=== PATIENT | male | born 1940 | race Caucasian/White ===

== ENCOUNTER 2019-04-01 15:00 | Outpatient (RCR) | payer MEDICARE, SELFPAY ==
--- NOTE | 2019-02-17 14:09 | PCCPR ---
Absent Barak called states he had a nuclear ST yesterday awaiting his results. He was told not to exercise until he hears from his MD. He is still awaiting a call. Hopes to return tomorrow. He knows to keep us informed.
--- NOTE | 2019-02-18 10:41 | PCCPR ---
Deja sahu states he is seeing the Chairman President And Chief Executive Officer today at 1145 today to learn the results of his stress echo. He is not to exercise until after he see's the MD today. Hopes to return on Friday if not will let us know.
--- NOTE | 2019-04-06 10:52 | PCCPR ---
Barak reregistered under new account number, see V# [id number] for documentation related to this visit.
== END 2019-04-01 23:59 | disposition home or self-care (01) ==
LOC: ANHCPREHAB 15:00
DX: Z95.5 Presence of coronary angioplasty implant and graft (principal)
CPT/HCPCS: 93798

== ENCOUNTER 2019-04-14 15:00 | Outpatient (RCR) | payer MEDICARE, SELFPAY | END 2019-04-14 18:23 | disposition home or self-care (01) | LOC: ANHCPREHAB 15:00 | DX: Z95.5 Presence of coronary angioplasty implant and graft (principal) | CPT/HCPCS: 93798 ==

== ENCOUNTER → 2019-09-09 09:46 | Outpatient (CLI) | payer MEDICARE, SELFPAY ==
--- NOTE | ~2019-09-09 | MR_ITS ---
EXAMINATION: MR lumbar spine wo/w con DATE: 09/09/2019 10:37 INDICATION: Lumbar radiculopathy. TECHNIQUE: Magnetic resonance imaging (MRI) of the lumbar spine was performed without and with 15 mL MultiHance intravenous contrast. Sequences included sagittal T2-weighted FSE, sagittal T2-weighted FS FSE, and sagittal and axial T1-weighted FSE. Postcontrast sequences included axial T2-weighted FSE a nd axial and sagittal T1-weighted FS FSE. COMPARISON: Lumbar spine MRI 03/22/2017 FINDINGS: There is 10 degrees levoscoliosis of lumbar spine. There is 3 mm anterolisthesis of L4 on L 5. There is mild chronic anterior wedging of T11 and T12. There is moderately decreased disc height a t L2-L3, mildly decreased disc height at L4-L5, and moderately decreased disc height at L5-S1. There are likely disc calcifications at L5-S1. The distal spinal cord signal intensity is normal. The conus medullaris is at T12. The following disc levels are specifically discussed: L1-L2: The disc is bulging and has an annular fissure. There is moderate right and mild left facet chinedu int osteoarthritis. There is moderate bilateral neural foraminal stenosis. There is mild central luis fernando l stenosis. L2-L3: The disc is bulging and has an annular fissure. There is severe bilateral facet joint osteoart hritis. There is moderate bilateral neural foraminal stenosis. There is mild central canal stenosis. L3-L4: The disc is bulging and has an annular fissure. There is severe bilateral facet joint osteoart hritis. There is moderate right and severe left neural foraminal stenosis. There is mild central luis fernando l stenosis. L4-L5: The disc is bulging and has an annular fissure. There is severe bilateral facet joint osteoart hritis. There is moderate bilateral neural foraminal stenosis. There is mild central canal stenosis. L5-S1: The disc is bulging and has an annular fissure. There is moderate right and severe left facet joint osteoarthritis. There is mild bilateral neural foraminal stenosis. There is no central canal st enosis. IMPRESSION: 1. Moderate lumbar spondylosis with improvement in central canal stenosis from 03/22/2017. 2. Lumbar levoscoliosis. Reviewed, dictated and finalized at location A.
[2019-09-09 10:13] LABS: Estimated Glomerular Filt Rate 58
== END ==
PROVIDERS: Visit Provider Neurological Surgery
DX: M47.26 Other spondylosis with radiculopathy, lumbar region (principal); Z01.818 Encounter for other preprocedural examination
CPT/HCPCS: 36415; 72158; A9577

== ENCOUNTER 2019-09-11 13:51 | Emergency (ER) | payer MEDICARE, SELFPAY ==
--- NOTE | ~2019-09-11 | CT_ITS ---
EXAMINATION: CT brain wo con DATE: 09/11/2019 14:53 INDICATION: Status post fall. Head injury. TECHNIQUE: Computed tomography (CT) of the head was performed without intravenous contrast. The dose- length product was 681.00 mGy-cm. The mA was adjusted according to patient size. Iterative reconstruc tion technique was employed. COMPARISON: None FINDINGS: Mild generalized atrophy. There are scattered mild periventricular and subcortical white ma tter changes, most likely related to small vessel ischemic disease (microangiopathy). There is subara chnoid hemorrhage in the right sylvian fissure. No acute infarction, mass or mass effect. There is in tracranial atherosclerosis. 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 IMPRESSION: 1. Small acute subarachnoid hemorrhage right sylvian fissure. 2: Chronic left occipital lobe infarction. 3: Chronic age-related findings. Dr. Kline discussed with Dr. Arlette Martinez MD at 09/11/2019 15:00 CDT. Reviewed, dictated and finalized at location A.
--- NOTE | ~2019-09-11 | XR_ITS ---
XR elbow RT min 3V, XR forearm RT 2V 09/11/2019 15:12 Indication: Right arm pain post fall from 10 feet Procedure: 4 views right elbow and 2 views right forearm Comparison: No prior studies for comparison. 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 No acute fracture or traumatic malalignment. There is osteoarthritis of the right wrist and radiocarpal joint. No acute fracture or traumatic malalignment . No focal soft tissue abnormality. Lateral view of the elbow is limited for evaluation of joint effu carina due to positioning. Impression: 1: No acute fracture. Reviewed, dictated and finalized at location A. Impression: 1: No acute fracture. Impression: 1: No acute fracture.
--- NOTE | ~2019-09-11 | XR_ITS ---
XR pelvis 1-2V 09/11/2019 15:12 Indication: Pelvic pain Procedure: AP pelvis Comparison: No prior studies for comparison. Findings: Pelvic rings are intact. Sacral foramen are symmetric. No fracture or traumatic malalignmen t. There is lower lumbar spondylosis. There is mild osteoarthritis of the hips. Impression: 1: No acute fracture. Reviewed, dictated and finalized at location A. Impression: 1: No acute fracture.
--- NOTE | ~2019-09-11 | CT_ITS ---
EXAMINATION: CT cervical spine wo con DATE: 09/11/2019 14:53 INDICATION: Status post fall from 10 foot. Loss of consciousness. TECHNIQUE: Computed tomography (CT) of the cervical spine was performed without intravenous contrast. The dose-length product was 400 mGy-cm. Automated exposure control and iterative reconstruction tech nique were employed. COMPARISON: None FINDINGS: Normal cervical lordosis. There is fusion at C6-7. There is disc narrowing at all cervical spine levels. Prominent ventral osteophytes of the mid and lower cervical spine. There is mild multil evel uncinate hypertrophy. There is moderate multilevel facet hypertrophy, left greater than right. S ubcutaneous gas present in the right neck and supraclavicular region, incompletely visualized. There is carotid atherosclerosis. 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 There is a questionable tiny right apical pneumothorax. No acute fracture or traumatic malalignment is identified. IMPRESSION: 1. No acute fracture of the cervical spine. 2: Possible tiny right apical pneumothorax. There is paraseptal emphysema with subcutaneous gas in th e right neck and supraclavicular region, incompletely visualized. 3: Moderate-severe cervical spondylosis.. Reviewed, dictated and finalized at location A. IMPRESSION: 1. No acute fracture of the cervical spine. 2: Possible tiny right apical pneumothorax. There is paraseptal emphysema with subcutaneous gas in the right neck and supraclavicular region, incompletely vis ualized. 3: Moderate-severe cervical spondylosis..
--- NOTE | ~2019-09-11 | XR_ITS ---
[[id number] ] INDICATION: Status post fall from 10 feet. Right rib pain. TECHNIQUE: Frontal projection of the upper right ribs, frontal projection of the lower right ribs, ob lique projection of all the right ribs, frontal inspiratory chest x-ray for interpretation. FINDINGS: There are acute rib fractures of the right third, fourth, fifth, sixth, seventh and eighth right breast. There are no soft tissue abnormality seen. There is a small right apical pneumothorax. Small amount of subcutaneous gas right supraclavicular region. IMPRESSION: 1: Small right apical pneumothorax. 2: Acute right third-eighth rib fractures. Dr. Kline discussed with Dr. Arlette Martinez MD at 09/11/2019 15:11 CDT. Reviewed, dictated and finalized at location A.
[2019-09-11 13:52] VITALS: BP 108/72; PULSE 78; RESP 20; TEMP 36.8; O2SAT 100
--- NOTE | 2019-09-11 14:26 | ED.FALL ---
HPI - Fall General Chief Complaint: Fall Stated Complaint: Fall - 10 ft - +LOC Time Seen by Provider: 09/11/19 13:55 Source: patient Mode of arrival: EMS Limitations: no limitations History of Present Illness HPI Narrative: This patient is a 79 year old male who presents for evaluation of head injury and right rib pain s/p fall. Patient fell through his deck that was 10 ft high prior to arrival. Patient is unsure if he landed on concrete. His son reported to EMS 1 minute Loss of consciousness. He has remained oriented x 3. He complains of right side pain. He denies sob, nausea, vomiting or headache. His last tetanus has been in the past year. complaint: fall Onset (ago): hour(s) Fall from: from height (distance) (5-10) Related Data Home Medications Medication Instructions Recorded Confirmed PreserVision AREDS-2 1 tablet PO DAILY 01/01/19 01/11/19 aspirin [Adult Low Dose Aspirin] 81 mg PO DAILY 01/01/19 01/01/19 atorvastatin 40 mg PO DAILY 01/01/19 01/01/19 cetirizine [Zyrtec] 10 mg PO DAILY 01/01/19 01/11/19 clopidogrel 75 mg PO DAILY 01/01/19 01/11/19 ferrous sulfate 325 mg PO 2XW 01/01/19 01/11/19 hydrochlorothiazide 25 mg PO DAILY 01/01/19 01/01/19 lisinopril 20 mg PO DAILY 01/01/19 01/01/19 omeprazole 20 mg PO DAILY 01/01/19 01/01/19 isosorbide dinitrate 30 mg PO HS 01/11/19 01/11/19 Allergies Allergy/AdvReac Type Severity Reaction Status Date / Time No Known Allergies Allergy Unknown Verified 12/16/17 13:34 NKDA Allergy Mild Uncoded 09/06/08 18:25 Review of Systems Review of Systems: All systems reviewed & are unremarkable except as noted in HPI and below Respiratory: Respiratory: Denies cough and Denies dyspnea Musculoskeletal: Musculoskeletal: Reports myalgias Neurologic: Denies dizziness and Denies headache(s) [facility] Past Medical History Medical History (Updated 09/11/19 @ 15:32 by Arlette Martinez MD) Coronary artery disease Hyperlipidemia Hypertension Surgical History Surgical History (Updated 09/11/19 @ 14:27 by Arlette Martinez MD) History of heart artery stent Exam Const: General: No diaphoretic Orientation/consciousness: patient oriented x3 HENMT: Head: other (right parietal hematoma) Face and sinus: face symmetric Throat: tonsils normal and uvula midline Eyes: Pupils: Equal, round and reactive pupils present EOM: EOMs intact bilaterally Neck: Neck: normal visual inspection Chest: Chest palpation & inspection: tenderness (right lateral chest tendereness) Resp: Effort & Inspection: normal respiratory effort and no retractions Auscultation: clear to auscultation bilaterally Cardio: Rate: regular rate Rhythm: regular rhythm Heart sounds: no murmurs GI: GI Palp: Yes Soft to palpation, No Tenderness to palpation present (GI), No Guarding due to palpation present (GI) and No Rigid due to palpation Neuro: General: patient oriented x3, moves all extremities and CN's II-XI intact bilaterally Extrem: Other: FROM all extremities, skin tear to right forearma and right elbow Course Reevaluation(s) Reevaluation #1: I have discussed with patient and his that he will need to be referred to [facility] due to traumatic injuries found Date: 09/11/19 Time: 15:26 Consultations Consultation #1: I spoke with Dr. Melo in ER who accepts patient in ER. Date: 09/11/19 Time: 15:26 Vital Signs Vital signs: Vital Signs Temperature 98.2 F 09/11/19 13:52 Pulse Rate 78 09/11/19 13:52 Respiratory Rate 20 09/11/19 13:52 Blood Pressure 108/72 09/11/19 13:52 Pulse Oximetry 100 09/11/19 13:52 Temperature 98.2 F 09/11/19 16:06 Pulse Rate 69 09/11/19 15:18 Respiratory Rate 20 09/11/19 15:18 Blood Pressure 141/76 H 09/11/19 15:18 Pulse Oximetry 96 09/11/19 15:18 MDM - Fall Lab Data Result diagrams: 09/11/19 14:46 09/11/19 14:46 Labs: Lab Results 09/11/19 09/11/19 09/11/19 Range/Units 14:45 14:46
[2019-09-11 14:56] LABS: Basophils Percent Auto 0.4 % (0.2-1.2); Eosinophils Percent Auto 0.3 % (0-4.4); Hematocrit 37.3 % (42.0-52.0); Hemoglobin 12.6 g/dL (14.0-18.0); Immature Granulocyte Absolute 0.11 K/mm3 (0.00-0.031); Immature Granulocyte Percent A 1.6 % (0-0.5); Lymphocytes Absolute Auto 0.62 K/mm3 (0.9-3.2); Lymphocytes Percent Auto 9.1 % (18.3-44.2); Mean Corpuscular HGB Conc 33.8 g/dl (32-36); Mean Corpuscular Volume 91.9 fl (80-100); Mean Platelet Volume 9.8 fl (7.4-10.4); Monocytes Absolute Auto 0.6 K/mm3 (0.1-0.6); Monocytes Percent Auto 9.1 % (2.6-8.5); Neutrophils Absolute Auto 5.4 K/mm3 (1.3-6.7); Neutrophils Percent Auto 79.5 % (45.5-73.1); Platelet Count Result 192 k/mm3 (150-375); Red Blood Count 4.06 M/mm3 (4.6-6.20); Red Cell Distribution Width 13.1 % (11.5-14.5); White Blood Count 6.8 K/mm3 (4.5-10.0)
[2019-09-11 15:03] LABS: Alanine Aminotransferase 92 U/L (4-50); Albumin Level 4.2 g/dL (3.5-5.1); Alkaline Phosphatase 114 U/L (38-126); Aspartate Amino Transferase 147 U/L (17-59); Bilirubin,Total 1.2 mg/dL (0.2-1.3); Blood Urea Nitrogen 30 mg/dL (9-20); Calcium 9.1 mg/dL (8.4-10.2); Carbon Dioxide 25 mmol/L (22-30); Chloride 101 mmol/L (98-107); Estimated CRCL calculation 42 ml/min; Estimated Glomerular Filt Rate 53; Glucose 164 mg/dL (75-110); Potassium 4.1 mmol/L (3.4-5.0); Sodium 137 mmol/L (137-145)
[2019-09-11 15:12] LABS: INR 1.1; Prothrombin Time 13.5 Seconds (11.1-14.7)
[2019-09-11] MEDS: MORPHINE SULFATE 2 MG/ML INJ IV PUSH (15:15)
[2019-09-11] MEDS: SODIUM CHLORIDE 0.9% IV 1,000 ML 1000 ML (15:16)
[2019-09-11] MEDS: ONDANSETRON INJ 4 MG/2 ML VIAL IV PUSH (15:16)
[2019-09-11 15:18] VITALS: BP 141/76; PULSE 69; RESP 20; O2SAT 96
[2019-09-11 16:06] VITALS: TEMP 36.8
== END 2019-09-11 16:21 | disposition short-term general hospital (02) ==
PROVIDERS: Emergency Provider General Practice
DX: S06.6X1A Traumatic subarachnoid hemorrhage with loss of consciousness of 30 minutes or less, initial encounter (principal); S22.41XA Multiple fractures of ribs, right side, initial encounter for closed fracture; S27.0XXA Traumatic pneumothorax, initial encounter; I25.10 Atherosclerotic heart disease of native coronary artery without angina pectoris; E78.5 Hyperlipidemia, unspecified; I10 Essential (primary) hypertension; Z95.5 Presence of coronary angioplasty implant and graft; M47.812 Spondylosis without myelopathy or radiculopathy, cervical region; W13.3XXA Fall through floor, initial encounter
CPT/HCPCS: 36415; 70450; 71101; 72125; 72170; 73080; 73090; 80053; 85025; 85610; 85730; 86850; 86900; 86901; 96365; 96375; 99291; J0131; J2270; J2405; J7030

== ENCOUNTER → 2020-03-23 14:44 | Outpatient (CLI) | payer MEDICARE, SELFPAY ==
--- NOTE | ~2020-03-23 | CT_ITS ---
EXAMINATION: CT lumbar spine wo con DATE: 03/23/2020 15:10 INDICATION: Lumbar radiculopathy. TECHNIQUE: Computed tomography (CT) of the lumbar spine was performed without intravenous contrast. A utomated exposure control and iterative reconstruction technique were employed. The dose-length produ ct was 916.41 mGy-cm. COMPARISON: Lumbar spine MRI 09/09/2019 FINDINGS: There is 10 degrees levoscoliosis of lumbar spine. There is 3 mm retrolisthesis of L1 on L2 and 3 mm anterolisthesis of L4 on L5. There are Schmorl's nodes of the inferior endplates of L2 and L3. There is mildly decreased disc height at L1-L2, severely decreased disc height at L2-L3, mildly d ecreased disc height at L3-L4 and L4-L5, and moderately decreased disc height at L5-S1. There are dis c calcifications at L5-S1. There are bridging endplate osteophytes at T11-T12, T12-L1, and L5-S1. The following disc levels are specifically discussed: L1-L2: The disc is bulging. There is severe right and mild left facet joint osteoarthritis. There is moderate bilateral neural foraminal stenosis. There is mild central canal stenosis. L2-L3: The disc is bulging. There is severe bilateral facet joint osteoarthritis. There is moderate r ight and mild left neural foraminal stenosis. There is mild central canal stenosis. L3-L4: The disc is bulging. There is severe bilateral facet joint osteoarthritis. There is moderate b ilateral neural foraminal stenosis. There is mild central canal stenosis. L4-L5: The disc is bulging. There is severe bilateral facet joint osteoarthritis. There is moderate b ilateral neural foraminal stenosis. There is mild central canal stenosis. L5-S1: The disc is bulging. There is severe bilateral facet joint osteoarthritis. There is mild bilat eral neural foraminal stenosis. There is no central canal stenosis. IMPRESSION: 1. Moderate lumbar spondylosis, stable from 09/19/2019. 2. Lumbar levoscoliosis. Reviewed, dictated and finalized at location B. [employer]
== END ==
PROVIDERS: Visit Provider Neurological Surgery
DX: M47.26 Other spondylosis with radiculopathy, lumbar region (principal)
CPT/HCPCS: 72131

== ENCOUNTER 2020-11-17 16:06 | Emergency (ER) | payer MEDICARE, SELFPAY ==
--- NOTE | 2020-11-17 16:26 | ED.EYEPROB ---
HPI - Eye Problem General Chief complaint: Eye Problems Stated complaint: Eye Pain History of Present Illness HPI Narrative: This is a 80 year old male that comes in because he pulled the wrong solution and put in his eye he placed the cleaning solution and then he flushed his eye but it continue to hurt all day. Then he realized he never took his contact out after wearing all day and that is why his eye is blood shot burning and still hurts. now he has it out but he is burning so bad. Related Data Home Medications Medication Instructions Recorded Confirmed PreserVision AREDS-2 1 tablet PO DAILY 01/01/19 11/17/20 aspirin [Adult Low Dose Aspirin] 81 mg PO DAILY 01/01/19 11/17/20 atorvastatin 40 mg PO DAILY 01/01/19 11/17/20 cetirizine [Zyrtec] 10 mg PO DAILY 01/01/19 11/17/20 clopidogrel 75 mg PO DAILY 01/01/19 11/17/20 ferrous sulfate 325 mg PO 2XW 01/01/19 11/17/20 hydrochlorothiazide 25 mg PO DAILY 01/01/19 11/17/20 lisinopril 20 mg PO DAILY 01/01/19 11/17/20 omeprazole 20 mg PO DAILY 01/01/19 11/17/20 isosorbide dinitrate 30 mg PO HS 01/11/19 11/17/20 Allergies Allergy/AdvReac Type Severity Reaction Status Date / Time No Known Allergies Allergy Unknown Verified 11/17/20 16:26 NKDA Allergy Mild Other Uncoded 11/17/20 16:26 Review of Systems Review of Systems: eye left eye pain All systems reviewed & are unremarkable except as noted in HPI and below PMFSH Past Medical History Medical History (Updated 11/17/20 @ 17:29 by Masoud Wooten NP) Coronary artery disease Hyperlipidemia Hypertension Surgical History Surgical History (Updated 09/11/19 @ 14:27 by Arlette Martinez MD) History of heart artery stent Comments At time as signature, I have reviewed and agree with nursing past medical, social, surgical and family history. Please see nursing chart for further information. There is no relevant family history pertinent to the presenting complaint. Exam Narrative: GENERAL:Well-appearing, well-nourished, and in no acute distress. HEAD:Normocephalic, atraumatic. EYES: Left eye with erythema swollen subconjunctival edema corneal abrasion blurry vision ENT: Nares clear, no rhinorrhea or epistaxis. Mucous membranes moist. CHEST: Clear to auscultation. No respiratory distress. HEART: Regular rate and rhythm. EXTREMITIES: Normal range of motion. No edema. SKIN: Warm, dry, no rash. NEURO: No focal deficits. Alert and oriented x3. Course Course Emergency Course: Call placed to conveyor line bakery worker spoke with Dr.Julie Ortiz who I informed of what I was seeing and to ensure that I was put the patient on the appropriate medication and follow up time she wanted him to do the drop q2 hours for the first two days and informed me patient did not need to get up in the middle of the night if he was sleeping and he needed to see a eye doctor in the morning Vital Signs Vital signs: Vital Signs Temperature 98.7 F 11/17/20 16:29 Pulse Rate 78 11/17/20 16:29 Respiratory Rate 18 11/17/20 16:29 Blood Pressure 118/80 11/17/20 16:29 Pulse Oximetry 99 11/17/20 16:29 Temperature 98.7 F 11/17/20 16:40 Pulse Rate 78 11/17/20 16:40 Respiratory Rate 18 11/17/20 16:40 Blood Pressure 118/80 11/17/20 16:40 Pulse Oximetry 99 11/17/20 16:40 Procedures FB Removal Eye Foreign Body #1: Foreign Body Removal Date: 11/17/20 Foreign Body Removal Time: 16:33 Time Out performed: Yes Technique: irrigation (4 oz ) Post-procedure medication: topical anesthetic Foreign Body Removal Narrative: pt mixed eye cleanser for contacts in his eye and then contact was stuck in his eye. MDM - Eye Problem Differential Diagnosis Differential diagnosis: Likely corneal abrasion, conjunctivitis and subconjunctival hemorrhage Discharge Plan Discharge Clinical Impression: Burn of eye Qualifiers: Encounter type: initial encounter Laterality: left Qualified Code(s): T26.42XA - Burn of
[2020-11-17 16:29] VITALS: BP 118/80; PULSE 78; RESP 18; TEMP 37.1; O2SAT 99
[2020-11-17 16:40] VITALS: BP 118/80; PULSE 78; RESP 18; TEMP 37.1; O2SAT 99
== END 2020-11-17 17:30 | disposition home or self-care (01) ==
PROVIDERS: Emergency Provider Nurse Practitioner Family
DX: T26.42XA Burn of left eye and adnexa, part unspecified, initial encounter (principal); S05.02XA Injury of conjunctiva and corneal abrasion without foreign body, left eye, initial encounter; I25.10 Atherosclerotic heart disease of native coronary artery without angina pectoris; E78.5 Hyperlipidemia, unspecified; I10 Essential (primary) hypertension; Z79.82 Long term (current) use of aspirin; X58.XXXA Exposure to other specified factors, initial encounter
CPT/HCPCS: 99213; A9270; G0463

== ENCOUNTER 2021-10-30 11:13 | Emergency (ER) | payer MEDICARE, SELFPAY ==
--- NOTE | 2021-10-30 11:19 | ED.UPPEXIN ---
HPI - Extremity Injury (Upper) General Chief Complaint: Extremity Injury, Upper Stated Complaint: left shoulder pain Time Seen by Provider: 10/30/21 11:19 Source: patient Mode of arrival: ambulatory Limitations: no limitations History of Present Illness HPI narrative: Mr. Caraballo is an 81-year-old male patient presenting to the clinic today with complaints of left-sided shoulder pain x1 day. He reports he has some chronic shoulder pain however symptoms worsened yesterday after playing golf. He reports that he reached down in his car to grab his wallet and keys from the center console and felt a pop in his left shoulder. He reports pain to the top of the left shoulder with movement. He has taken 600 mg of ibuprofen and this is helped the pain this morning. He also iced his shoulder last night. Related Data Home Medications Medication Instructions Recorded Confirmed PreserVision AREDS-2 1 tablet PO DAILY 01/01/19 11/17/20 aspirin 81 mg tablet,delayed 81 mg PO DAILY 01/01/19 11/17/20 release (Adult Low Dose Aspirin) atorvastatin 40 mg tablet 40 mg PO DAILY 01/01/19 11/17/20 cetirizine 10 mg capsule (Zyrtec) 10 mg PO DAILY 01/01/19 11/17/20 clopidogrel 75 mg tablet 75 mg PO DAILY 01/01/19 11/17/20 ferrous sulfate 325 mg (65 mg 325 mg PO 2XW 01/01/19 11/17/20 iron) tablet hydrochlorothiazide 25 mg tablet 25 mg PO DAILY 01/01/19 11/17/20 lisinopril 20 mg tablet 20 mg PO DAILY 01/01/19 11/17/20 omeprazole 20 mg capsule,delayed 20 mg PO DAILY 01/01/19 11/17/20 release isosorbide dinitrate 30 mg tablet 30 mg PO HS 01/11/19 11/17/20 tamsulosin 0.4 mg capsule mg PO 10/30/21 Allergies Allergy/AdvReac Type Severity Reaction Status Date / Time No Known Allergies Allergy Unknown Verified 11/17/20 16:26 NKDA Allergy Mild Other Uncoded 11/17/20 16:26 Review of Systems Review of Systems: Pertinent positives per HPI. Patient denies any fever, chills, rash, headache, visual changes, dizziness, cough, runny nose, sore throat, shortness of breath, chest pain, palpitations, nausea, vomiting, diarrhea, constipation, abdominal pain, or any urinary issues. [facility] Past Medical History Medical History Coronary artery disease Hyperlipidemia Hypertension Surgical History Surgical History History of heart artery stent Comments At the time of my signature, I reviewed and agree with the nursing past medical, surgical, social, and family history. There is no relevant family history pertinent to the patient complaint. Exam Narrative: General: Well-developed, well nourished, in no apparent distress Head: Normocephalic, atraumatic. Cardio: Regular rate and rhythm, s1 and s2 normal, no murmur appreciated. Resp: Clear to auscultation bilaterally, no rhonchi, rales, wheezing or rubs. Musculoskeletal: No deformity, tender to palpation over the supraspinatus tendon, pain over the supraspinatus tendon with full can and empty can testing, pain over the supraspinatus tendon with Hawking's test, grossly normal range of motion but has pain with raising arm above head, muscle strength strong and equal, bilateral hand claim taker strong and equal, peripheral pulse strong, no edema, no cyanosis, normal gait and station Course Course Emergency Course: Portions of this record may have been created with voice recognition software. Level of Care: Express Care Visit Vital Signs Vital signs: Vital signs reviewed MDM - Extremity Injury (Upper) MDM Narrative Medical decision making narrative: At the time of visit patient was resting comfortably on the exam table. Patient has no sign of rotator cuff tear. I suspect the patient has supraspinatus tendinitis to the left shoulder. Supportive measures were discussed with the patient he voiced understanding of discharge instructions and agrees to the treatment plan. Differential Diagno
[2021-10-30 11:22] VITALS: BP 90/59; PULSE 96; RESP 16; TEMP 37.1; O2SAT 98
== END 2021-10-30 11:48 | disposition home or self-care (01) ==
PROVIDERS: Emergency Provider Nurse Practitioner Family
DX: M77.8 Other enthesopathies, not elsewhere classified (principal); I25.10 Atherosclerotic heart disease of native coronary artery without angina pectoris; E78.5 Hyperlipidemia, unspecified; I10 Essential (primary) hypertension; Z95.5 Presence of coronary angioplasty implant and graft; Z79.82 Long term (current) use of aspirin
CPT/HCPCS: 99212; G0463

== ENCOUNTER → 2022-01-16 13:13 | Outpatient (CLI) | payer MEDICARE, SELFPAY ==
--- NOTE | ~2022-01-16 | XR_ITS ---
EXAMINATION: XR lumbar spine min 4V DATE: 01/16/2022 13:37 INDICATION: Low back pain TECHNIQUE: Anteroposterior and lateral in neutral, flexion and extension views of the lumbar spine, a nd cone-down lateral view of the lumbosacral junction were obtained. COMPARISON: CT, 03/23/2020 FINDINGS: There are 4 mm of stable anterolisthesis of L4 on L5. No laxity is present with flexion or extension. The vertebral body heights are normal. There is severe loss of intervertebral disc space h eight at L2-3, moderate loss of disc space height at L5-S1 and mild loss of disc space height through out the remainder of the lumbar spine. There is no fracture. There is severe facet joint osteoarthrit is in the lower lumbar spine. There are 18 degrees of lumbar levoscoliosis. IMPRESSION: 1. Moderate lumbar spondylosis without acute findings or significant interval change. Reviewed, dictated and finalized at location F. MECHANIC IMPRESSION: 1. Moderate lumbar spondylosis without acute findings or significant interval c andrew.
--- NOTE | ~2022-01-16 | XR_ITS ---
XR hip LT 2V w AP pelvis DATE: 01/16/2022 13:37 INDICATION: Left hip pain for 2 years. No injury. TECHNIQUE: AP pelvis. AP and lateral views of left hip COMPARISON: None FINDINGS: Degenerative disc disease at L4-5 and L5-S1. Normal alignment at the pubic symphysis and sacroiliac joints. There is mild left hip osteoarthritis. No fracture or dislocation, avascular necrosis or bone destruc tion of the left hip. IMPRESSION: Mild left hip osteophytes Degenerative disc disease at L4-5 and L5-S1 Reviewed, dictated and finalized at location A. E HEATER
== END ==
DX: M46.1 Sacroiliitis, not elsewhere classified (principal); M47.817 Spondylosis without myelopathy or radiculopathy, lumbosacral region; M51.36 Other intervertebral disc degeneration, lumbar region; M51.37 Other intervertebral disc degeneration, lumbosacral region
CPT/HCPCS: 72110; 73502

== ENCOUNTER → 2022-10-14 09:41 | Outpatient (CLI) | payer OTHER, SELFPAY ==
--- NOTE | ~2022-10-14 | MR_ITS ---
EXAMINATION: MR lumbar spine wo con DATE: 10/14/2022 11:08 INDICATION: Low back pain. Left leg pain. TECHNIQUE: Magnetic resonance imaging (MRI) of the lumbar spine was performed without intravenous con trast. Sequences included sagittal T2-weighted FSE, sagittal T2-weighted FS FSE, sagittal T1-weighted FSE, and axial T2-weighted FSE. COMPARISON: Lumbar spine MRI 09/09/2019 FINDINGS: There is 16 degrees levoscoliosis of lumbar spine. There is 3 mm anterolisthesis of L4 on L 5. Vertebral body heights are normal. There is severely decreased disc height at L2-L3, moderately de creased disc height at L3-L4, and mildly decreased disc height at L4-L5. There is moderately decrease d disc height at L5-S1 with interbody fusion. The distal spinal cord signal intensity is normal. The conus medullaris is at T12. The following disc levels are specifically discussed: L1-L2: The disc is bulging. There is severe right and moderate left facet joint osteoarthritis. There is moderate bilateral neural foraminal stenosis. There is mild central canal stenosis. L2-L3: The disc is bulging and has an annular fissure. There is severe bilateral facet joint osteoart hritis. There is moderate right and mild left neural foraminal stenosis. There is mild central canal stenosis. L3-L4: The disc is bulging with superimposed right central extrusion. There is severe bilateral facet joint osteoarthritis. There is moderate bilateral neural foraminal stenosis. There is mild central c anal stenosis. There is severe stenosis of the lateral recess. L4-L5: The disc is bulging and has an annular fissure. There is severe bilateral facet joint osteoart hritis. There is moderate bilateral neural foraminal stenosis. There is mild central canal stenosis. There is moderate stenosis of left lateral recess. L5-S1: The disc is bulging. There is moderate right and severe left facet joint osteoarthritis. There is mild bilateral neural foraminal stenosis. There is no central canal stenosis. IMPRESSION: 1. Severe lumbar spondylosis, worsened from 09/09/2019. 2. Lumbar levoscoliosis. Reviewed, dictated and finalized at location A.
== END ==
PROVIDERS: Visit Provider Anesthesiology Pain Medicine
DX: M47.817 Spondylosis without myelopathy or radiculopathy, lumbosacral region (principal); M48.062 Spinal stenosis, lumbar region with neurogenic claudication
CPT/HCPCS: 72148

== ENCOUNTER 2023-03-07 11:30 | Outpatient (CLI) | payer OTHER, SELFPAY ==
--- NOTE | ~2023-03-07 | US_ITS ---
EXAMINATION: US venous doppler LE RT DATE: 03/07/2023 11:54 INDICATION: Right lower limb swelling TECHNIQUE: Grayscale ultrasound images without and with compression and Doppler ultrasound images of the right lower extremity veins were obtained. COMPARISON: None. FINDINGS: The visualized portions of right common femoral vein, profunda (deep) femoral vein, femoral vein, pop liteal vein, peroneal trunk, posterior tibial veins, peroneal veins, gastrocnemius vein and greater s aphenous vein outflow are patent. 4.8 x 1.7 x 0.8 cm anechoic Sanz's cyst at the right popliteal fos sa. IMPRESSION: 1. No deep venous thrombosis in the right lower limb. 2. Moderate-sized Sanz's cyst at the right popliteal fossa. Reviewed, dictated and finalized at location A. [employer]
== END 2023-03-07 11:31 | disposition home or self-care (01) ==
PROVIDERS: Visit Provider Internal Medicine Nephrology
DX: M79.89 Other specified soft tissue disorders (principal); M71.21 Synovial cyst of popliteal space [Baker], right knee
CPT/HCPCS: 93971

== ENCOUNTER 2023-06-11 13:55 | Outpatient (CLI) | payer OTHER, SELFPAY ==
[2023-06-11 19:00] LABS: Alanine Aminotransferase 21 U/L (6-50); Albumin Level 3.8 g/dL (3.5-5.1); Alkaline Phosphatase 79 U/L (38-126); Anion Gap 5 mmol/L (4-12); Aspartate Amino Transferase 36 U/L (17-59); Bilirubin,Total 1.2 mg/dL (0.2-1.3); Blood Urea Nitrogen 26 mg/dL (9-20); Calcium 8.7 mg/dL (8.4-10.2); Carbon Dioxide 29 mmol/L (22-30); Chloride 104 mmol/L (98-107); Estimated Glomerular Filt Rate 58; Glucose 79 mg/dL (65-110); Potassium 4.2 mmol/L (3.4-5.0); Sodium 138 mmol/L (137-145)
== END 2023-06-11 13:56 | disposition home or self-care (01) ==
PROVIDERS: PCP Internal Medicine; Visit Provider Clinical Nurse Specialist
DX: N18.31 Chronic kidney disease, stage 3a (principal)
CPT/HCPCS: 36415; 80053

== ENCOUNTER 2023-06-17 11:41 | Day surgery (SDC) | payer OTHER, SELFPAY ==
[2023-06-16 09:44] VITALS: BMI 27.3
--- NOTE | ~2023-06-17 | XR_ITS ---
EXAMINATION: XR fluoroscopy no charge DATE: 06/17/2023 14:09 INDICATION: Sacroiliitis elsewhere classified. TECHNIQUE: 21 intraoperative fluoroscopic views of the sacrum were obtained. I was not present. Fluor oscopy exposure time was 23 seconds. COMPARISON: None. FINDINGS: Images demonstrate injection of the bilateral sacroiliac joints. IMPRESSION: 1. Bilateral sacroiliac joint injections. Reviewed, dictated and finalized at location E.
--- NOTE | 2023-06-17 13:08 | WPDHPUPDATE1 ---
History and Physical Update Update Date/Time: 06/17/23 13:08 History and Physical has been reviewed, including an updated exam of the patient. There are NO changes in the patient's condition. Risks, benefits, and alternatives have been discussed and questions answered. Patient agrees to proceed with procedure.
[2023-06-17 13:17] VITALS: BP 133/91; PULSE 80; RESP 20; TEMP 37.2; O2SAT 97
--- NOTE | 2023-06-17 13:43 | W.PM.PROC2 ---
Procedure Note - Detailed Date of Procedure 06/17/23 Pre-op Diagnosis Sacroiliitis not elsewhere classified, dorsalgia Post-op Diagnosis Same Procedure Performed Bilateral Sacroiliac Joint Steroid Injection under Fluoroscopic Guidance and with Contrast Control Surgeon Robin Sam MD Anesthesia Local Description of Procedure INFORMED CONSENT: Risks, benefits and alternatives to the procedure were discussed in detail with the patient who expressed explicit understanding and consent to proceed. Patient was informed verbally and in written form regarding the risks associated with the procedure including the low risk of serious infection, bleeding/bruising, allergic reaction, nerve or organ injury, paralysis, procedural site pain or discomfort, worsening pain and/or mobility, failure to treat and/or disfigurement. The patient expressed explicit understanding and consent to proceed. All materials required for the procedure were available prior to procedure start. Site and side were marked prior to procedure and confirmed in the presence of the patient. PROCEDURE IN DETAIL: The patient was brought to the procedural suite and placed in the prone position. Patient was made comfortable with use of pillows under the head/chest, hips and ankles. Skin overlying the injection site on the affected side(s) was prepared broadly with ChloraPrep applicator and draped in a sterile manner. Aseptic technique was used throughout. The SI joint was identified in the AP view and contralateral oblique angulation with caudal tilt was utilized to optimize visualization of the inferior and medial joint line representing the posterior portion of the joint. Local anesthesia was established by infiltration with approximately 5 mL of 2% lidocaine via a 1-1/2 inch 27-gauge needle. A 22-gauge 3.5 inch Quincke spinal needle was advanced until the needle entered the inferior third of the joint space approximately 1cm cephalad from its most inferior point. In the AP view, 0.5 mL of Omnipaque 300 contrast medium was injected after negative aspiration for CSF, blood or other bodily fluid, showing appropriate intra-articular spread of contrast without evidence of intravascular, perineural or intrathecal placement. A 1.5 mL solution containing 3 mg of betamethasone in 0.5% PF bupivacaine was injected after repeat negative aspiration. Appropriate spread of the injectate was confirmed with washout of previous injected contrast. No parasthesias were elicited. Needle was removed completely intact without difficulty. The same exact procedure was repeated for all remaining levels on the contralateral side, left SI joint, modified as necessary to accommodate for the new target location with identical findings/results and no evidence of complication. Images were saved and documented in the patient chart. Patient's skin was cleansed and sterile bandage applied. The patient tolerated the procedure well. The patient was transported to the recovery area in stable condition where they were observed for an appropriate amount of time prior to discharge, without evidence of complication. The patient was instructed to avoid excessive activity for the next 48 hours, including climbing and frequent use of stairs. Showers only for 48 hours. They were instructed not to drive or operate heavy machinery for 24 hours. They are to monitor for severe headaches, fevers, chills, night sweats, erythema/swelling at the site or any other signs of infection, bleeding/bruising, bowel or bladder changes as well as new pain, weakness or numbness in the upper or lower extremity. Should they notice these changes, they are instructed to call our office immediately or report directly to the nearest Emergency Department if no answer or if after posted office hours. COMPLICATIONS: None COMMENTS: None CONTRAST WASTED: 29mL Omnipaque 300. Complications No immediate complications Condition Stable Disposition Same day [facility]
[2023-06-17 13:57] VITALS: BP 161/94; PULSE 79; RESP 20; O2SAT 97
[2023-06-17 14:05] VITALS: BP 143/88; PULSE 73; RESP 20; O2SAT 95
[2023-06-17] MEDS: LIDOCAINE HCL 1% PF INJ 5 ML VIAL 3 ML INFILTRATE (14:06)
[2023-06-17] MEDS: BUPivacaine HCL 0.5% 10 ML AMP 2 ML INFILTRATE (14:07)
[2023-06-17] MEDS: BETAMETHASONE SODIUM PHOSPHATE PF INJ 6 MG/ML VIAL INFILTRATE (14:07)
[2023-06-17 14:13] VITALS: BP 122/87; PULSE 72; RESP 18; O2SAT 99
== END 2023-06-17 14:29 | disposition home or self-care (01) ==
PROVIDERS: PCP Internal Medicine; Visit Provider Anesthesiology Pain Medicine
PROC: (CPT 27096; principal; 2023-06-17 14:00)
DX: M46.1 Sacroiliitis, not elsewhere classified (principal); M54.9 Dorsalgia, unspecified
CPT/HCPCS: 27096; 99199; G0260

== ENCOUNTER 2023-07-14 10:21 | Outpatient (CLI) | payer OTHER, SELFPAY | END 2023-07-14 10:22 | disposition home or self-care (01) | PROVIDERS: PCP Internal Medicine; Visit Provider Internal Medicine | DX: R53.83 Other fatigue (principal); I10 Essential (primary) hypertension; R06.00 Dyspnea, unspecified | CPT/HCPCS: 36415; 84443 ==

== ENCOUNTER 2023-07-14 10:30 | Outpatient (CLI) | payer OTHER, SELFPAY ==
--- NOTE | ~2023-07-14 | XR_ITS ---
Clinical Indication: Dyspnea PA and lateral views of the chest: Comparison: None Findings: The lungs are clear, without evidence of focal consolidation or pleural effusion. Cardiome diastinal silhouette is within normal limits. Multiple old right-sided rib fracture deformities are n oted. Impression: Clear lungs. Reviewed, dictated and finalized at location . Impression: Clear lungs.
== END 2023-07-14 10:31 ==
LOC: GOSHIMG 10:32
PROVIDERS: PCP Internal Medicine; Visit Provider Internal Medicine
DX: R06.00 Dyspnea, unspecified (principal)
CPT/HCPCS: 71046

== ENCOUNTER 2023-07-18 14:43 | Outpatient (CLI) | payer OTHER, SELFPAY ==
--- NOTE | 2023-07-18 17:04 | P.PCNPFT_ITS ---
PFT Procedure Performed PFT Procedure Performed Plethysmography (Lung Vol) Diffusing Cap (DLCO) Flow Vol Loop Spirometry w/o Bronchodil PFT Interpretation This is a pulmonary function test with spirometry, plethysmography and diffusing capacity. The test was performed and results interpreted in accordance with the 2019 and 2005 ATS/ERS Task Force guidelines respectively using the Global Lung Function Initiative-2012 reference equations. Patient demonstrated good effort and cooperation. Reproducibility criteria were met. The quality of the spirometry maneuver was Grade A. Of note, the patient had difficulty holding exhalation with spirometry. Findings: Spirometry: The contour the inspiratory and expiratory flow tracing are normal. The FVC is 4.47 L, 119% predicted. The FEV1 is 3.55 L, 128% predicted. The FEV1: FVC ratio 79%. Plethysmography: The total lung capacity is 7.35 L, 104% predicted. The functional residual capacity is 3.53 L, 91% predicted. The residual volume is 2.88 L, 105% predicted. Diffusing capacity: The diffusing capacity unadjusted for hemoglobin and carbox yhemoglobin is 20.6, 90% predicted. The diffusing capacity adjusted for alveolar volume is 3.02, 86% predicted. In comparison to previous pulmonary function testing on 04/09/2016 the post bronchodilator FVC is unchanged from 4.81 L to 4.47 L. The post bronchodilator FEV1 is unchanged from 3.87 L to 3.55 L. The total lung capacity is unchanged from 8.04 L to 7.35 L. The functional residual capacity has decreased from 4.49 L to 3.53 L. The residual volume is unchanged from 3.13 L to 2.88 L. The diffusing capacity unadjusted for hemoglobin and carboxyhemoglobin is decreased from 26.0 to 20.6. The diffusing capacity adjusted for alveolar volume has decreased from 3.76 to 3.02. Impression: The spirometry is normal without evidence of an obstructive abnormality. The lung volumes are normal. The diffusing capacity is normal. In comparison to previous pulmonary function testing on 04/09/2016 there has been a greater than anticipated time dependent decrease in the functional residual capacity and diffusing capacity with no significant change in the FVC, FEV1, total lung capacity, and residual volume. Clinical correlation is recommended.
== END 2023-07-18 14:44 | disposition home or self-care (01) ==
LOC: ANHPFT 14:44
PROVIDERS: PCP Internal Medicine; Visit Provider Internal Medicine
DX: R06.00 Dyspnea, unspecified (principal); R53.83 Other fatigue
CPT/HCPCS: 94375; 94726; 94729

== ENCOUNTER 2023-08-01 11:09 | Outpatient (CLI) | payer OTHER, SELFPAY ==
[2023-08-06 11:14] LABS: Testosterone Free 51.3 pg/mL (30.0-135.0); Testosterone Total 532 ng/dL (250-1100)
== END 2023-08-01 11:10 | disposition home or self-care (01) ==
PROVIDERS: PCP Internal Medicine; Visit Provider Internal Medicine
DX: R53.83 Other fatigue (principal)
CPT/HCPCS: 36415; 84402; 84403

== ENCOUNTER 2023-08-14 10:57 | Outpatient (CLI) | payer OTHER, SELFPAY ==
--- NOTE | ~2023-08-14 | US_ITS ---
EXAMINATION: US renal BI DATE: 08/14/2023 11:14 INDICATION: Stage IIIa chronic kidney disease TECHNIQUE: Multiple ultrasound grayscale images of the kidneys were obtained. COMPARISON: None. FINDINGS: The right kidney measures 9.7 x 4.6 x 4.7 cm. The left kidney measures 9.6 x 5.4 x 5.0 cm. The kidney s demonstrate normal echogenicity. There is no hydronephrosis in either kidney. No stones identified . The bladder is normal accounting for partially decompressed state. IMPRESSION: 1. Normal kidneys without hydronephrosis. Reviewed, dictated and finalized at location A.
== END 2023-08-14 10:58 ==
LOC: GOSHIMG 10:58
PROVIDERS: PCP Internal Medicine; Visit Provider Internal Medicine Nephrology
DX: N18.31 Chronic kidney disease, stage 3a (principal)
CPT/HCPCS: 76775

== ENCOUNTER 2023-08-19 05:47 | Day surgery (SDC) | payer OTHER, SELFPAY ==
[2023-08-11 12:08] VITALS: BMI 26.9
--- NOTE | ~2023-08-19 | XR_ITS ---
EXAMINATION: XR fluoroscopy no charge DATE: 08/19/2023 08:18 INDICATION: Thermal radioablation bilateral L5, S1, S2, S3 and S4 nerve roots. TECHNIQUE: 4 fluoroscopic images of the pelvis centered at the left and right sacral ala were obtaine d during procedure performed by Dr. Sam. Radiologist was not present for the imaging or procedure. T he amount of fluoroscopy time used during this procedure was 0.5 minutes. COMPARISON: None. FINDINGS/IMPRESSION: Images demonstrate 5 needles likely from posterior approach with distal tips evenly distributed in a cranial to caudal linear pattern along the left sacral ala and subsequently along the right sacral al a. See procedure note for further detail. Reviewed, dictated and finalized at location A.
--- NOTE | 2023-08-19 06:14 | WPDHPUPDATE1 ---
History and Physical Update Update Date/Time: 08/19/23 06:14 History and Physical has been reviewed, including an updated exam of the patient. There are NO changes in the patient's condition. Risks, benefits, and alternatives have been discussed and questions answered. Patient agrees to proceed with procedure.
--- NOTE | 2023-08-19 06:15 | W.PM.PROC2 ---
Procedure Note - Detailed Date of Procedure 08/19/23 Pre-op Diagnosis Sacroiliitis, chronic low back pain Post-op Diagnosis Same Procedure Performed Radiofrequency Ablation of the Bilateral L5 Dorsal Ramus, Sacral Accessory Branch, and Lateral Sacral Branches at S1, S2, S3 and S4 Innervating the bilateral SI joints under Fluoroscopic Guidance ([5] levels treated). Surgeon Robin Sam MD Anesthesia MAC and Local Description of Procedure INFORMED CONSENT: Risks, benefits and alternatives to the procedure were discussed in detail with the patient who expressed explicit understanding and consent to proceed. Patient was informed verbally and in written form regarding the risks associated with the procedure including the low risk of serious infection, bleeding/bruising, allergic reaction, nerve or organ injury, paralysis, procedural site pain or discomfort, worsening pain and/or mobility, failure to treat and/or disfigurement. The patient expressed explicit understanding and consent to proceed. All materials required for the procedure were available prior to procedure start. Site and side were marked prior to procedure and confirmed in the presence of the patient. PROCEDURE IN DETAIL: The patient was brought to the procedural suite and placed in the prone position. Patient was made comfortable with use of pillows under the head/chest, hips and ankles. Skin overlying the injection site on the affected side(s) was prepared broadly with ChloraPrep applicator and draped in a sterile manner. Aseptic technique was used throughout. The endplates of the vertebral bodies at the L5 and S1 levels were aligned in the AP view. Ipsilateral oblique angulation was utilized to optimize visualization of the intersection between the superior articulating process and transverse process at the sacral ala target site and oblique to the contralateral side to optimized view of the lateral borders of the sacral posterior neuroforamina for the remaining levels. Local anesthesia was established along a line bisecting the distance between the lateral borders of the posterior sacral neuroforamina and the medial border of the sacroiliac joint by infiltration with approximately 20 mL of 0.5% lidocaine via a 1-1/2 inch 27-gauge needle. Two 16-gauge 100mm RF needles with curved 10mm active tips were advanced in the AP view until the needle tip contacted the periosteum at the sacral ala (to ablate the L5 dorsal ramus and Sacral Accessory Branch supplying the right L5-S1 facet joint) with needle tips placed 1.2-1.5 cm apart. Lateral view was utilized to adjust and confirm the appropriate placement of the needle tip just dorsal to the posterior border of the sacrum. The appropriately-sized RF cannula was inserted into the RF needle and motor stimulation performed with no subjective or objective evidence of recruited muscle activity with stimulation up to 3.0 volts at a frequency of 2Hz. 1.0 mL of 2.0% PF lidocaine was injected after negative aspiration (5 ml of 2% PF lidocaine used for entire procedure). After a 90s pause, lesioning was performed in a bipolar and linear fashion to 90 degrees centigrade for 90s ensuring lack of symptoms in the extremity throughout. [place] were withdrawn to skin and replaced inferiorly in a leap-frog fashion. Appropriate final needle positions were verified in the AP and Lateral views in all cases. The same procedure was repeated for all intended levels/ structures on the ipsilateral side with identical methodology, right S1, S2, S3, S4 lateral branches, modified to compensate for new location, with similar results and no evidence of complication until all six branches were effectively ablated. No parasthesias were elicited. Needle was removed completely intact without difficulty. the same exact procedure was repeated in a similar manner on the contralateral side to ablate the left L5 dorsal ramus, S1 accessory branch, S1 through S4 lateral branches to ablate the left SI chinedu
[2023-08-19 06:32] VITALS: BP 123/78; PULSE 67; RESP 16; TEMP 36.7; O2SAT 95
--- NOTE | 2023-08-19 06:36 | WPDANESEPPF ---
Anes - Initial Pre Proc Eval Procedure: Operation Date: 08/19/23 07:30 Proposed Procedures p Thermal Radiofrequency Ablation Bilateral L5 Dorsal Rami, S1, S2, S3, S4 Sacral Branches to Denervate Bilateral Sacroiliac Joints under Fluoroscopic Guidance - Robin Sam MD Date/Time: 08/19/23 06:36 Surgeon: Robin Sam MD Pre Op Diagnosis: Sacroiliitis Patient Data Age: 83 Gender: M Height: 1.78 m Weight: 85 kg Last Vital Signs Temp 36.7 C 08/19/23 06:32 Pulse 67 08/19/23 06:32 Resp 16 08/19/23 06:32 BP 123/78 08/19/23 06:32 Pulse Ox 95 08/19/23 06:32 O2 Del Method Room Air 08/19/23 06:32 Allergies Allergy/AdvReac Type Severity Reaction Status Date / Time No Known Allergies Allergy Unknown Verified 08/19/23 06:25 Home Medications Medication Instructions Recorded Confirmed Type PreserVision AREDS-2 1 tablet PO DAILY 01/01/19 08/11/23 History aspirin 81 mg tablet,delayed 81 mg PO DAILY 01/01/19 08/19/23 History release (Adult Low Dose Aspirin) atorvastatin 40 mg tablet 40 mg PO DAILY 01/01/19 08/19/23 History ferrous sulfate 325 mg (65 mg 325 mg PO 2XW 01/01/19 08/19/23 History iron) tablet lisinopril 20 mg tablet 20 mg PO DAILY 01/01/19 08/19/23 History magnesium 200 mg tablet 400 mg PO DAILY 03/27/23 08/19/23 History diphenhydramine HCl 25 mg capsule 25 mg PO TID PRN Allergy Symptoms 06/17/23 08/19/23 History isosorbide mononitrate 60 mg 60 mg PO DAILY 07/07/23 08/19/23 History tablet,extended release 24 hr acetaminophen 325 mg capsule 325 mg PO Q6H PRN Pain 07/14/23 07/14/23 History turmeric root extract 500 mg 500 mg PO DAILY 07/14/23 08/11/23 History capsule omeprazole 20 mg capsule,delayed 20 mg PO DAILY #90 caps 08/06/23 08/11/23 Rx release Patient hx anesthesia problems: none Family hx anesthesia problems: none Results Review: All pre-operative results and documents have been reviewed as part of the pre-operative evaluation. [facility] Past Medical History Medical History Brain bleed (~09/11/19) Coronary artery disease Hyperlipidemia Hypertension Multiple fractures of ribs of right side Surgical History Surgical History History of heart artery stent 3 placed in 08/14/18 1 placed 10/07/18 History of nasal surgery (~05/28/18) Hx of cholecystectomy (~03/23/19) S/P correction of deviated nasal septum (~02/12/18) S/P TURP (~02/18/22) Family History Family History Father Heart disease Mother Heart disease Hypertension Sibling Hypertension Heart disease Social History Social History Social History: Caffeine- coffee Smoking status: Never smoker Second hand tobacco smoke exposure: No Alcohol intake: current Drinks per week: 5 Alcohol use details: Beer Substance use: never Substance use type: does not use Do You Feel Safe in your Home?: Yes Lack of Transportation: No Lack of Food: Never True Current Housing: I Have Housing Concerned About Future Housing: No Difficulty Paying Gas/Electric Bills: No Difficulty Paying for Meds: No Currently Unemployed: No Education: Associate Degree Difficulty w/ Childcare or Family Care: No Living arrangements: with family Occupation/Education: retired Gender identity (if verbalized by the patient): Male Spiritual care concerns: No Agree to blood products: Yes Anes - Eval Final PreProcedure Day of Procedure 08/19/23 06:36 Patient weight: overweight Heart: regular rate and rhythm Lungs: clear to auscultation Airway: Mallampati scale class II Neurological: alert and oriented Last oral intake: >/= 8 hours ASA classification: III Emergent: no Anesthetic plan: proceed Anesthesia type and monitoring: general GIVS and standa
[2023-08-19 06:56] VITALS: BMI 27.4
[2023-08-19] MEDS: LACTATED RINGERS 1,000 ML 30 ML IV CONT ×2 (06:59→08:50)
[2023-08-19] MEDS: BUPivacaine HCL 0.5% 10 ML AMP INFILTRATE (07:45)
[2023-08-19] MEDS: LIDOCAINE HCL 2% PF INJ 5 ML VIAL 10 ML INFILTRATE (07:45)
[2023-08-19] MEDS: LIDOCAINE HCL 1% PF INJ 5 ML VIAL 9 ML XX (08:17)
[2023-08-19 08:22] VITALS: BP 98/73; PULSE 59; RESP 12; O2SAT 96
[2023-08-19 08:37] VITALS: BP 101/67; PULSE 64; RESP 14; O2SAT 95
[2023-08-19 08:46] VITALS: BP 119/85; PULSE 63; RESP 16; O2SAT 98
--- NOTE | 2023-08-19 11:56 | WPDANESPN ---
Anes - Prog Note Post-Op Date/Time: 08/19/23 11:56 Cardiovascular status: normal Respiratory status: normal Airway patency: baseline Mental status: baseline Post-Op hydration status: normal Vital Signs: Last Vital Signs Temp 36.7 C 08/19/23 06:32 Pulse 63 08/19/23 08:46 Resp 16 08/19/23 08:46 BP 119/85 08/19/23 08:46 Pulse Ox 98 08/19/23 08:46 O2 Del Method Room Air 08/19/23 08:46 Pain Score (VAS): 0 Post-procedural complaints: none Patient Feedback: Patient satisfied with anesthetic care. Other Findings: Patient vital signs back to baseline. Patient denies nausea and vomiting. Patient's pain under control. Patient OK for discharge.
== END 2023-08-19 09:00 | disposition home or self-care (01) ==
PROVIDERS: PCP Internal Medicine; Visit Provider Anesthesiology Pain Medicine
PROC: (CPT 64625; principal; 2023-08-19 07:30)
DX: M46.1 Sacroiliitis, not elsewhere classified (principal); M54.59 Other low back pain
CPT/HCPCS: 64625 ×2; 99199

== ENCOUNTER 2023-09-02 14:30 | Outpatient (CLI) | payer OTHER, SELFPAY ==
[2023-09-02 15:21] LABS: Hematocrit 42.8 % (42.0-52.0); Hemoglobin 14.4 g/dL (14.0-18.0); Mean Corpuscular HGB Conc 33.6 g/dl (32-36); Mean Corpuscular Hemoglobin 32.8 pg (26-34); Mean Corpuscular Volume 97.5 fl (80-100); Mean Platelet Volume 9.7 fl (7.4-10.4); Platelet Count Result 178 k/mm3 (150-375); Red Blood Count 4.39 M/mm3 (4.6-6.20); Red Cell Distribution Width 13.1 % (11.5-14.5); White Blood Count 4.7 K/mm3 (4.5-10.0)
--- NOTE | 2023-09-02 15:28 | ECG_ITS ---
Test Date: 2023-09-02 15:38:46 Measurements Intervals [place] Rate: 64 P: 52 MS: 185 QRS: 31 QRSD: 110 T: 26 QT: 385 QTc: 397 Interpretive Statements SINUS RHYTHM WITH MARKED SINUS ARRHYTHMIA BASELINE ARTIFACT- I, III, AVR, AVL, AVF NORMAL ECG No previous ECG available for comparison Electronically Signed On 09-02-2023 16:47:21 CDT by Jude Villalobos D.O.
[2023-09-02 15:31] LABS: Alanine Aminotransferase 19 U/L (6-50); Albumin Level 4.6 g/dL (3.5-5.1); Alkaline Phosphatase 93 U/L (38-126); Anion Gap 8 mmol/L (4-12); Aspartate Amino Transferase 27 U/L (17-59); Bilirubin,Total 1.3 mg/dL (0.2-1.3); Blood Urea Nitrogen 18 mg/dL (9-20); Carbon Dioxide 29 mmol/L (22-30); Chloride 103 mmol/L (98-107); Estimated Glomerular Filt Rate > 60; Glucose 108 mg/dL (65-110); Potassium 4.4 mmol/L (3.4-5.0); Sodium 140 mmol/L (137-145)
== END 2023-09-02 14:31 | disposition home or self-care (01) ==
PROVIDERS: PCP Internal Medicine; Visit Provider Anesthesiology Pain Medicine
DX: Z01.818 Encounter for other preprocedural examination (principal); R94.31 Abnormal electrocardiogram [ECG] [EKG]
CPT/HCPCS: 36415; 80053; 85027; 93005

== ENCOUNTER 2023-09-03 13:51 | Outpatient (CLI) | payer OTHER, SELFPAY ==
[2023-09-03 14:39] LABS: Prothrombin Time 14.1 Seconds (11.1-14.7)
[2023-09-03 14:40] LABS: Partial Thromboplastin Time 27.6 Seconds (22.3-36.8)
== END 2023-09-03 13:52 | disposition home or self-care (01) ==
PROVIDERS: PCP Internal Medicine; Visit Provider Anesthesiology Pain Medicine
DX: D68.9 Coagulation defect, unspecified (principal)
CPT/HCPCS: 36415; 85610; 85730

== ENCOUNTER 2023-09-09 05:48 | Day surgery (SDC) | payer OTHER, SELFPAY ==
[2023-08-25 14:04] VITALS: BMI 26.5
--- NOTE | 2023-08-25 14:38 | PC.NURSE ---
Spoke with Malina at Dr. Sam's office regarding pre procedure orders for procedure scheduled 09/09/23. Questioned if Dr. Sam wanted pt to have CXR as one was recently completed 07/14/23 and was normal. Malina stated to omit the order for the [employer] at this time and she would send a message to Dr. Sam regarding the above. Malina will notify [facility] if Dr. Sam does want pt to have another CXR prior to procedure so order can be entered.
[2023-09-09] VITALS (8 sets, daily range): BP systolic 95–160; BP diastolic 59–95; PULSE 63–92; RESP 12–18; TEMP 36.1–36.9; O2SAT 94–100
--- NOTE | ~2023-09-09 | XR_ITS ---
EXAMINATION: XR fluoroscopy no charge DATE: 09/09/2023 08:53 INDICATION: Percutaneous transpedicular intraosseous basivertebral nerve ablation at and. TECHNIQUE: 44 fluoroscopic images of the lumbar spine were obtained during procedure performed by Dr. Sam. Radiologist was not present for the imaging or procedure. The amount of fluoroscopy time used during this procedure was 4.4 minutes. COMPARISON: Lumbar spine radiographs dated 01/16/2022 FINDINGS: End seen is severe right-sided disc height loss with prominent degenerative endplate osteophytes and Modic type III sclerotic endplate changes at L2-L3. Images demonstrate advancement of large bore need les accessing first the L3 vertebral body via a left transpedicular approach and subsequently the L2 vertebral body via right transpedicular approach. Likely thermal ablation leads are seen extending th rough each large-bore needle and advanced to the region of the midline of the vertebral body at appro ximately the junction of the mid to posterior thirds of the vertebral body and near the midpoint cran iocaudally. IMPRESSION: 1. Fluoroscopy utilized during pain management procedure in the mid lumbar spine. See procedure note for further detail. Reviewed, dictated and finalized at location A. IMPRESSION: 1. Fluoroscopy utilized during pain management procedure in the mid lumbar spin e. See procedure note for further detail.
--- NOTE | 2023-09-09 06:04 | PM.HPGS ---
History of Present Illness History of Present Illness Consent: Risks, benefits, and alternatives have been discussed and questions answered. Patient agrees to proceed with procedure. 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 Review of Systems Review of Systems: Patient denies any new infectious, allergic, cardiopulmonary, neurologic or constitutional symptoms or changes in activity tolerance or exercise capacity including new or progressive SOB/DRIVER, peripheral edema, productive cough, dysuria, nausea/vomiting, diarrhea, weight change, fevers/chills/night sweats, new or progressive neurologic deficit, cognitive or mood changes since last seen, except as documented in the HPI. All systems reviewed & are unremarkable except as noted in HPI and below PMFSH Past Medical History Medical History Brain bleed (~09/11/19) Coronary artery disease Hyperlipidemia Hypertension Multiple fractures of ribs of right side Surgical History Surgical History History of heart artery stent 3 placed in 08/14/18 1 placed 10/07/18 History of nasal surgery (~05/28/18) Hx of cholecystectomy (~03/23/19) S/P correction of deviated nasal septum (~02/12/18) S/P TURP (~02/18/22) Family History Family History Father Heart disease Mother Heart disease Hypertension Sibling Hypertension Heart disease Social History Social History Social History: Caffeine- coffee Smoking status: Former smoker Tobacco type: cigarettes Second hand tobacco smoke exposure: Yes Alcohol intake: current Drinks per week: 5 Alcohol use details: beer Substance use: never Substance use type: does not use Do You Feel Safe in your Home?: Yes Lack of Transportation: No Lack of Food: Never True Current Housing: I Have Housing Concerned About Future Housing: No Difficulty Paying Gas/Electric Bills: No Difficulty Paying for Meds: No Currently Unemployed: No Education: Associate Degree Difficulty w/ Childcare or Family Care: No Living arrangements: alone Occupation/Education: retired Gender identity (if verbalized by the patient): Male Spiritual care concerns: No Agree to blood products: Yes Meds Home Medications and Allergies Home Medications Medication Instructions Recorded Confirmed Type PreserVision AREDS-2 1 tablet PO DAILY 01/01/19 08/25/23 History aspirin 81 mg tablet,delayed 81 mg PO DAILY 01/01/19 08/25/23 History release (Adult Low Dose Aspirin) atorvastatin 40 mg tablet 40 mg PO DAILY 01/01/19 08/25/23 History ferrous sulfate 325 mg (65 mg 325 mg PO 2XW 01/01/19 08/25/23 History iron) tablet lisinopril 20 mg tablet 20 mg PO DAILY 01/01/19 08/25/23 History magnesium 200 mg tablet 400 mg PO DAILY 03/27/23 08/25/23 History diphenhydramine HCl 25 mg capsule 25 mg PO TID PRN Allergy Symptoms 06/17/23 08/25/23 History isosorbide mononitrate 60 mg 60 mg PO DAILY 07/07/23 08/25/23 History tablet,extended release 24 hr acetaminophen 325 mg capsule 325 mg PO Q6H PRN Pain 07/14/23 08/25/23 History turmeric root extract 500 mg 500 mg PO DAILY 07/14/23 08/25/23 History capsule omeprazole 20 mg capsule,delayed 20 mg PO DAILY #90 caps 08/06/23 08/25/23 Rx rel
--- NOTE | 2023-09-09 06:14 | W.PM.PROC2 ---
Procedure Note - Detailed Date of Procedure 09/09/23 Pre-op Diagnosis Vertebrogenic Low Back Pain, chronic dorsalgia Post-op Diagnosis Same Procedure Performed Percutaneous transpedicular intraosseous basivertebral nerve thermal radiofrequency ablation (Intracept procedure) at L2, L3 under fluoroscopic guidance. Surgeon Robin Sam MD Anesthesia General (GETA] in the [prone] position with infiltration of local anesthetic. 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 They are significantly limited in their daily and/or work-related activities as a result, including sitting, standing, lifting/carrying and sleeping, with failure to respond to and/or tolerate extensive efforts at more conservative management (i.e. oral and topical analgesics including NSAIDs, acetaminophen and opioids, Physical Therapy and modalities, time/rest, interventional procedures/corticosteroid injections) for greater than 6 months prior to today's procedure establishing medical necessity for this well-studied and FDA-approved pain-relieving procedure. INFORMED CONSENT: Procedure was discussed in detail with the patient at a previous visit and at the time of surgery. During this discussion, the risks, benefits, and alternatives to the procedure, including doing nothing, were thoroughly described to the patient, who expressed explicit understanding and consent to proceed. Specific risks discussed with the patient included, but were not limited to the risk of serious local or systemic infection, skin burn/scarring, major or minor bleeding/bruising, allergic reaction to medications or materials, inadvertent lung or other organ injury, new or worsening spinal fracture, inadvertent thermal or mechanical nerve or spinal cord injury resulting in increased pain, weakness, numbness or loss of bowel or bladder control, the need for repeat or additional surgery, inadvertent dural puncture resulting in acute or chronic CSF leak and post-dural puncture headache, failure to treat pain, and risks associated with general anesthesia in the prone position including eye, dental, joint, nerve, spine or soft tissue injury/pain related to positioning, heart attack, respiratory failure, aspiration, pneumonia, DVT/PE or thrombosis, hemorrhagic or ischemic stroke, hypoxia, hypo- or hypertension, seizure, coma and . Patient understands these risks and agrees that the opportunity for benefit outweighs the potential risk of harm. Procedure specific informed consent form was read, reviewed, signed by the patient and surgeon and witnessed in the pre-operative area. All pertinent questions were asked and answered to the patient's satisfaction. Surgical site was pre-treated with chlorhexidine wipes. All materials required for the procedure were available and site and side of procedure was marked prior to procedure start. Appropriate timeout was conducted by all participants in the OR (patient's ID, procedure to be performed, procedure site and side, allergies and appropriate medications including pre-operative antibiotics were verified) prior to incision. PROCEDURE IN DETAIL: After full informed consent and adequate IV access was obtained without difficulty; the patient was escorted to the procedural suite. ASA standard monitors were applied and utilized throughout the case. Prophylactic antibiotics were administered prior to procedure start. GETA was initiated without difficulty or event. Eyes were protected. Patient was converted to the prone position in optimal flexion using pillows under the abdomen, hips and ankles. Pressure points were padded, cervical spine and joints were placed in neutral position. Eyes, breasts and genitals were eval
[2023-09-09] MEDS: LACTATED RINGERS 1,000 ML 30 ML IV CONT ×2 (06:22→08:54)
--- NOTE | 2023-09-09 06:23 | WPDHPUPDATE1 ---
History and Physical Update Update Date/Time: 09/09/23 06:23 History and Physical has been reviewed, including an updated exam of the patient. There are NO changes in the patient's condition. Risks, benefits, and alternatives have been discussed and questions answered. Patient agrees to proceed with procedure.
--- NOTE | 2023-09-09 07:04 | WPDANESEPPF ---
Anes - Initial Pre Proc Eval Procedure: Operation Date: 09/09/23 07:30 Proposed Procedures p Percutaneous Transpedicular Intraosseous Basivertebral Nerve Ablation at L3, Possible L2 under Fluoroscopic Guidance - Robin Sam MD Date/Time: 09/09/23 07:04 Surgeon: Robin Sam MD Pre Op Diagnosis: Vertebrogenic Low Back Pain Patient Data Age: 83 Gender: M Height: 1.78 m Weight: 87 kg Last Vital Signs Temp 36.9 C 09/09/23 06:20 Pulse 67 09/09/23 06:20 Resp 16 09/09/23 06:20 BP 135/87 09/09/23 06:20 Pulse Ox 96 09/09/23 06:20 O2 Del Method Room Air 09/09/23 06:20 Allergies Allergy/AdvReac Type Severity Reaction Status Date / Time No Known Allergies Allergy Unknown Verified 09/09/23 06:17 Home Medications Medication Instructions Recorded Confirmed Type PreserVision AREDS-2 1 tablet PO DAILY 01/01/19 09/09/23 History aspirin 81 mg tablet,delayed 81 mg PO DAILY 01/01/19 09/09/23 History release (Adult Low Dose Aspirin) atorvastatin 40 mg tablet 40 mg PO DAILY 01/01/19 09/09/23 History ferrous sulfate 325 mg (65 mg 325 mg PO 2XW 01/01/19 09/09/23 History iron) tablet lisinopril 20 mg tablet 20 mg PO DAILY 01/01/19 09/09/23 History magnesium 200 mg tablet 400 mg PO DAILY 03/27/23 09/09/23 History diphenhydramine HCl 25 mg capsule 25 mg PO TID PRN Allergy Symptoms 06/17/23 09/09/23 History isosorbide mononitrate 60 mg 60 mg PO DAILY 07/07/23 09/09/23 History tablet,extended release 24 hr acetaminophen 325 mg capsule 650 mg PO Q6H PRN Pain 07/14/23 09/09/23 History turmeric root extract 500 mg 500 mg PO DAILY 07/14/23 09/09/23 History capsule omeprazole 20 mg capsule,delayed 20 mg PO DAILY #90 caps 08/06/23 09/09/23 Rx release Patient hx anesthesia problems: none Family hx anesthesia problems: none Results Review: All pre-operative results and documents have been reviewed as part of the pre-operative evaluation. PMFSH Past Medical History Medical History Brain bleed (~09/11/19) Coronary artery disease Hyperlipidemia Hypertension Multiple fractures of ribs of right side Surgical History Surgical History History of heart artery stent 3 placed in 08/14/18 1 placed 10/07/18 History of nasal surgery (~05/28/18) Hx of cholecystectomy (~03/23/19) S/P correction of deviated nasal septum (~02/12/18) S/P TURP (~02/18/22) Family History Family History Father Heart disease Mother Heart disease Hypertension Sibling Hypertension Heart disease Social History Social History Social History: Caffeine- coffee Smoking status: Former smoker Tobacco type: cigarettes Second hand tobacco smoke exposure: Yes Alcohol intake: current Drinks per week: 5 Alcohol use details: beer Substance use: never Substance use type: does not use Do You Feel Safe in your Home?: Yes Lack of Transportation: No Lack of Food: Never True Current Housing: I Have Housing Concerned About Future Housing: No Difficulty Paying Gas/Electric Bills: No Difficulty Paying for Meds: No Currently Unemployed: No Education: Associate Degree Difficulty w/ Childcare or Family Care: No Living arrangements: alone Occupation/Education: retired Gender identity (if verbalized by the patient): Male Spiritual care concerns: No Agree to blood products: Yes Anes - Eval Final PreProcedure Day of Procedure 09/09/23 07:04 Patient weight: overweight Heart: regular rate and rhythm Lungs: clear to auscultation Airway: Mallampati scale class II Neurological: alert and oriented Last oral intake: >/= 8 hours ASA classification: III Emergent: no Anesthetic plan: proceed Anesthesia type and monitoring: general GIVS and standard monitoring Res
[2023-09-09] MEDS: ceFAZolin SODIUM 2 GM/20 ML SW SYRINGE IV PUSH (07:36)
[2023-09-09] MEDS: LIDOCAINE HCL 2% PF INJ 5 ML VIAL INFILTRATE (08:31)
[2023-09-09] MEDS: BUPIVACAINE/EPINEPHRINE 0.5% 10 ML VIAL 5 ML INFILTRATE (08:31)
--- NOTE | 2023-09-09 09:57 | WPDANESPN ---
Anes - Prog Note Post-Op Date/Time: 09/09/23 09:57 Cardiovascular status: normal Respiratory status: normal Airway patency: baseline Mental status: baseline Post-Op hydration status: normal Vital Signs: Last Vital Signs Temp 36.1 C L 09/09/23 08:46 Pulse 63 09/09/23 09:52 Resp 18 09/09/23 09:52 BP 133/88 09/09/23 09:52 Pulse Ox 99 09/09/23 09:52 O2 Del Method Room Air 09/09/23 09:52 O2 Flow Rate 6 09/09/23 09:01 Pain Score (VAS): 0/10 I/O: Intake & Output 09/08/23 09/09/23 09/09/23 23:59 07:59 15:59 Intake Total 1150 Balance 1150 Patient Feedback: Patient satisfied with anesthetic care.
== END 2023-09-09 10:23 | disposition home or self-care (01) ==
PROVIDERS: PCP Internal Medicine; Visit Provider Anesthesiology Pain Medicine
PROC: (CPT 64628; principal; 2023-09-09 07:30)
DX: M54.51 Vertebrogenic low back pain (principal); M54.89 Other dorsalgia
CPT/HCPCS: 64628; 64629; 99199

== ENCOUNTER 2023-09-22 15:26 | Emergency (ER) | payer OTHER, SELFPAY ==
--- NOTE | ~2023-09-22 | XR_ITS ---
EXAM: XR shoulder LT min 2V DATE: 09/22/2023 19:25 HISTORY: shoulder pain, limited abduction . COMPARISON: None available. FINDINGS: Decreased mineralization. No fracture or dislocation. No lytic or blastic lesion. Moderate AC joint and glenohumeral joint osteoarthritis. Superior migration of the humeral head with subacrom ial narrowing as can be seen with rotator cuff pathology. Likely loose body in an inferior joint rece ss. No erosion or periosteal change. Soft tissues within normal limits. IMPRESSION: No acute osseous finding in the left shoulder. Reviewed, dictated and finalized at location K.
[2023-09-22 15:45] VITALS: BP 162/87; PULSE 90; RESP 20; TEMP 36.3; O2SAT 98
--- NOTE | 2023-09-22 19:03 | ED.EXTPRO ---
HPI - Extremity Problem General Chief complaint: Extremity Problem,Nontraumatic Stated complaint: L shoulder pain x 1 week Time Seen by Provider: 09/22/23 17:35 History of Present Illness HPI Narrative: 83-year-old male presenting with left shoulder pain. Patient states that it started about a week ago after he changed a tire. States that he has noticed that he is unable to completely lift his left arm to the front or to the side. States that moving it does not make the pain worse. The pain is constant. States he has been taking Tylenol around the clock and has had to supplement with some oxycodone with minimal relief. States that he does see a pain doctor. No numbness. No recent injuries. No new neck or back pain. No further complaints. Related Data Home Medications Medication Instructions Recorded Confirmed PreserVision AREDS-2 1 tablet PO DAILY 01/01/19 09/09/23 aspirin 81 mg tablet,delayed 81 mg PO DAILY 01/01/19 09/09/23 release (Adult Low Dose Aspirin) atorvastatin 40 mg tablet 40 mg PO DAILY 01/01/19 09/09/23 ferrous sulfate 325 mg (65 mg 325 mg PO 2XW 01/01/19 09/09/23 iron) tablet lisinopril 20 mg tablet 20 mg PO DAILY 01/01/19 09/09/23 magnesium 200 mg tablet 400 mg PO DAILY 03/27/23 09/09/23 diphenhydramine HCl 25 mg capsule 25 mg PO TID PRN Allergy Symptoms 06/17/23 09/09/23 isosorbide mononitrate 60 mg 60 mg PO DAILY 07/07/23 09/09/23 tablet,extended release 24 hr acetaminophen 325 mg capsule 650 mg PO Q6H PRN Pain 07/14/23 09/09/23 turmeric root extract 500 mg 500 mg PO DAILY 07/14/23 09/09/23 capsule Allergies Allergy/AdvReac Type Severity Reaction Status Date / Time No Known Allergies Allergy Unknown Verified 09/22/23 17:28 Review of Systems Review of Systems: All systems reviewed & are unremarkable except as noted in HPI and below PMFSH Past Medical History Medical History Brain bleed (~09/11/19) Coronary artery disease Hyperlipidemia Hypertension Multiple fractures of ribs of right side Surgical History Surgical History History of heart artery stent 3 placed in 08/14/18 1 placed 10/07/18 History of nasal surgery (~05/28/18) Hx of cholecystectomy (~03/23/19) S/P correction of deviated nasal septum (~02/12/18) S/P TURP (~02/18/22) Family History Family History Father Heart disease Mother Heart disease Hypertension Sibling Hypertension Heart disease Social History Social History Social History: Caffeine- coffee Smoking status: Former smoker Tobacco type: cigarettes Second hand tobacco smoke exposure: Yes Alcohol intake: current Drinks per week: 5 Alcohol use details: beer Substance use: never Substance use type: does not use Do You Feel Safe in your Home?: Yes Lack of Transportation: No Lack of Food: Never True Current Housing: I Have Housing Concerned About Future Housing: No Difficulty Paying Gas/Electric Bills: No Difficulty Paying for Meds: No Currently Unemployed: No Education: Associate Degree Difficulty w/ Childcare or Family Care: No Living arrangements: alone Occupation/Education: retired Gender identity (if verbalized by the patient): Male Spiritual care concerns: No Agree to blood products: Yes Exam Narrative: GENERAL: Nontoxic, in no acute distress, pleasant cooperative HEAD: Normocephalic, atraumatic. EYES: PERRLA and EOMI. ENT: Grossly unremarkable NECK: Supple. No midline tenderness CHEST: . No respiratory distress. HEART: Regular rate and rhythm EXTREMITIES: +limited abduction/flexion/extension of L shoulder with mild tenderness anteriorly; distal ROM intact SKIN: Warm, dry, no rash. NEURO: No focal deficits. Alert and oriented x3. PSYCH: Normal mood an
[2023-09-22] MEDS: oxyCODONE HCL (*CRX) 5 MG TAB IR PO (19:23)
== END 2023-09-22 21:05 | disposition home or self-care (01) ==
PROVIDERS: Emergency Provider Emergency Medicine; PCP Internal Medicine
DX: M25.512 Pain in left shoulder (principal); I25.10 Atherosclerotic heart disease of native coronary artery without angina pectoris; I10 Essential (primary) hypertension; E78.5 Hyperlipidemia, unspecified; Z95.5 Presence of coronary angioplasty implant and graft; Z87.891 Personal history of nicotine dependence; Z90.49 Acquired absence of other specified parts of digestive tract; Z79.82 Long term (current) use of aspirin
CPT/HCPCS: 73030; 99283; A9270

== ENCOUNTER 2024-05-27 12:28 | Outpatient (CLI) | payer OTHER, SELFPAY ==
[2024-05-27 12:50] LABS: Hematocrit 41.2 % (42.0-52.0); Hemoglobin 13.6 g/dL (14.0-18.0)
[2024-05-27 13:02] LABS: Partial Thromboplastin Time 27.1 Seconds (22.3-36.8); Prothrombin Time 13.7 Seconds (11.1-14.7)
[2024-05-27 13:13] LABS: Anion Gap 10 mmol/L (4-12); Blood Urea Nitrogen 18 mg/dL (9-20); Calcium 8.9 mg/dL (8.4-10.2); Carbon Dioxide 27 mmol/L (22-30); Chloride 102 mmol/L (98-107); Estimated Glomerular Filt Rate > 60; Glucose 162 mg/dL (65-110); Potassium 4.3 mmol/L (3.4-5.0); Sodium 139 mmol/L (137-145)
--- OUTSIDE RECORDS SUMMARY | 2024-05-27 13:18 | XMS_ITS | Clinical Summary ---
Author Organization [facility] Address [address] [place] [id number] Care Team Providers Care Labor Economics Professor Name Role Phone Mark Barrios MD Unavailable [phone] Robin South MD Primary Care Provider [phone] Allergies No known active allergies Medications isosorbide mononitrate ER (IMDUR) 30 MG 24 hr tablet Take 30 mg by mouth nightly. Active atorvastatin (LIPITOR) 40 MG tablet Take 40 mg by mouth nightly at bedtime. Active aspirin EC (ECOTRIN) 81 MG tablet Take 81 mg by mouth nightly. Active Multiple Vitamins-Minera ls (PRESERVISION AREDS 2) Cap Take 1 tablet by mouth 2 (two) times a day. Active lisinopril (PRINIVIL) 20 MG tablet Take 20 mg by mouth daily. Active hydroCHLOROthia zide (HYDRODIURIL) 25 MG tablet Take 25 mg by mouth every morning. Active Misc Natural Products (GLUCOSAMINE CHOND CMP ADVANCED OR) Take 3 tablets by mouth daily. Active omeprazole (PRILOSEC) 20 MG capsule Take 20 mg by mouth daily. Active ferrous sulfate, 65 mg elemental, 325 (65 FE) MG tablet Take 325 mg by mouth see administration instructions. 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 Immunizations Name Administration Dates Next Due MODERNA COVID-19 BIVALENT (12+), MRNA, LNP-S, PF 11/13/2021 PFIZER COVID-19 (FELIX CAP), MRNA, LNP-S, PF, 30 MCG/0.3 ML SANTINO-SUCROSE, IM 07/14/2021 PFIZER COVID-19 (ORIGINAL FO RMULATION, PURPLE CAP) mRNA, LNP-S, PF, 30 MCG/0.3 ML DOSE 12/01/2020 Family History Medical History Relation Comments COPD Brother 1 Cancer Brother 1 bladder with met s Heart Attack Brother 2 Heart Disease Brother 2 OR Brother 2 Cancer Brother 3 leukemia Cancer Brother 4 bladder Heart Disease Brother 6 Hyperlipidemia Brother 6 Heart Disease Father Hypertension Mother Diabetes Son Relation Status Comments Brother 1 Brother 2 Brother 3 Luekemia that we nt into pneumonia Brother 4 Alive Brother 5 Alive Brother 6 Alive Daughter 1 Alive Daughter 2 Alive Daughter 3 Alive Father (Age 55) 2 weeks p ost-op open heart valve surgery with bleeding stress ulcer. Mother (Age 96) Sister Alive Son Alive Social History Tobacco Use Types Packs/Day Years Used Date Smoking Tobacco: Former Cigarettes 1966 Smokeless Tobacco: Never Tobacco Cessation:Counseling Given: Not Answered Alcohol Use Standard Drinks/Week Comments Not Currently 11.7 (1 standard drink = 0.6 oz pure alcohol) Humiliation, Afraid, Rape, and Kick questionnair e Answer Date Recorded Within the last year, have y ou been afraid of your partner or ex-partner? No 02/28/2022 Within the last year, have y ou been humiliated or emotionally abused in other ways by your partner or ex-partner? No Within the last year, have y ou been kicked, hit, slapped, or otherwise physically hurt by your partner or ex-partner? No 02/28/2022 Within the last year, have y ou been raped or forced to have any kind of sexual activity by your partner or ex-partner? No 02/28/2022 Overall Financial Resource Strain (CARDIA) Answe r Date Recorded How hard is it for you to pa y for the very basics like food, housing, medical care, and heating? Not hard at all 02/28/2022 Hunger Vital Sign Answer Date Recorded Within the past 12 months, y ou worried that your food would run out before you got the money to buy more. Never true 02/29/20 22 Within the past 12 months, t he food you bought just didn't last and you didn't have money to get more. Never true 02/28/2022 PRAPARE - Transportation Answer Date Re corded In the past 12 months, has l ack of transportation kept you from medical appointments or from getting medications? No 02/28/2022 Lack of Transportation (Non-Medical) Not on file 02/28/2022 Housing Stability Vital Sign Answer Lucio e Recorded In the last 12 months, was t here a time when you were not able to pay the mortgage or rent on time? No 02/28/2022 Number of Places Lived in the Last Year Not on f ile 02/28/2022 Unstable Housing in the Last Year Not on file 02/28/2022 Sex and Gender Information Value Date Recorded Sex Assigned at Not on file Legal Sex Male 11:57 AM CDT Gender Identity Not on file Sexual Orientation Not on file Last Filed Vital Signs Vital Sign Reading Time Taken Comments Blood Pressure 109/70 03/01/2022 12:21 PM DATABASE MARKETING MANAGER Pulse 71 03/01/2022 12:21 PM DATABASE MARKETING MANAGER Temperature 36.4 C (97.5 F) 03/01/2022 5:17 AM DATABASE MARKETING MANAGER Respiratory Rate 18 03/01/2022 12:2 1 PM DATABASE MARKETING MANAGER Oxygen Saturation 99% 03/01/2022 12: 21 PM DATABASE MARKETING MANAGER Inhaled Oxygen Concentration - - Weight 83.9 kg (184 lb 15.5 oz) 022 12:05 PM DATABASE MARKETING MANAGER Height 179.1 cm (5' 10.5 ) 02/28/2022 1 2:05 PM DATABASE MARKETING MANAGER Body Mass Index 26.16 02/28/2022 12:05 PM DATABASE MARKETING MANAGER Plan of Treatment Health Maintenance Due Date Last Done Comments DTaP, Tdap and Td Vaccines (1 - Tdap) 1958 Zoster Vaccines (1 of 2) 1989 Annual Medicare Wellness Visit 2004 Pneumococcal Vaccine: 65+ Years (1 of 1 - PCV) 2004 RSV Immunization or 60+ Years (1 - 1-dose 75+ series) 2014 COVID-19 Vaccine (4 - season) 2023 11/13/2021, 07/14/2021, 12/01/2020 Influenza Adult (#1) 2023 11/30/2018, 11/13/2017, 11/14/2016, Additional history exists Meningococcal B Vaccine Aged Out No l onger eligible based on patient's age to complete this topic Meningococcal Vaccine Aged Out No david ashtyn eligible based on patient's age to complete this topic RSV Immunizations Under 20 Months Aged Out No longer eligible based on patient's age to complete this topic Insurance MEDICARE [facility] Advance Directives * Full Code (Latest Code Status on File) Date Activated Date Inactivated Comments 02/28/2022 3:52 PM 03/01/2022 2:42 PM Care Teams Labor Economics Professor Relationship Specialty Start Date End Date Robin South MD [address] [place] [address] PCP - General CARDIOVASCULAR DISEASE 12/26/21 Mark Barrios MD [facility] [address] [place] [address] CARDIOLOGY 12/26/21
--- OUTSIDE RECORDS SUMMARY | 2024-05-27 13:18 | XMS_ITS | Clinical Summary ---
Author Organization [facility] Address [address] [place] [address] Care Team Providers Care Learning Coordinator Name Role Phone Unavailable Primary Care Provider Unavailabl e Source Comments [facility],non-owned Affiliates and Associated Physician Practices is amultiple site organization consisting of ambulatory clinics and hospital sitesin [place] and [place]. This disclosure is being madepursuant to the Care Everywhere program and may not contain all information available regarding this patient. Last updated 17.[facility] [employer] Allergies No known active allergies Medications * Be aware that medications may not be up to date on this document. Alwaysverify current medications with the patient. Medication Sig Dispensed Refills Start Date End Date Status aspirin (Aspirin) 81 MG chew tablet Take 1 (one) tablet by mouth once daily 05/10/2023 Active atorvastatin (Lipitor) 40 MG tablet Take 1 (one) tablet by mouth at bedtime Active Multiple Vitamins-Minerals (PreserVision AREDS 2) capsule Take 2 (two) capsules by mouth 2 times daily Active lisinopril (Prinivil; Zestril) 20 MG tablet Take 1 (one) tablet by mouth once daily Active Misc Natural Products (COSAMIN ASU ADVANCED FORMULA PO) Take 2 tablets by mouth once daily Active omeprazole (PriLOSEC) 20 MG capsule Take 1 (one) capsule by mouth daily before breakfast Active magnesium oxide (Mag-Ox) 400 MG tablet Take 1 (one) tablet by mouth once daily Active ferrous sulfate 325 (65 FE) MG tablet Take 1 (one) tablet by mouth once daily Active cycloSPORINE (Restasis) 0.05 % ophthalmic suspension Instill 1 (one) drop into both eyes 2 times daily Active Active Problems Problem Noted Date Diagnosed Date Transient alteration of awareness 05/09/2023 Hypertension 05/08/2023 Alcohol abuse 05/08/2023 Confusion 05/08/2023 Speech disturbance, unspecified type 05/08/2023 Resolved Problems Problem Noted Date Diagnosed Date Resolved Date Transient alteration of awareness 05/09/2023 05/09/2023 Transient ischemic attack (TIA) 05/08/2023 05/09/2023 Social History Tobacco Use Types Packs/Day Years Used Date Smoking Tobacco: Former Cigarettes Q uit: 1967 Smokeless Tobacco: Never PHQ-2 Answer Date Recorded Patient Health Questionnaire-2 Score 1 05/08/2023 Sex and Gender Information Value Date Recorded Sex Assigned at Male 05/14/2023 3:13 PM CDT Gender Identity Male 05/14/2023 3:13 PM CDT Sexual Orientation Straight 05/14/2023 3: 13 PM CDT Last Filed Vital Signs Vital Sign Reading Time Taken Comments Blood Pressure 115/68 06/18/2023 10:05 AM CDT Pulse 101 06/18/2023 10:05 AM CDT Temperature 36.7 C (98 F) 05/09/2023 8:16 AM ARCGIS DEVELOPER Respiratory Rate 12 06/18/2023 10:05 AM CDT Oxygen Saturation 98% 05/09/2023 8:16 AM ARCGIS DEVELOPER Inhaled Oxygen Concentration - - Weight 88.5 kg (195 lb) 06/18/2023 10:05 AM CDT Height 180.3 cm (5' 11 ) 06/18/2023 10:05 AM CDT Body Mass Index 27.2 06/18/2023 10:05 AM CDT Plan of Treatment Health Maintenance Due Date Last Done Comments MEDICARE AWV 12 MONTHS 1940 DTAP/TDAP/TD VACCINES (1 - Tdap) 1958 PNEUMOCOCCAL VACCINE 50+ (1 of 1 - PCV) 1989 ZOSTER VACCINE (1 of 2) 1989 Respiratory Syncytial Virus (RSV) Vaccine Pt: or over 60 yrs (1 - 1-dose 75+ series) 2014 COVID-19 VACCINE ( - season) 2023 12/14/2022, 11/13/2021, 07/14/2021, Additional history exists INFLUENZA VACCINE (#1) 2023 , 11/13/2021, 11/17/2020, Additional history exists DEPRESSION SCREENING 2024 05/08/2023 HEPATITIS B VACCINE Aged Out No longe r eligible based on patient's age to complete this topic HIB VACCINE Aged Out No longer eligi ble based on patient's age to complete this topic HPV VACCINE Aged Out No longer eligi ble based on patient's age to complete this topic MENINGOCOCCAL (Group B) VACCINE SHARED DECISION-MAKING Aged Out No longer eligible based on patient's age to complete this topic MENINGOCOCCAL GROUPS A/C/Y/W VACCINE Aged Out No longer eligible based on patient's age to complete this topic Medical Devices Implanted Type Area Parts Counter Salesperson Device Identifier Shelf Expiration Date Model / Serial / Lot Stent - Vascular Stent - Vascular Advance Directives * Full Code (Latest Code Status on File) Date Activated Date Inactivated Comments 05/08/2023 4:35 PM 05/09/2023 6:31 PM
--- OUTSIDE RECORDS SUMMARY | 2024-05-27 13:18 | XMS_ITS ---
Author Organization [facility] [place] Address [address] [facility] [place] [address] Care Team Providers Care Program Development Manager Name Role Phone Devon Blanchard Unavailable [phone] ALLERGIES No Known Allergies REASON FOR VISIT Re-referral Visit (2021)--SELF PAY MEDICATIONS Medication SIG (Take, Route, Frequency, Duration) Notes Start Date End Date Status hydroCHLOROthiazide 25 MG Oral for 90 Not-Taking Aspirin 81 MG 1 tablet Orally Once a day Active Isosorbide Dinitrate 30 MG Oral for 30 Not-Taking Clopidogrel Bisulfate 75 MG Oral for 90 Not-Taking traMADol HCl 50 MG 1 tablet Orally q 6-8 hours PRN pain for 7 days 01/08/2022 Not-Taking Lisinopril 20 MG Oral for 90 A ctive Atorvastatin Calcium 40 MG Oral for 90 Active Isosorbide Mononitrate ER 30 MG Oral for 90 Active Omeprazole 20 MG Oral for 90 A ctive Ibuprofen Not-Taking Cosamin ASU for Joint Health - as directed Orally Active Multivitamin Not-Cooper ing Ferrous Sulfate 325 (65 Fe) MG 1 tablet Orally Once a day Active Isosorbide Mononitrate ER 30 MG 1 tablet in the morning Orally Once a day Not-Taking VITAL SIGNS Temperature 97.8 degrees Fahrenheit 03/12/19 24 Blood pressure systolic 156 mm Hg 03/12/19 24 Blood pressure diastolic 85 mm Hg 024 Heart Rate 67 /min 03/12/2023 Respiratory Rate 18 /min 03/12/2023 Height 71 in 03/12/2023 Weight 195 lbs 03/12/2023 BMI 27.19 kg/m2 03/12/2023 Encounters Encounter Location Date Provider Diagnosis [facility] [address] [place] [address] 03/12/2023 Devon Blanchard Spondylosis without myelopathy or radiculopathy, lumbosacral region M47.817 ; Spondylolisthesis at L4-L5 level M43.16 and 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 Chronic, nonradicular, low back pain attributed to bilateral lower lumbar facet arthropathy, L4/5 and L5/S1 (lumbar spondylosis).2. Grade 1 (4 mm) anterior spondylolisthesis L4/5. Flexion and extension radiographs of 01/16/2022 did not reveal translation.3. Chronic left greater than right iliac area pain associated with sacroiliitis.4. Patient previously achieved 50% or greater relief for approximately 1 year duration following left sacroiliac joint RFA provided 02/19/2022.Plan1. I strongly recommended that the patient try to find a pain physician in network with his insurance so that he will not have significant [id number] cost. He will research this on his own.2. From my standpoint, I would recommend bilateral L4/5 and L5/S1 facet joint/medial branch injections. If the patient gains 80% or greater relief on 2 occasions, consider future lumbar facet RFA. If again no relief with facet joint injections, consider repeating sacroiliac joint RFA, previously left side, 02/19/2022. Patient understands that under any insurance plan or Medicare, sacroiliac joint radiofrequency ablation is not covered.3. Patient was encouraged to maintain some form of daily home exercise program with maintenance of core strength and trunk flexibility.5. Fee structures for [id number], cost for facet injections as well as facet RFA and sacroiliac RFA were discussed. Hopefully, he can find an in network physician so that most of the charges will be covered. 03/12/2023 Spondylolisthesis at L4-L5 level (ICD-10 - M43.16) 03/12/2023 Degenerative joint disease of sacroiliac joint (ICD-10 - M46.1) PLAN OF TREATMENT Treatment Notes Assessment Notes Spondylosis without myelopat hy or radiculopathy, lumbosacral region Impression1. Chronic, nonradicular, low back pain attributed to bilateral lower lumbar facet arthropathy, L4/5 and L5/S1 (lumbar spondylosis).2. Grade 1 (4 mm) anterior spondylolisthesis L4/5. Flexion and extension radiographs of 01/16/2022 did not reveal translation.3. Chronic left greater than right iliac area pain associated with sacroiliitis.4. Patient previously achieved 50% or greater relief for approximately 1 year duration following left sacroiliac joint RFA provided 02/19/2022.Plan1. I strongly recommended that the patient try to find a pain physician in network with his insurance so that he will not have significant ibz-[id number] cost. He will research this on his own.2. From my standpoint, I would recommend bilateral L4/5 and L5/S1 facet joint/medial branch injections. If the patient gains 80% or greater relief on 2 occasions, consider future lumbar facet RFA. If again no relief with facet joint injections, consider repeating sacroiliac joint RFA, previously left side, 02/19/2022. Patient understands that under any insurance plan or Medicare, sacroiliac joint radiofrequency ablation is not covered.3. Patient was encouraged to maintain some form of daily home exercise program with maintenance of core strength and trunk flexibility.5. Fee structures for [id number], cost for facet injections as well as facet RFA and sacroiliac RFA were discussed. Hopefully, he can find an in network physician so that most of the charges will be covered. Progress Notes * Barak CARABALLO V.: 0 (83 yo M)Acc No.[id number]:03/12/2023 Patient: Barak CARABALLO V. Provider: Devon Blanchard DO :1940 Age:83 Y Sex:Male Date:03/12/2023 Address:[address] [place] [address]; [facility] Subjective: * Chief Complaints: * Re-referral Visit (2021)--SELF PAY * HPI: Follow-up Questionnaire: Pain [place] [facility] [place] completed a questionnaire on the progress that has been made since the last office visit. This form was reviewed and the responses are included in this progress note.. Location of pain: low back. Onset of pain: years ago. Average Pain Since Last Visit on Scale of 0 to 10: 7. Number describing interference w/enjoyment of life: 6. Relief from Injections/Medications: c - I am better, but not great yet.. Improvement in functional ability: c- I can do more stuff, but the pain still stops me from doing some things.. Level of Pain on 1-10 Scale w/ 10 being most severe- TODAY 7. Level of Pain on 1-10 Scale w/ 10 being most severe- LEAST 5. Level of Pain on 1-10 Scale w/ 10 being most severe- WORST 7. Pain Level on 1-10 Scale w/ 10 being most severe- OVERALL 6. Words that best describe the pain: dull, aching, sharp. Duration of pain: constant. Aggravating/Associated factors of pain: walking, exercise, standing. Relieving factors of pain: sitting, lying down, medications. This 83-year-old white male presents to the pain clinic today for referral visit. We are out of network for his insurance and he is paying rojas for office visit today. I strongly recommended the patient try to locate a pain physician that is in network with his insurance so that he will not have to pay [id number]. I last saw Barak 01/15/2022 at which time I provided left sacroiliac joint injection with excellent results. He subsequently saw my partner, Dr. Jason Gagnon, and underwent prognostic LEFT sacroiliac lateral branch injections on 02/07/2022 followed by left sacroiliac joint RFA on 02/19/2022. Patient was reminded that as of 2022, Medicare and all insurance companies denied further coverage for SI joint RFA, citing it as experimental . Patient achieves substantially greater than 50% relief of symptoms for approximately 1 year. In the interval since I last saw him, he describes treatment with Dr. José Luis Renee, and underwent unspecified injections but again no substantial improvement and states that he was told he had nothing else to offer. Those treatment records are not available to me at the time of today's visit. At today's visit, he seems to describe more centralized low back pain, sometimes extending into the bilateral lumbar paravertebral areas, higher than his iliac area. He does not describe ongoing lumbar radiculopathy symptoms. He does not describe areas of persistent sensory loss or foot drop in the lower extremities. Past medical history includes coronary artery disease with previous coronary stents, hypertension, hyperlipidemia, chronic iron deficiency anemia and GERD. He does have history of unspecified lumbar decompressive laminotomies, multiple levels, [address] Ortiz Mcbride. He is a non-smoker. He denies known drug allergies. Medications were reviewed. I maging studies: X -ray lumbar spine 01/16/2022 [facility] in [place], [place] revealed 4 mm anterior listhesis L4/5. Severe loss of disc space height L2/3 and moderate decreased disc space height L5/S1. Severe hypertrophic facets noted in the lower lumbar spine. 18 degrees of lumbar levoscoliosis noted. There was no instability with bending maneuvers. X -ray AP pelvis 01/16/2022 reveals mild left hip arthropathy. Degenerative disc changes observed L4/5 and L5/S1. No acute findings noted. Pubic symphysis and sacroiliac joints appear fairly unremarkable. * ROS: Pain Management ROS: Patient Denies: GENERAL: weight or appetite changes, fever, chills, disturbed sleeping habits. Patient Reports: EYE: blurred vision. Patient Denies: EYE: eye infections, d ouble vision, blindness. Patient Reports: ENT: hearing loss. Patient Denies: ENT: inflamed nose, hoarseness, sore throat, bloody nose, sinusitis, dizziness. Patient Denies: CARDIAC: chest pains, heart murmur, skipped beats. Patient Denies: GENITOURINARY bladder incontinence, difficulty urinating. Patient Reports: RESPIRATORY shortness of breath. Patient Denies: RESPIRATORY cough, coughing up blood, wheezing, difficulty breathing on exertion. Patient Denies: GI constipation, diarrhea, blood in stools, nausea/vomiting. Patient Denies: NEUROLOGIC headaches, dizziness, falling, seizures, numbness, tremor. Patient Denies: ENDOCRINE hot and cold flashes. Patient Reports: HEMATOLOGICAL easy bruisability. Patient Denies: HEMATOLOGICAL difficulty in clotting the blood. Patient Denies: JOINTS joint or muscle limitation and pain other than the present illness. Patient Denies: PSYCHIATRIC: depression, mood swings, anxiety. Patient Denies: SKIN lacerations, abrasions, postules, nodules, tumors, breast changes. * Medical History: * Surgical History: cholecystectomy Stents nose surgery hearing aids gallbladder removed TURP surgery * Hospitalization/Major Diagno stic Procedure: No Hospitalization History. * Family History: Siblings: alive, back pain. Father: . Mother: . * Social History: Education: How far did you get in your education?: college. * Medications: TakingCosamin ASU for Joint Health - Capsule as directed Orally Ferrous Sulfate 325 (65 Fe) MG Tablet 1 tablet Orally Once a day Atorvastatin Calcium 40 MG Tablet Oral Lisinopril 20 MG Tablet Oral Omeprazole 20 MG Capsule Delayed Release Oral Isosorbide Mononitrate ER 30 MG Tablet Extended Release 24 Hour Oral Aspirin 81 MG Tablet Chewable 1 tablet Orally Once a day Taking Cosamin ASU for Joint Health - Capsule as directed Orally Taking Ferrous Sulfate 325 (65 Fe) MG Tablet 1 tablet Orally Once a day Taking Atorvastatin Calcium 40 MG Tablet Oral Taking Lisinopril 20 MG Tablet Oral Taking Omeprazole 20 MG Capsule Delayed Release Oral Taking Isosorbide Mononitrate ER 30 MG Tablet Extended Release 24 Hour Oral Taking Aspirin 81 MG Tablet Chewable 1 tablet Orally Once a day Not-TakingMultivitamin Isosorbide Mononitrate ER 30 MG Tablet Extended Release 24 Hour 1 tablet in the morning Orally Once a day Ibuprofen hydroCHLOROthiazide 25 MG Tablet Oral Isosorbide Dinitrate 30 MG Tablet Oral traMADol HCl 50 MG Tablet 1 tablet Orally q 6-8 hours PRN pain Clopidogrel Bisulfate 75 MG Tablet Oral Medication List reviewed and reconciled with the patientNot-Taking Multivitamin Not-Taking Isosorbide Mononitrate ER 30 MG Tablet Extended Release 24 Hour 1 tablet in the morning Orally Once a day Not-Taking Ibuprofen Not-Taking hydroCHLOROthiazide 25 MG Tablet Oral Not-Taking Isosorbide Dinitrate 30 MG Tablet Oral Not-Taking traMADol HCl 50 MG Tablet 1 tablet Orally q 6-8 hours PRN pain Not-Taking Clopidogrel Bisulfate 75 MG Tablet Oral Medication List reviewed and reconciled with the patient * Allergies: N.K.D.A.no[Allergies Verified] Objective: * Vitals: Temp: 97.8 F, HR: 67 /min, BP: 156/85 mm Hg, Wt: 195 lbs, BMI: 27.19 Index, Ht: 71 in, RR: 18 /min, Ht-cm: 180.34 cm, Wt-k.45 kg. * Examination: DGS: Follow-up exam elements: General The patient appeared in no distress. The patient is alert and oriented to time, place, and person. Musculoskeletal Mildly antalgic but overall well compensated gait observed. Patient reports low back tightness with greater than 30 degrees trunk flexion but somewhat greater degree of low back pain provocation with extension approaching 10 degrees, especially with rotation and sidebending to either side. Patient was mildly tender over the left PSIS and with compression of the underlying SI joint. Bala's was fairly unremarkable bilaterally although Hailey was at least equivocally positive on the left side. Findings were less impressive on the right side. No definite step-offs were noted with palpation over lumbar and lumbosacral spinous processes. Mild tenderness lower lumbar paravertebral areas.. Neurologic Patient denies areas of persistent sensory loss in the lower extremities.? DTRs +1 bilateral patella and trace to 1 bilateral Achilles. Although tight hamstrings are noted bilaterally, he does not demonstrate sciatic stretch sign. Bilateral ankle dorsiflexion and plantarflexion against resistance appear normal. Specific bilateral EHL function against resistance is normal. He does not describe neurogenic bowel/bladder symptoms.. Assessment: * Assessment: 1. Spondylosis without myelopathy or radiculopathy, lumbosacral region - M47.817 2. Spondylolisthesis at L4-L5 level - M43.16 3. Degenerative joint disease of sacroiliac joint - M46.1 Plan: * Treatment: * Procedure Codes: * Preventive Medicine: PQRS: PQRS G8417: BMI above normal (overweight) and f/u plan documented., G8428: Current medication with name, dosage, frequency, or route NOT documented, not given - performance NOT met., 1036F: Patient screened for tobacco use and identified as a non-user of tobacco.. Oswestry Score: Oswestry Score 13. * Images: * Sign off status: Completed true * Provider: Devon Blanchard DO Date: 03/12/2023 History and Physical Notes * HPI (History of Present Illness) Category Sub-Category Detail Notes Category Not es Follow-up Questionnaire Average Pain Since Last Visit on Scale of 0 to 10: 7 This 83-year-old white male presents to the pain clinic today for referral visit. We are out of network for his insurance and he is paying rojas for office visit today. I strongly recommended the patient try to locate a pain physician that is in network with his insurance so that he will not have to pay [id number]. I last saw Barak 01/15/2022 at which time I provided left sacroiliac joint injection with excellent results. He subsequently saw my partner, Dr. Jason Gagnon, and underwent prognostic LEFT sacroiliac lateral branch injections on 02/07/2022 followed by left sacroiliac joint RFA on 02/19/2022. Patient was reminded that as of 2022, Medicare and all insurance companies denied further coverage for SI joint RFA, citing it as experimental . Patient achieves substantially greater than 50% relief of symptoms for approximately 1 year. In the interval since I last saw him, he describes treatment with Dr. José Luis Renee, and underwent unspecified injections but again no substantial improvement and states that he was told he had nothing else to offer. Those treatment records are not available to me at the time of today's visit. At today's visit, he seems to describe more centralized low back pain, sometimes extending into the bilateral lumbar paravertebral areas, higher than his iliac area. He does not describe ongoing lumbar radiculopathy symptoms. He does not describe areas of persistent sensory loss or foot drop in the lower extremities. Past medical history includes coronary artery disease with previous coronary stents, hypertension, hyperlipidemia, chronic iron deficiency anemia and GERD. He does have history of unspecified lumbar decompressive laminotomies, multiple levels, [address] Ortiz Mcbride. He is a non-smoker. He denies known drug allergies. Medications were reviewed. Imaging studies: X-ray lumbar spine 01/16/2022 [facility] in [place], [place] revealed 4 mm anterior listhesis L4/5. Severe loss of disc space height L2/3 and moderate decreased disc space height L5/S1. Severe hypertrophic facets noted in the lower lumbar spine. 18 degrees of lumbar levoscoliosis noted. There was no instability with bending maneuvers. X-ray AP pelvis 01/16/2022 reveals mild left hip arthropathy. Degenerative disc changes observed L4/5 and L5/S1. No acute findings noted. Pubic symphysis and sacroiliac joints appear fairly unremarkable. Number describing interferen ce w/enjoyment of life: 6 Relief from Injections/Medications: c - I am better, but not great yet. Improvement in functional ability: c- I can do more stuff, but the pain still stops me from doing some things. Pain [place] [facility] [place] patient completed a questionnaire on the progress that has been made since the last office visit. This form was reviewed and the responses are included in this progress note. Onset of pain: years ago Location of pain: low back Duration of pain: constant Words that best describe the pain: dull, aching, sharp Aggravating/Associated factors of pain: walking, exercise, standing Relieving factors of pain: sitting, lyin g down, medications Level of Pain on 1-10 Scale w/ 10 being most severe- TODAY 7 Level of Pain on 1-10 Scale w/ 10 being most severe- LEAST 5 Level of Pain on 1-10 Scale w/ 10 being most severe- WORST 7 Pain Level on 1-10 Scale w/ 10 being most severe- OVERALL 6 Examination Category Sub-Category Detail Notes Category Not es DGS: Follow-up exam elements General The patient appeared in no distress. The patient is alert and oriented to time, place, and person Musculoskeletal Mildly antalgic but overall well compensated gait observed. Patient reports low back tightness with greater than 30 degrees trunk flexion but somewhat greater degree of low back pain provocation with extension approaching 10 degrees, especially with rotation and sidebending to either side. Patient was mildly tender over the left PSIS and with compression of the underlying SI joint. Bala's was fairly unremarkable bilaterally although Haliey was at least equivocally positive on the left side. Findings were less impressive on the right side. No definite step-offs were noted with palpation over lumbar and lumbosacral spinous processes. Mild tenderness lower lumbar paravertebral areas. Neurologic Patient denies areas of persistent sensory loss in the lower extremities. DTRs +1 bilateral patella and trace to 1 bilateral Achilles. Although tight hamstrings are noted bilaterally, he does not demonstrate sciatic stretch sign. Bilateral ankle dorsiflexion and plantarflexion against resistance appear normal. Specific bilateral EHL function against resistance is normal. He does not describe neurogenic bowel/bladder symptoms.
--- OUTSIDE RECORDS SUMMARY | 2024-05-27 13:18 | XMS_ITS | Patient Health Record ---
Author Organization [facility] [place] Address [address] [facility] [place] [address] Care Team Providers Care Sample Sawyer Name Role Phone Devon Blanchard Unavailable [phone] ALLERGIES No Known Allergies REASON FOR REFERRAL No Information MEDICATIONS Medication SIG (Take, Route, Frequency, Duration) Notes Start Date End Date Status Lisinopril 20 MG Oral for 90 A ctive Atorvastatin Calcium 40 MG Oral for 90 Active Isosorbide Mononitrate ER 30 MG Oral for 90 Active Omeprazole 20 MG Oral for 90 A ctive Multivitamin Not-Cooper ing Clopidogrel Bisulfate 75 MG Oral for 90 Not-Taking Ferrous Sulfate 325 (65 Fe) MG 1 tablet Orally Once a day Active traMADol HCl 50 MG 1 tablet Orally q 6-8 hours PRN pain for 7 days 01/08/2022 Not-Taking Ibuprofen Not-Taking Isosorbide Mononitrate ER 30 MG 1 tablet in the morning Orally Once a day Not-Taking hydroCHLOROthiazide 25 MG Oral for 90 Not-Taking Cosamin ASU for Joint Health - as directed Orally Active Aspirin 81 MG 1 tablet Orally Once a day Active Isosorbide Dinitrate 30 MG Oral for 30 Not-Taking SOCIAL HISTORY Tobacco Use: Social History Observation Description Date Details (start date - stop date) Never Smoker NA - NA Sex Assigned At : Social History Observation Description Sex Assigned At Unknown Tobacco Use/Smoking Question Answer Notes Are you a nonsmoker PROBLEMS Problem Type ICD Code Onset Dates Problem Status W/U Status Risk SNOMED Code Notes Problem Spondylosis without myelopathy or radiculopathy, lumbosacral region (M47.817) Active confirmed 65026518 Problem Radiculopathy, lumbar region (M54.16) Active confirmed 709088343 Problem 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) Active confirmed 392791370 Problem Spondylolisthesis at L4-L5 level (M43.16) Active confirmed 095094232 Problem History of lumbar laminectomy (Z98.890) Active confirmed 50162181702555570 Problem Degenerative joint disease of sacroiliac joint (M46.1) Active confirmed 545169553 Problem 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) Active confirmed Arthritis of sacroiliac joint (6628942774) PLAN OF TREATMENT No Information MEDICATIONS ADMINISTERED Medication Instructions Date of Administration Dosage Notes Bilateral L4/5 and L5/S1 Fac et Joint Injections with Fluoroscopy 08/21/2020 Bilateral Sacroiliac Joint Injection 09/11/2020 Bilateral Sacroiliac Joint Injection 06/27/2021 Left Sacroiliac Joint Injection 05/24/2021 Left Sacroiliac Joint Injection 01/15/2022 RIGHT L4/5 SESI 03/29/2020 RIGHT L4/5 SESI 04/19/2020 MEDICAL (GENERAL) HISTORY Medical History History ICD Code Hypertension 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
--- OUTSIDE RECORDS SUMMARY | 2024-05-27 13:18 | XMS_ITS | Encounter Summary ---
Author Organization [facility] Address [address] [place] [address] Care Team Providers Care Order Processing Manager Name Role Phone Mark Barrios MD Unavailable [phone] Robin South MD Primary Care Provider [phone] Encounter Details Date Type Department Care Team (Late st Contact Info) Description 12/26/2021 Prep for Procedure [facility] Pre-Admission Testing [address] [place], [place] [id number] Grant Sánchez MD 3 [facility] [address] [place], [place] [id number] Social History Tobacco Use Types Packs/Day Years Used Date Smoking Tobacco: Former Cigarettes 1966 Smokeless Tobacco: Never Alcohol Use Standard Drinks/Week Comments Not Currently 11.7 (1 standard drink = 0.6 oz pure alcohol) Sex and Gender Information Value Date Recorded Sex Assigned at Not on file Legal Sex Male 11:57 AM CDT Gender Identity Not on file Sexual Orientation Not on file COVID-19 Exposure Response Date Recorded In the last 10 days, have yo u been in contact with someone who was confirmed or suspected to have Coronavirus/COVID-19? No / Unsure 12/28/2021 11:24 AM CDT documented as of this encounter Plan of Treatment Not on file documented as of this encounter Results * PTT, PARTIAL THROMBOPLASTIN TIME (12/28/2021 11:43 AM CDT) PTT 28.9 25.1 - 36.5 SEC 12/28/2021 12:[address] [facility] 12/28/2021 11:4 3 AM CDT Grant Sánchez MD LABORATORY Lou l Result Performing Organization Address [facility] Co de Phone Number [facility] [address] [place] [address], * PROTIME/INR, VENOUS (12/28/2021 11:43 AM CDT) PROTIME 12.2 10.2 - 12.9 SEC 12/28/2021 12:[address] [facility] INR 1.0 12/28/2021 12:[address] [facility] Comment: Recommended INR Therapeutic Goals: 2.0-3.0 Routine Therapy 2.5-3.5 Mechanical Prosthetic Valves (High Risk) 12/28/2021 11:4 3 AM CDT Grant Sánchez MD LABORATORY Luo l Result Performing Organization Address [facility] Co de Phone Number [facility] [address] [place] [address], * TYPE & SCREEN (12/28/2021 11:43 AM CDT) ABO/RH AB POSITIVE 12/28/2021 2:[address] [facility] ANTIBODY SCREEN NEGATIVE 12/28/2021 2:[address] [facility] SAMPLE EXPIRATION 12/31/2021,2 359 12/28/2021 2:[address] [facility] 12/28/2021 11:4 3 AM CDT Grant Sánchez MD BLOOD BANK TEST ALESSIA KRISTINANGELLA Final Result [facility] [address] [place] [address], [place] [phone] * (ABNORMAL) BASIC METABOLIC PANEL (12/28/2021 11:43 AM CDT) [facility] GLUCOSE 166(H) 70 - 99 MG/DL 12/28/2021 12:[address] [facility] BUN 21(H) 7 - 18 MG/DL 12/28/2021 12:[address] [facility] CREATININE S/P/B 1.29 0.7 - 1.3 MG/DL 12/28/2021 12:[address] [facility] SODIUM S/P/B 136 136 - 145 MMOL/L 12/28/2021 12:[address] [facility] POTASSIUM S/P/B 3.8 3.5 - 5.1 MMOL/L 12/28/2021 12:[address] [facility] CHLORIDE S/P/B 103 100 - 108 MMOL/L 12/28/2021 12:[address] [facility] CO2 28.8 21 - 32 MMOL/L 12/28/2021 12:[address] [facility] CALCIUM S/P/B 9.2 8.5 - 10.1 MG/DL 12/28/2021 12:[address] [facility] ANION GAP 4.2(L) 5 - 15 MMOL/L 12/28/2021 12:[address] [facility] BUN CREATININE RATIO 16.3 6 - 26 12/28/2021 12:[address] [facility] GFR ESTIMATE 55(L) >90 ML/MIN/1.7 3 M2 12/28/2021 12:[address] [facility] Comment: NOTE: eGFR is not calculated for patients <18 years of age. This is an estimated GFR calculation using the new CKD EPI creatinine equation without race and so does not require a correction factor for race. This estimated GFR should not be used for calculating drug doses. 12/28/2021 11:4 3 AM CDT Grant Sánchez MD LABORATORY Lou l Result [facility] [address] [place] [address], * (ABNORMAL) CBC W/DIFF AUTOMATED (12/28/2021 11:43 AM CDT) WBC 4.8 4.5 - 11.0 x10'3/uL 12/28/2021 12:[address] [facility] RBC 4.44(L) 4.70 - 6.10 x10'6/uL 12/28/2021 12:[address] [facility] HGB 14.4 14.0 - 18.0 G/DL 12/28/2021 12:[address] [facility] HCT 42.4(L) 43.0 - 54.0 % 12/28/2021 12:[address] [facility] MCV 95.5(H) 80.0 - 94.0 FL 12/28/2021 12:[address] [facility] MCH 32.4(H) 27.0 - 31.0 PG 12/28/2021 12:[address] [facility] MCHC 34.0 32.0 - 36.0 G/DL 12/28/2021 12:[address] [facility] RDW 12.5 11.5 - 14.5 % 12/28/2021 12:[address] [facility] PLT 212 130 - 400 x10'3/uL 12/28/2021 12:[address] [facility] MPV 10.1 9.3 - 12.2 FL 12/28/2021 12:[address] [facility] DIFFERENTIAL TYPE AUTOMATED DIFFERENTIAL 12/28/2021 12:[address] [facility] NEUTROPHILS % 70.6 % 12/28/2021 12:[address] [facility] LYMPHOCYTES % 19.1 % 12/28/2021 12:[address] [facility] MONOCYTES % 9.1 % 12/28/2021 12:[address] [facility] EOSINOPHILS 0.4 % 12/28/2021 12:[address] [facility] BASOPHILS 0.6 % 12/28/2021 12:[address] [facility] IMMATURE GRANS % 0.2 % 12/29/19 12:[address] [facility] ABS. NEUTROPHILS TOTAL 3.39 1.80 - 7.70 x10'3/uL 12/28/2021 12:[address] [facility] ABS. LYMPHOCYTES 0.92(L) 1.00 - 4.80 x10'3/uL 12/28/2021 12:[address] [facility] ABS. MONOCYTES 0.44 0.30 - 0.82 x10'3/uL 12/28/2021 12:[address] [facility] ABS. EOSINOPHILS 0.02(L) 0.04 - 0.54 x10'3/uL 12/28/2021 12:[address] [facility] ABS. BASOPHILS 0.03 0.01 - 0.08 x10'3/uL 12/28/2021 12:[address] [facility] ABS. IMMATURE GRANULOCYTES 0.01 0.00 - 0.49 x10'3/uL 12/28/2021 12:[address] [facility] 12/28/2021 11:4 3 AM CDT Grant Sánchez MD LABORATORY Lou l Result Performing Organization Address City/[facility]/ZIP Co de Phone Number [facility] [address] [place] [address], [place] [phone] * CULTURE URINE (12/28/2021 11:33 AM CDT) SPEC DESCRIPTION URINE CLEAN CATCH 12/28/2021 11:[address] [facility] SPECIAL REQUESTS NO SPECIAL REQUEST 12/28/2021 11:[address] [facility] CULTURE RESULT NO GROWTH 2 DAYS 12/30/2021 8:[address] [facility] URINE SPECIMEN OBTAINED BY CLEAN CATCH PROCEDURE / Unknown 12/28/2021 11:33 AM CDT 12/28/2021 11:58 AM CDT Grant Sánchez MD MICROBIOLOGY - GENER AL ORDERABLES Final Result Performing Organization Address City/[facility]/ZIP Co de Phone Number [facility] [address] [place] [address], [place] [phone] documented in this encounter Visit Diagnoses Diagnosis BPH (benign prostatic hyperplasia)- Primary Unspecified hyperplasia of prostate without urinary obstruction and other lower urinary tract symptoms (LUTS) documented in this encounter Care Teams Order Processing Manager Relationship Specialty Start Date End Date Robin South MD [address] [place] [address] PCP - General CARDIOVASCULAR DISEASE 12/26/21 Mark Barrios MD [facility] [address] [place] [address] CARDIOLOGY 12/26/21 documented as of this encounter
--- OUTSIDE RECORDS SUMMARY | 2024-05-27 13:19 | XMS_ITS | Referral Summary ---
Author Organization [facility] Address [address] [place] [address] Care Team Providers Care Catalyst Operator Gasoline Name Role Phone Shahzad Hilton DO Primary Care Provider [phone] Encounters Date Type Department Care Team Description 04/27/2024 11:15 AM WORKSITE WELLNESS PRACTITIONER Office Visit [facility] Dermatology [facility] Floor [address] [place] [address] Virginie Brown MD History of nonmelanoma skin cancer (Primary Dx); Actinic keratosis; Seborrheic keratoses; Onychomycosis from Last 3 Months Allergies No known active allergies Medications multivitamin no.44-vit D3-K 1,000-800 unit-mcg capsule Active omeprazole (PriLOSEC) 20 mg capsule TAKE 1 CAPSULE BY MOUTH DAILY 4 Active atorvastatin (LIPITOR) 40 mg tablet Take 1 tablet (40 mg total) by mouth daily Active lisinopriL (PRINIVIL,ZESTR IL) 20 mg tablet Take 1 tablet (20 mg total) by mouth daily Active ferrous sulfate 325 mg (65 mg of elemental iron) tabletIndicatio ns:Iron Deficiency Anemia Take 1 tablet (325 mg total) by mouth 2 (two) times a week Active hydroCHLOROthia zide (HYDRODIURIL) 25 mg tablet Take 1 tablet (25 mg total) by mouth daily Active isosorbide dinitrate (ISORDIL) 30 mg tablet Take 1 tablet (30 mg total) by mouth nightly Active vit C,Z-If-kxzog-herman tein-zeaxan [id number] ie-fchb-mf-mg capsule Take 1 capsule by mouth daily Active aspirin 81 mg enteric coated tablet Take 1 tablet (81 mg total) by mouth daily Active glucosamine-cho ndroitin 500-400 mg capsule 1 capsule Active cycloSPORINE (RESTASIS) 0.05 % ophthalmic emulsion Administer 1 drop into both eyes 2 (two) times a day Active magnesium oxide (MAG-OX) 400 mg (241.3 mg elemental magnesium) tablet Take 1 tablet (400 mg total) by mouth daily Active terbinafine (LamiSIL) 250 mg tabletIndicatio ns:Onychomycosi s Take 1 tablet (250 mg total) by mouth daily 30 tablet 2 5 07/27/19 Active Active Problems Problem Noted Date Diagnosed Date Lumbosacral spondylosis without myelopathy 04/29 Spinal stenosis of lumbar re gion with neurogenic claudication 04/29/2022 Sacroiliitis 04/29/2022 SAH (subarachnoid hemorrhage) 09/15/2019 Painful respiration 09/14/2019 Multiple closed fractures of ribs of right side 09/14/2019 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 Basal cell carcinoma (BCC) of upper extremity History of basal cell carcinoma (BCC) 02/15/2014 Skin neoplasm 08/17/2013 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 Actinic keratosis 11/28/2010 Social History Tobacco Use Types Packs/Day Years Used Date Smoking Tobacco: Former Smokeless Tobacco: Never Tobacco Cessation:Counseling Given: Not Answered Alcohol Use Standard Drinks/Week Comments Yes 0 (1 standard drink = 0.6 oz pur e alcohol) occasional Sex and Gender Information Value Date Recorded Sex Assigned at Not on file Legal Sex Male 3:47 AM WORKSITE WELLNESS PRACTITIONER Gender Identity Male 08/11/2023 12:49 PM CDT Sexual Orientation Straight 08/11/2023 12 :49 PM CDT Last Filed Vital Signs Vital Sign Reading Time Taken Comments Blood Pressure 122/62 11/19/2022 10:04 AM CDT Pulse 80 11/19/2022 10:04 AM CDT Temperature 36.5 C (97.7 F) 08/21/2022 10:09 AM CDT Respiratory Rate 18 08/21/2022 11:0 6 AM CDT Oxygen Saturation 94% 11/19/2022 10: 04 AM CDT Inhaled Oxygen Concentration - - Weight 89.3 kg (196 lb 14.4 oz) 023 10:04 AM CDT Height 179.1 cm (5' 10.51 ) 11/19/2022 10:04 AM CDT Body Mass Index 27.84 11/19/2022 10:04 AM CDT Plan of Treatment [place] [address] [employer] [place] [address] MEDICARE [employer] PPO [employer] Advance Directives For more information, please contact: [phone] * Full Code (Latest Code Status on File) Date Activated Date Inactivated Comments 09/12/2019 1:00 AM 09/16/2019 4:23 PM Care Teams Catalyst Operator Gasoline Relationship Specialty Start Date End Date Shahzad Hilton DO PCP - General Internal Medicine 06/25/23
--- OUTSIDE RECORDS SUMMARY | 2024-05-27 13:19 | XMS_ITS | Encounter Summary ---
Author Organization [facility] Address [address] [place] [address] Care Team Providers Care Curing Press Operator Name Role Phone Mark Barrios MD Unavailable [phone] Robin South MD Primary Care Provider [phone]- [phone] Encounter Details Date Type Department Care Team (Late st Contact Info) Description 02/20/[address] [facility] Pre-Admission Testing [address] [place], [place] [id number] Grant Sánchez MD [address] [facility] [address] [place], [place] [id number] Social History Tobacco Use Types Packs/Day Years [...] suspected to have Coronavirus/COVID-19? No / Unsure 02/20/2022 3:28 PM SIGN INSTALLER documented as of this encounter Plan of Treatment Not on file documented as of this encounter Results * PTT, PARTIAL THROMBOPLASTIN TIME (02/20/2022 3:58 PM SIGN INSTALLER) PTT 26.7 25.1 - 36.5 SEC 02/20/2022 4:36 PM SIGN INSTALLER [facility] 02/20/2022 3:58 PM SIGN INSTALLER Grant Sánchez MD LABORATORY Lou l Result Performing Organization Address [facility] Co de Phone Number [facility] [address] [place] [address], [place] [phone] * PROTIME/INR, VENOUS (02/20/2022 3:58 PM SIGN INSTALLER) PROTIME 11.8 10.2 - 12.9 SEC 02/20/2022 4:36 PM SIGN INSTALLER [facility] INR 1.0 02/20/2022 4:36 PM SIGN INSTALLER [facility] Comment: Recommended INR Therapeutic Goals: 2.0-3.0 Routine Therapy 2.5-3.5 Mechanical Prosthetic Valves (High Risk) 02/20/2022 3:58 PM SIGN INSTALLER Grant Sánchez MD LABORATORY Lou l Result Performing Organization Address [facility] Co de Phone Number [facility] [address] [place] [address], [place] [phone] * TYPE & SCREEN (02/20/2022 3:58 PM SIGN INSTALLER) ABO/RH AB POSITIVE 02/20/2022 5:05 PM SIGN INSTALLER [facility] ANTIBODY SCREEN NEGATIVE 02/20/2022 5:05 PM SIGN INSTALLER [facility] SAMPLE EXPIRATION 2022,2 359 02/28/2022 12:42 PM SIGN INSTALLER [facility] COMMENT NO HISTORY OF TRANSFUSIONS , OR ANTIBODIES, NEW SPECIMEN NOT NEEDED 02/28/2022 12:42 PM SIGN INSTALLER [facility] 02/20/2022 3:58 PM SIGN INSTALLER Grant Sánchez MD BLOOD BANK TEST ALESSIA ROOT Final Result [facility] [address] [place] [address], * (ABNORMAL) BASIC METABOLIC PANEL (02/20/2022 3:58 PM SIGN INSTALLER) Pathologist [facility] GLUCOSE 114(H) 70 - 99 MG/DL 02/20/2022 4:38 PM SIGN INSTALLER [facility] BUN 21(H) 7 - 18 MG/DL 02/20/2022 4:38 PM SIGN INSTALLER [facility] CREATININE S/P/B 1.22 0.7 - 1.3 MG/DL 02/20/2022 4:38 PM SIGN INSTALLER [facility] SODIUM S/P/B 128(L) 136 - 145 MMOL/L 02/20/2022 4:38 PM SIGN INSTALLER [facility] POTASSIUM S/P/B 3.8 3.5 - 5.1 MMOL/L 02/20/2022 4:38 PM SIGN INSTALLER [facility] CHLORIDE S/P/B 97(L) 100 - 108 MMOL/L 02/20/2022 4:38 PM SIGN INSTALLER [facility] CO2 29.5 21 - 32 MMOL/L 02/20/2022 4:38 PM SIGN INSTALLER [facility] CALCIUM S/P/B 9.3 8.5 - 10.1 MG/DL 02/20/2022 4:38 PM SIGN INSTALLER [facility] ANION GAP 1.5(L) 5 - 15 MMOL/L 02/20/2022 4:38 PM SIGN INSTALLER [facility] BUN CREATININE RATIO 17.2 6 - 26 02/20/2022 4:38 PM SIGN INSTALLER [facility] GFR ESTIMATE 59(L) >90 ML/MIN/1.7 3 M2 02/20/2022 4:38 PM SIGN INSTALLER [facility] Comment: NOTE: eGFR is not calculated for patients <18 years of age. This is an estimated GFR calculation using the new CKD EPI creatinine equation without race and so does not require a correction factor for race. This estimated GFR should not be used for calculating drug doses. 02/20/2022 3:58 PM SIGN INSTALLER Grant Sánchez MD LABORATORY Lou hinds Result [facility] [address] [place] [address], [place] [phone] * (ABNORMAL) CBC W/DIFF AUTOMATED (02/20/2022 3:58 PM SIGN INSTALLER) WBC 8.9 4.5 - 11.0 x10'3/uL 02/20/2022 4:19 PM SIGN INSTALLER [facility] RBC 4.27(L) 4.70 - 6.10 x10'6/uL 02/20/2022 4:19 PM [facility] HGB 13.9(L) 14.0 - 18.0 G/DL 02/20/2022 4:19 PM SIGN INSTALLER [facility] HCT 40.1(L) 43.0 - 54.0 % 02/20/2022 4:19 PM [facility] MCV 93.9 80.0 - 94.0 FL 02/20/2022 4:19 PM [facility] MCH 32.6(H) 27.0 - 31.0 PG 02/20/2022 4:19 PM [facility] MCHC 34.7 32.0 - 36.0 G/DL 02/20/2022 4:19 PM [facility] RDW 12.9 11.5 - 14.5 % 02/20/2022 4:19 PM [facility] PLT 220 130 - 400 x10'3/uL 02/20/2022 4:19 PM [facility] MPV 9.7 9.3 - 12.2 FL 02/20/2022 4:19 PM [facility] DIFFERENTIAL TYPE AUTOMATED DIFFERENTIAL 02/20/2022 4:19 PM [facility] NEUTROPHILS % 83.2 % 02/20/2022 4:19 PM [facility] LYMPHOCYTES % 8.1 % 02/20/2022 4:19 PM [facility] MONOCYTES % 7.8 % 02/20/2022 4:19 PM [facility] EOSINOPHILS 0.0 % 02/20/2022 4:19 PM [facility] BASOPHILS 0.2 % 02/20/2022 4:19 PM [facility] IMMATURE GRANS % 0.7 % 02/21/20 4:19 PM [facility] ABS. NEUTROPHILS TOTAL 7.42 1.80 - 7.70 x10'3/uL 02/20/2022 4:19 PM [facility] ABS. LYMPHOCYTES 0.72(L) 1.00 - 4.80 x10'3/uL 02/20/2022 4:19 PM [facility] ABS. MONOCYTES 0.70 0.30 - 0.82 x10'3/uL 02/20/2022 4:19 PM [facility] ABS. EOSINOPHILS 0.00(L) 0.04 - 0.54 x10'3/uL 02/20/2022 4:19 PM [facility] ABS. BASOPHILS 0.02 0.01 - 0.08 x10'3/uL 02/20/2022 4:19 PM SIGN INSTALLER [facility] ABS. IMMATURE GRANULOCYTES 0.06 0.00 - 0.49 x10'3/uL 02/20/2022 4:19 PM SIGN INSTALLER [facility] 02/20/2022 3:58 PM SIGN INSTALLER Grant Sánchez MD LABORATORY Lou l Result Performing Organization Address [facility] Co de Phone Number [facility] [address] [place] [address], [place] [phone] * CULTURE URINE (02/20/2022 3:53 PM SIGN INSTALLER) SPEC DESCRIPTION URINE CLEAN CATCH 02/20/2022 3:53 PM SIGN INSTALLER [facility] SPECIAL REQUESTS NO SPECIAL REQUEST 02/20/2022 3:53 PM SIGN INSTALLER [facility] CULTURE RESULT NO GROWTH 2 DAYS 02/22/2022 8:47 AM SIGN INSTALLER [facility] URINE SPECIMEN OBTAINED BY CLEAN CATCH PROCEDURE / Unknown 02/20/2022 3:53 PM SIGN INSTALLER 02/20/2022 4:02 PM SIGN INSTALLER Grant Sánchez MD MICROBIOLOGY - GENER AL ORDERABLES Final Result Performing Organization Address [facility] Co de Phone Number [facility] [address] [place] [address], [place] [phone] documented in this encounter Visit Diagnoses Diagnosis Preop examination- Primary Preoperative examination, unspecified Nocturia CAD (coronary artery disease) Coronary atherosclerosis of unspecified type of vessel, [place] or graft documented in this encounter Care Teams Curing Press Operator Relationship Specialty Start Date End Date Robin South MD [address] [place] [address] [address], [place] [address] PCP - General CARDIOVASCULAR DISEASE 12/26/21 Mark Barrios MD [facility] [address] [place] [address] Rd [address] [place] [address] CARDIOLOGY 12/26/21 documented as of this encounter
--- OUTSIDE RECORDS SUMMARY | 2024-05-27 13:19 | XMS_ITS | Patient Health Record ---
Author Organization [facility] Address [address] [facility] [address] [place] [address] Care Team Providers Care Cook Helper Dessert Name Role Phone Robin South MD Primary Care Provider Unava Prem Berman Unavailable [phone] Reason For Referral No Information Medications Medication SIG (Take, Route, Frequency, Duration) Notes Start Date End Date Status Omeprazole 20 MG Orally Act kerri Lisinopril Active Clopidogrel Bisulfate Active Ferrous Sulfate Acti ve Cetirizine HCl Activ e OTC/Vitamins Aspirin, Plus 50 vit, Cosamin, Areds Active Ranolazine Active Isosorbide Dinitrate Active hydroCHLOROthiazide Active Atorvastatin Calcium Active Social History Tobacco Use: Social History Observation Description Date Details (start date - stop date) Never Smoker NA - NA Tobacco Use/Smoking Question Answer Notes Are you a nonsmoker Section Notes: Alcohol and tobacco use unkn own Problems Problem Type SNOMED Code ICD Code Onset Dates Problem Status W/U Status Risk Notes Problem [id number] Chest pain (R07.9) Active confirmed Plan Of Treatment No Information Insurance Providers Payer Name Payer Address Payer Phone Subscriber Number Group Number Insured Name Patient Relationship to Insured Coverage Start Date Coverage End Date Medicare E2 [address] [address] [place] [address] [id number] Barak Caraballo Self - patient is the insured 4 [employer] PPO E2 [address] [place] [address] [id number] Barak Caraballo Self - patient is the insured Medical (General) History Medical History History ICD Code Hiatal hernia GERD Colon polyps Anemia Hypertension Heart stents Sleep apnea Hearing loss Surgical History Surgery Date(Month/Year) EGD 12/2017 Spinal stenosis Deviated septum
--- OUTSIDE RECORDS SUMMARY | 2024-05-27 13:19 | XMS_ITS ---
Author Organization 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 Past Treatment and Therapy Plans No past plan information found. Lifetime Dose Tracking * Chemical Lifetime Dose Automatic Entry Manual Entr y Fluoro Time 0.467 minutes 0.467 minutes 0 minutes Air kerma at the reference point (Ka,r) 12.125 mGy 1 2.125 mGy 0 mGy DLP 4,167 mGycm 4,167 mGycm 0 mGycm
--- OUTSIDE RECORDS SUMMARY | 2024-05-27 13:19 | XMS_ITS | Clinical Summary ---
Author Organization [facility] field Address [address] [place] [phone] Phone Care Team Providers Care Manager Internship Name Role Phone Robin South MD Primary Care Provider +1- [phone] Allergies No known active allergies Medications OMEPRAZOLE ORAL Take 20 mg by mouth daily. Active aspirin (TIFFANI CHEWABLE) 81 mg Tablet, Chewable Take 81 mg by mouth daily. Active multivitamin (DAILY-JAKY) tablet Take 1 Tab by mouth daily. Active Active Problems Problem Noted Date Diagnosed Date Iron deficiency anemia 06/02/2013 Overview (06/25/2013): Video capsule endoscopy negative 06/2013. Family History Medical History Relation Name Comments Colon Cancer Neg Hx Social History Tobacco Use Types Packs/Day Years Used Date Smoking Tobacco: Former Alcohol Use Standard Drinks/Week Comments Yes 6.7 (1 standard drink = 0.6 oz p ure alcohol) occasional Sex and Gender Information Value Date Recorded Sex Assigned at Not on file Legal Sex Male 10:47 AM CDT Gender Identity Not on file Sexual Orientation Not on file Occupation Industry Job Start Date Job End Date Not on file Not on file Not on file Not on file Last Filed Vital Signs Vital Sign Reading Time Taken Comments Blood Pressure 127/86 06/01/2013 11:15 AM CDT Pulse 63 06/01/2013 11:15 AM CDT Temperature 36.5 C (97.7 F) 06/01/2013 11:02 AM CDT Respiratory Rate 14 06/01/2013 11:15 AM CDT Oxygen Saturation 95% 06/01/2013 11:15 AM CDT Inhaled Oxygen Concentration - - Weight 88.5 kg (195 lb) 06/01/2013 9:32 AM CDT Height 177.8 cm (5' 10 ) 06/01/2013 9:32 AM CDT Body Mass Index 27.98 06/01/2013 9:32 AM CDT Plan of Treatment Health Maintenance Due Date Last Done Comments DTAP/TDAP/TD VACCINES (1 - Tdap) 1959 PNEUMOCOCCAL VACCINE 50+ YEA RS (1 of 1 - PCV) 1989 ZOSTER VACCINE (1 of 2) 1989 RSV VACCINE (60+ or ) (1 - 1-dose 75+ series) 2014 COLORECTAL SCREENING 06/03/2016 06/03/2013, 06/02/19 14 INFLUENZA VACCINE (#1) 2023 [place] [address] MEDICARE PART A AND B [employer] PPO Advance Directives For more information, please contact: [phone] * Full Code (Latest Code Status on File) Date Activated Date Inactivated Comments 06/01/2013 9:32 AM 06/01/2013 1:48 PM Care Teams Manager Internship Relationship Specialty Start Date End Date Robin South MD [facility] [facility] [address] [place] [phone] PCP - General Interventional Cardiology 05/20/13
--- OUTSIDE RECORDS SUMMARY | 2024-05-27 13:19 | XMS_ITS | Clinical Summary ---
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 Actinic keratosis 11/28/2010 Encounters Date Type Department Care Team Description 04/27/2024 11:15 AM MANAGER ZONE Office Visit [facility] Dermatology [facility] Floor [address] [place] [address] Virginie Brown MD History of nonmelanoma skin cancer (Primary Dx); Actinic keratosis; Seborrheic keratoses; Onychomycosis from Last 3 Months Surgical History Surgery Date Site/Laterality Comments TRANSURETHRAL RESECTION OF PROSTATE 02/28/2022 Medical History Medical History Date Comments Encounter for removal of sutures Encounter for removal of sutures - Removal Of Sutures (Added by TW Conv) 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 - (Added by TW Conv) Malignant neoplasm of skin Skin cancer - (Added by TW Conv) Other benign neoplasm of skin of trunk Benign neoplasm of skin of trunk - (Added by TW Conv) Personal history of other ma lignant neoplasm of skin Personal history of skin can cer - (Added by TW Conv) Personal history of other ma lignant neoplasm of skin History of basal cell carcin lavelle of skin - (Added by TW Conv) Melanoma (HCC) Spinal stenosis Coronary artery disease Family History Medical History Relation Name Comments Valvular heart disease Father Famil y history of valvular heart disease - (Added by TW Conv) Hypertension Mother Family history of hypertension - (Added by TW Conv) Rectal cancer Other 1 Rectal Cancer - (Added by TW Conv) Diabetes Other 2 Diabetes Mellit us - (Added by TW Conv) Heart disease Other 3 Heart Disease - (Added by TW Conv) Relation Name Status Comments Father Mother Other 1 Other 2 Other 3 Social History Tobacco Use Types Packs/Day Years Used Date Smoking Tobacco: Former Smokeless Tobacco: Never Tobacco Cessation:Counseling Given: Not Answered Alcohol Use Standard Drinks/Week Comments Yes 0 (1 standard drink = 0.6 oz pur e alcohol) occasional Sex and Gender Information Value Date Recorded Sex Assigned at Not on file Legal Sex Male 3:47 AM MANAGER ZONE Gender Identity Male 08/11/2023 12:49 PM CDT Sexual Orientation Straight 08/11/2023 12 :49 PM CDT Obstetrics History Last Filed Vital Signs Vital Sign Reading [...] 11/19/2022 10:04 AM CDT Plan of Treatment Health Maintenance Due Date Last Done Comments Depression Screening 1939 DTaP/Tdap/Td Vaccine (1 - Tdap) 1950 Hepatitis B Screening 1957 Zoster Vaccine (1 of 2) 1989 Well Visit 65+ 2004 Pneumococcal vaccine 65+ (2 of 2 - PCV) 12/20/2016 12/21/2015 Fall Risk Assessment 05/28/2023 05/27/2022 Covid-19 Vaccine (4 - 2023-2 5 season) 2023 12/01/2020, 04/07/2020, 03/17/2020 Influenza Vaccine (#1) 2023 3, 11/17/2020, 11/16/2019, Additional history exists Insurance [facility] [place] [address] MEDICARE [employer] [place] [address] [employer] ADVANTAGE CHOICE PPO Advance Directives For more information, please contact: [phone] * Full Code (Latest Code Status on File) Date Activated Date Inactivated Comments 09/12/2019 1:00 AM 09/16/2019 4:23 PM Care Teams Hot Dog Vendor Relationship Specialty Start Date End Date Shahzad Hilton DO PCP - General Internal Medicine 06/25/23
== END 2024-05-27 12:29 | disposition home or self-care (01) ==
LOC: ANHSURGERY 12:35
PROVIDERS: Anesthesiology; PCP Internal Medicine; Visit Provider Anesthesiology Pain Medicine
DX: Z01.818 Encounter for other preprocedural examination (principal); D64.9 Anemia, unspecified; N18.31 Chronic kidney disease, stage 3a
CPT/HCPCS: 36415; 80048; 85014; 85018; 85610; 85730

== ENCOUNTER 2024-06-08 00:33 | Day surgery (SDC) | payer OTHER, SELFPAY ==
[2024-05-25 13:16] VITALS: BMI 26.9
--- NOTE | 2024-05-25 13:35 | PC.NURSE ---
Addendum entered by Alise Rodriguez RN 05/25/24 13:45: Pt aware no Food or drink after midnight except for just sip of water with any pills that am- delete the prior instructions below. [facility] Original Note: Report to the Outpatient Waiting Room, entrance under the green pavilion located off [facility], at time __0930am on date____ 06/08/24 . Planned Procedure Time: __11:30am .? Time changes happen often and if your time is changed the preop area will call you the afternoon before. - You and your visitor will be asked to self-screen and do not enter if you have any COVID symptoms. Please call surgeon if you need to reschedule. - A mask is optional within the hospital at this time. - No food from midnight until time of surgery Patients may have clear liquids (water, carbonated beverages, clear teas, apple juice) until 2 hours prior to surgery with a maximum of 20 ounces. and no smoking, or chewing tobacco (or any form of nicotine). No chewing gum, candy or mints. Take only the following medications with a SIP of water on the morning of surgery: Tylenol DO NOT STOP ANY OF YOUR OTHER PRESCRIPTION MEDICATIONS PRIOR TO SURGERY EXCEPT THE FOLLOWING Hold all vitamins and supplements for 3 days per anesthesiologist.Date to take last dose__06/04/24 Medications to discontinue per physician Aspirin to hold for 7 days prior Date to take last dose___05/30/24 Please no make-up, nail arabic, hairspray, perfume, deodorant, or body powder the day of surgery.? No jewelry (including any body piercings) or valuables the day of surgery, leave them at home.? Please take a shower or bath the night before, or the morning of, surgery with an antibacterial soap.? Wear comfortable, loose fitting clothing.? - Jewelry must be removed prior to entering the operating room.? Rings and piercings that are not removed may be cut off. - The hospital will not accept responsibility for valuables.? - Please leave all valuables, including medications, at home the day of surgery. If you are going home after surgery, a licensed team driver must drive you home.? - NO public transportation without another adult if you receive anesthesia. - We recommend that an adult stay with you for 24 hours following discharge. - We also recommend that you do not drive, make important decision, drink alcoholic beverages, or take any drugs that were not prescribed by your health care provider for at least 24 hours after your discharge time. Follow any additional instructions given to you from your surgeon. Patient cannot drive for 24 hours. Telephone instructions given to __Patient and asked if any additional questions and then verbalized understanding. Patient advised to call surgeon office or pre surgery nurse liaison [phone] if any additional questions.
--- NOTE | ~2024-06-08 | XR_ITS ---
EXAMINATION: XR fluoroscopy no charge DATE: 06/08/2024 10:24 INDICATION: Lumbar ablation TECHNIQUE: 3 fluoroscopic images of the sacrum were obtained during procedure performed by Dr. Sam. Radiologist was not present for the imaging or procedure. The amount of fluoroscopy time used during this procedure was 1.5 minutes. Total DAP was 5.74 Gycm^2. COMPARISON: None. FINDINGS/IMPRESSION: Fluoroscopy utilized for pain management procedure the tips of multiple needles projecting over the left and right sacral ala. See procedure note for further detail. Reviewed, dictated and finalized at location A.
--- OUTSIDE RECORDS SUMMARY | 2024-06-08 00:38 | XMS_ITS | Patient Health Record ---
Author Organization [facility] Address [address] [facility] [address] [place] [address] Care Team Providers Care Paper Roller Name Role Phone Robin South MD Primary Care Provider Unava Prem Berman Unavailable [phone] Reason For Referral No Information Medications Medication [...] Problem Status W/U Status Risk Notes Problem [id number] Chest pain (R07.9) Active confirmed Plan Of Treatment No Information Insurance Providers Payer Name Payer Address Payer Phone Subscriber Number Group Number Insured Name Patient Relationship to Insured Coverage Start Date Coverage End Date Medicare E2 [address] [address] [place] [address] [id number] Barak Caraballo Self - patient is the insured 4 Blue Access Choice PPO E2 [address] [phone] [id number] Barak Caraballo Self - patient is the insured Medical (General) History Medical History History ICD Code Hiatal hernia GERD Colon polyps Anemia Hypertension Heart stents Sleep apnea Hearing loss Surgical History Surgery Date(Month/Year) EGD 12/2017 Spinal stenosis Deviated septum
--- OUTSIDE RECORDS SUMMARY | 2024-06-08 00:38 | XMS_ITS | Clinical Summary ---
Author Organization [facility] al Address [address] [place] [address] Care Team Providers Care Creative Services Specialist Name Role Phone Shahzad Hilton DO Primary Care Provider +1- [phone] Allergies No known active allergies Medications multivitamin [...] mg total) by mouth nightly Active vit C,W-Lm-ijydt-herman tein-zeaxan [id number] ss-wtka-vd-mg capsule Take 1 capsule by mouth daily [...] Department Care Team Description 04/27/2024 11:15 AM PREVENTION COORDINATOR Office Visit [facility] Dermatology [facility] Floor 6 [place] [address] Virginie Brown MD History of [...] on file Legal Sex Male 3:47 AM PREVENTION COORDINATOR Gender Identity Male 08/11/2023 12:49 PM CDT [...] 3, 11/17/2020, 11/16/2019, Additional history exists Insurance [facility] ADVANT[place] [address] MEDICARE [employer] ADV[place] [address] [employer] ADVANTAGE CHOICE PPO Advance Directives For more information, please contact: [phone] * Full Code (Latest Code Status on File) Date Activated Date Inactivated Comments 09/12/2019 1:00 AM 09/16/2019 4:23 PM Care Teams Creative Services Specialist Relationship Specialty Start Date End Date Shahzad Hilton DO PCP - General Internal Medicine 06/25/23
--- OUTSIDE RECORDS SUMMARY | 2024-06-08 00:38 | XMS_ITS | Clinical Summary ---
Author Organization [facility] field Address [address] [place] [address] Phone Care Team Providers Care Curb Hop Name Role Phone Robin South MD Primary Care Provider +1- [phone] Allergies No known active allergies Medications OMEPRAZOLE [...] 06/02/19 14 INFLUENZA VACCINE (#1) 20[address] [place] [address] MEDICARE PART A AND B [employer] PPO Advance Directives For more information, please contact: [phone] * Full Code (Latest Code Status on File) Date Activated Date Inactivated Comments 06/01/2013 9:32 AM 06/01/2013 1:48 PM Care Teams Curb Hop Relationship Specialty Start Date End Date Robin South MD [facility] [facility] [address] [place] [phone] PCP - General Interventional Cardiology 05/20/13
--- OUTSIDE RECORDS SUMMARY | 2024-06-08 00:38 | XMS_ITS ---
Author Organization [facility] Address [address] [facility] [place] [address] Care Team Providers Care Supervisor Cell Operation Name Role Phone Devon Blanchard Unavailable [phone] ALLERGIES No Known Allergies REASON FOR VISIT [...] 03/12/2023 Encounters Encounter Location Date Provider Diagnosis [place] [facility] [address] [place] [address] 03/12/2023 Devon Blanchard Spondylosis without myelopathy or [...] so that he will not have significant ejw-pf-jtkgga cost. He will research this on his [...] strength and trunk flexibility.5. Fee structures for ayo-gw-sigdpw, cost for facet injections as well as [...] so that he will not have significant eot-km-kksqpe cost. He will research this on his [...] strength and trunk flexibility.5. Fee structures for dto-he-lxxfyq, cost for facet injections as well as facet RFA and sacroiliac RFA were discussed. Hopefully, he can find an in network physician so that most of the charges will be covered. Progress Notes * Barak CARABALLO V.: 0 (83 yo M)Acc No.[id number]:03/12/2023 Patient: Barak CARABALLO V. Provider: Devon Blanchard DO :1940 Age:83 Y Sex:Male Date:03/12/2023 Address:[address] [place] [address]; [facility] Subjective: * Chief Complaints: * Re-referral Visit (2021)--SELF PAY * HPI: Follow-up Questionnaire: Pain Evaluation This patient encounter was conducted at the [facility]. The patient completed a questionnaire on the [...] that he will not have to pay mvp-op-vdcuav. I last saw Barak 01/15/2022 at which [...] maging studies: X -ray lumbar spine 01/16/2022 [facility] in [place], [place] revealed 4 mm anterior listhesis L4/5. [...] that he will not have to pay ooh-ti-gipswd. I last saw Barak 01/15/2022 at which [...] reviewed. Imaging studies: X-ray lumbar spine 01/16/2022 [facility] in [place], [place] revealed 4 mm anterior listhesis L4/5. [...] patient encount er was conducted at the [facility]. The patient completed a questionnaire on the [...]
--- OUTSIDE RECORDS SUMMARY | 2024-06-08 00:38 | XMS_ITS ---
Author Organization [facility] al Address [address] [place] [address] Care Team Providers Care Emerging Technologies Director Name Role Phone Shahzad Hilton DO Primary Care Provider +1- [phone] Active Problems Problem Noted Date Diagnosed Date [...]
--- OUTSIDE RECORDS SUMMARY | 2024-06-08 00:38 | XMS_ITS | Clinical Summary ---
Author Organization [facility] Address [address] [facility] [place] [place] [address] Care Team Providers Care Heel Seat Fitter Machine Name Role Phone Unavailable Primary Care Provider Unavailabl e Source Comments [facility],non-owned Affiliates and Associated Physician Practices is amultiple site organization consisting of ambulatory clinics and hospital sitesin [place], [place], [place]. This disclosure is being madepursuant to the Care Everywhere program and may not contain all information available regarding this patient. Last updated 17.[facility] [place] Allergies No known active allergies Medications * [...] 36.7 C (98 F) 05/09/2023 8:16 AM CARPENTRY SUPERVISOR Respiratory Rate 12 06/18/2023 10:05 AM CDT Oxygen Saturation 98% 05/09/2023 8:16 AM CARPENTRY SUPERVISOR Inhaled Oxygen Concentration - - Weight 88.5 [...] this topic Medical Devices Implanted Type Area Fish Hatchery Specialist Device Identifier Shelf Expiration Date Model / Serial / Lot Stent - Vascular Stent - Vascular Advance Directives * Full Code (Latest Code Status on File) Date Activated Date Inactivated Comments 05/08/2023 4:35 PM 05/09/2023 6:31 PM
--- OUTSIDE RECORDS SUMMARY | 2024-06-08 00:38 | XMS_ITS | Referral Summary ---
Author Organization [facility] al Address [address] [place] [address] Care Team Providers Care Cigar Bander Name Role Phone Shahzad Hilton DO Primary Care Provider +1- [phone] Encounters Date Type Department Care Team Description 04/27/2024 11:15 AM DUPLICATE MAKER Office Visit [facility] Dermatology [facility] Floor 6 [place] [address] Virginie Brown MD History of [...] mg total) by mouth nightly Active vit C,N-Kt-uvqvf-herman tein-zeaxan [id number] ic-appn-cg-mg capsule Take 1 capsule by mouth daily [...] on file Legal Sex Male 3:47 AM DUPLICATE MAKER Gender Identity Male 08/11/2023 12:49 PM CDT [...] Plan of Treatment [place] [address] [employer] AD[place] [address] MEDICARE [employer] ADVANTAGE CHOICE PPO [employer] ADVANTAGE CHOICE PPO Advance Directives For more information, please contact: [phone] * Full Code (Latest Code Status on File) Date Activated Date Inactivated Comments 09/12/2019 1:00 AM 09/16/2019 4:23 PM Care Teams Cigar Bander Relationship Specialty Start Date End Date Shahzad Hilton DO PCP - General Internal Medicine 06/25/23
--- OUTSIDE RECORDS SUMMARY | 2024-06-08 00:38 | XMS_ITS | Clinical Summary ---
Author Organization [facility] Address [address] [place] [address] Care Team Providers Care Chemist Food Name Role Phone Mark Barrios MD Unavailable [phone] Robin South MD Primary Care Provider +1- [phone] Allergies No known active allergies Medications isosorbide [...] Attack Brother 2 Heart Disease Brother 2 VT Brother 2 Cancer Brother 3 leukemia Cancer [...] Comments Blood Pressure 109/70 03/01/2022 12:21 PM HOUSE FURNISHINGS SUPERVISOR Pulse 71 03/01/2022 12:21 PM HOUSE FURNISHINGS SUPERVISOR Temperature 36.4 C (97.5 F) 03/01/2022 5:17 AM HOUSE FURNISHINGS SUPERVISOR Respiratory Rate 18 03/01/2022 12:2 1 PM HOUSE FURNISHINGS SUPERVISOR Oxygen Saturation 99% 03/01/2022 12: 21 PM HOUSE FURNISHINGS SUPERVISOR Inhaled Oxygen Concentration - - Weight 83.9 kg (184 lb 15.5 oz) 022 12:05 PM HOUSE FURNISHINGS SUPERVISOR Height 179.1 cm (5' 10.5 ) 02/28/2022 1 2:05 PM HOUSE FURNISHINGS SUPERVISOR Body Mass Index 26.16 02/28/2022 12:05 PM HOUSE FURNISHINGS SUPERVISOR Plan of Treatment Health Maintenance Due Date Last Done Comments DTaP, Tdap and Td Vaccines ( 1 - Tdap) 1958 Zoster Vaccines (1 of 2) 1989 Annual Medicare Wellness Visit 2004 Pneumococcal Vaccine: 65+ Years (1 of 1 - PCV) 2004 RSV Immunization or 60+ Years (1 - 1-dose 75+ series) 2014 COVID-19 Vaccine (4 - 2023-2 5 season) 2023 11/13/2021, 07/14/2021, 12/01/2020 Meningococcal B Vaccine Aged Out No l onger eligible based on patient's age to complete this topic Meningococcal Vaccine Aged Out No david ashtyn eligible based on patient's age to complete this topic RSV Immunizations Under 20 Months Aged Out No longer eligible b ased on patient's age to complete this topic Insurance MEDICARE [facility] Advance Directives * Full Code (Latest Code Status on File) Date Activated Date Inactivated Comments 02/28/2022 3:52 PM 03/01/2022 2:42 PM Care Teams Chemist Food Relationship Specialty Start Date End Date Robin South MD [address] [facility] [address] [place] [address] PCP - General CARDIOVASCULAR DISEASE 12/26/21 Mark Barrios MD [facility] [address] [place] [address] CARDIOLOGY 12/26/21
--- OUTSIDE RECORDS SUMMARY | 2024-06-08 00:38 | XMS_ITS | Encounter Summary ---
Author Organization [facility] Address [address] [place] [address] Care Team Providers Care Cable Television Installer Name Role Phone Mark Barrios MD Unavailable [phone] Robin South MD Primary Care Provider +1- [phone] Encounter Details Date Type Department Care Team (Late st Contact Info) Description 12/26/2021 Prep for Procedure [facility] Pre-Admission Testing [address] [facility] [address] [address] [place], [place] [id number] Grant Sánchez MD [address] [facility] [address] [place], [place] [id number] Social History Tobacco Use Types Packs/Day Years [...] - 36.5 SEC 12/28/2021 12:46 PM CDT [facility] 12/28/2021 11:4 3 AM CDT Grant Sánchez MD LABORATORY Lou l Result Performing Organization Address [facility] Co de Phone Number [facility] [address] [place] [address], * PROTIME/INR, VENOUS (12/28/2021 11:43 AM CDT) PROTIME 12.2 10.2 - 12.9 SEC 12/28/2021 12:46 PM CDT [facility] INR 1.0 12/28/2021 12:46 PM CDT [facility] Comment: Recommended INR Therapeutic Goals: 2.0-3.0 Routine Therapy 2.5-3.5 Mechanical Prosthetic Valves (High Risk) 12/28/2021 11:4 3 AM CDT Grant Sánchez MD LABORATORY Lou l Result Performing Organization Address [facility] Co de Phone Number [facility] [address] [place] [address], * TYPE & SCREEN (12/28/2021 11:43 AM CDT) ABO/RH AB POSITIVE 12/28/2021 2:45 PM CDT [facility] ANTIBODY SCREEN NEGATIVE 12/28/2021 2:45 PM CDT [facility] SAMPLE EXPIRATION 12/31/2021,2 359 12/28/2021 2:45 PM CDT [facility] 12/28/2021 11:4 3 AM CDT Grant Sánchez MD BLOOD BANK TEST ALESSIA KRISTINANGELLA Final Result [facility] [address] [place] [address], [place] [phone] * (ABNORMAL) BASIC METABOLIC PANEL (12/28/2021 11:43 AM CDT) [facility] GLUCOSE 166(H) 70 - 99 MG/DL 12/28/2021 12:43 PM CDT [facility] BUN 21(H) 7 - 18 MG/DL 12/28/2021 12:43 PM CDT [facility] CREATININE S/P/B 1.29 0.7 - 1.3 MG/DL 12/28/2021 12:43 PM CDT [facility] SODIUM S/P/B 136 136 - 145 MMOL/L 12/28/2021 12:43 PM CDT [facility] POTASSIUM S/P/B 3.8 3.5 - 5.1 MMOL/L 12/28/2021 12:43 PM CDT [facility] CHLORIDE S/P/B 103 100 - 108 MMOL/L 12/28/2021 12:43 PM CDT [facility] CO2 28.8 21 - 32 MMOL/L 12/28/2021 12:43 PM CDT [facility] CALCIUM S/P/B 9.2 8.5 - 10.1 MG/DL 12/28/2021 12:43 PM CDT [facility] ANION GAP 4.2(L) 5 - 15 MMOL/L 12/28/2021 12:43 PM CDT [facility] BUN CREATININE RATIO 16.3 6 - 26 12/28/2021 12:43 PM CDT [facility] GFR ESTIMATE 55(L) >90 ML/MIN/1.7 3 M2 12/28/2021 12:43 PM CDT [facility] Comment: NOTE: eGFR is not calculated for patients <18 years of age. This is an estimated GFR calculation using the new CKD EPI creatinine equation without race and so does not require a correction factor for race. This estimated GFR should not be used for calculating drug doses. 12/28/2021 11:4 3 AM CDT Grant Sánchez MD LABORATORY Lou l Result [facility] [address] [place] [address], * (ABNORMAL) CBC W/DIFF AUTOMATED (12/28/2021 11:43 AM CDT) WBC 4.8 4.5 - 11.0 x10'3/uL 12/28/2021 12:24 PM CDT [facility] RBC 4.44(L) 4.70 - 6.10 x10'6/uL 12/28/2021 12:24 PM CDT [facility] HGB 14.4 14.0 - 18.0 G/DL 12/28/2021 12:24 PM CDT [facility] HCT 42.4(L) 43.0 - 54.0 % 12/28/2021 12:24 PM CDT [facility] MCV 95.5(H) 80.0 - 94.0 FL 12/28/2021 12:24 PM CDT [facility] MCH 32.4(H) 27.0 - 31.0 PG 12/28/2021 12:24 PM CDT [facility] MCHC 34.0 32.0 - 36.0 G/DL 12/28/2021 12:24 PM CDT [facility] RDW 12.5 11.5 - 14.5 % 12/28/2021 12:24 PM CDT [facility] PLT 212 130 - 400 x10'3/uL 12/28/2021 12:24 PM CDT [facility] MPV 10.1 9.3 - 12.2 FL 12/28/2021 12:24 PM CDT [facility] DIFFERENTIAL TYPE AUTOMATED DIFFERENTIAL 12/28/2021 12:24 PM CDT [facility] NEUTROPHILS % 70.6 % 12/28/2021 12:24 PM CDT [facility] LYMPHOCYTES % 19.1 % 12/28/2021 12:24 PM CDT [facility] MONOCYTES % 9.1 % 12/28/2021 12:24 PM CDT [facility] EOSINOPHILS 0.4 % 12/28/2021 12:24 PM CDT [facility] BASOPHILS 0.6 % 12/28/2021 12:24 PM CDT [facility] IMMATURE GRANS % 0.2 % 12/29/19 12:24 PM CDT [facility] ABS. NEUTROPHILS TOTAL 3.39 1.80 - 7.70 x10'3/uL 12/28/2021 12:24 PM CDT [facility] ABS. LYMPHOCYTES 0.92(L) 1.00 - 4.80 x10'3/uL 12/28/2021 12:24 PM CDT [facility] ABS. MONOCYTES 0.44 0.30 - 0.82 x10'3/uL 12/28/2021 12:24 PM CDT [facility] ABS. EOSINOPHILS 0.02(L) 0.04 - 0.54 x10'3/uL 12/28/2021 12:24 PM CDT [facility] ABS. BASOPHILS 0.03 0.01 - 0.08 x10'3/uL 12/28/2021 12:24 PM CDT [facility] ABS. IMMATURE GRANULOCYTES 0.01 0.00 - 0.49 x10'3/uL 12/28/2021 12:24 PM CDT [facility] 12/28/2021 11:4 3 AM CDT Grant Sánchez MD LABORATORY Lou l Result Performing Organization Address City/[facility]/ZIP Co de Phone Number [facility] [address] [place] [address], [place] [phone] * CULTURE URINE (12/28/2021 11:33 AM CDT) SPEC DESCRIPTION URINE CLEAN CATCH 12/28/2021 11:34 AM CDT [facility] SPECIAL REQUESTS NO SPECIAL REQUEST 12/28/2021 11:34 AM CDT [facility] CULTURE RESULT NO GROWTH 2 DAYS 12/30/2021 8:01 AM CDT [facility] URINE SPECIMEN OBTAINED BY CLEAN CATCH PROCEDURE / Unknown 12/28/2021 11:33 AM CDT 12/28/2021 11:58 AM CDT Grant Sánchez MD MICROBIOLOGY - GENER AL ORDERABLES Final Result Performing Organization Address City/[facility]/ZIP Co de Phone Number [facility] [address] [place] [address], [place] [phone] documented in this encounter Visit Diagnoses Diagnosis BPH (benign prostatic hyperplasia)- Primary Unspecified hyperplasia of prostate without urinary obstruction and other lower urinary tract symptoms (LUTS) documented in this encounter Care Teams Cable Television Installer Relationship Specialty Start Date End Date Robin South MD [address] [place] [address] PCP - General CARDIOVASCULAR DISEASE 12/26/21 Mark Barrios MD [facility] [address] [place] [address] CARDIOLOGY 12/26/21 documented as of this encounter
--- OUTSIDE RECORDS SUMMARY | 2024-06-08 00:38 | XMS_ITS | Encounter Summary ---
Author Organization [facility] Address [address] [place] [id number] Care Team Providers Care Professor Of Surgery Name Role Phone Mark Barrios MD Unavailable [phone] Robin South MD Primary Care Provider [phone] Encounter Details Date Type Department Care Team (Late st Contact Info) Description 02/20/2022 Prep for Procedure [facility] Pre-Admission Testing [address] [place], [place] [id number] Grant Sánchez MD 3 [facility] [place], [place] [id number] Social History Tobacco Use Types Packs/Day Years [...] Coronavirus/COVID-19? No / Unsure 02/20/2022 3:28 PM COMMUTER TRAIN OPERATOR documented as of this encounter Plan of Treatment Not on file documented as of this encounter Results * PTT, PARTIAL THROMBOPLASTIN TIME (02/20/2022 3:58 PM COMMUTER TRAIN OPERATOR) PTT 26.7 25.1 - 36.5 SEC 02/20/2022 4:36 PM COMMUTER TRAIN OPERATOR [facility] 02/20/2022 3:58 PM COMMUTER TRAIN OPERATOR Grant Sánchez MD LABORATORY Lou l Result Performing Organization Address [facility] Co de Phone Number [facility] [address] [place] [address], [place] [phone] * PROTIME/INR, VENOUS (02/20/2022 3:58 PM COMMUTER TRAIN OPERATOR) PROTIME 11.8 10.2 - 12.9 SEC 02/20/2022 4:36 PM COMMUTER TRAIN OPERATOR [facility] INR 1.0 02/20/2022 4:36 PM COMMUTER TRAIN OPERATOR [facility] Comment: Recommended INR Therapeutic Goals: 2.0-3.0 Routine Therapy 2.5-3.5 Mechanical Prosthetic Valves (High Risk) 02/20/2022 3:58 PM COMMUTER TRAIN OPERATOR Grant Sánchez MD LABORATORY Lou l Result Performing Organization Address [facility] Co de Phone Number [facility] [address] [place] [address], [place] [phone] * TYPE & SCREEN (02/20/2022 3:58 PM COMMUTER TRAIN OPERATOR) ABO/RH AB POSITIVE 02/20/2022 5:05 PM COMMUTER TRAIN OPERATOR [facility] ANTIBODY SCREEN NEGATIVE 02/20/2022 5:05 PM COMMUTER TRAIN OPERATOR [facility] SAMPLE EXPIRATION 2022,2 359 02/28/2022 12:42 PM COMMUTER TRAIN OPERATOR [facility] COMMENT NO HISTORY OF TRANSFUSIONS , OR ANTIBODIES, NEW SPECIMEN NOT NEEDED 02/28/2022 12:42 PM COMMUTER TRAIN OPERATOR [facility] 02/20/2022 3:58 PM COMMUTER TRAIN OPERATOR Grant Sánchez MD BLOOD BANK TEST ALESSIA ROOT Final Result [facility] [address] [place] [address], * (ABNORMAL) BASIC METABOLIC PANEL (02/20/2022 3:58 PM COMMUTER TRAIN OPERATOR) Pathologist [facility] GLUCOSE 114(H) 70 - 99 MG/DL 02/20/2022 4:38 PM COMMUTER TRAIN OPERATOR [facility] BUN 21(H) 7 - 18 MG/DL 02/20/2022 4:38 PM COMMUTER TRAIN OPERATOR [facility] CREATININE S/P/B 1.22 0.7 - 1.3 MG/DL 02/20/2022 4:38 PM COMMUTER TRAIN OPERATOR [facility] SODIUM S/P/B 128(L) 136 - 145 MMOL/L 02/20/2022 4:38 PM COMMUTER TRAIN OPERATOR [facility] POTASSIUM S/P/B 3.8 3.5 - 5.1 MMOL/L 02/20/2022 4:38 PM COMMUTER TRAIN OPERATOR [facility] CHLORIDE S/P/B 97(L) 100 - 108 MMOL/L 02/20/2022 4:38 PM COMMUTER TRAIN OPERATOR [facility] CO2 29.5 21 - 32 MMOL/L 02/20/2022 4:38 PM COMMUTER TRAIN OPERATOR [facility] CALCIUM S/P/B 9.3 8.5 - 10.1 MG/DL 02/20/2022 4:38 PM COMMUTER TRAIN OPERATOR [facility] ANION GAP 1.5(L) 5 - 15 MMOL/L 02/20/2022 4:38 PM COMMUTER TRAIN OPERATOR [facility] BUN CREATININE RATIO 17.2 6 - 26 02/20/2022 4:38 PM COMMUTER TRAIN OPERATOR [facility] GFR ESTIMATE 59(L) >90 ML/MIN/1.7 3 M2 02/20/2022 4:38 PM COMMUTER TRAIN OPERATOR [facility] Comment: NOTE: eGFR is not calculated for patients <18 years of age. This is an estimated GFR calculation using the new CKD EPI creatinine equation without race and so does not require a correction factor for race. This estimated GFR should not be used for calculating drug doses. 02/20/2022 3:58 PM COMMUTER TRAIN OPERATOR Grant Sánchez MD LABORATORY Lou hinds Result [facility] [address] [place] [address], [place] [phone] * (ABNORMAL) CBC W/DIFF AUTOMATED (02/20/2022 3:58 PM COMMUTER TRAIN OPERATOR) WBC 8.9 4.5 - 11.0 x10'3/uL 02/20/2022 4:19 PM COMMUTER TRAIN OPERATOR [facility] RBC 4.27(L) 4.70 - 6.10 x10'6/uL 02/20/2022 4:19 PM [facility] HGB 13.9(L) 14.0 - 18.0 G/DL 02/20/2022 4:19 PM COMMUTER TRAIN OPERATOR [facility] HCT 40.1(L) 43.0 - 54.0 % 02/20/2022 4:19 PM [facility] MCV 93.9 80.0 - 94.0 FL 02/20/2022 4:19 PM [facility] MCH 32.6(H) 27.0 - 31.0 PG 02/20/2022 4:19 PM [facility] MCHC 34.7 32.0 - 36.0 G/DL 02/20/2022 4:19 PM [facility] RDW 12.9 11.5 - 14.5 % 02/20/2022 4:19 PM [facility] PLT 220 130 - 400 x10'3/uL 02/20/2022 4:19 PM [facility] MPV 9.7 9.3 - 12.2 FL 02/20/2022 4:19 PM [facility] DIFFERENTIAL TYPE AUTOMATED DIFFERENTIAL 02/20/2022 4:19 PM [facility] NEUTROPHILS % 83.2 % 02/20/2022 4:19 PM [facility] LYMPHOCYTES % 8.1 % 02/20/2022 4:19 PM [facility] MONOCYTES % 7.8 % 02/20/2022 4:19 PM [facility] EOSINOPHILS 0.0 % 02/20/2022 4:19 PM [facility] BASOPHILS 0.2 % 02/20/2022 4:19 PM [facility] IMMATURE GRANS % 0.7 % 02/21/20 4:19 PM [facility] ABS. NEUTROPHILS TOTAL 7.42 1.80 - 7.70 x10'3/uL 02/20/2022 4:19 PM [facility] ABS. LYMPHOCYTES 0.72(L) 1.00 - 4.80 x10'3/uL 02/20/2022 4:19 PM [facility] ABS. MONOCYTES 0.70 0.30 - 0.82 x10'3/uL 02/20/2022 4:19 PM [facility] ABS. EOSINOPHILS 0.00(L) 0.04 - 0.54 x10'3/uL 02/20/2022 4:19 PM [facility] ABS. BASOPHILS 0.02 0.01 - 0.08 x10'3/uL 02/20/2022 4:19 PM COMMUTER TRAIN OPERATOR [facility] ABS. IMMATURE GRANULOCYTES 0.06 0.00 - 0.49 x10'3/uL 02/20/2022 4:19 PM COMMUTER TRAIN OPERATOR [facility] 02/20/2022 3:58 PM COMMUTER TRAIN OPERATOR Grant Sánchez MD LABORATORY Lou l Result Performing Organization Address [facility] Co de Phone Number [facility] [address] [place] [address], [place] [phone] * CULTURE URINE (02/20/2022 3:53 PM COMMUTER TRAIN OPERATOR) SPEC DESCRIPTION URINE CLEAN CATCH 02/20/2022 3:53 PM COMMUTER TRAIN OPERATOR [facility] SPECIAL REQUESTS NO SPECIAL REQUEST 02/20/2022 3:53 PM COMMUTER TRAIN OPERATOR [facility] CULTURE RESULT NO GROWTH 2 DAYS 02/22/2022 8:47 AM COMMUTER TRAIN OPERATOR [facility] URINE SPECIMEN OBTAINED BY CLEAN CATCH PROCEDURE / Unknown 02/20/2022 3:53 PM COMMUTER TRAIN OPERATOR 02/20/2022 4:02 PM COMMUTER TRAIN OPERATOR Grant Sánchez MD MICROBIOLOGY - GENER AL ORDERABLES Final Result Performing Organization Address [facility] Co de Phone Number [facility] [address] [place] [address], [place] [phone] documented in this encounter Visit Diagnoses Diagnosis Preop examination- Primary Preoperative examination, unspecified Nocturia CAD (coronary artery disease) Coronary atherosclerosis of unspecified type of vessel, moapa or graft documented in this encounter Care Teams Professor Of Surgery Relationship Specialty Start Date End Date Robin South MD [address] [place] [address] [address], [place] [address] PCP - General CARDIOVASCULAR DISEASE 12/26/21 Mark Barrios MD [facility] [address] [place] [address] [address] [place] [address] CARDIOLOGY 12/26/21 documented as of this encounter
[2024-06-08 08:44] VITALS: BP 149/93; PULSE 57; TEMP 36.4; O2SAT 98
--- NOTE | 2024-06-08 09:10 | PM.HPGS ---
History of Present Illness History of Present Illness Consent: Risks, benefits, and alternatives have been discussed and questions answered. Patient agrees to proceed with procedure. Chief complaint: Sacroiliitis, SI joint arthropathy, low back pain Narrative: Barak Caraballo is a 84 year old male with chronic, recalcitrant and disabling bilateral lumbosacral back pain secondary to SI joint arthropathy, sacroiliitis with failure to respond to aggressive conservative measures including PT, oral and topical analgesics, opioid and nonopioid analgesics, rest, time and activity/behavioral modification over the past 1-2 years who presents for thermal radiofrequency ablation of the bilateral L5 dorsal ramus, S1 accessory branch, S1 through S4 lateral branches addressing the bilateral sacroiliac joints under fluoroscopic guidance. Review of Systems Review of Systems: Patient denies any new infectious, allergic, cardiopulmonary, neurologic or constitutional symptoms or changes in activity tolerance or exercise capacity including new or progressive SOB/DRIVER, peripheral edema, productive cough, dysuria, nausea/vomiting, diarrhea, weight change, fevers/chills/night sweats, new or progressive neurologic deficit, cognitive or mood changes since last seen, except as documented in the HPI. All systems reviewed & are unremarkable except as noted in HPI and below PMFSH Past Medical History Medical History Arthritis GERD (gastroesophageal reflux disease) Sleep apnea Shortness of breath Hearing loss Changes in vision Rotator cuff arthropathy of left shoulder DJD of left shoulder Rotator cuff syndrome of left shoulder Left shoulder pain Fatigue Spinal stenosis, lumbar region with neurogenic claudication Chronic low back pain Vertebrogenic low back pain Brain bleed (~09/11/19) Left supraspinatus tendinitis Multiple fractures of ribs of right side Coronary artery disease Hyperlipidemia Hypertension Surgical History Surgical History History of lumbosacral spine surgery Dr. Mcbride -05/19/2017 S/P TURP (~02/18/22) 02/28/2022- Dr Sánchez Hx of cholecystectomy (~03/23/19) 03/23/2019-Dr. Johns History of nasal surgery (~05/28/18) 02/12/2018-Dr. Kaye , 05/28/2018-Dr. Kaye S/P correction of deviated nasal septum (~02/12/18) History of heart artery stent 3 placed in 08/14/18 1 placed 10/07/18- Dr. Barrios Family History Family History Father Heart disease Mother Heart disease Hypertension Sibling Hypertension Heart disease Social History Social History Social History: Caffeine- coffee Smoking packs per day: 1 Smoking cigarettes per day: 20.0 Years smoked: 10 Smoking pack-years: 10.00 Smoking status: Former smoker Tobacco type: cigarettes Second hand tobacco smoke exposure: Yes Smoking end date: 03/03/1966 Alcohol intake: current Drinks per week: 5 Alcohol use details: beer Substance use: never Substance use type: does not use Do You Feel Safe in your Home?: Yes Lack of Transportation: No Lack of Food: Never True Current Housing: I Have Housing Concerned About Future Housing: No Difficulty Paying Gas/Electric Bills: No Difficulty Paying for Meds: No Currently Unemployed: No Education: Associate Degree Difficulty w/ Childcare or Family Care: No Living arrangements: with family Additional living arrangements comments: Occupation/Education: retired Gender identity (if verbalized by the patient): Male Spiritual care concerns: No Agree to blood products: Yes Meds Home Medications and Allergies Home Medications ?Medication ?Instructions ?Recorded ?Confirmed ?Type PreserVision AREDS-2 1 tablet PO DAILY 01/01/19 05/25/24 History aspirin 81 mg tablet,delayed 81 mg PO DAILY 01/01/19 05/25/24 History release (Adult Low Dose Aspirin) atorvastatin 40 mg tablet 40 mg PO DAILY 01/01/19 05/25/24 History ferrous sulfate 325 mg (65 mg 325 mg PO 2XW 01/01/19 05/25/24 History iron) tablet lisinopril 20 mg tablet 20 mg PO DAILY 01/01/19 05/25/24 History magnesium 200 mg tablet 400 mg PO DAILY 03/27/23 05/25/24 History isosorbide mononitrate 60 mg 60 mg PO DAILY 07/07/23 05/25/24 History tablet,extended release 24 hr acetaminophen 325 mg capsule 650 mg PO Q6H PRN Pain 07/14/23 05/25/24 History turmeric root extract 500 mg 500 mg PO DAILY 07/14/23 05/25/24 History capsule cyclosporine 0.05 % eye drops in a 1 drp EACH EYE Q12H 10/23/23 05/25/24 History dropperette glucosamine 500 mg-chondroitin 1 cap PO DAILY 10/23/23 05/25/24 History 116.7 mg-herbal no.270 133.3 mg capsule (Cosamin ASU (with AKBA)) omeprazole 20 mg capsule,delayed See Rx Instructions .Route 04/26/24 05/25/24 Rx release .COMPLEX #90 caps terbinafine HCl 250 mg tablet 250 mg PO DAILY 05/25/24 05/25/24 History Allergies Allergy/AdvReac Type Severity Reaction Status Date / Time No Known Allergies Allergy Unknown Verified 06/08/24 08:44 Vital Signs Vital Signs - 24 hr 06/08/24 08:44 Temperature 97.5 F L Pulse Rate 57 L Blood Pressure 149/93 H Pulse Oximetry 98 Oxygen Delivery Room Air Exam Narrative: The patient's physical exam is essentially unchanged from prior examination on 05/03/2024. Specifically, patient demonstrates normal lung capacity, tidal volume and respiratory rate without wheezes, crackles, rales or rubs. Heart rate and rhythm are regular without murmurs, gallops or rubs. No JVD. Pulses 2+ globally without increasing peripheral edema. AAOx3 with no evidence of confusion, intoxication or altered mental state, NC/AT without acute distress or altered consciousness. Speech, cognition, mood, insight and judgment at baseline and within normal limits. Assessment and Plan Assessment and plan (1) Lumbosacral spondylosis: Code(s): M47.817 - Spondylosis without myelopathy or radiculopathy, lumbosacral region Status: Acute (2) Chronic low back pain: Qualifiers: Back pain laterality: unspecified Sciatica presence: without sciatica Qualified Code(s): M54.50 - Low back pain, unspecified; G89.29 - Other chronic pain Code(s): M54.50 - Low back pain, unspecified; G89.29 - Other chronic pain Status: Acute (3) Bilateral sacroiliitis: Code(s): M46.1 - Sacroiliitis, not elsewhere classified Status: Acute Assessment and Plan: Proceed as planned with thermal radiofrequency ablation of the bilateral L5 dorsal ramus, S1 accessory branch, S1 through S4 lateral branches addressing the bilateral sacroiliac joints under fluoroscopic guidance.
--- NOTE | 2024-06-08 09:13 | WPDHPUPDATE1 ---
History and Physical Update Update Date/Time: 06/08/24 09:13 History and Physical has been reviewed, including an updated exam of the patient. There are NO changes in the patient's condition. Risks, benefits, and alternatives have been discussed and questions answered. Patient agrees to proceed with procedure.
--- NOTE | 2024-06-08 09:14 | P.OP_ITS ---
Procedure Note - Detailed Date of Procedure 06/08/24 Pre-op Diagnosis Sacroiliitis, SI joint arthropathy, low back pain Post-op Diagnosis Same Procedure Performed Radiofrequency Ablation of the bilateral L5 Dorsal Ramus, Sacral Accessory Branch, and Lateral Sacral Branches at S1, S2, S3 and S4 Innervating the Ipsilateral SI joint under Fluoroscopic Guidance (12 levels treated). Surgeon Robin Sam MD Anesthesia Local Description of Procedure INFORMED CONSENT: Risks, benefits and alternatives to the procedure were discussed in detail with the patient who expressed explicit understanding and consent to proceed. Patient was informed verbally and in written form regarding the risks associated with the procedure including the low risk of serious infection, bleeding/bruising, allergic reaction, nerve or organ injury, paralysis, procedural site pain or discomfort, worsening pain and/or mobility, failure to treat and/or disfigurement. The patient expressed explicit understanding and consent to proceed. All materials required for the procedure were available prior to procedure start. Site and side were marked prior to procedure and confirmed in the presence of the patient. PROCEDURE IN DETAIL: The patient was brought to the procedural suite and placed in the prone position. Patient was made comfortable with use of pillows under the head/chest, hips and ankles. Skin overlying the injection site on the affected side(s) was prepared broadly with ChloraPrep applicator and draped in a sterile manner. Aseptic technique was used throughout. The endplates of the vertebral bodies at the L5 and S1 levels were aligned in the AP view. Ipsilateral oblique angulation was utilized to optimize visualization of the intersection between the superior articulating process and transverse process at the sacral ala target site and oblique to the contralateral side to optimized view of the lateral borders of the sacral posterior neuroforamina for the remaining levels. Local anesthesia was established along a line bisecting the distance between the lateral borders of the posterior sacral neuroforamina and the medial border of the sacroiliac joint by infiltration with approximately 20 mL of 0.5% lidocaine via a 1-1/2 inch 27-gauge needle. Two 16-gauge 100mm RF needles with curved 10mm active tips were advanced in the AP view until the needle tip contacted the periosteum at the sacral ala (to ablate the L5 dorsal ramus and Sacral Accessory Branch supplying the right L5-S1 facet joint) with needle tips placed 1.2-1.5 cm apart. Lateral view was utilized to adjust and confirm the appropriate placement of the needle tip just dorsal to the posterior border of the sacrum. The appropriately-sized RF cannula was inserted into the RF needle and motor stimulation performed with no subjective or objective evidence of recruited muscle activity with stimulation up to 3.0 volts at a frequency of 2Hz. 1.0 mL of 2.0% PF lidocaine was injected after negative aspiration (5 ml of 2% PF lidocaine used for entire procedure). After a 90s pause, lesioning was performed in a bipolar and linear fashion to 90 degrees centigrade for 90s ensuring lack of symptoms in the extremity throughout. [place] were withdrawn to skin and replaced inferiorly in a leap-frog fashion. Appropriate final needle positions were verified in the AP and Lateral views in all cases. The same procedure was repeated for all intended levels/ structures on the ipsilateral side with identical methodology, right S1, S2, S3, S4 lateral branches, modified to compensate for new location, with similar results and no evidence of complication until all six branches were effectively ablated. No parasthesias were elicited. Needle was removed completely intact without difficulty. Same exact procedure was then repeated on the contralateral side to completely denervate the left sacroiliac joint in the exact same way with similar results and no evidence of complication. Images were saved and documented in the patient chart. Patient's skin was cleansed and sterile bandage applied. The patient tolerated the procedure well. The patient was transported to the recovery area in stable condition where they were observed for an appropriate amount of time prior to discharge, without evidence of complication. The patient was instructed to avoid excessive activity for the next 48 hours, including climbing and frequent use of stairs. Showers only for 48 hours. They were instructed not to drive or operate heavy machinery for 24 hours. They are to monitor for severe headaches, fevers, chills, night sweats, erythema/swelling at the site or any other signs of infection, bleeding/bruising, bowel or bladder changes as well as new pain, weakness or numbness in the upper or lower extremity. Should they notice these changes, they are instructed to call our office immediately or report directly to the nearest Emergency Department if no answer or if after posted office hours. COMPLICATIONS: None. COMMENTS: None. Complications No immediate complications Condition Stable Disposition PACU [facility] Billing Surgery - Charge Forward: Surgery Billing
--- NOTE | 2024-06-08 09:15 | P.PNAN_ITS ---
Anes - Initial Pre Proc Eval Procedure: Operation Date: 06/08/24 10:00 Proposed Procedures p Thermal Radio Frequency Ablation of the Bilateral L5 Dorsal Rami, S1 Accessory Branch and S1-S4 Lateral Branch Innervating the Bilateral S1 Joints Under Fluoroscopic Guidance - Robin Sam MD Date/Time: 06/08/24 09:15 Surgeon: Robin Sam MD Pre Op Diagnosis: Sacroiliitis, SI joint arthropathy, low back pain Patient Data Age: 84 Gender: M Height: 1.78 m Weight: 85 kg Last Vital Signs Temp 36.4 C L 06/08/24 08:44 Pulse 57 L 06/08/24 08:44 BP 149/93 H 06/08/24 08:44 Pulse Ox 98 06/08/24 08:44 O2 Del Method Room Air 06/08/24 08:44 Allergies Allergy/AdvReac Type Severity Reaction Status Date / Time No Known Allergies Allergy Unknown Verified 06/08/24 08:44 Home Medications ?Medication ?Instructions ?Recorded ?Confirmed ?Type PreserVision AREDS-2 1 tablet PO DAILY 01/01/19 05/25/24 History aspirin 81 mg tablet,delayed 81 mg PO DAILY 01/01/19 05/25/24 History release (Adult Low Dose Aspirin) atorvastatin 40 mg tablet 40 mg PO DAILY 01/01/19 05/25/24 History ferrous sulfate 325 mg (65 mg 325 mg PO 2XW 01/01/19 05/25/24 History iron) tablet lisinopril 20 mg tablet 20 mg PO DAILY 01/01/19 05/25/24 History magnesium 200 mg tablet 400 mg PO DAILY 03/27/23 05/25/24 History isosorbide mononitrate 60 mg 60 mg PO DAILY 07/07/23 05/25/24 History tablet,extended release 24 hr acetaminophen 325 mg capsule 650 mg PO Q6H PRN Pain 07/14/23 05/25/24 History turmeric root extract 500 mg 500 mg PO DAILY 07/14/23 05/25/24 History capsule cyclosporine 0.05 % eye drops in a 1 drp EACH EYE Q12H 10/23/23 05/25/24 History dropperette glucosamine 500 mg-chondroitin 1 cap PO DAILY 10/23/23 05/25/24 History 116.7 mg-herbal no.270 133.3 mg capsule (Cosamin ASU (with AKBA)) omeprazole 20 mg capsule,delayed See Rx Instructions .Route 04/26/24 05/25/24 Rx release .COMPLEX #90 caps terbinafine HCl 250 mg tablet 250 mg PO DAILY 05/25/24 05/25/24 History Patient hx anesthesia problems: none Family hx anesthesia problems: none Results Review: All pre-operative results and documents have been reviewed as part of the pre- operative evaluation. [facility] Past Medical History Medical History Arthritis GERD (gastroesophageal reflux disease) Sleep apnea Shortness of breath Hearing loss Changes in vision Rotator cuff arthropathy of left shoulder DJD of left shoulder Rotator cuff syndrome of left shoulder Left shoulder pain Fatigue Spinal stenosis, lumbar region with neurogenic claudication Chronic low back pain Vertebrogenic low back pain Brain bleed (~09/11/19) Left supraspinatus tendinitis Multiple fractures of ribs of right side Coronary artery disease Hyperlipidemia Hypertension Surgical History Surgical History History of lumbosacral spine surgery Dr. Mcbride -05/19/2017 S/P TURP (~02/18/22) 02/28/2022- Dr Sánchez Hx of cholecystectomy (~03/23/19) 03/23/2019-Dr. Johns History of nasal surgery (~05/28/18) 02/12/2018-Dr. Kaye , 05/28/2018-Dr. Kaye S/P correction of deviated nasal septum (~02/12/18) History of heart artery stent 3 placed in 08/14/18 1 placed 10/07/18- Dr. Barrios Family History Family History Father Heart disease Mother Heart disease Hypertension Sibling Hypertension Heart disease Social History Social History Social History: Caffeine- coffee Smoking packs per day: 1 Smoking cigarettes per day: 20.0 Years smoked: 10 Smoking pack-years: 10.00 Smoking status: Former smoker Tobacco type: cigarettes Second hand tobacco smoke exposure: Yes Smoking end date: 03/03/1966 Alcohol intake: current Drinks per week: 5 Alcohol use details: beer Substance use: never Substance use type: does not use Do You Feel Safe in your Home?: Yes Lack of Transportation: No Lack of Food: Never True Current Housing: I Have Housing Concerned About Future Housing: No Difficulty Paying Gas/Electric Bills: No Difficulty Paying for Meds: No Currently Unemployed: No Education: Associate Degree Difficulty w/ Childcare or Family Care: No Living arrangements: with family Additional living arrangements comments: Occupation/Education: retired Gender identity (if verbalized by the patient): Male Spiritual care concerns: No Agree to blood products: Yes Anes - Eval Final PreProcedure Day of Procedure 06/08/24 09:15 Patient weight: overweight Heart: regular rate and rhythm Lungs: decreased breath sounds Airway: Mallampati scale class II Neurological: alert and oriented Last oral intake: >/= 8 hours ASA classification: IV Emergent: no Anesthetic plan: proceed Anesthesia type and monitoring: general GIVS and standard monitoring Results Review: All pre-operative results and documents have been reviewed as part of the pre- operative evaluation. Informed Consent: The patient's anesthetic plan and its attendant risks and benefits were discussed with the patient/family/POA. Questions were solicited and answers provided to the satisfaction of the patient/family/POA.
[2024-06-08] MEDS: LACTATED RINGERS 1,000 ML 30 ML IV CONT (09:31)
[2024-06-08] MEDS: BUPivacaine HCL 0.5% 10 ML AMP INFILTRATE (09:40)
[2024-06-08] MEDS: LIDOCAINE 2% PF LOCAL INJ 5 ML VIAL 10 ML INFILTRATE (09:45)
[2024-06-08] MEDS: LIDOCAINE 1% LOCAL INJ 20 ML VIAL 10 ML INFILTRATE (09:46)
[2024-06-08 10:15] VITALS: BP 148/90; PULSE 59; RESP 12; O2SAT 99
[2024-06-08 10:45] VITALS: BP 152/78; PULSE 51; RESP 12; O2SAT 99
[2024-06-08 11:15] VITALS: BP 160/82; PULSE 53
== END 2024-06-08 11:21 | disposition home or self-care (01) ==
PROVIDERS: PCP Internal Medicine; Visit Provider Anesthesiology Pain Medicine
PROC: (CPT 64635; principal; 2024-06-08 10:00)
DX: M46.1 Sacroiliitis, not elsewhere classified (principal); M47.817 Spondylosis without myelopathy or radiculopathy, lumbosacral region; G89.29 Other chronic pain; M48.062 Spinal stenosis, lumbar region with neurogenic claudication; E78.5 Hyperlipidemia, unspecified; I10 Essential (primary) hypertension; K21.9 Gastro-esophageal reflux disease without esophagitis; I25.10 Atherosclerotic heart disease of native coronary artery without angina pectoris; M19.012 Primary osteoarthritis, left shoulder; G47.30 Sleep apnea, unspecified; Z79.82 Long term (current) use of aspirin; Z98.890 Other specified postprocedural states; Z90.49 Acquired absence of other specified parts of digestive tract; Z98.1 Arthrodesis status; Z95.5 Presence of coronary angioplasty implant and graft; Z87.891 Personal history of nicotine dependence; Z82.49 Family history of ischemic heart disease and other diseases of the circulatory system
CPT/HCPCS: 64635; 64636 ×11; 99199; J0690; J2003; J2250; J2704; J3010; J7120

== ENCOUNTER 2024-07-05 10:54 | Outpatient (CLI) | payer OTHER, SELFPAY ==
--- OUTSIDE RECORDS SUMMARY | 2024-07-05 11:52 | XMS_ITS ---
Author Organization [facility] Address [address] [facility] [place] [address] Care Team Providers Care Assistant Teacher Name Role Phone Devon Blanchard Unavailable [phone] ALLERGIES No Known Allergies REASON FOR VISIT [...] SIGNS Temperature 97.8 degrees Fahrenheit 03/12/19 24 Heart Rate 67 /min 03/12/2023 Blood pressure systolic 156 mm Hg 03/12/19 24 Blood pressure diastolic 85 mm Hg 024 Weight 195 lbs 03/12/2023 BMI 27.19 kg/m2 03/12/2023 Height 71 in 03/12/2023 Respiratory Rate 18 /min 03/12/2023 Encounters Encounter Location Date Provider Diagnosis [facility] [address] [place] [address] 03/12/2023 Devon Blanchard Spondylosis without myelopathy or [...] so that he will not have significant xtt-xm-dekfyu cost. He will research this on his [...] strength and trunk flexibility.5. Fee structures for ivo-mo-ziltii, cost for facet injections as well as [...] so that he will not have significant qfl-pp-foohyy cost. He will research this on his [...] strength and trunk flexibility.5. Fee structures for elo-qm-vjxbrj, cost for facet injections as well as facet RFA and sacroiliac RFA were discussed. Hopefully, he can find an in network physician so that most of the charges will be covered. Progress Notes * Barak CARABALLO V.: 0 (83 yo M)Acc No.[id number]:03/12/2023 Patient: Barak CARABALLO V. Provider: Devon Blanchard DO :1940 Age:83 Y Sex:Male Date:03/12/2023 Address:[address] [place] [address]; [facility] Subjective: * Chief Complaints: * Re-referral Visit (2021)--SELF PAY * HPI: Follow-up Questionnaire: Pain Evaluation This patient encounter was conducted at the [facility]. The patient completed a questionnaire on the [...] that he will not have to pay dpw-ee-rtuyli. I last saw Barak 01/15/2022 at which [...] maging studies: X -ray lumbar spine 01/16/2022 [facility] in [place], [place] revealed 4 mm anterior listhesis L4/5. [...] that he will not have to pay kyl-xl-esmpzd. I last saw Barak 01/15/2022 at which [...] reviewed. Imaging studies: X-ray lumbar spine 01/16/2022 [facility] in [place], [place] revealed 4 mm anterior listhesis L4/5. [...] patient encount er was conducted at the [facility]. The patient completed a questionnaire on the [...]
--- OUTSIDE RECORDS SUMMARY | 2024-07-05 11:53 | XMS_ITS | Referral Summary ---
Author Organization [facility] al Address [address] [place] [address] Care Team Providers Care Project Accountant Name Role Phone Shahzad Hilton DO Primary Care Provider [phone]- [phone] Encounters Date Type Department Care Team Description 04/27/2024 11:15 AM ALARM FIELD TECHNICIAN Office Visit [facility] Dermatology [facility] Floor [address] [place] [address] Virginie Brown MD History of [...] mg total) by mouth nightly Active vit C,S-Ru-iqixo-herman tein-zeaxan [id number] nv-vhkk-ve-mg capsule Take 1 capsule by mouth daily [...] on file Legal Sex Male 3:47 AM ALARM FIELD TECHNICIAN Gender Identity Male 08/11/2023 12:49 PM CDT [...] Plan of Treatment [place] [address] ASSURED INFORMATION SECURITY ADVANTAGE [place] [address] MEDICARE ASSURED INFORMATION SECURITY ADVANTAGE CHOICE PPO [employer] ADV[employer] CHOICE PPO Advance Directives For more information, please contact: [phone] * Full Code (Latest Code Status on File) Date Activated Date Inactivated Comments 09/12/2019 1:00 AM 09/16/2019 4:23 PM Care Teams Project Accountant Relationship Specialty Start Date End Date Shahzad Hilton DO PCP - General Internal Medicine 06/25/23
--- OUTSIDE RECORDS SUMMARY | 2024-07-05 11:53 | XMS_ITS | Clinical Summary ---
Author Organization [facility] Address [address] [place] [address] Care Team Providers Care Workforce Manager Name Role Phone Unavailable Primary Care Provider Unavailabl e Source Comments [facility],non-owned Affiliates and Associated Physician Practices is amultiple site organization consisting of ambulatory clinics and hospital sitesin [place], [place], [place] and [place]. This disclosure is being madepursuant to the Care Everywhere program and may not contain all information available regarding this patient. Last updated 17.[facility] Allergies No known active allergies Medications * Be aware that medications may not be up to date on this document. Alwaysverify current medications with the patient. aspirin (Aspirin) 81 MG chew tablet Take 1 (one) tablet by mouth once daily 4 Active atorvastatin (Lipitor) 40 MG tablet Take 1 (one) tablet by mouth at bedtime Active Multiple Vitamins-Minera ls (PreserVision AREDS 2) capsule Take 2 (two) [...] Assigned at Male 05/14/2023 3:13 PM CDT Legal Sex Male 11:30 AM CDT Gender Identity Male 05/14/2023 3:13 PM CDT Sexual Orientation Straight 05/14/2023 3: 13 PM CDT Last Filed Vital Signs Vital Sign Reading Time Taken Comments Blood Pressure 115/68 06/18/2023 10:05 AM CDT Pulse 101 06/18/2023 10:05 AM CDT Temperature 36.7 C (98 F) 05/09/2023 8:16 AM SENIOR ADMINISTRATIVE ASSISTANT Respiratory Rate 12 06/18/2023 10:05 AM CDT Oxygen Saturation 98% 05/09/2023 8:16 AM SENIOR ADMINISTRATIVE ASSISTANT Inhaled Oxygen Concentration - - Weight 88.5 [...] 1-dose 75+ series) 2014 COVID-19 VACCINE ( season) 2023 12/14/2022, 11/13/2021, 07/14/2021, Additional history exists DEPRESSION SCREENING 2024 05/08/2023 INFLUENZA VACCINE (Season Ended) 2024 12/04/2022, 11/13/2021, 11/17/2020, Additional history exists HEPATITIS B VACCINE Aged Out No longe [...] this topic Medical Devices Implanted Type Area Harness And Bag Inspector Device Identifier Shelf Expiration Date Model / Serial / Lot Stent - Vascular Stent - Vascular Insurance [facility] Address: [facility] [address] [address] Advance Directives * Full Code (Latest Code Status on File) Date Activated Date Inactivated Comments 05/08/2023 4:35 PM 05/09/2023 6:31 PM
--- OUTSIDE RECORDS SUMMARY | 2024-07-05 11:53 | XMS_ITS | Clinical Summary ---
Author Organization [facility] Address [facility] [place] [address] Care Team Providers Care Inspector Dials Name Role Phone Mark Barrios MD Unavailable [phone] Robin South MD Primary Care Provider [phone]- [phone] Allergies No known active allergies Medications isosorbide [...] of prostate with urinary obstruction 02/28/2022 Immunizations Immunization Administration Dates Next Due MODERNA COVID-19 BIVALENT [...] Attack Brother 2 Heart Disease Brother 2 [place] Brother 2 Cancer Brother 3 leukemia Cancer [...] Comments Blood Pressure 109/70 03/01/2022 12:21 PM DIRECTOR OF AVIATION Pulse 71 03/01/2022 12:21 PM DIRECTOR OF AVIATION Temperature 36.4 C (97.5 F) 03/01/2022 5:17 AM DIRECTOR OF AVIATION Respiratory Rate 18 03/01/2022 12:2 1 PM DIRECTOR OF AVIATION Oxygen Saturation 99% 03/01/2022 12: 21 PM DIRECTOR OF AVIATION Inhaled Oxygen Concentration - - Weight 83.9 kg (184 lb 15.5 oz) 022 12:05 PM DIRECTOR OF AVIATION Height 179.1 cm (5' 10.5 ) 02/28/2022 1 2:05 PM DIRECTOR OF AVIATION Body Mass Index 26.16 02/28/2022 12:05 PM DIRECTOR OF AVIATION Plan of Treatment Health Maintenance Due Date Last Done Comments DTaP, Tdap and Td Vaccines ( 1 - Tdap) 1958 Pneumococcal Vaccine: 50+ Years (1 of 1 - PCV) 1989 Zoster Vaccines (1 of 2) 1989 Annual Medicare Wellness Visit 2004 RSV Immunization or 60+ Years (1 [...] age to complete this topic Insurance MEDICARE [facility] Advance Directives * Full Code (Latest Code Status on File) Date Activated Date Inactivated Comments 02/28/2022 3:52 PM 03/01/2022 2:42 PM Care Teams Inspector Dials Relationship Specialty Start Date End Date Robin South MD [address] [place] [address] PCP - General CARDIOVASCULAR DISEASE 12/26/21 Mark Barrios MD [facility] [address] [place] [address] CARDIOLOGY 12/26/21
--- OUTSIDE RECORDS SUMMARY | 2024-07-05 11:53 | XMS_ITS ---
Author Organization [facility] al Address [address] [place] [address] Care Team Providers Care Studio Director Name Role Phone Shahzad Hilton DO Primary Care Provider +1- [phone] Active Problems Problem Noted Date Diagnosed Date [...]
--- OUTSIDE RECORDS SUMMARY | 2024-07-05 11:53 | XMS_ITS | Clinical Summary ---
Author Organization [facility] al Address [address] [place] [address] Care Team Providers Care Career Center Director Name Role Phone Shahzad Hilton DO Primary Care Provider [phone]- [phone] Allergies No known active allergies Medications multivitamin [...] mg total) by mouth nightly Active vit C,M-Ps-bpgjo-herman tein-zeaxan [id number] ge-yvdp-ed-mg capsule Take 1 capsule by mouth daily [...] Department Care Team Description 04/27/2024 11:15 AM AIRBRUSH ARTIST PHOTOGRAPHY Office Visit [facility] Dermatology [facility] Floor [address] [place] [address] Virginie Brown MD History of [...] on file Legal Sex Male 3:47 AM AIRBRUSH ARTIST PHOTOGRAPHY Gender Identity Male 08/11/2023 12:49 PM CDT [...] season) 2023 12/01/2020, 04/07/2020, 03/17/2020 Influenza Vaccine (Season Ended) 2024 12/04/2022, 11/17/2020, 11/16/2019, Additional history exists Insurance [facility] [place]ANT[place] [address] MEDICARE [employer] Program ADVANTAGE CHOICE PPO Member Subscriber Plan / Payer (Ef fective 2022-Present) Name:Barak Caraballo Relation to Subscriber:Self Name:Barak Caraballo Payer ID:[id number] (NAIC) Type:MEDICARE RISK OTHER Address: [address] [place] [id number] [place] [address] [employer] ADVANTAGE CHOICE PPO Advance Directives For more information, please contact: [phone] * Full Code (Latest Code Status on File) Date Activated Date Inactivated Comments 09/12/2019 1:00 AM 09/16/2019 4:23 PM Care Teams Career Center Director Relationship Specialty Start Date End Date Shahzad Hilton DO PCP - General Internal Medicine 06/25/23
--- OUTSIDE RECORDS SUMMARY | 2024-07-05 11:53 | XMS_ITS | Patient Health Record ---
Author Organization [facility] Address [address] [facility] [place] [place] [address] Care Team Providers Care Employment Office Clerk Name Role Phone Robin South MD Primary Care Provider Unava Prem Berman Unavailable [phone] Reason For Referral No Information Medications Medication [...] Problem Status W/U Status Risk Notes Problem [id number] Chest pain (R07.9) Active confirmed Plan Of Treatment No Information Insurance Providers Payer Name Payer Address Payer Phone Subscriber Number Group Number Insured Name Patient Relationship to Insured Coverage Start Date Coverage End Date Medicare E2 [address] [address] [place] [address] [id number] Barak Caraballo Self - patient is the insured 4 Blue Access Choice PPO E2 [address] [place] [address] [id number] Barak Caraballo Self - patient is the insured Medical (General) History Medical History History ICD Code Hiatal hernia GERD Colon polyps Anemia Hypertension Heart stents Sleep apnea Hearing loss Surgical History Surgery Date(Month/Year) EGD 12/2017 Spinal stenosis Deviated septum
--- OUTSIDE RECORDS SUMMARY | 2024-07-05 11:53 | XMS_ITS | Patient Health Record ---
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
--- OUTSIDE RECORDS SUMMARY | 2024-07-05 11:53 | XMS_ITS | Encounter Summary ---
Author Organization [facility] Address [address] [place] [address] Care Team Providers Care Associate Program Manager Name Role Phone Mark Barrios MD Unavailable Robin South MD Primary Care Provider +1- [phone] Encounter Details Date Type Department Care Team (Late st Contact Info) Description 02/20/2022 Prep for Procedure [facility] Pre-Admission Testing [address] [place], [place] [id number] Grant Sánchez MD [address] [facility] [place], [place] [id number] Social History Tobacco Use Types Packs/Day Years [...] Coronavirus/COVID-19? No / Unsure 02/20/2022 3:28 PM LAUNCHMAN documented as of this encounter Plan of Treatment Not on file documented as of this encounter Results * PTT, PARTIAL THROMBOPLASTIN TIME (02/20/2022 3:58 PM LAUNCHMAN) PTT 26.7 25.1 - 36.5 SEC 02/20/2022 4:36 PM LAUNCHMAN [facility] 02/20/2022 3:58 PM LAUNCHMAN Grant Sánchez MD LABORATORY Lou l Result Performing Organization Address [facility] Co de Phone Number [facility] [address] [place] [address], [place] [phone] * PROTIME/INR, VENOUS (02/20/2022 3:58 PM LAUNCHMAN) PROTIME 11.8 10.2 - 12.9 SEC 02/20/2022 4:36 PM LAUNCHMAN [facility] INR 1.0 02/20/2022 4:36 PM LAUNCHMAN [facility] Comment: Recommended INR Therapeutic Goals: 2.0-3.0 Routine Therapy 2.5-3.5 Mechanical Prosthetic Valves (High Risk) 02/20/2022 3:58 PM LAUNCHMAN Grant Sánchez MD LABORATORY Lou l Result Performing Organization Address [facility] Co de Phone Number [facility] [address] [place] [address], [place] [phone] * TYPE & SCREEN (02/20/2022 3:58 PM LAUNCHMAN) ABO/RH AB POSITIVE 02/20/2022 5:05 PM LAUNCHMAN [facility] ANTIBODY SCREEN NEGATIVE 02/20/2022 5:05 PM LAUNCHMAN [facility] SAMPLE EXPIRATION 2022,2 359 02/28/2022 12:42 PM LAUNCHMAN [facility] COMMENT NO HISTORY OF TRANSFUSIONS , OR ANTIBODIES, NEW SPECIMEN NOT NEEDED 02/28/2022 12:42 PM LAUNCHMAN [facility] 02/20/2022 3:58 PM LAUNCHMAN Grant Sánchez MD BLOOD BANK TEST ALESSIA ROOT Final Result [facility] [address] [place] [address], * (ABNORMAL) BASIC METABOLIC PANEL (02/20/2022 3:58 PM LAUNCHMAN) Pathologist [facility] GLUCOSE 114(H) 70 - 99 MG/DL 02/20/2022 4:38 PM LAUNCHMAN [facility] BUN 21(H) 7 - 18 MG/DL 02/20/2022 4:38 PM LAUNCHMAN [facility] CREATININE S/P/B 1.22 0.7 - 1.3 MG/DL 02/20/2022 4:38 PM LAUNCHMAN [facility] SODIUM S/P/B 128(L) 136 - 145 MMOL/L 02/20/2022 4:38 PM LAUNCHMAN [facility] POTASSIUM S/P/B 3.8 3.5 - 5.1 MMOL/L 02/20/2022 4:38 PM LAUNCHMAN [facility] CHLORIDE S/P/B 97(L) 100 - 108 MMOL/L 02/20/2022 4:38 PM LAUNCHMAN [facility] CO2 29.5 21 - 32 MMOL/L 02/20/2022 4:38 PM LAUNCHMAN [facility] CALCIUM S/P/B 9.3 8.5 - 10.1 MG/DL 02/20/2022 4:38 PM LAUNCHMAN [facility] ANION GAP 1.5(L) 5 - 15 MMOL/L 02/20/2022 4:38 PM LAUNCHMAN [facility] BUN CREATININE RATIO 17.2 6 - 26 02/20/2022 4:38 PM LAUNCHMAN [facility] GFR ESTIMATE 59(L) >90 ML/MIN/1.7 3 M2 02/20/2022 4:38 PM LAUNCHMAN [facility] Comment: NOTE: eGFR is not calculated for patients <18 years of age. This is an estimated GFR calculation using the new CKD EPI creatinine equation without race and so does not require a correction factor for race. This estimated GFR should not be used for calculating drug doses. 02/20/2022 3:58 PM LAUNCHMAN Grant Sánchez MD LABORATORY Lou hinds Result [facility] [address] [place] [address], [place] [phone] * (ABNORMAL) CBC W/DIFF AUTOMATED (02/20/2022 3:58 PM LAUNCHMAN) WBC 8.9 4.5 - 11.0 x10'3/uL 02/20/2022 4:19 PM LAUNCHMAN [facility] RBC 4.27(L) 4.70 - 6.10 x10'6/uL 02/20/2022 4:19 PM [facility] HGB 13.9(L) 14.0 - 18.0 G/DL 02/20/2022 4:19 PM LAUNCHMAN [facility] HCT 40.1(L) 43.0 - 54.0 % 02/20/2022 4:19 PM [facility] MCV 93.9 80.0 - 94.0 FL 02/20/2022 4:19 PM [facility] MCH 32.6(H) 27.0 - 31.0 PG 02/20/2022 4:19 PM [facility] MCHC 34.7 32.0 - 36.0 G/DL 02/20/2022 4:19 PM [facility] RDW 12.9 11.5 - 14.5 % 02/20/2022 4:19 PM [facility] PLT 220 130 - 400 x10'3/uL 02/20/2022 4:19 PM [facility] MPV 9.7 9.3 - 12.2 FL 02/20/2022 4:19 PM [facility] DIFFERENTIAL TYPE AUTOMATED DIFFERENTIAL 02/20/2022 4:19 PM [facility] NEUTROPHILS % 83.2 % 02/20/2022 4:19 PM [facility] LYMPHOCYTES % 8.1 % 02/20/2022 4:19 PM [facility] MONOCYTES % 7.8 % 02/20/2022 4:19 PM [facility] EOSINOPHILS 0.0 % 02/20/2022 4:19 PM [facility] BASOPHILS 0.2 % 02/20/2022 4:19 PM [facility] IMMATURE GRANS % 0.7 % 02/21/20 4:19 PM [facility] ABS. NEUTROPHILS TOTAL 7.42 1.80 - 7.70 x10'3/uL 02/20/2022 4:19 PM [facility] ABS. LYMPHOCYTES 0.72(L) 1.00 - 4.80 x10'3/uL 02/20/2022 4:19 PM [facility] ABS. MONOCYTES 0.70 0.30 - 0.82 x10'3/uL 02/20/2022 4:19 PM [facility] ABS. EOSINOPHILS 0.00(L) 0.04 - 0.54 x10'3/uL 02/20/2022 4:19 PM [facility] ABS. BASOPHILS 0.02 0.01 - 0.08 x10'3/uL 02/20/2022 4:19 PM LAUNCHMAN [facility] ABS. IMMATURE GRANULOCYTES 0.06 0.00 - 0.49 x10'3/uL 02/20/2022 4:19 PM LAUNCHMAN [facility] 02/20/2022 3:58 PM LAUNCHMAN Grant Sánchez MD LABORATORY Lou l Result Performing Organization Address [facility] Co de Phone Number [facility] [address] [place] [address], [place] [phone] * CULTURE URINE (02/20/2022 3:53 PM LAUNCHMAN) SPEC DESCRIPTION URINE CLEAN CATCH 02/20/2022 3:53 PM LAUNCHMAN [facility] SPECIAL REQUESTS NO SPECIAL REQUEST 02/20/2022 3:53 PM LAUNCHMAN [facility] CULTURE RESULT NO GROWTH 2 DAYS 02/22/2022 8:47 AM LAUNCHMAN [facility] URINE SPECIMEN OBTAINED BY CLEAN CATCH PROCEDURE / Unknown 02/20/2022 3:53 PM LAUNCHMAN 02/20/2022 4:02 PM LAUNCHMAN Grant Sánchez MD MICROBIOLOGY - GENER AL ORDERABLES Final Result Performing Organization Address [facility] Co de Phone Number [facility] [address] [place] [address], [place] [phone] documented in this encounter Visit Diagnoses Diagnosis Preop examination- Primary Preoperative examination, unspecified Nocturia CAD (coronary artery disease) Coronary atherosclerosis of unspecified type of vessel, point lay ira or graft documented in this encounter Care Teams Associate Program Manager Relationship Specialty Start Date End Date Robin South MD [address] [place] [address] [address] [address] PCP - General CARDIOVASCULAR DISEASE 12/26/21 Mark Barrios MD [facility] [address] [place] [address] [address] [place] [address] CARDIOLOGY 12/26/21 documented as of this encounter
--- OUTSIDE RECORDS SUMMARY | 2024-07-05 11:53 | XMS_ITS | Clinical Summary ---
Author Organization [facility] field Address [address] [place] [phone] Phone Care Team Providers Care Hospital Personnel Director Name Role Phone Robin South MD Primary Care Provider +1- [phone] Allergies No known active allergies Medications OMEPRAZOLE [...] 06/02/19 14 INFLUENZA VACCINE (#1) 2023 [place] [address] MEDICARE PART A AND B [employer] PPO Advance Directives For more information, please contact: [phone] * Full Code (Latest Code Status on File) Date Activated Date Inactivated Comments 06/01/2013 9:32 AM 06/01/2013 1:48 PM Care Teams Hospital Personnel Director Relationship Specialty Start Date End Date Robin South MD [address] [facility] [address] [place] [phone] PCP - General Interventional Cardiology 05/20/13
--- OUTSIDE RECORDS SUMMARY | 2024-07-05 11:53 | XMS_ITS | Encounter Summary ---
Author Organization [facility] Address [address] [place] [address] Care Team Providers Care Continuous Crusher Operator Name Role Phone Mark Barrios MD Unavailable [phone] Robin South MD Primary Care Provider +1- [phone] Encounter Details Date Type Department Care Team (Late st Contact Info) Description 12/26/2021 Prep for Procedure [facility] Pre-Admission Testing [address] [place], [place] [id number] Grant Sánchez MD [address] [facility] [place] [place], [place] [id number] Social History Tobacco Use Types Packs/Day Years [...] - 36.5 SEC 12/28/2021 12:46 PM CDT [facility] 12/28/2021 11:4 3 AM CDT Grant Sánchez MD LABORATORY Lou l Result Performing Organization Address [facility] Co de Phone Number [facility] [address] [place] [address], * PROTIME/INR, VENOUS (12/28/2021 11:43 AM CDT) PROTIME 12.2 10.2 - 12.9 SEC 12/28/2021 12:46 PM CDT [facility] INR 1.0 12/28/2021 12:46 PM CDT [facility] Comment: Recommended INR Therapeutic Goals: 2.0-3.0 Routine Therapy 2.5-3.5 Mechanical Prosthetic Valves (High Risk) 12/28/2021 11:4 3 AM CDT Grant Sánchez MD LABORATORY Lou l Result Performing Organization Address [facility] Co de Phone Number [facility] [address] [place] [address], * TYPE & SCREEN (12/28/2021 11:43 AM CDT) ABO/RH AB POSITIVE 12/28/2021 2:45 PM CDT [facility] ANTIBODY SCREEN NEGATIVE 12/28/2021 2:45 PM CDT [facility] SAMPLE EXPIRATION 12/31/2021,2 359 12/28/2021 2:45 PM CDT [facility] 12/28/2021 11:4 3 AM CDT Grant Sánchez MD BLOOD BANK TEST ALESSIA KRISTINANGELLA Final Result [facility] [address] [place] [address], [place] [phone] * (ABNORMAL) BASIC METABOLIC PANEL (12/28/2021 11:43 AM CDT) [facility] GLUCOSE 166(H) 70 - 99 MG/DL 12/28/2021 12:43 PM CDT [facility] BUN 21(H) 7 - 18 MG/DL 12/28/2021 12:43 PM CDT [facility] CREATININE S/P/B 1.29 0.7 - 1.3 MG/DL 12/28/2021 12:43 PM CDT [facility] SODIUM S/P/B 136 136 - 145 MMOL/L 12/28/2021 12:43 PM CDT [facility] POTASSIUM S/P/B 3.8 3.5 - 5.1 MMOL/L 12/28/2021 12:43 PM CDT [facility] CHLORIDE S/P/B 103 100 - 108 MMOL/L 12/28/2021 12:43 PM CDT [facility] CO2 28.8 21 - 32 MMOL/L 12/28/2021 12:43 PM CDT [facility] CALCIUM S/P/B 9.2 8.5 - 10.1 MG/DL 12/28/2021 12:43 PM CDT [facility] ANION GAP 4.2(L) 5 - 15 MMOL/L 12/28/2021 12:43 PM CDT [facility] BUN CREATININE RATIO 16.3 6 - 26 12/28/2021 12:43 PM CDT [facility] GFR ESTIMATE 55(L) >90 ML/MIN/1.7 3 M2 12/28/2021 12:43 PM CDT [facility] Comment: NOTE: eGFR is not calculated for patients <18 years of age. This is an estimated GFR calculation using the new CKD EPI creatinine equation without race and so does not require a correction factor for race. This estimated GFR should not be used for calculating drug doses. 12/28/2021 11:4 3 AM CDT Grant Sánchez MD LABORATORY Lou l Result [facility] [address] [place] [address], * (ABNORMAL) CBC W/DIFF AUTOMATED (12/28/2021 11:43 AM CDT) WBC 4.8 4.5 - 11.0 x10'3/uL 12/28/2021 12:24 PM CDT [facility] RBC 4.44(L) 4.70 - 6.10 x10'6/uL 12/28/2021 12:24 PM CDT [facility] HGB 14.4 14.0 - 18.0 G/DL 12/28/2021 12:24 PM CDT [facility] HCT 42.4(L) 43.0 - 54.0 % 12/28/2021 12:24 PM CDT [facility] MCV 95.5(H) 80.0 - 94.0 FL 12/28/2021 12:24 PM CDT [facility] MCH 32.4(H) 27.0 - 31.0 PG 12/28/2021 12:24 PM CDT [facility] MCHC 34.0 32.0 - 36.0 G/DL 12/28/2021 12:24 PM CDT [facility] RDW 12.5 11.5 - 14.5 % 12/28/2021 12:24 PM CDT [facility] PLT 212 130 - 400 x10'3/uL 12/28/2021 12:24 PM CDT [facility] MPV 10.1 9.3 - 12.2 FL 12/28/2021 12:24 PM CDT [facility] DIFFERENTIAL TYPE AUTOMATED DIFFERENTIAL 12/28/2021 12:24 PM CDT [facility] NEUTROPHILS % 70.6 % 12/28/2021 12:24 PM CDT [facility] LYMPHOCYTES % 19.1 % 12/28/2021 12:24 PM CDT [facility] MONOCYTES % 9.1 % 12/28/2021 12:24 PM CDT [facility] EOSINOPHILS 0.4 % 12/28/2021 12:24 PM CDT [facility] BASOPHILS 0.6 % 12/28/2021 12:24 PM CDT [facility] IMMATURE GRANS % 0.2 % 12/29/19 12:24 PM CDT [facility] ABS. NEUTROPHILS TOTAL 3.39 1.80 - 7.70 x10'3/uL 12/28/2021 12:24 PM CDT [facility] ABS. LYMPHOCYTES 0.92(L) 1.00 - 4.80 x10'3/uL 12/28/2021 12:24 PM CDT [facility] ABS. MONOCYTES 0.44 0.30 - 0.82 x10'3/uL 12/28/2021 12:24 PM CDT [facility] ABS. EOSINOPHILS 0.02(L) 0.04 - 0.54 x10'3/uL 12/28/2021 12:24 PM CDT [facility] ABS. BASOPHILS 0.03 0.01 - 0.08 x10'3/uL 12/28/2021 12:24 PM CDT [facility] ABS. IMMATURE GRANULOCYTES 0.01 0.00 - 0.49 x10'3/uL 12/28/2021 12:24 PM CDT [facility] 12/28/2021 11:4 3 AM CDT Grant Sánchez MD LABORATORY Lou l Result Performing Organization Address City/[facility]/ZIP Co de Phone Number [facility] [address] [place] [address], [place] [phone] * CULTURE URINE (12/28/2021 11:33 AM CDT) SPEC DESCRIPTION URINE CLEAN CATCH 12/28/2021 11:34 AM CDT [facility] SPECIAL REQUESTS NO SPECIAL REQUEST 12/28/2021 11:34 AM CDT [facility] CULTURE RESULT NO GROWTH 2 DAYS 12/30/2021 8:01 AM CDT [facility] URINE SPECIMEN OBTAINED BY CLEAN CATCH PROCEDURE / Unknown 12/28/2021 11:33 AM CDT 12/28/2021 11:58 AM CDT Grant Sánchez MD MICROBIOLOGY - GENER AL ORDERABLES Final Result Performing Organization Address City/[facility]/ZIP Co de Phone Number [facility] [address] [place] [address], [place] [phone] documented in this encounter Visit Diagnoses Diagnosis BPH (benign prostatic hyperplasia)- Primary Unspecified hyperplasia of prostate without urinary obstruction and other lower urinary tract symptoms (LUTS) documented in this encounter Care Teams Continuous Crusher Operator Relationship Specialty Start Date End Date Robin South MD [address] [place] [address] PCP - General CARDIOVASCULAR DISEASE 12/26/21 Mark Barrios MD [facility] [address] [place] [address] CARDIOLOGY 12/26/21 documented as of this encounter
[2024-07-05 12:33] LABS: Hematocrit 42.4 % (42.0-52.0); Hemoglobin 13.6 g/dL (14.0-18.0); Mean Corpuscular HGB Conc 32.1 g/dl (32-36); Mean Corpuscular Hemoglobin 32.1 pg (26-34); Mean Platelet Volume 10.2 fl (7.4-10.4); Platelet Count Result 174 k/mm3 (150-375); Red Blood Count 4.24 M/mm3 (4.6-6.20); Red Cell Distribution Width 13.1 % (11.5-14.5); White Blood Count 4.4 K/mm3 (4.5-10.0)
[2024-07-05 12:58] LABS: Albumin Level 4.2 g/dL (3.5-5.1); Anion Gap 7 mmol/L (4-12); Blood Urea Nitrogen 20 mg/dL (9-20); Calcium 8.8 mg/dL (8.4-10.2); Carbon Dioxide 29 mmol/L (22-30); Chloride 102 mmol/L (98-107); Estimated Glomerular Filt Rate 59; Glucose 136 mg/dL (65-110); Phosphorus 3.1 mg/dL (2.5-4.5); Potassium 4.4 mmol/L (3.4-5.0); Sodium 138 mmol/L (137-145)
[2024-07-05 13:56] LABS: Creatinine Urine 150.4 mg/dL; Total Protein Urine Random 9 mg/dL; Ur Ttl Prot Creatinine Ratio 0.06 mg/mg (0-0.20)
[2024-07-05 14:21] LABS: Parathyroid Intact 66.8 pg/mL (14.5-75.2)
== END 2024-07-05 10:55 | disposition home or self-care (01) ==
LOC: ANHGOSHLAB 10:55
PROVIDERS: PCP Internal Medicine; Visit Provider Internal Medicine Nephrology
DX: N18.31 Chronic kidney disease, stage 3a (principal)
CPT/HCPCS: 36415; 80069; 82570; 83970; 84156; 85027

== ENCOUNTER 2024-08-02 01:03 | Day surgery (SDC) | payer OTHER, SELFPAY ==
[2024-07-15 14:43] VITALS: BMI 26.5
--- NOTE | 2024-07-15 14:52 | PC.NURSE ---
Report to the Outpatient Waiting Room, entrance under the green pavilion located off [facility], at time __1:00pm on date __08/02/24 . Planned Procedure Time: __2:00pm .? Time changes happen often and if your time is changed the preop area will call you the afternoon before. - You and your visitor will be asked to self-screen and do not enter if you have any COVID symptoms. Please call surgeon if you need to reschedule. - A mask is optional within the hospital at this time. Patients may have breakfast and light lunch before 1200pm then only sip of water if needed for pills until 2 hours prior to surgery. No smoking, or chewing tobacco (or any form of nicotine). No chewing gum, candy or mints after 12:00pm that day. Take only the following medications with a SIP of water on the morning of surgery: Routine Medications OK DO NOT STOP ANY OF YOUR OTHER PRESCRIPTION MEDICATIONS PRIOR TO SURGERY EXCEPT THE FOLLOWING Medications to discontinue per physician Aspirin [address] KAMINSKI Date to take last dose 07/29/24 per pt stated Please no make-up, nail armenian, hairspray, perfume, deodorant, or body powder the day of surgery.? No jewelry (including any body piercings) or valuables the day of surgery, leave them at home.? Please take a shower or bath the night before, or the morning of, surgery with an antibacterial soap.? Wear comfortable, loose fitting clothing.? - Jewelry must be removed prior to entering the operating room.? Rings and piercings that are not removed may be cut off. - The hospital will not accept responsibility for valuables.? - Please leave all valuables, including medications, at home the day of surgery. If you are going home after surgery, a licensed courier delivery driver must drive you home.? - NO public transportation without another adult if you receive anesthesia. - We recommend that an adult stay with you for 24 hours following discharge. - We also recommend that you do not drive, make important decision, drink alcoholic beverages, or take any drugs that were not prescribed by your health care provider for at least 24 hours after your discharge time. Follow any additional instructions given to you from your surgeon. Telephone instructions given to _Patient and asked if any additional questions and then verbalized understanding. Patient advised to call surgeon office or pre surgery nurse liaison [phone] if any additional questions.
--- NOTE | ~2024-08-02 | XR_ITS ---
EXAMINATION: XR fluoroscopy no charge DATE: 08/02/2024 13:55 CDT INDICATION: DIAG/PROG BLKS MARY JANE L3,L4,L5 MEDIAL BRANCHES #1 . TECHNIQUE: 11 fluoroscopic images of the lumbar spine were obtained during diagnostic/prognostic bila teral L3, L4, and L5 medial branch blocks, performed by Robin Sam MD. I was not present during the procedure. Fluoroscopy exposure time was 1 minute 3.3 seconds. Air Kerma 53.992 mGy. DAP 9.5287 mGym2. COMPARISON: None FINDINGS/IMPRESSION: Fluoroscopic documentation of diagnostic/prognostic bilateral L3, L4, and L5 medial branch blocks. Pl ease refer to the operative note for complete procedural details . Reviewed, dictated and finalized at location K.
--- OUTSIDE RECORDS SUMMARY | 2024-08-02 01:06 | XMS_ITS | Clinical Summary ---
Author Organization [facility] Address [address] [place] [address] Care Team Providers Care Joint Maker Machine Name Role Phone Unavailable Primary Care Provider Unavailabl e Source Comments [facility],non-owned Affiliates and Associated Physician Practices is amultiple site organization consisting of ambulatory clinics and hospital sitesin [place], [place], [place] and [place]. This disclosure is being madepursuant to the Care Everywhere program and may not contain all information available regarding this patient. Last updated 17.[facility] Allergies No known active allergies Medications * [...] 36.7 C (98 F) 05/09/2023 8:16 AM OCC THERAPIST Respiratory Rate 12 06/18/2023 10:05 AM CDT Oxygen Saturation 98% 05/09/2023 8:16 AM OCC THERAPIST Inhaled Oxygen Concentration - - Weight 88.5 kg (195 lb) 06/18/2023 10:05 AM CDT Height 180.3 cm (5' 11) 06/18/2023 10:05 AM CDT Body Mass Index [...] this topic Medical Devices Implanted Type Area Montessori Toddler Teacher Device Identifier Shelf Expiration Date Model / Serial / Lot Stent - Vascular Stent - Vascular [place] [address] [address] [employer] MEDICARE [facility] Care Address: [address] [place] [phone] Advance Directives * Full Code (Latest Code Status on File) Date Activated Date Inactivated Comments 05/08/2023 4:35 PM 05/09/2023 6:31 PM
--- OUTSIDE RECORDS SUMMARY | 2024-08-02 01:06 | XMS_ITS | Patient Health Record ---
Author Organization [facility] Address [address] [facility] [address] [place] [phone] Care Team Providers Care Application Specialist Name Role Phone Robin South MD Primary Care Provider Unava Prem Berman Unavailable [phone] Reason For Referral No Information Medications Medication [...] Problem Status W/U Status Risk Notes Problem [id number] Chest pain (R07.9) Active confirmed Plan Of Treatment No Information Insurance Providers Payer Name Payer Address Payer Phone Subscriber Number Group Number Insured Name Patient Relationship to Insured Coverage Start Date Coverage End Date Medicare E2 [address] [address] [place] [address] [id number] Barak Caraballo Self - patient is the insured 4 [employer] Access Choice PPO E2 [address] [place] [address] [id number] Barak Caraballo Self - patient is the insured Medical (General) History Medical History History ICD Code Hiatal hernia GERD Colon polyps Anemia Hypertension Heart stents Sleep apnea Hearing loss Surgical History Surgery Date(Month/Year) EGD 12/2017 Spinal stenosis Deviated septum
--- OUTSIDE RECORDS SUMMARY | 2024-08-02 01:06 | XMS_ITS ---
Author Organization [facility] Address [address] [place] [address] Care Team Providers Care Stove Mechanic Name Role Phone Shahzad Hilton DO Primary Care Provider +1- [phone] Active Problems Problem Noted Date Diagnosed Date [...]
--- OUTSIDE RECORDS SUMMARY | 2024-08-02 01:06 | XMS_ITS | Clinical Summary ---
Author Organization [facility] field Address [address] [place] [phone] Phone Care Team Providers Care Export Packer Name Role Phone Robin South MD Primary Care Provider +1- [phone] Allergies No known active allergies Medications OMEPRAZOLE [...] 9:32 AM CDT Height 177.8 cm (5' 10) 06/01/2013 9:32 AM CDT Body Mass Index [...] 06/02/19 14 INFLUENZA VACCINE (#1) 2023 [place] [address] MEDICARE PART A AND B [employer] PPO Advance Directives For more information, please contact: [phone] * Full Code (Latest Code Status on File) Date Activated Date Inactivated Comments 06/01/2013 9:32 AM 06/01/2013 1:48 PM Care Teams Export Packer Relationship Specialty Start Date End Date Robin South MD [address] [facility] [address] [place] [phone] PCP - General Interventional Cardiology 05/20/13
--- OUTSIDE RECORDS SUMMARY | 2024-08-02 01:06 | XMS_ITS | Referral Summary ---
Author Organization [facility] Address [address] [place] [address] Care Team Providers Care Fishing Vessel Operator Name Role Phone Shahzad Hilton DO Primary Care Provider +1- [phone] Allergies No known active allergies Medications multivitamin [...] mg total) by mouth nightly Active vit C,D-St-tqoza-herman tein-zeaxan [id number] ms-jdfn-xr-mg capsule Take 1 capsule by mouth daily [...] mouth daily 30 tablet 2 5 07/27/19 25 Active Problems Problem Noted Date Diagnosed Date [...] on file Legal Sex Male 3:47 AM DEGREASER Gender Identity Male 08/11/2023 12:49 PM CDT [...] 10:04 AM CDT Height 179.1 cm (5' 10.51) 11/19/2022 10:04 AM CDT Body Mass Index 27.84 11/19/2022 10:04 AM CDT Plan of Treatment [place] [address] [employer] [place] [address] MEDICARE [employer] CHOICE PPO [employer] ADV[employer] CHOICE PPO Advance Directives For more information, please contact: [phone] * Full Code (Latest Code Status on File) Date Activated Date Inactivated Comments 09/12/2019 1:00 AM 09/16/2019 4:23 PM Care Teams Fishing Vessel Operator Relationship Specialty Start Date End Date Shahzad Hilton DO PCP - General Internal Medicine 06/25/23
--- OUTSIDE RECORDS SUMMARY | 2024-08-02 01:06 | XMS_ITS | Patient Health Record ---
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
--- OUTSIDE RECORDS SUMMARY | 2024-08-02 01:06 | XMS_ITS ---
Author Organization [facility] [place] Address [address] [facility] [place] [address] Care Team Providers Care Gravity Prospecting Operator Name Role Phone Devon Blanchard Unavailable [phone] ALLERGIES No Known Allergies REASON FOR VISIT [...] 03/12/2023 Encounters Encounter Location Date Provider Diagnosis [facility] [address] [place] [address] 03/12/2023 Devon Blanchard Spondylosis without myelopathy or [...] so that he will not have significant uvw-uq-oomxqe cost. He will research this on his [...] strength and trunk flexibility.5. Fee structures for vor-qr-xmenil, cost for facet injections as well as [...] so that he will not have significant xrx-go-vwnxhw cost. He will research this on his [...] strength and trunk flexibility.5. Fee structures for prs-bx-owcnjf, cost for facet injections as well as facet RFA and sacroiliac RFA were discussed. Hopefully, he can find an in network physician so that most of the charges will be covered. Progress Notes * Barak CARABALLO V.: 0 (83 yo M)Acc No.[id number]:03/12/2023 Patient: Barak CARABALLO V. Provider: Devon Blanchard DO :1940 Age:83 Y Sex:Male Date:03/12/2023 Address:[address] [place] [address]; [id number] Subjective: * Chief Complaints: * Re-referral Visit (2021)--SELF PAY * HPI: Follow-up Questionnaire: Pain Evaluation This patient encounter was conducted at the [facility]. The patient completed a questionnaire on the [...] that he will not have to pay npc-zi-eckypd. I last saw Barak 01/15/2022 at which [...] for SI joint RFA, citing it as experimental. Patient achieves substantially greater than 50% relief [...] maging studies: X -ray lumbar spine 01/16/2022 [facility] in [place], [place] revealed 4 mm anterior listhesis L4/5. [...] that he will not have to pay coc-tt-cxztjr. I last saw Barak 01/15/2022 at which [...] for SI joint RFA, citing it as experimental. Patient achieves substantially greater than 50% relief [...] reviewed. Imaging studies: X-ray lumbar spine 01/16/2022 [facility] in [place], [place] revealed 4 mm anterior listhesis L4/5. [...] patient encount er was conducted at the [facility]. The patient completed a questionnaire on the [...]
--- OUTSIDE RECORDS SUMMARY | 2024-08-02 01:06 | XMS_ITS | Clinical Summary ---
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 Actinic keratosis 11/28/2010 Surgical History Surgery Date Site/Laterality Comments TRANSURETHRAL [...] on file Legal Sex Male 3:47 AM WHIZZER Gender Identity Male 08/11/2023 12:49 PM CDT [...] 12/04/2022, 11/17/2020, 11/16/2019, Additional history exists Insurance [employer] PPO MEDICARE [employer] PPO [employer] P[employer] Advance Directives For more information, please contact: [phone] * Full Code (Latest Code Status on File) Date Activated Date Inactivated Comments 09/12/2019 1:00 AM 09/16/2019 4:23 PM Care Teams [place] Boatman Relationship Specialty Start Date End Date Shahzad Hilton DO PCP - General Internal Medicine 06/25/23
--- NOTE | 2024-08-02 13:21 | WPDHPUPDATE1 ---
History and Physical Update Update Date/Time: 08/02/24 13:21 History and Physical has been reviewed, including an updated exam of the patient. There are NO changes in the patient's condition. Risks, benefits, and alternatives have been discussed and questions answered. Patient agrees to proceed with procedure.
--- NOTE | 2024-08-02 13:22 | P.OP_ITS ---
Procedure Note - Detailed Date of Procedure 08/02/24 Pre-op Diagnosis lumbosacral spondylosis, chronic low back pain Post-op Diagnosis Same Procedure Performed Diagnostic Bilateral Lumbar Medial Branch/Dorsal Ramus Blocks at L3, L4, L5 T reating the Bilateral L4-5, L5-S1 Facet Joints Under Fluoroscopic Guidance and with Contrast Control. (4 levels blocked). Surgeon Robin Sam MD Addiction Medicine Physician None. Anesthesia Local Description of Procedure INFORMED CONSENT: Risks, benefits and alternatives to the procedure were discussed in detail with the patient who expressed explicit understanding and consent to proceed. Patient was informed verbally and in written form regarding the risks associated with the procedure including the low risk of serious infection, bleeding/bruising, allergic reaction, nerve or organ injury, paralysis, procedural site pain or discomfort, worsening pain and/or mobility, failure to treat and/or disfigurement. The patient expressed explicit understanding and consent to proceed. All materials required for the procedure were available prior to procedure start. Site and side were marked prior to procedure and confirmed in the presence of the patient. PROCEDURE IN DETAIL: The patient was brought to the procedural suite and placed in the prone position. Patient was made comfortable with use of pillows under the head/chest, hips and ankles. Skin overlying the injection site on the affected side(s) was prepared broadly with ChloraPrep applicator and draped in a sterile manner. Aseptic technique was used throughout. The endplates of the vertebral bodies at the site(s) of interest were aligned in the AP view. Ipsil ateral oblique angulation was utilized to optimize visualization of the intersection between the superior articulating process and transverse process at each target site. Local anesthesia was established by infiltration with approximately 5 mL of 1% lidocaine via a 1-1/2 inch 27-gauge needle. A 25-gauge 3.5 inch Quincke spinal needle was advanced until the needle tip contacted periosteum at the target site, right L3. Lateral view was utilized to confirm the appropriate placement of the needle tip just anterior to the facet line and superior to the pedicle. In the Lateral view, 0.25 mL of Omnipaque 300 contrast medium was injected after negative aspiration for CSF, blood or other bodily fluid, showing appropriate extra-articular spread of contrast without evidence of intravascular, foraminal or intrathecal placement. A 0.5 mL solution of 0.5% PF bupivacaine was injected after negative repeat aspiration. Appropriate spread of the injectate was confirmed with washout of previously injected contrast. No parasthesias were elicited. Needle was removed completely intact without difficulty. The same exact procedure was repeated for all remaining levels on the ipsilateral side, right L4, L5 medial branches/dorsal ramus, modified as necessary to accommodate for the new target location with identical findings and results and no evidence of complication. The same exact procedure was repeated for all remaining levels on the contralateral side, left L3, L4, L5 medial branches/dorsal ramus, modified as necessary to accommodate for the new target location with identical findings and results and no evidence of complication. Images were saved and documented in the patient chart. Patient's skin was cleaned and sterile bandage applied. The patient tolerated the procedure well. The patient was transported to the recovery area in stable condition where they were observed for an appropriate amount of time prior to discharge, without evidence of complication. Patient was instructed on the appropriate completion of a pain diary over the next 12-24 hours. The patient was instructed to avoid excessive activity for the next 48 hours, including climbing and frequent use of stairs. Showers only for 48 hours. They were instructed not to drive or operate heavy machinery for 24 hours. They are to monitor for severe headaches, fevers, chills, night sweats, erythema/swelling at the site or any other signs of infection, bleeding/bruising, bowel or bladder changes as well as new pain, weakness or numbness in the upper or lower extremity. Should they notice these changes, they are instructed to call our office immediately or report directly to the nearest Emergency Department if no answer or if after posted office hours. COMPLICATIONS: None COMMENTS: None CONTRAST WASTED: 28.5mL Omnipaque 300. Complications No immediate complications Condition Stable Disposition Same day [facility] Billing Surgery - Charge Forward: Surgery Billing
[2024-08-02 13:37] VITALS: BP 148/85; PULSE 59; TEMP 36.6; O2SAT 98; BMI 26.9
[2024-08-02 14:00] VITALS: BP 161/97; PULSE 58; O2SAT 96
[2024-08-02] MEDS: BUPivacaine HCL 0.5% 10 ML AMP 5 ML INFILTRATE (14:02)
[2024-08-02] MEDS: LIDOCAINE 1% PF INJ 5 ML VIAL INFILTRATE (14:03)
[2024-08-02 14:05] VITALS: BP 155/97; PULSE 55; O2SAT 96
[2024-08-02 14:12] VITALS: BP 157/99; PULSE 58; O2SAT 96
[2024-08-02 14:17] VITALS: BP 156/84; PULSE 57; RESP 18; O2SAT 99
== END 2024-08-02 14:37 | disposition home or self-care (01) ==
PROVIDERS: PCP Internal Medicine; Visit Provider Anesthesiology Pain Medicine
PROC: (CPT 64493; principal; 2024-08-02 14:00)
DX: M47.817 Spondylosis without myelopathy or radiculopathy, lumbosacral region (principal); M46.1 Sacroiliitis, not elsewhere classified; M48.062 Spinal stenosis, lumbar region with neurogenic claudication; E78.5 Hyperlipidemia, unspecified; I10 Essential (primary) hypertension; I25.10 Atherosclerotic heart disease of native coronary artery without angina pectoris; K21.9 Gastro-esophageal reflux disease without esophagitis; M54.50 Low back pain, unspecified; G89.29 Other chronic pain; M19.012 Primary osteoarthritis, left shoulder; G47.30 Sleep apnea, unspecified; Z98.890 Other specified postprocedural states; Z98.1 Arthrodesis status; Z90.49 Acquired absence of other specified parts of digestive tract; Z95.5 Presence of coronary angioplasty implant and graft; Z87.891 Personal history of nicotine dependence; Z82.49 Family history of ischemic heart disease and other diseases of the circulatory system
CPT/HCPCS: 64493; 64494 ×2; 64495 ×2; 99199; J2003; Q9965

== ENCOUNTER 2024-08-10 09:19 | Day surgery (SDC) | payer OTHER, SELFPAY ==
[2024-08-06 11:07] VITALS: BMI 26.8
--- NOTE | ~2024-08-10 | XR_ITS ---
XR fluoroscopy no charge Indication: Bilateral L3, L4 and L5 medial branch/dorsal ramus nerve block TECHNIQUE: Fluoroscopy used during Bilateral L3, L4 and L5 medial branch/dorsal ramus nerve block pe rformed by [Robin Sam MD] on 08/10/2024. 57 seconds of fluoroscopy with 12 fluoroscopic adonis ges captured. FINDINGS: Correlate with procedure note. IMPRESSION: Fluoroscopy used during Bilateral L3, L4 and L5 medial branch/dorsal ramus nerve block. Reviewed, dictated and finalized at location [] IMPRESSION: Fluoroscopy used during Bilateral L3, L4 and L5 medial branch/dorsa l ramus nerve block.
--- NOTE | 2024-08-10 07:01 | WPDHPUPDATE1 ---
History and Physical Update Update Date/Time: 08/10/24 07:01 History and Physical has been reviewed, including an updated exam of the patient. There are NO changes in the patient's condition. Risks, benefits, and alternatives have been discussed and questions answered. Patient agrees to proceed with procedure.
--- NOTE | 2024-08-10 07:02 | P.OP_ITS ---
Procedure Note - Detailed Date of Procedure 08/10/24 Pre-op Diagnosis lumbosacral spondylosis, chronic low back pain Post-op Diagnosis Same Procedure Performed Diagnostic bilateral Lumbar Medial Branch/Dorsal Ramus Blocks at L3, L4, L5 Treating the bilateral L4-5, L5-S1 Facet Joints Under Fluoroscopic Guidance and with Contrast Control. ( 4 levels blocked). Surgeon Robin Sam MD Abrasive Sawyer None. Anesthesia Local Description of Procedure INFORMED CONSENT: Risks, benefits and alternatives to the procedure were discussed in detail with the patient who expressed explicit understanding and consent to proceed. Patient was informed verbally and in written form regarding the risks associated with the procedure including the low risk of serious infection, bleeding/bruising, allergic reaction, nerve or organ injury, paralysis, procedural site pain or discomfort, worsening pain and/or mobility, failure to treat and/or disfigurement. The patient expressed explicit understanding and consent to proceed. All materials required for the procedure were available prior to procedure start. Site and side were marked prior to procedure and confirmed in the presence of the patient. PROCEDURE IN DETAIL: The patient was brought to the procedural suite and placed in the prone position. Patient was made comfortable with use of pillows under the head/chest, hips and ankles. Skin overlying the injection site on the affected side(s) was prepared broadly with ChloraPrep applicator and draped in a sterile manner. Aseptic technique was used throughout. The endplates of the vertebral bodies at the site(s) of interest were aligned in the AP view. I psilateral oblique angulation was utilized to optimize visualization of the intersection between the superior articulating process and transverse process at each target site. Local anesthesia was established by infiltration with approximately 5 mL of 1% lidocaine via a 1-1/2 inch 27-gauge needle. A 25-gauge 5.0 inch Quincke spinal needle was advanced until the needle tip contacted periosteum at the target site, right L3. Lateral view was utilized to confirm the appropriate placement of the needle tip just anterior to the facet line and superior to the pedicle. In the Lateral view, 0.25 mL of Omnipaque 300 contrast medium was injected after negative aspiration for CSF, blood or other bodily fluid, showing appropriate extra-articular spread of contrast without evidence of intravascular, foraminal or intrathecal placement. A 0.5 mL solution of 2.0% PF lidocaine was injected after negative repeat aspiration. Appropriate spread of the injectate was confirmed with washout of previously injected contrast. No parasthesias were elicited. Needle was removed completely intact without difficulty. The same exact procedure was repeated for all remaining levels on the ipsilateral side, right L4, L5 medial branches/dorsal ramus, modified as necessary to accommodate for the new target location with identical findings and results and no evidence of complication. The same exact procedure was repeated for all remaining levels on the contralateral side, left L3, L4, L5 medial branches/dorsal ramus, modified as necessary to accommodate for the new target location with identical findings and results and no evidence of complication. Images were saved and documented in the patient chart. Patient's skin was cleaned and sterile bandage applied. The patient tolerated the procedure well. The patient was transported to the recovery area in stable condition where they were observed for an appropriate amount of time prior to discharge, without evidence of complication. Patient was instructed on the appropriate completion of a pain diary over the next 12-24 hours. The patient was instructed to avoid excessive activity for the next 48 hours, including climbing and frequent use of stairs. Showers only for 48 hours. They were instructed not to drive or operate heavy machinery for 24 hours. They are to monitor for severe headaches, fevers, chills, night sweats, erythema/swelling at the site or any other signs of infection, bleeding/bruising, bowel or bladder changes as well as new pain, weakness or numbness in the upper or lower extremity. Should they notice these changes, they are instructed to call our office immediately or report directly to the nearest Emergency Department if no answer or if after posted office hours. COMPLICATIONS: None COMMENTS: None CONTRAST WASTED: 28.5mL Omnipaque 300. Complications No immediate complications Condition Stable Disposition Same day [facility] Billing Surgery - Charge Forward: Surgery Billing
[2024-08-10 10:09] VITALS: BP 132/83; PULSE 79; RESP 16; TEMP 37.2; O2SAT 96
--- OUTSIDE RECORDS SUMMARY | 2024-08-10 10:40 | XMS_ITS | Referral Summary ---
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 Gender Identity Male 08/11/2023 12:49 PM CDT [...] Plan of Treatment [place] [address] [facility] [place] [address] MEDICARE [facility] Address: [address] [address] [place] [address] [facility] ADVANTAGE CHOICE PPO [employer] PPO Advance Directives For more information, please contact: [phone] * Full Code (Latest Code Status on File) Date Activated Date Inactivated Comments 09/12/2019 1:00 AM 09/16/2019 4:23 PM Care Teams Assignment Officer Relationship Specialty Start Date End Date Shahzad Hilton DO PCP - General Internal Medicine 06/25/23
--- OUTSIDE RECORDS SUMMARY | 2024-08-10 10:40 | XMS_ITS | Patient Health Record ---
Author Organization [facility] [place] Address [address] [facility] [place] [address] Care Team Providers Care Tightener Name Role Phone Devon Blanchard Unavailable [phone] Allergies No Known Allergies Reason For Referral No Information Medications Medication [...] Dinitrate 30 MG Oral for 30 Not-Taking Social History Tobacco Use: Social History Observation Description Date Details (start date - stop date) Never Smoker NA - NA Tobacco Use/Smoking Question Answer Notes Are you a nonsmoker Problems Problem Type SNOMED Code ICD Code Onset Dates Problem Status W/U Status Risk Notes Problem 44370014 Spondylosis with out myelopathy or radiculopathy, lumbosacral region (M47.817) Active confirmed Problem 907331186 Radiculopathy, lumbar region (M54.16) Active confirmed Problem 186575574 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 confirmed Problem 175865376 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 confirmed Problem 08871351604668948 History of lum bar laminectomy (Z98.890) Active confirmed Problem 603562699 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) Active confirmed Problem Arthritis of sacroiliac joint (1247591766) 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) Active confirmed Plan Of Treatment No Information Medications Administered Medication Instructions Date of Administration Dosage Notes Bilateral L4/5 and L5/S1 Fac et Joint Injections with Fluoroscopy 08/21/2020 Bilateral Sacroiliac Joint Injection 09/11/2020 Bilateral Sacroiliac Joint Injection 06/27/2021 Left Sacroiliac Joint Injection 05/24/2021 Left Sacroiliac Joint Injection 01/15/2022 RIGHT L4/5 SESI 03/29/2020 RIGHT L4/5 SESI 04/19/2020 Medical (General) History Medical History History ICD Code Hypertension 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
--- OUTSIDE RECORDS SUMMARY | 2024-08-10 10:40 | XMS_ITS | Clinical Summary ---
Author Organization [facility] field Address [address] [place] [address] Phone Care Team Providers Care Instrument Adjuster Name Role Phone Robin South MD Primary Care Provider +1- [phone] Allergies No known active allergies Medications OMEPRAZOLE [...] 06/02/19 14 INFLUENZA VACCINE (#1) 2023 [place] [address] MEDICARE PART A AND B [employer] PPO Advance Directives For more information, please contact: [phone] * Full Code (Latest Code Status on File) Date Activated Date Inactivated Comments 06/01/2013 9:32 AM 06/01/2013 1:48 PM Care Teams Instrument Adjuster Relationship Specialty Start Date End Date Robin South MD [facility] [address] [place] [id number] PCP - General Interventional Cardiology 05/20/13
--- OUTSIDE RECORDS SUMMARY | 2024-08-10 10:40 | XMS_ITS | Clinical Summary ---
Author Organization [facility] Address [address] [facility] [place] [address] Care Team Providers Care Melting Supervisor Name Role Phone Unavailable Primary Care Provider Unavailabl e Source Comments [facility],non-owned Affiliates and Associated Physician Practices is amultiple site organization consisting of ambulatory clinics and hospital sitesin [place], [place], [place] and [place]. This disclosure is being madepursuant to the Care Everywhere program and may not contain all information available regarding this patient. 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
--- OUTSIDE RECORDS SUMMARY | 2024-08-10 10:40 | XMS_ITS ---
Author Organization [facility] Address [address] [place] [address] Care Team Providers Care Rn Rehabilitation Name Role Phone Shahzad Hilton DO Primary Care Provider +1- [phone] Active Problems Problem Noted Date Diagnosed Date [...]
--- OUTSIDE RECORDS SUMMARY | 2024-08-10 10:40 | XMS_ITS | Patient Health Record ---
Author Organization [facility] Address [address] [facility] [address] [place] [address] Care Team Providers Care Deportation Officer Name Role Phone Robin Swenson MD Primary Care Provider Un available Mitchel Grayd Unavailable [phone] Reason For Referral No Information Medications Medication [...] Problem Status W/U Status Risk Notes Problem 12289723 Chest pain (R07.9) Active confirmed Plan Of Treatment No Information Insurance Providers Payer Name Payer Address Payer Phone Subscriber Number Group Number Insured Name Patient Relationship to Insured Coverage Start Date Coverage End Date Medicare E2 [address] [address] [place] [address] [id number] Barak Caraballo Self - patient is the insured 4 [employer] PPO E2 [address] [place] [address] [id number] Barak Caraballo Self - patient is the insured Medical (General) History Medical History History ICD Code Hiatal hernia GERD Colon polyps Anemia Hypertension Heart stents Sleep apnea Hearing loss Surgical History Surgery Date(Month/Year) EGD 12/2017 Spinal stenosis Deviated septum
--- OUTSIDE RECORDS SUMMARY | 2024-08-10 10:40 | XMS_ITS | Clinical Summary ---
Author Organization 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
[2024-08-10 11:22] VITALS: BP 146/88; PULSE 63; RESP 13; O2SAT 97
[2024-08-10 11:26] VITALS: BP 146/91; PULSE 64; RESP 14; O2SAT 96
[2024-08-10 11:30] VITALS: BP 152/91; PULSE 66; RESP 15; O2SAT 96
[2024-08-10] MEDS: LIDOCAINE 1% PF INJ 5 ML VIAL INFILTRATE (11:30)
[2024-08-10] MEDS: LIDOCAINE 2% PF LOCAL INJ 5 ML VIAL INFILTRATE (11:31)
[2024-08-10 11:35] VITALS: BP 126/77; PULSE 57; RESP 18; O2SAT 98
== END 2024-08-10 11:55 | disposition home or self-care (01) ==
LOC: ASC 09:53
PROVIDERS: PCP Internal Medicine; Visit Provider Anesthesiology Pain Medicine
PROC: (CPT 64493; principal; 2024-08-10 10:50)
DX: M47.817 Spondylosis without myelopathy or radiculopathy, lumbosacral region (principal); G89.29 Other chronic pain
CPT/HCPCS: 64493 ×2; 64494 ×2; 64495 ×2; 99199

== ENCOUNTER 2024-09-23 11:28 | Outpatient (CLI) | payer OTHER, SELFPAY ==
--- OUTSIDE RECORDS SUMMARY | 2024-09-23 11:37 | XMS_ITS | Clinical Summary ---
Author Organization [facility] field Address [address] [place] [address] Phone Care Team Providers Care Silica Spray Mixer Name Role Phone Robin South MD Primary Care Provider +1- [phone] Allergies No known active allergies Medications OMEPRAZOLE [...] 06/03/2016 06/03/2013, 06/02/19 14 INFLUENZA VACCINE (#1) 2024 [place] [address] MEDICARE PART A AND B [employer] PPO Advance Directives For more information, please contact: [phone] * Full Code (Latest Code Status on File) Date Activated Date Inactivated Comments 06/01/2013 9:32 AM 06/01/2013 1:48 PM Care Teams Silica Spray Mixer Relationship Specialty Start Date End Date Robin South MD [facility] [address] [place] [id number] PCP - General Interventional Cardiology 05/20/13
--- OUTSIDE RECORDS SUMMARY | 2024-09-23 11:37 | XMS_ITS | Encounter Summary ---
Author Organization [facility] Address [address] [place] [address] Care Team Providers Care Manager Cardiovascular Name Role Phone Mark Barrios MD Unavailable [phone] Robin South MD Primary Care Provider [phone]- [phone] Encounter Details Date Type Department Care Team (Late st Contact Info) Description 02/20/2022 Prep for Procedure [facility] Pre-Admission Testing [address] [facility] [place], [place] [id number] Grant Sánchez MD [address] [facility] [address] [place], [place] [id number] Social History Tobacco Use Types Packs/Day Years [...] Coronavirus/COVID-19? No / Unsure 02/20/2022 3:28 PM C D REACTOR OPERATOR documented as of this encounter Plan of Treatment Not on file documented as of this encounter Results * PTT, PARTIAL THROMBOPLASTIN TIME (02/20/2022 3:58 PM C D REACTOR OPERATOR) PTT 26.7 25.1 - 36.5 SEC 02/20/2022 4:36 PM C D REACTOR OPERATOR [facility] 02/20/2022 3:58 PM C D REACTOR OPERATOR Grant Sánchez MD LABORATORY Lou l Result Performing Organization Address [facility] Co de Phone Number [facility] [address] [place] [address], [place] [phone] * PROTIME/INR, VENOUS (02/20/2022 3:58 PM C D REACTOR OPERATOR) PROTIME 11.8 10.2 - 12.9 SEC 02/20/2022 4:36 PM C D REACTOR OPERATOR [facility] INR 1.0 02/20/2022 4:36 PM C D REACTOR OPERATOR [facility] Comment: Recommended INR Therapeutic Goals: 2.0-3.0 Routine Therapy 2.5-3.5 Mechanical Prosthetic Valves (High Risk) 02/20/2022 3:58 PM C D REACTOR OPERATOR Grant Sánchez MD LABORATORY Lou l Result Performing Organization Address [facility] Co de Phone Number [facility] [address] [place] [address], [place] [phone] * TYPE & SCREEN (02/20/2022 3:58 PM C D REACTOR OPERATOR) ABO/RH AB POSITIVE 02/20/2022 5:05 PM C D REACTOR OPERATOR [facility] ANTIBODY SCREEN NEGATIVE 02/20/2022 5:05 PM C D REACTOR OPERATOR [facility] SAMPLE EXPIRATION 2022,2 359 02/28/2022 12:42 PM C D REACTOR OPERATOR [facility] COMMENT NO HISTORY OF TRANSFUSIONS , OR ANTIBODIES, NEW SPECIMEN NOT NEEDED 02/28/2022 12:42 PM C D REACTOR OPERATOR [facility] 02/20/2022 3:58 PM C D REACTOR OPERATOR Grant Sánchez MD BLOOD BANK TEST ALESSIA ROOT Final Result [facility] [address] [place] [address], * (ABNORMAL) BASIC METABOLIC PANEL (02/20/2022 3:58 PM C D REACTOR OPERATOR) Pathologist [facility] GLUCOSE 114(H) 70 - 99 MG/DL 02/20/2022 4:38 PM C D REACTOR OPERATOR [facility] BUN 21(H) 7 - 18 MG/DL 02/20/2022 4:38 PM C D REACTOR OPERATOR [facility] CREATININE S/P/B 1.22 0.7 - 1.3 MG/DL 02/20/2022 4:38 PM C D REACTOR OPERATOR [facility] SODIUM S/P/B 128(L) 136 - 145 MMOL/L 02/20/2022 4:38 PM C D REACTOR OPERATOR [facility] POTASSIUM S/P/B 3.8 3.5 - 5.1 MMOL/L 02/20/2022 4:38 PM C D REACTOR OPERATOR [facility] CHLORIDE S/P/B 97(L) 100 - 108 MMOL/L 02/20/2022 4:38 PM C D REACTOR OPERATOR [facility] CO2 29.5 21 - 32 MMOL/L 02/20/2022 4:38 PM C D REACTOR OPERATOR [facility] CALCIUM S/P/B 9.3 8.5 - 10.1 MG/DL 02/20/2022 4:38 PM C D REACTOR OPERATOR [facility] ANION GAP 1.5(L) 5 - 15 MMOL/L 02/20/2022 4:38 PM C D REACTOR OPERATOR [facility] BUN CREATININE RATIO 17.2 6 - 26 02/20/2022 4:38 PM C D REACTOR OPERATOR [facility] GFR ESTIMATE 59(L) >90 ML/MIN/1.7 3 M2 02/20/2022 4:38 PM C D REACTOR OPERATOR [facility] Comment: NOTE: eGFR is not calculated for patients <18 years of age. This is an estimated GFR calculation using the new CKD EPI creatinine equation without race and so does not require a correction factor for race. This estimated GFR should not be used for calculating drug doses. 02/20/2022 3:58 PM C D REACTOR OPERATOR Grant Sánchez MD LABORATORY Lou hinds Result [facility] [address] [place] [address], [place] [phone] * (ABNORMAL) CBC W/DIFF AUTOMATED (02/20/2022 3:58 PM C D REACTOR OPERATOR) WBC 8.9 4.5 - 11.0 x10'3/uL 02/20/2022 4:19 PM C D REACTOR OPERATOR [facility] RBC 4.27(L) 4.70 - 6.10 x10'6/uL 02/20/2022 4:19 PM [facility] HGB 13.9(L) 14.0 - 18.0 G/DL 02/20/2022 4:19 PM C D REACTOR OPERATOR [facility] HCT 40.1(L) 43.0 - 54.0 % 02/20/2022 4:19 PM [facility] MCV 93.9 80.0 - 94.0 FL 02/20/2022 4:19 PM [facility] MCH 32.6(H) 27.0 - 31.0 PG 02/20/2022 4:19 PM [facility] MCHC 34.7 32.0 - 36.0 G/DL 02/20/2022 4:19 PM [facility] RDW 12.9 11.5 - 14.5 % 02/20/2022 4:19 PM [facility] PLT 220 130 - 400 x10'3/uL 02/20/2022 4:19 PM [facility] MPV 9.7 9.3 - 12.2 FL 02/20/2022 4:19 PM [facility] DIFFERENTIAL TYPE AUTOMATED DIFFERENTIAL 02/20/2022 4:19 PM [facility] NEUTROPHILS % 83.2 % 02/20/2022 4:19 PM [facility] LYMPHOCYTES % 8.1 % 02/20/2022 4:19 PM [facility] MONOCYTES % 7.8 % 02/20/2022 4:19 PM [facility] EOSINOPHILS 0.0 % 02/20/2022 4:19 PM [facility] BASOPHILS 0.2 % 02/20/2022 4:19 PM [facility] IMMATURE GRANS % 0.7 % 02/21/20 4:19 PM [facility] ABS. NEUTROPHILS TOTAL 7.42 1.80 - 7.70 x10'3/uL 02/20/2022 4:19 PM [facility] ABS. LYMPHOCYTES 0.72(L) 1.00 - 4.80 x10'3/uL 02/20/2022 4:19 PM [facility] ABS. MONOCYTES 0.70 0.30 - 0.82 x10'3/uL 02/20/2022 4:19 PM [facility] ABS. EOSINOPHILS 0.00(L) 0.04 - 0.54 x10'3/uL 02/20/2022 4:19 PM [facility] ABS. BASOPHILS 0.02 0.01 - 0.08 x10'3/uL 02/20/2022 4:19 PM C D REACTOR OPERATOR [facility] ABS. IMMATURE GRANULOCYTES 0.06 0.00 - 0.49 x10'3/uL 02/20/2022 4:19 PM C D REACTOR OPERATOR [facility] 02/20/2022 3:58 PM C D REACTOR OPERATOR Grant Sánchez MD LABORATORY Lou l Result Performing Organization Address [facility] Co de Phone Number [facility] [address] [place] [address], [place] [phone] * CULTURE URINE (02/20/2022 3:53 PM C D REACTOR OPERATOR) SPEC DESCRIPTION URINE CLEAN CATCH 02/20/2022 3:53 PM C D REACTOR OPERATOR [facility] SPECIAL REQUESTS NO SPECIAL REQUEST 02/20/2022 3:53 PM C D REACTOR OPERATOR [facility] CULTURE RESULT NO GROWTH 2 DAYS 02/22/2022 8:47 AM C D REACTOR OPERATOR [facility] URINE SPECIMEN OBTAINED BY CLEAN CATCH PROCEDURE / Unknown 02/20/2022 3:53 PM C D REACTOR OPERATOR 02/20/2022 4:02 PM C D REACTOR OPERATOR Grant Sánhcez MD MICROBIOLOGY - GENER AL ORDERABLES Final Result Performing Organization Address [facility] Co de Phone Number [facility] [address] [place] [address], [place] [phone] documented in this encounter Visit Diagnoses Diagnosis Preop examination- Primary Preoperative examination, unspecified Nocturia CAD (coronary artery disease) Coronary atherosclerosis of unspecified type of vessel, [place] or graft documented in this encounter Care Teams Manager Cardiovascular Relationship Specialty Start Date End Date Robin South MD [address] [place] [address] [address] [address] PCP - General CARDIOVASCULAR DISEASE 12/26/21 Mark Barrios MD [facility] [address] [place] [address] Rd [address] [place] [address] CARDIOLOGY 12/26/21 documented as of this encounter
--- OUTSIDE RECORDS SUMMARY | 2024-09-23 11:37 | XMS_ITS | Clinical Summary ---
Author Organization [facility] Address [facility] [place] [address] Care Team Providers Care Clerk Travel Reservations Name Role Phone Mark Barrios MD Unavailable [phone] Robin South MD Primary Care Provider [phone]- [phone] Allergies No known active allergies Medications isosorbide [...] Attack Brother 2 Heart Disease Brother 2 [place] Brother 2 Cancer Brother 3 leukemia Cancer [...] Comments Blood Pressure 109/70 03/01/2022 12:21 PM SALES PROCESS MANAGER Pulse 71 03/01/2022 12:21 PM SALES PROCESS MANAGER Temperature 36.4 C (97.5 F) 03/01/2022 5:17 AM SALES PROCESS MANAGER Respiratory Rate 18 03/01/2022 12:2 1 PM SALES PROCESS MANAGER Oxygen Saturation 99% 03/01/2022 12: 21 PM SALES PROCESS MANAGER Inhaled Oxygen Concentration - - Weight 83.9 kg (184 lb 15.5 oz) 022 12:05 PM SALES PROCESS MANAGER Height 179.1 cm (5' 10.5) 02/28/2022 1 2:05 PM SALES PROCESS MANAGER Body Mass Index 26.16 02/28/2022 12:05 PM SALES PROCESS MANAGER Plan of Treatment Health Maintenance Due [...] age to complete this topic Insurance MEDICARE [facility] Advance Directives * Full Code (Latest Code Status on File) Date Activated Date Inactivated Comments 02/28/2022 3:52 PM 03/01/2022 2:42 PM Care Teams Clerk Travel Reservations Relationship Specialty Start Date End Date Robin South MD [address] [place] [address] PCP - General CARDIOVASCULAR DISEASE 12/26/21 Mark Barrios MD [facility] [address] [place] [address] CARDIOLOGY 12/26/21
--- OUTSIDE RECORDS SUMMARY | 2024-09-23 11:37 | XMS_ITS ---
Author Organization [facility] Address [address] [place] [address] Care Team Providers Care Holistic Health Practitioner Name Role Phone Shahzad Hilton DO Primary Care Provider [phone]- [phone] Active Problems Problem Noted Date Diagnosed Date Nasal obstruction 09/06/2024 Lumbosacral spondylosis without myelopathy 04/29 Spinal stenosis [...]
--- OUTSIDE RECORDS SUMMARY | 2024-09-23 11:37 | XMS_ITS | Clinical Summary ---
Author Organization [facility] Address [address] [place] [address] Care Team Providers Care Pyrotechnician Name Role Phone Shahzad Hilton DO Primary Care Provider [phone]- [phone] Allergies No known active allergies Medications multivitamin [...] mg total) by mouth nightly Active vit C,M-Gw-mhenh-herman tein-zeaxan 940-190-09-1 bo-lipd-hk-mg capsule Take 1 capsule by mouth daily [...] (400 mg total) by mouth daily Active azelastine (ASTELIN) 137 mcg (0.1 %) nasal spray Administer 1 spray into each nostril 2 (two) times a day Use in each nostril as directed 30 mL 3 Active Active Problems Problem Noted Date Diagnosed [...] Encounters Date Type Department Care Team Description 09/06/2024 11:20 AM CDT Office Visit [facility] ENT [address] [facility] [address] [place] [phone] Doris Alexander PA Nasal obstruction (Primary Dx); Chronic rhinitis 09/01/2024 Telephone [facility] [place] [address] Rani Lei MS from Last 3 Months Surgical History Surgery Date Site/Laterality Comments TRANSURETHRAL RESECTION OF PROSTATE 02/28/2022 CHOLECYSTECTOMY 2014 PROSTATE SURGERY 2021 CATARACT EXTRACTION 1989 Medical History Medical History Date Comments Encounter [...] Melanoma (HCC) Spinal stenosis Coronary artery disease GERD (gastroesophageal reflux disease) 2014 Sleep apnea 2014 Anemia ? Hypertension 2010 Arthritis 1999 Sleep difficulties ? HL (hearing loss) Family History Medical History Relation Name Comments Valvular heart disease Father Famil y history of valvular heart disease - (Added by TW Conv) Hypertension Mother Sondra Family history of hypertension - (Added by TW Conv) Rectal cancer Other 1 Rectal Cancer - (Added by TW Conv) Diabetes Other 2 Diabetes Mellit us - (Added by TW Conv) Heart disease Other 3 Heart Disease - (Added by TW Conv) Relation Name Status Comments Father Mother Sondra Other 1 Other 2 Other 3 Social History Tobacco Use Types Packs/Day Years Used Date Smoking Tobacco: Former Smokeless Tobacco: Never Tobacco Cessation:Counseling Given: Not Answered Alcohol Use Standard Drinks/Week Comments Yes 0 (1 standard drink = 0.6 oz pur e alcohol) occasional Sex and Gender Information Value Date Recorded Sex Assigned at Not on file Legal Sex Male 3:47 AM 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 Gender Identity Male 08/11/2023 12:49 PM CDT Sexual Orientation Straight 08/11/2023 12 :49 PM CDT Obstetrics History Last Filed Vital Signs Vital Sign Reading Time Taken Comments Blood Pressure 122/62 11/19/2022 10:04 AM CDT Pulse 80 11/19/2022 10:04 AM CDT Temperature 36.5 C (97.7 F) 08/21/2022 10:09 AM CDT Respiratory Rate 18 08/21/2022 11:06 AM CDT Oxygen Saturation 94% 11/19/2022 10:04 AM CDT Inhaled Oxygen Concentration - - Weight 86.2 kg (190 lb) 09/06/2024 11:22 AM CDT Height 177.8 cm (5' 10) 09/06/2024 11:22 AM CDT Body Mass Index 27.26 09/06/2024 11:22 AM CDT Plan of Treatment Health Maintenance [...] 2023 12/01/2020, 04/07/2020, 03/17/2020 Influenza Vaccine (#1) 2024 , 11/17/2020, 11/16/2019, Additional history exists Insurance [employer] PPO MEDICARE [employer] [place] [address] [facility] ADVANTAGE CHOICE PPO Advance Directives For more information, please contact: [phone] * Full Code (Latest Code Status on File) Date Activated Date Inactivated Comments 09/12/2019 1:00 AM 09/16/2019 4:23 PM Care Teams Pyrotechnician Relationship Specialty Start Date End Date Shahzad Hilton DO PCP - General Internal Medicine 06/25/23
--- OUTSIDE RECORDS SUMMARY | 2024-09-23 11:37 | XMS_ITS | Patient Health Record ---
Author Organization [employer] Address [address] [facility] [address] [place] [address] Care Team Providers Care Corporate Communications Specialist Name Role Phone Robin Swenson MD Primary Care Provider Un available Mitchel Grayd Unavailable [phone] Reason For Referral No Information Medications Medication [...] Problem Status W/U Status Risk Notes Problem [id number] Chest pain (R07.9) Active confirmed Plan Of Treatment No Information Insurance Providers Payer Name Payer Address Payer Phone Subscriber Number Group Number Insured Name Patient Relationship to Insured Coverage Start Date Coverage End Date Medicare E2 [address] [address] [place] [address] [id number] Barak Caraballo Self - patient is the insured 4 Blue Access Choice PPO E2 [address] [place] [address] [id number] Barak Caraballo Self - patient is the insured Medical (General) History Medical History History ICD Code Hiatal hernia GERD Colon polyps Anemia Hypertension Heart stents Sleep apnea Hearing loss Surgical History Surgery Date(Month/Year) EGD 12/2017 Spinal stenosis Deviated septum
--- OUTSIDE RECORDS SUMMARY | 2024-09-23 11:37 | XMS_ITS | Clinical Summary ---
Author Organization [facility] Address [address] [place] [address] Care Team Providers Care Copy Worker Name Role Phone Unavailable Primary Care Provider Unavailabl e Source Comments [facility],non-owned Affiliates and Associated Physician Practices is amultiple site organization consisting of ambulatory clinics and hospital sitesin [place], [place], [place] and [place]. This disclosure is being madepursuant to the Care Everywhere program and may not contain all information available regarding this patient. Last updated 17.[facility] Allergies No known active allergies Medications * [...] 36.7 C (98 F) 05/09/2023 8:16 AM UPPER CASER Respiratory Rate 12 06/18/2023 10:05 AM CDT Oxygen Saturation 98% 05/09/2023 8:16 AM UPPER CASER Inhaled Oxygen Concentration - - Weight 88.5 [...] exists DEPRESSION SCREENING 2024 05/08/2023 INFLUENZA VACCINE (#1) 2024 , 11/13/2021, 11/17/2020, Additional history exists HEPATITIS B [...] this topic Medical Devices Implanted Type Area Wheelage Clerk Device Identifier Shelf Expiration Date Model / Serial / Lot Stent - Vascular Stent - Vascular [place] [address] [address] [facility] Address: [address] [place] [address] Advance Directives * Full Code (Latest Code Status on File) Date Activated Date Inactivated Comments 05/08/2023 4:35 PM 05/09/2023 6:31 PM
--- OUTSIDE RECORDS SUMMARY | 2024-09-23 11:37 | XMS_ITS | Patient Health Record ---
Author Organization [facility] Address [address] [facility] [place] [address] Care Team Providers Care College Advisor Name Role Phone Devon Blanchard Unavailable [phone] Allergies No Known Allergies Reason For Referral No Information Medications Medication SIG (Take, Route, Frequency, Duration) Notes Start Date End Date Status Lisinopril 20 MG Oral; Duration: 90 Active Atorvastatin Calcium 40 MG Oral; Duration: 90 Active Isosorbide Mononitrate ER 30 MG Oral; Duration: 90 Active Omeprazole 20 MG Oral; Duration: 90 Active Multivitamin Not-Cooper ing Clopidogrel Bisulfate 75 MG Oral; Duration: 90 Not-Taking Ferrous Sulfate 325 (65 Fe) MG 1 tablet Orally Once a day Active traMADol HCl 50 MG 1 tablet Orally q 6-8 hours PRN pain; Duration: 7 days 01/08/2022 Not-Taking Ibuprofen Not-Taking Isosorbide Mononitrate ER 30 MG 1 tablet in the morning Orally Once a day Not-Taking hydroCHLOROthiazide 25 MG Oral; Duration: 90 Not-Taking Cosamin ASU for Joint Health - as directed Orally Active Aspirin 81 MG 1 tablet Orally Once a day Active Isosorbide Dinitrate 30 MG Oral; Duration: 30 Not-Taking Social History Tobacco Use: Social History Observation Description Date Details (start date - stop date) Never Smoker NA - NA Tobacco Use/Smoking Question Answer Notes Are you a nonsmoker Problems Problem Type SNOMED Code ICD Code Onset Dates Problem Status W/U Status Risk Notes Problem Lumbosacral spondylosis without myelopathy (disorder) (76469620) Spondylosis without myelopathy or radiculopathy, lumbosacral region (M47.817) Active confirmed Problem Lumbar radiculopathy (506122026) Radiculopathy, lumbar region (M54.16) Active confirmed Problem Spinal stenosis of lumbar region (70516583) 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) Active confirmed Problem Acquired spondylolisthesis (248603312) Spondylolisthesis at L4-L5 level (M43.16) Active confirmed Problem History of lumbar laminectomy (90711616588869810) History of lumbar laminectomy (Z98.890) Active confirmed Problem Solitary sacroiliitis (124025005) 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
--- OUTSIDE RECORDS SUMMARY | 2024-09-23 11:37 | XMS_ITS | Encounter Summary ---
Author Organization [facility] Address [address] [place] [address] Care Team Providers Care Stockroom Inventory Clerk Name Role Phone Mark Barrios MD Unavailable [phone] Robin South MD Primary Care Provider [phone]- [phone] Encounter Details Date Type Department Care Team (Late st Contact Info) Description 12/26/[address] [facility] Pre-Admission Testing [address] [place], [place] [id number] Grant Sánchez MD [address] [facility] [place], [place] [id number] Social History Tobacco Use Types Packs/Day Years [...] - 36.5 SEC 12/28/2021 12:46 PM CDT [facility] 12/28/2021 11:4 3 AM CDT Grant Sánchez MD LABORATORY Lou l Result Performing Organization Address [facility] Co de Phone Number [facility] [address] [place] [address], * PROTIME/INR, VENOUS (12/28/2021 11:43 AM CDT) PROTIME 12.2 10.2 - 12.9 SEC 12/28/2021 12:46 PM CDT [facility] INR 1.0 12/28/2021 12:46 PM CDT [facility] Comment: Recommended INR Therapeutic Goals: 2.0-3.0 Routine Therapy 2.5-3.5 Mechanical Prosthetic Valves (High Risk) 12/28/2021 11:4 3 AM CDT Grant Sánchez MD LABORATORY Lou l Result Performing Organization Address [facility] Co de Phone Number [facility] [address] [place] [address], * TYPE & SCREEN (12/28/2021 11:43 AM CDT) ABO/RH AB POSITIVE 12/28/2021 2:45 PM CDT [facility] ANTIBODY SCREEN NEGATIVE 12/28/2021 2:45 PM CDT [facility] SAMPLE EXPIRATION 12/31/2021,2 359 12/28/2021 2:45 PM CDT [facility] 12/28/2021 11:4 3 AM CDT Grant Sánchez MD BLOOD BANK TEST ALESSIA KRISTINANGELLA Final Result [facility] [address] [place] [address], [place] [phone] * (ABNORMAL) BASIC METABOLIC PANEL (12/28/2021 11:43 AM CDT) [facility] GLUCOSE 166(H) 70 - 99 MG/DL 12/28/2021 12:43 PM CDT [facility] BUN 21(H) 7 - 18 MG/DL 12/28/2021 12:43 PM CDT [facility] CREATININE S/P/B 1.29 0.7 - 1.3 MG/DL 12/28/2021 12:43 PM CDT [facility] SODIUM S/P/B 136 136 - 145 MMOL/L 12/28/2021 12:43 PM CDT [facility] POTASSIUM S/P/B 3.8 3.5 - 5.1 MMOL/L 12/28/2021 12:43 PM CDT [facility] CHLORIDE S/P/B 103 100 - 108 MMOL/L 12/28/2021 12:43 PM CDT [facility] CO2 28.8 21 - 32 MMOL/L 12/28/2021 12:43 PM CDT [facility] CALCIUM S/P/B 9.2 8.5 - 10.1 MG/DL 12/28/2021 12:43 PM CDT [facility] ANION GAP 4.2(L) 5 - 15 MMOL/L 12/28/2021 12:43 PM CDT [facility] BUN CREATININE RATIO 16.3 6 - 26 12/28/2021 12:43 PM CDT [facility] GFR ESTIMATE 55(L) >90 ML/MIN/1.7 3 M2 12/28/2021 12:43 PM CDT [facility] Comment: NOTE: eGFR is not calculated for patients <18 years of age. This is an estimated GFR calculation using the new CKD EPI creatinine equation without race and so does not require a correction factor for race. This estimated GFR should not be used for calculating drug doses. 12/28/2021 11:4 3 AM CDT Grant Sánchez MD LABORATORY Lou l Result [facility] [address] [place] [address], * (ABNORMAL) CBC W/DIFF AUTOMATED (12/28/2021 11:43 AM CDT) WBC 4.8 4.5 - 11.0 x10'3/uL 12/28/2021 12:24 PM CDT [facility] RBC 4.44(L) 4.70 - 6.10 x10'6/uL 12/28/2021 12:24 PM CDT [facility] HGB 14.4 14.0 - 18.0 G/DL 12/28/2021 12:24 PM CDT [facility] HCT 42.4(L) 43.0 - 54.0 % 12/28/2021 12:24 PM CDT [facility] MCV 95.5(H) 80.0 - 94.0 FL 12/28/2021 12:24 PM CDT [facility] MCH 32.4(H) 27.0 - 31.0 PG 12/28/2021 12:24 PM CDT [facility] MCHC 34.0 32.0 - 36.0 G/DL 12/28/2021 12:24 PM CDT [facility] RDW 12.5 11.5 - 14.5 % 12/28/2021 12:24 PM CDT [facility] PLT 212 130 - 400 x10'3/uL 12/28/2021 12:24 PM CDT [facility] MPV 10.1 9.3 - 12.2 FL 12/28/2021 12:24 PM CDT [facility] DIFFERENTIAL TYPE AUTOMATED DIFFERENTIAL 12/28/2021 12:24 PM CDT [facility] NEUTROPHILS % 70.6 % 12/28/2021 12:24 PM CDT [facility] LYMPHOCYTES % 19.1 % 12/28/2021 12:24 PM CDT [facility] MONOCYTES % 9.1 % 12/28/2021 12:24 PM CDT [facility] EOSINOPHILS 0.4 % 12/28/2021 12:24 PM CDT [facility] BASOPHILS 0.6 % 12/28/2021 12:24 PM CDT [facility] IMMATURE GRANS % 0.2 % 12/29/19 12:24 PM CDT [facility] ABS. NEUTROPHILS TOTAL 3.39 1.80 - 7.70 x10'3/uL 12/28/2021 12:24 PM CDT [facility] ABS. LYMPHOCYTES 0.92(L) 1.00 - 4.80 x10'3/uL 12/28/2021 12:24 PM CDT [facility] ABS. MONOCYTES 0.44 0.30 - 0.82 x10'3/uL 12/28/2021 12:24 PM CDT [facility] ABS. EOSINOPHILS 0.02(L) 0.04 - 0.54 x10'3/uL 12/28/2021 12:24 PM CDT [facility] ABS. BASOPHILS 0.03 0.01 - 0.08 x10'3/uL 12/28/2021 12:24 PM CDT [facility] ABS. IMMATURE GRANULOCYTES 0.01 0.00 - 0.49 x10'3/uL 12/28/2021 12:24 PM CDT [facility] 12/28/2021 11:4 3 AM CDT Grant Sánchez MD LABORATORY Lou l Result Performing Organization Address City/[facility]/ZIP Co de Phone Number [facility] [address] [place] [address], [place] [phone] * CULTURE URINE (12/28/2021 11:33 AM CDT) SPEC DESCRIPTION URINE CLEAN CATCH 12/28/2021 11:34 AM CDT [facility] SPECIAL REQUESTS NO SPECIAL REQUEST 12/28/2021 11:34 AM CDT [facility] CULTURE RESULT NO GROWTH 2 DAYS 12/30/2021 8:01 AM CDT [facility] URINE SPECIMEN OBTAINED BY CLEAN CATCH PROCEDURE / Unknown 12/28/2021 11:33 AM CDT 12/28/2021 11:58 AM CDT Grant Sánchez MD MICROBIOLOGY - GENER AL ORDERABLES Final Result Performing Organization Address City/[facility]/ZIP Co de Phone Number [facility] [address] [place] [address], [place] [phone] documented in this encounter Visit Diagnoses Diagnosis BPH (benign prostatic hyperplasia)- Primary Unspecified hyperplasia of prostate without urinary obstruction and other lower urinary tract symptoms (LUTS) documented in this encounter Care Teams Stockroom Inventory Clerk Relationship Specialty Start Date End Date Robin South MD [address] [place] [address] PCP - General CARDIOVASCULAR DISEASE 12/26/21 Mark Barrios MD [facility] [address] [place] [address] CARDIOLOGY 12/26/21 documented as of this encounter
--- OUTSIDE RECORDS SUMMARY | 2024-09-23 11:37 | XMS_ITS | Referral Summary ---
Author Organization [facility] Address [address] [place] [address] Care Team Providers Care Podopediatrician Name Role Phone Shahzad Hilton DO Primary Care Provider [phone]- [phone] Encounters Date Type Department Care Team Description 09/06/2024 11:20 AM CDT Office Visit [facility] [address] [place] [address] Doris Alexander PA Nasal obstruction (Primary Dx); Chronic rhinitis 09/01/2024 Telephone [facility] Otolaryngology [address] [place] [address] Rani Lei, from Last 3 Months Allergies No known [...] mg total) by mouth nightly Active vit C,H-Yk-tetjv-herman tein-zeaxan [id number] do-yolg-ds-mg capsule Take 1 capsule by mouth daily [...] on file Legal Sex Male 3:47 AM [employer] Gender Identity Male 08/11/2023 12:49 PM CDT [...] 09/06/2024 11:22 AM CDT Plan of Treatment Not on file Insurance [employer] [address] MEDICARE [employer] CHO[employer] PPO [facility] ADVANTAGE CHOICE PPO Advance Directives For more information, please contact: [phone] * Full Code (Latest Code Status on File) Date Activated Date Inactivated Comments 09/12/2019 1:00 AM 09/16/2019 4:23 PM Care Teams Podopediatrician Relationship Specialty Start Date End Date Shahzad Hilton DO PCP - General Internal Medicine 06/25/23
[2024-09-23 12:13] LABS: Hematocrit 38.7 % (42.0-52.0); Hemoglobin 12.9 g/dL (14.0-18.0)
[2024-09-23 12:27] LABS: INR 1.1; Prothrombin Time 13.8 Seconds (11.1-14.7)
[2024-09-23 12:28] LABS: Partial Thromboplastin Time 27.6 Seconds (22.3-36.8)
[2024-09-23 12:45] LABS: Anion Gap 7 mmol/L (4-12); Blood Urea Nitrogen 13 mg/dL (9-20); Calcium 9.0 mg/dL (8.4-10.2); Carbon Dioxide 27 mmol/L (22-30); Chloride 103 mmol/L (98-107); Estimated Glomerular Filt Rate > 60; Glucose 141 mg/dL (65-110); Potassium 3.9 mmol/L (3.4-5.0); Sodium 137 mmol/L (137-145)
== END 2024-09-23 11:29 | disposition home or self-care (01) ==
PROVIDERS: Anesthesiology; PCP Internal Medicine; Visit Provider Anesthesiology Pain Medicine
DX: Z01.818 Encounter for other preprocedural examination (principal); N18.31 Chronic kidney disease, stage 3a; Z78.9 Other specified health status
CPT/HCPCS: 36415; 80048; 85014; 85018; 85610; 85730

== ENCOUNTER 2024-09-28 03:30 | Day surgery (SDC) | payer OTHER, SELFPAY ==
--- NOTE | 2024-09-20 15:13 | PC.NURSE ---
Report to the Outpatient Waiting Room, entrance under the green pavilion located off [facility], at time _9:30 am on date __09/28/24 . Planned Procedure Time: _11:30 am .? Time changes happen often and if your time is changed the preop area will call you the afternoon before. - You and your visitor will be asked to self-screen and do not enter if you have any COVID symptoms. Please call surgeon if you need to reschedule. - A mask is optional within the hospital at this time. NOTHING TO EAT OR DRINK AFTER MIDNIGHT PER DR KAMINSKI Take only the following medications with a SIP of water on the morning of surgery: ___EYE DROPS DO NOT STOP ANY OF YOUR OTHER PRESCRIPTION MEDICATIONS PRIOR TO SURGERY EXCEPT THE FOLLOWING Hold all vitamins and supplements for 3 days per anesthesiologist.LAST DOSE 09/24/24 Medications to discontinue per physician HOLD ASPIRIN 7 DAYS PRE OP PER DR GRULLON Date to take last dose____09/20/24 Please no make-up, nail brazilian, hairspray, perfume, deodorant, or body powder the day of surgery.? No jewelry (including any body piercings) or valuables the day of surgery, leave them at home.? Please take a shower or bath the night before, AND the morning of, surgery with an antibacterial soap.? Wear comfortable, loose fitting clothing.? Children are encouraged to wear pajamas. - Jewelry must be removed prior to entering the operating room.? Rings and piercings that are not removed may be cut off. - The hospital will not accept responsibility for valuables.? - Please leave all valuables, including medications, at home the day of surgery. If you are going home after surgery, a licensed putaway driver must drive you home.? - NO public transportation without another adult if you receive anesthesia. - We recommend that an adult stay with you for 24 hours following discharge. - We also recommend that you do not drive, make important decision, drink alcoholic beverages, or take any drugs that were not prescribed by your health care provider for at least 24 hours after your discharge time. For Pediatric surgeries, we recommend two adults accompany the child home. Follow any additional instructions given to you from your surgeon. Telephone instructions given to __PATIENT and asked if any additional questions and then verbalized understanding. Patient advised to call surgeon office or pre surgery nurse liaison [phone] if any additional questions.
[2024-09-20 15:38] VITALS: BMI 26.5
--- NOTE | ~2024-09-28 | XR_ITS ---
XR fluoroscopy no charge Indication: Radiofrequency ablation of the lumbar spine TECHNIQUE: Fluoroscopy used during radiofrequency ablation of the lumbar spine performed by [Syd Sam MD] on 09/28/2024. 1 minute 28 seconds of fluoroscopy with 7 fluoroscopic images capture d. FINDINGS: Correlate with procedure note. IMPRESSION: Fluoroscopy used during radiofrequency ablation. Reviewed, dictated and finalized at location B.
--- OUTSIDE RECORDS SUMMARY | 2024-09-28 03:34 | XMS_ITS ---
Author Organization [facility] Address [address] [place] [address] Care Team Providers Care Chief Technical Officer Name Role Phone Shahzad Hilton DO Primary Care Provider [phone]- [phone] Active Problems Problem Noted Date Diagnosed Date [...]
--- OUTSIDE RECORDS SUMMARY | 2024-09-28 03:34 | XMS_ITS | Encounter Summary ---
Author Organization [facility] Address [address] [place] [address] Care Team Providers Care Acting Manager Name Role Phone Mark Barrios MD Unavailable [phone] Robin South MD Primary Care Provider [phone] Encounter Details Date Type Department Care Team (Late st Contact Info) Description 12/26/2021 Prep for Procedure [facility] Pre-Admission Testing [address] [place], [place] [id number] Grant Sánchez MD 3 [facility] [address] [place], [place] [id number] Social History Tobacco Use Types Packs/Day Years [...] - 36.5 SEC 12/28/2021 12:46 PM CDT [facility] 12/28/2021 11:4 3 AM CDT Grant Sánchez MD LABORATORY Lou l Result Performing Organization Address [facility] Co de Phone Number [facility] [address] [place] [address], * PROTIME/INR, VENOUS (12/28/2021 11:43 AM CDT) PROTIME 12.2 10.2 - 12.9 SEC 12/28/2021 12:46 PM CDT [facility] INR 1.0 12/28/2021 12:46 PM CDT [facility] Comment: Recommended INR Therapeutic Goals: 2.0-3.0 Routine Therapy 2.5-3.5 Mechanical Prosthetic Valves (High Risk) 12/28/2021 11:4 3 AM CDT Grant Sánchez MD LABORATORY Lou l Result Performing Organization Address [facility] Co de Phone Number [facility] [address] [place] [address], * TYPE & SCREEN (12/28/2021 11:43 AM CDT) ABO/RH AB POSITIVE 12/28/2021 2:45 PM CDT [facility] ANTIBODY SCREEN NEGATIVE 12/28/2021 2:45 PM CDT [facility] SAMPLE EXPIRATION 12/31/2021,2 359 12/28/2021 2:45 PM CDT [facility] 12/28/2021 11:4 3 AM CDT Grant Sánchez MD BLOOD BANK TEST ALESSIA KRISTINANGELLA Final Result [facility] [address] [place] [address], [place] [phone] * (ABNORMAL) BASIC METABOLIC PANEL (12/28/2021 11:43 AM CDT) [facility] GLUCOSE 166(H) 70 - 99 MG/DL 12/28/2021 12:43 PM CDT [facility] BUN 21(H) 7 - 18 MG/DL 12/28/2021 12:43 PM CDT [facility] CREATININE S/P/B 1.29 0.7 - 1.3 MG/DL 12/28/2021 12:43 PM CDT [facility] SODIUM S/P/B 136 136 - 145 MMOL/L 12/28/2021 12:43 PM CDT [facility] POTASSIUM S/P/B 3.8 3.5 - 5.1 MMOL/L 12/28/2021 12:43 PM CDT [facility] CHLORIDE S/P/B 103 100 - 108 MMOL/L 12/28/2021 12:43 PM CDT [facility] CO2 28.8 21 - 32 MMOL/L 12/28/2021 12:43 PM CDT [facility] CALCIUM S/P/B 9.2 8.5 - 10.1 MG/DL 12/28/2021 12:43 PM CDT [facility] ANION GAP 4.2(L) 5 - 15 MMOL/L 12/28/2021 12:43 PM CDT [facility] BUN CREATININE RATIO 16.3 6 - 26 12/28/2021 12:43 PM CDT [facility] GFR ESTIMATE 55(L) >90 ML/MIN/1.7 3 M2 12/28/2021 12:43 PM CDT [facility] Comment: NOTE: eGFR is not calculated for patients <18 years of age. This is an estimated GFR calculation using the new CKD EPI creatinine equation without race and so does not require a correction factor for race. This estimated GFR should not be used for calculating drug doses. 12/28/2021 11:4 3 AM CDT Grant Sánchez MD LABORATORY Lou l Result [facility] [address] [place] [address], * (ABNORMAL) CBC W/DIFF AUTOMATED (12/28/2021 11:43 AM CDT) WBC 4.8 4.5 - 11.0 x10'3/uL 12/28/2021 12:24 PM CDT [facility] RBC 4.44(L) 4.70 - 6.10 x10'6/uL 12/28/2021 12:24 PM CDT [facility] HGB 14.4 14.0 - 18.0 G/DL 12/28/2021 12:24 PM CDT [facility] HCT 42.4(L) 43.0 - 54.0 % 12/28/2021 12:24 PM CDT [facility] MCV 95.5(H) 80.0 - 94.0 FL 12/28/2021 12:24 PM CDT [facility] MCH 32.4(H) 27.0 - 31.0 PG 12/28/2021 12:24 PM CDT [facility] MCHC 34.0 32.0 - 36.0 G/DL 12/28/2021 12:24 PM CDT [facility] RDW 12.5 11.5 - 14.5 % 12/28/2021 12:24 PM CDT [facility] PLT 212 130 - 400 x10'3/uL 12/28/2021 12:24 PM CDT [facility] MPV 10.1 9.3 - 12.2 FL 12/28/2021 12:24 PM CDT [facility] DIFFERENTIAL TYPE AUTOMATED DIFFERENTIAL 12/28/2021 12:24 PM CDT [facility] NEUTROPHILS % 70.6 % 12/28/2021 12:24 PM CDT [facility] LYMPHOCYTES % 19.1 % 12/28/2021 12:24 PM CDT [facility] MONOCYTES % 9.1 % 12/28/2021 12:24 PM CDT [facility] EOSINOPHILS 0.4 % 12/28/2021 12:24 PM CDT [facility] BASOPHILS 0.6 % 12/28/2021 12:24 PM CDT [facility] IMMATURE GRANS % 0.2 % 12/29/19 12:24 PM CDT [facility] ABS. NEUTROPHILS TOTAL 3.39 1.80 - 7.70 x10'3/uL 12/28/2021 12:24 PM CDT [facility] ABS. LYMPHOCYTES 0.92(L) 1.00 - 4.80 x10'3/uL 12/28/2021 12:24 PM CDT [facility] ABS. MONOCYTES 0.44 0.30 - 0.82 x10'3/uL 12/28/2021 12:24 PM CDT [facility] ABS. EOSINOPHILS 0.02(L) 0.04 - 0.54 x10'3/uL 12/28/2021 12:24 PM CDT [facility] ABS. BASOPHILS 0.03 0.01 - 0.08 x10'3/uL 12/28/2021 12:24 PM CDT [facility] ABS. IMMATURE GRANULOCYTES 0.01 0.00 - 0.49 x10'3/uL 12/28/2021 12:24 PM CDT [facility] 12/28/2021 11:4 3 AM CDT Grant Sánchez MD LABORATORY Lou l Result Performing Organization Address City/[facility]/ZIP Co de Phone Number [facility] [address] [place] [address], [place] [phone] * CULTURE URINE (12/28/2021 11:33 AM CDT) SPEC DESCRIPTION URINE CLEAN CATCH 12/28/2021 11:34 AM CDT [facility] SPECIAL REQUESTS NO SPECIAL REQUEST 12/28/2021 11:34 AM CDT [facility] CULTURE RESULT NO GROWTH 2 DAYS 12/30/2021 8:01 AM CDT [facility] URINE SPECIMEN OBTAINED BY CLEAN CATCH PROCEDURE / Unknown 12/28/2021 11:33 AM CDT 12/28/2021 11:58 AM CDT Grant Sánchez MD MICROBIOLOGY - GENER AL ORDERABLES Final Result Performing Organization Address City/[facility]/ZIP Co de Phone Number [facility] [address] [place] [address], [place] [phone] documented in this encounter Visit Diagnoses Diagnosis BPH (benign prostatic hyperplasia)- Primary Unspecified hyperplasia of prostate without urinary obstruction and other lower urinary tract symptoms (LUTS) documented in this encounter Care Teams Acting Manager Relationship Specialty Start Date End Date Robin South MD [address] [place] [address] PCP - General CARDIOVASCULAR DISEASE 12/26/21 Mark Barrios MD [facility] [address] [place] [address] CARDIOLOGY 12/26/21 documented as of this encounter
--- OUTSIDE RECORDS SUMMARY | 2024-09-28 03:34 | XMS_ITS | Clinical Summary ---
Author Organization [facility] Address [facility] [place] [address] Care Team Providers Care Barn Worker Name Role Phone Mark Barrios MD Unavailable [phone] Robin South MD Primary Care Provider [phone] Allergies No known active allergies Medications isosorbide [...] Attack Brother 2 Heart Disease Brother 2 [place] Brother 2 Cancer Brother 3 leukemia Cancer [...] Comments Blood Pressure 109/70 03/01/2022 12:21 PM [employer] Pulse 71 03/01/2022 12:21 PM [employer] Temperature 36.4 C (97.5 F) 03/01/2022 5:17 AM [employer] Respiratory Rate 18 03/01/2022 12:2 1 PM [employer] Oxygen Saturation 99% 03/01/2022 12: 21 PM [employer] Inhaled Oxygen Concentration - - Weight 83.9 kg (184 lb 15.5 oz) 022 12:05 PM [employer] Height 179.1 cm (5' 10.5) 02/28/2022 1 2:05 PM [employer] Body Mass Index 26.16 02/28/2022 12:05 PM [employer] Plan of Treatment Health Maintenance Due Date [...] age to complete this topic Insurance MEDICARE [facility] Advance Directives * Full Code (Latest Code Status on File) Date Activated Date Inactivated Comments 02/28/2022 3:52 PM 03/01/2022 2:42 PM Care Teams Barn Worker Relationship Specialty Start Date End Date Robin South MD [address] [place] [address] PCP - General CARDIOVASCULAR DISEASE 12/26/21 Mark Barrios MD [facility] [address] [place] [address] CARDIOLOGY 12/26/21
--- OUTSIDE RECORDS SUMMARY | 2024-09-28 03:34 | XMS_ITS | Encounter Summary ---
Author Organization [facility] Address [address] [place] [address] Care Team Providers Care Gym Instructor Name Role Phone Mark Barrios MD Unavailable [phone] Robin South MD Primary Care Provider [phone]- [phone] Encounter Details Date Type Department Care Team (Late st Contact Info) Description 02/20/2022 Prep for Procedure [facility] Pre-Admission Testing [address] [place], [place] [id number] Grant Sánchez MD [address] [facility] [place], [place] [id number] Social History Tobacco Use Types Packs/Day Years [...] Coronavirus/COVID-19? No / Unsure 02/20/2022 3:28 PM CIRCULAR KNIFE CUTTER MACHINE documented as of this encounter Plan of Treatment Not on file documented as of this encounter Results * PTT, PARTIAL THROMBOPLASTIN TIME (02/20/2022 3:58 PM CIRCULAR KNIFE CUTTER MACHINE) PTT 26.7 25.1 - 36.5 SEC 02/20/2022 4:36 PM CIRCULAR KNIFE CUTTER MACHINE [facility] 02/20/2022 3:58 PM CIRCULAR KNIFE CUTTER MACHINE Grant Sánchez MD LABORATORY Lou l Result Performing Organization Address [facility] Co de Phone Number [facility] [address] [place] [address], [place] [phone] * PROTIME/INR, VENOUS (02/20/2022 3:58 PM CIRCULAR KNIFE CUTTER MACHINE) PROTIME 11.8 10.2 - 12.9 SEC 02/20/2022 4:36 PM CIRCULAR KNIFE CUTTER MACHINE [facility] INR 1.0 02/20/2022 4:36 PM CIRCULAR KNIFE CUTTER MACHINE [facility] Comment: Recommended INR Therapeutic Goals: 2.0-3.0 Routine Therapy 2.5-3.5 Mechanical Prosthetic Valves (High Risk) 02/20/2022 3:58 PM CIRCULAR KNIFE CUTTER MACHINE Grant Sánchez MD LABORATORY Lou l Result Performing Organization Address [facility] Co de Phone Number [facility] [address] [place] [address], [place] [phone] * TYPE & SCREEN (02/20/2022 3:58 PM CIRCULAR KNIFE CUTTER MACHINE) ABO/RH AB POSITIVE 02/20/2022 5:05 PM CIRCULAR KNIFE CUTTER MACHINE [facility] ANTIBODY SCREEN NEGATIVE 02/20/2022 5:05 PM CIRCULAR KNIFE CUTTER MACHINE [facility] SAMPLE EXPIRATION 2022,2 359 02/28/2022 12:42 PM CIRCULAR KNIFE CUTTER MACHINE [facility] COMMENT NO HISTORY OF TRANSFUSIONS , OR ANTIBODIES, NEW SPECIMEN NOT NEEDED 02/28/2022 12:42 PM CIRCULAR KNIFE CUTTER MACHINE [facility] 02/20/2022 3:58 PM CIRCULAR KNIFE CUTTER MACHINE Grant Sánchez MD BLOOD BANK TEST ALESSIA ROOT Final Result [facility] [address] [place] [address], * (ABNORMAL) BASIC METABOLIC PANEL (02/20/2022 3:58 PM CIRCULAR KNIFE CUTTER MACHINE) Pathologist [facility] GLUCOSE 114(H) 70 - 99 MG/DL 02/20/2022 4:38 PM CIRCULAR KNIFE CUTTER MACHINE [facility] BUN 21(H) 7 - 18 MG/DL 02/20/2022 4:38 PM CIRCULAR KNIFE CUTTER MACHINE [facility] CREATININE S/P/B 1.22 0.7 - 1.3 MG/DL 02/20/2022 4:38 PM CIRCULAR KNIFE CUTTER MACHINE [facility] SODIUM S/P/B 128(L) 136 - 145 MMOL/L 02/20/2022 4:38 PM CIRCULAR KNIFE CUTTER MACHINE [facility] POTASSIUM S/P/B 3.8 3.5 - 5.1 MMOL/L 02/20/2022 4:38 PM CIRCULAR KNIFE CUTTER MACHINE [facility] CHLORIDE S/P/B 97(L) 100 - 108 MMOL/L 02/20/2022 4:38 PM CIRCULAR KNIFE CUTTER MACHINE [facility] CO2 29.5 21 - 32 MMOL/L 02/20/2022 4:38 PM CIRCULAR KNIFE CUTTER MACHINE [facility] CALCIUM S/P/B 9.3 8.5 - 10.1 MG/DL 02/20/2022 4:38 PM CIRCULAR KNIFE CUTTER MACHINE [facility] ANION GAP 1.5(L) 5 - 15 MMOL/L 02/20/2022 4:38 PM CIRCULAR KNIFE CUTTER MACHINE [facility] BUN CREATININE RATIO 17.2 6 - 26 02/20/2022 4:38 PM CIRCULAR KNIFE CUTTER MACHINE [facility] GFR ESTIMATE 59(L) >90 ML/MIN/1.7 3 M2 02/20/2022 4:38 PM CIRCULAR KNIFE CUTTER MACHINE [facility] Comment: NOTE: eGFR is not calculated for patients <18 years of age. This is an estimated GFR calculation using the new CKD EPI creatinine equation without race and so does not require a correction factor for race. This estimated GFR should not be used for calculating drug doses. 02/20/2022 3:58 PM CIRCULAR KNIFE CUTTER MACHINE Grant Sánchez MD LABORATORY Lou hinds Result [facility] [address] [place] [address], [place] [phone] * (ABNORMAL) CBC W/DIFF AUTOMATED (02/20/2022 3:58 PM CIRCULAR KNIFE CUTTER MACHINE) WBC 8.9 4.5 - 11.0 x10'3/uL 02/20/2022 4:19 PM CIRCULAR KNIFE CUTTER MACHINE [facility] RBC 4.27(L) 4.70 - 6.10 x10'6/uL 02/20/2022 4:19 PM [facility] HGB 13.9(L) 14.0 - 18.0 G/DL 02/20/2022 4:19 PM CIRCULAR KNIFE CUTTER MACHINE [facility] HCT 40.1(L) 43.0 - 54.0 % 02/20/2022 4:19 PM [facility] MCV 93.9 80.0 - 94.0 FL 02/20/2022 4:19 PM [facility] MCH 32.6(H) 27.0 - 31.0 PG 02/20/2022 4:19 PM [facility] MCHC 34.7 32.0 - 36.0 G/DL 02/20/2022 4:19 PM [facility] RDW 12.9 11.5 - 14.5 % 02/20/2022 4:19 PM [facility] PLT 220 130 - 400 x10'3/uL 02/20/2022 4:19 PM [facility] MPV 9.7 9.3 - 12.2 FL 02/20/2022 4:19 PM [facility] DIFFERENTIAL TYPE AUTOMATED DIFFERENTIAL 02/20/2022 4:19 PM [facility] NEUTROPHILS % 83.2 % 02/20/2022 4:19 PM [facility] LYMPHOCYTES % 8.1 % 02/20/2022 4:19 PM [facility] MONOCYTES % 7.8 % 02/20/2022 4:19 PM [facility] EOSINOPHILS 0.0 % 02/20/2022 4:19 PM [facility] BASOPHILS 0.2 % 02/20/2022 4:19 PM [facility] IMMATURE GRANS % 0.7 % 02/21/20 4:19 PM [facility] ABS. NEUTROPHILS TOTAL 7.42 1.80 - 7.70 x10'3/uL 02/20/2022 4:19 PM [facility] ABS. LYMPHOCYTES 0.72(L) 1.00 - 4.80 x10'3/uL 02/20/2022 4:19 PM [facility] ABS. MONOCYTES 0.70 0.30 - 0.82 x10'3/uL 02/20/2022 4:19 PM [facility] ABS. EOSINOPHILS 0.00(L) 0.04 - 0.54 x10'3/uL 02/20/2022 4:19 PM [facility] ABS. BASOPHILS 0.02 0.01 - 0.08 x10'3/uL 02/20/2022 4:19 PM CIRCULAR KNIFE CUTTER MACHINE [facility] ABS. IMMATURE GRANULOCYTES 0.06 0.00 - 0.49 x10'3/uL 02/20/2022 4:19 PM CIRCULAR KNIFE CUTTER MACHINE [facility] 02/20/2022 3:58 PM CIRCULAR KNIFE CUTTER MACHINE Grant Sánchez MD LABORATORY Lou l Result Performing Organization Address [facility] Co de Phone Number [facility] [address] [place] [address], [place] [phone] * CULTURE URINE (02/20/2022 3:53 PM CIRCULAR KNIFE CUTTER MACHINE) SPEC DESCRIPTION URINE CLEAN CATCH 02/20/2022 3:53 PM CIRCULAR KNIFE CUTTER MACHINE [facility] SPECIAL REQUESTS NO SPECIAL REQUEST 02/20/2022 3:53 PM CIRCULAR KNIFE CUTTER MACHINE [facility] CULTURE RESULT NO GROWTH 2 DAYS 02/22/2022 8:47 AM CIRCULAR KNIFE CUTTER MACHINE [facility] URINE SPECIMEN OBTAINED BY CLEAN CATCH PROCEDURE / Unknown 02/20/2022 3:53 PM CIRCULAR KNIFE CUTTER MACHINE 02/20/2022 4:02 PM CIRCULAR KNIFE CUTTER MACHINE Grant Sánchez MD MICROBIOLOGY - GENER AL ORDERABLES Final Result Performing Organization Address [facility] Co de Phone Number [facility] [address] [place] [address], [place] [phone] documented in this encounter Visit Diagnoses Diagnosis Preop examination- Primary Preoperative examination, unspecified Nocturia CAD (coronary artery disease) Coronary atherosclerosis of unspecified type of vessel, [place] or graft documented in this encounter Care Teams Gym Instructor Relationship Specialty Start Date End Date Robin South MD [address] [place] [address] [address], [place] [address] PCP - General CARDIOVASCULAR DISEASE 12/26/21 Mark Barrios MD [facility] [address] [place] [address] Rd [address] [place] [address] CARDIOLOGY 12/26/21 documented as of this encounter
--- OUTSIDE RECORDS SUMMARY | 2024-09-28 03:34 | XMS_ITS | Clinical Summary ---
Author Organization [facility] Address [address] [place] [address] Care Team Providers Care Railroad Commissioner Name Role Phone Unavailable Primary Care Provider Unavailabl e Source Comments [facility],non-owned Affiliates and Associated Physician Practices is amultiple site organization consisting of ambulatory clinics and hospital sitesin [place], [place], [place] and [place]. This disclosure is being madepursuant to the Care Everywhere program and may not contain all information available regarding this patient. Last updated 17.[facility] Allergies No known active allergies Medications * [...] 36.7 C (98 F) 05/09/2023 8:16 AM MRB ENGINEER Respiratory Rate 12 06/18/2023 10:05 AM CDT Oxygen Saturation 98% 05/09/2023 8:16 AM MRB ENGINEER Inhaled Oxygen Concentration - - Weight 88.5 [...] this topic Medical Devices Implanted Type Area Wood Floor Refinisher Device Identifier Shelf Expiration Date Model / Serial / Lot Stent - Vascular Stent - Vascular [place] [address] [address] [employer] [facility] Care Address: [address] [place] [address] Advance Directives * Full Code (Latest Code Status on File) Date Activated Date Inactivated Comments 05/08/2023 4:35 PM 05/09/2023 6:31 PM
--- OUTSIDE RECORDS SUMMARY | 2024-09-28 03:34 | XMS_ITS | Patient Health Record ---
Author Organization [facility] Address [address] [facility] [address] [place] [address] Care Team Providers Care Production Intern Name Role Phone Robin Swenson MD Primary Care Provider Un available Mitchel Grayd Unavailable [phone] Reason For Referral No Information Medications Medication [...] Problem Status W/U Status Risk Notes Problem [id number] Chest pain (R07.9) Active confirmed Plan Of Treatment No Information Insurance Providers Payer Name Payer Address Payer Phone Subscriber Number Group Number Insured Name Patient Relationship to Insured Coverage Start Date Coverage End Date Medicare E2 [address] [address] [place] [address] [id number] Barak Caraballo Self - patient is the insured 4 Blue Access Choice PPO E2 [address] [place] [address] [id number] Barak Caraballo Self - patient is the insured Medical (General) History Medical History History ICD Code Hiatal hernia GERD Colon polyps Anemia Hypertension Heart stents Sleep apnea Hearing loss Surgical History Surgery Date(Month/Year) EGD 12/2017 Spinal stenosis Deviated septum
--- OUTSIDE RECORDS SUMMARY | 2024-09-28 03:34 | XMS_ITS | Patient Health Record ---
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) (21036184) Spondylosis without myelopathy or radiculopathy, lumbosacral region (M47.817) Active confirmed Problem Lumbar radiculopathy (443450942) Radiculopathy, lumbar region (M54.16) Active confirmed Problem Spinal stenosis of lumbar region (16226371) 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) Active confirmed Problem Acquired spondylolisthesis (092514878) Spondylolisthesis at L4-L5 level (M43.16) Active confirmed Problem History of lumbar laminectomy (22081165693592663) History of lumbar laminectomy (Z98.890) Active confirmed Problem Solitary sacroiliitis (969395674) 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
--- OUTSIDE RECORDS SUMMARY | 2024-09-28 03:34 | XMS_ITS | Clinical Summary ---
Author Organization [facility] Address [address] [place] [address] Care Team Providers Care Personal Property Assessor Name Role Phone Shahzad Hilton DO Primary Care Provider +1- [phone] Allergies No known active allergies Medications multivitamin [...] mg total) by mouth nightly Active vit C,A-Sb-xdclm-herman tein-zeaxan [id number] km-zabl-mf-mg capsule Take 1 capsule by mouth daily [...] Description 09/06/2024 11:20 AM CDT Office Visit 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
--- OUTSIDE RECORDS SUMMARY | 2024-09-28 03:34 | XMS_ITS | Clinical Summary ---
Author Organization [facility] Address [address] [place] [address] Phone Care Team Providers Care Refrigerating Engineer Head Name Role Phone Robin South MD Primary Care Provider +1- [phone] Allergies No known active allergies Medications OMEPRAZOLE [...] 06/02/19 14 INFLUENZA VACCINE (#1) 2024 [place] [address] MEDICARE PART A AND B [employer] PPO Advance Directives For more information, please contact: [phone] * Full Code (Latest Code Status on File) Date Activated Date Inactivated Comments 06/01/2013 9:32 AM 06/01/2013 1:48 PM Care Teams Refrigerating Engineer Head Relationship Specialty Start Date End Date Robin South MD [facility] [address] [place] [phone] PCP - General Interventional Cardiology 05/20/13
--- OUTSIDE RECORDS SUMMARY | 2024-09-28 03:34 | XMS_ITS | Referral Summary ---
Author Organization [facility] Address [address] [place] [address] Care Team Providers Care Shipyard Helper Name Role Phone Shahzad Hilton DO Primary Care Provider +1- [phone] Encounters Date Type Department Care Team Description 09/06/2024 11:20 AM CDT Office Visit [facility] ENT [address] 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
[2024-09-28 10:00] VITALS: BP 132/78; PULSE 64; RESP 16; TEMP 36.8; O2SAT 95; BMI 27.3
--- NOTE | 2024-09-28 10:33 | PM.HPGS ---
History of Present Illness History of Present Illness Consent: Risks, benefits, and alternatives have been discussed and questions answered. Patient agrees to proceed with procedure. Chief complaint: Lumbosacral spondylosis, chronic low back pain Narrative: Barak Caraballo is a 84 year old male with chronic, recalcitrant and disabling bilateral lumbosacral back pain secondary to degenerative spondylosis with failure to respond to aggressive conservative measures including PT, oral and topical analgesics, opioid and nonopioid analgesics, rest, time and activity/behavioral modification over the past 1-2 years who presents for thermal radiofrequency ablation of the bilateral L3, L4, L5 medial branches/dorsal ramus addressing the bilateral L4-5, L5-S1 facet joints under fluoroscopic guidance. Review of Systems Review of Systems: Patient denies any new infectious, allergic, cardiopulmonary, neurologic or constitutional symptoms or changes in activity tolerance or exercise capacity including new or progressive SOB/DRIVER, peripheral edema, productive cough, dysuria, nausea/vomiting, diarrhea, weight change, fevers/chills/night sweats, new or progressive neurologic deficit, cognitive or mood changes since last seen, except as documented in the HPI. All systems reviewed & are unremarkable except as noted in HPI and below PMFSH Past Medical History Medical History Arthritis GERD (gastroesophageal reflux disease) Sleep apnea Shortness of breath Hearing loss Changes in vision Rotator cuff arthropathy of left shoulder DJD of left shoulder Rotator cuff syndrome of left shoulder Left shoulder pain Fatigue Spinal stenosis, lumbar region with neurogenic claudication Chronic low back pain Vertebrogenic low back pain Brain bleed (~09/11/19) Left supraspinatus tendinitis Multiple fractures of ribs of right side Coronary artery disease Hyperlipidemia Hypertension Surgical History Surgical History History of lumbosacral spine surgery Dr. Mcbride -05/19/2017 S/P TURP (~02/18/22) 02/28/2022- Dr Sánchez Hx of cholecystectomy (~03/23/19) 03/23/2019-Dr. Johns History of nasal surgery (~05/28/18) 02/12/2018-Dr. Kaye , 05/28/2018-Dr. Kaye S/P correction of deviated nasal septum (~02/12/18) History of heart artery stent 3 placed in 08/14/18 1 placed 10/07/18- Dr. Barrios Family History Family History Father Heart disease Mother Heart disease Hypertension Sibling Hypertension Heart disease Social History Social History Social History: Caffeine- coffee Smoking packs per day: 1 Smoking cigarettes per day: 20.0 Years smoked: 10 Smoking pack-years: 10.00 Smoking status: Former smoker Tobacco type: cigarettes Second hand tobacco smoke exposure: Yes Smoking end date: 03/03/66 Alcohol intake: current Drinks per week: 5 Alcohol use details: beer Substance use: never Substance use type: does not use Do You Feel Safe in your Home?: Yes Lack of Transportation: No Lack of Food: Never True Current Housing: I Have Housing Concerned About Future Housing: No Difficulty Paying Gas/Electric Bills: No Difficulty Paying for Meds: No Currently Unemployed: No Education: Associate Degree Difficulty w/ Childcare or Family Care: No Living arrangements: with family Additional living arrangements comments: Occupation/Education: retired Gender identity (if verbalized by the patient): Male Spiritual care concerns: No Agree to blood products: Yes Meds Home Medications and Allergies Home Medications ?Medication ?Instructions ?Recorded ?Confirmed ?Type PreserVision AREDS-2 1 tablet PO BID 01/01/19 09/20/24 History aspirin 81 mg tablet,delayed 81 mg PO DAILY 01/01/19 09/28/24 History release (Adult Low Dose Aspirin) atorvastatin 40 mg tablet 40 mg PO DAILY 01/01/19 09/28/24 History ferrous sulfate 325 mg (65 mg 325 mg PO 2XW 01/01/19 09/20/24 History iron) tablet lisinopril 20 mg tablet 20 mg PO DAILY 01/01/19 09/20/24 History magnesium 200 mg tablet 400 mg PO DAILY 03/27/23 09/20/24 History turmeric root extract 500 mg 500 mg PO DAILY 07/14/23 09/20/24 History capsule cyclosporine 0.05 % eye drops in a 1 drp EACH EYE Q12H 10/23/23 09/20/24 History dropperette glucosamine 500 mg-chondroitin 2 cap PO QAM 07/13/24 09/20/24 History 116.7 mg-herbal no.270 133.3 mg capsule (Cosamin ASU (with AKBA)) glycerin 0.9 % eye drops (Optase 1 drp ophthalmic (eye) DAILY 07/13/24 09/20/24 History MGD Advanced) isosorbide mononitrate 60 mg 60 mg PO QHS 07/13/24 09/20/24 History tablet,extended release 24 hr dedithwh-fe-jskma 300 mcg-K 60 1 tablet PO DAILY 07/13/24 09/20/24 History mcg-lycop 600 mcg-lutein 300 mcg tablet (Centrum Silver Men) acetaminophen 325 mg capsule 650 mg PO Q4-6H PRN pain 08/06/24 09/20/24 History omega 1-uly-zfx-fish oil 100 1 cap PO DAILY 09/20/24 09/20/24 History mg-160 mg-1,000 mg capsule (Fish Oil) omeprazole 20 mg capsule,delayed See Rx Instructions .Route 09/27/24 09/28/24 Rx release .COMPLEX #90 caps Allergies Allergy/AdvReac Type Severity Reaction Status Date / Time No Known Allergies Allergy Unknown Verified 09/28/24 09:57 Vital Signs Vital Signs - 24 hr 09/28/24 10:00 Temperature 98.2 F Pulse Rate 64 Respiratory Rate 16 Blood Pressure 132/78 Pulse Oximetry 95 Exam Narrative: The patient's physical exam is essentially unchanged from prior examination on 08/25/2024. Specifically, patient demonstrates normal lung capacity, tidal volume and respiratory rate without wheezes, crackles, rales or rubs. Heart rate and rhythm are regular without murmurs, gallops or rubs. No JVD. Pulses 2+ globally without increasing peripheral edema. AAOx3 with no evidence of confusion, intoxication or altered mental state, NC/AT without acute distress or altered consciousness. Speech, cognition, mood, insight and judgment at baseline and within normal limits. Assessment and Plan Assessment and plan (1) Lumbosacral spondylosis: Code(s): M47.817 - Spondylosis without myelopathy or radiculopathy, lumbosacral region Status: Acute Assessment and Plan: Procedures planned with thermal radiofrequency ablation of the bilateral L3, L4, L5 medial branches/dorsal ramus addressing the bilateral L4-5, L5-S1 facet joints under fluoroscopic guidance. (2) Chronic low back pain: Qualifiers: Back pain laterality: unspecified Sciatica presence: without sciatica Qualified Code(s): M54.50 - Low back pain, unspecified; G89.29 - Other chronic pain Code(s): M54.50 - Low back pain, unspecified; G89.29 - Other chronic pain Status: Acute
--- NOTE | 2024-09-28 10:36 | WPDHPUPDATE1 ---
History and Physical Update Update Date/Time: 09/28/24 10:36 History and Physical has been reviewed, including an updated exam of the patient. There are NO changes in the patient's condition. Risks, benefits, and alternatives have been discussed and questions answered. Patient agrees to proceed with procedure.
--- NOTE | 2024-09-28 10:37 | P.OP_ITS ---
Procedure Note - Detailed Date of Procedure 09/28/24 Pre-op Diagnosis Lumbosacral spondylosis, chronic low back pain Post-op Diagnosis Same Procedure Performed Thermal Radiofrequency Ablation of the bilateral Lumbar Medial Branches/Dorsal Ramus at the L3, L4, L5 Levels Treating the bilateral L4-5, L5-S1 Facet Joints Under Fluoroscopic Guidance (4 Levels Treated). Surgeon Robin Sam MD [employer] Consulting Manager None. Anesthesia Local (w/ MAC) Description of Procedure INFORMED CONSENT: Risks, benefits and alternatives to the procedure were discussed in detail with the patient who expressed explicit understanding and consent to proceed. Patient was informed verbally and in written form regarding the risks associated with the procedure including the low risk of serious infection, bleeding/bruising, allergic reaction, nerve or organ injury, paralysis, procedural site pain or discomfort, worsening pain and/or mobility, failure to treat and/or disfigurement. The patient expressed explicit understanding and consent to proceed. All materials required for the procedure were available prior to procedure start. Site and side were marked prior to procedure and confirmed in the presence of the patient. PROCEDURE IN DETAIL: The patient was brought to the procedural suite and placed in the prone position. Patient was made comfortable with use of pillows under the head/chest, hips and ankles. ASA standard monitors were applied and used throughout the procedure. Skin overlying the injection site on the affected side(s) was prepared broadly with ChloraPrep applicator and draped in a sterile manner. Aseptic technique was used throughout. The endplates of the vertebral bodies at the site(s) of interest were aligned in the AP view. Ipsilateral oblique angulation was utilized to optimize visualization of the intersection between the superior articulating process and transverse process at each target site. Local anesthesia was established by infiltration with approximately 5 mL of 1% lidocaine via a 1-1/2 inch 27-gauge needle divided over each site treated. A 16-gauge 100mm G[employer] Jonyian RF needle with curved 10mm active tip was advanced in the AP view until the needle tip contacted the periosteum at the target site, the right L3 medial branch. Lateral view was utilized to adjust and confirm the appropriate placement of the needle tip just anterior to the facet line, superior to the pedicle and posterior to the foramen. Grounding electrode was in place and functioning. The appropriately-sized RF cannula was inserted into the RF needle and motor stimulation was performed with no subjective or objective evidence of recruited muscle activity with stimulation up to 2.0 volts at a frequency of 2Hz. 1.5 mL of 2.0% PF lidocaine was injected after negative aspiration. After a 90s pause, lesioning was performed to 90 degrees centigrade for 90s ensuring lack of symptoms in the extremity throughout. Needle was rotated 180 degrees and lesioning repeated in a similar manner. Patient tolerated this well. No paresthesias were elicited. Needle was removed completely intact without difficulty. The same procedure was repeated for all intended levels/ structures on the ipsilateral side, right L4, L5 medial branch/dorsal ramus with identical methodology, modified to compensate for new location, with similar results and no evidence of complication. The same exact procedure was repeated for all remaining levels on the contralateral side, left L3, L4, L5 medial branches/dorsal ramus, modified as necessary to accommodate for the new target location with identical findings/results and no evidence of complication. Images were saved and documented in the patient chart. Patient's skin was cleansed and sterile bandage applied. The patient tolerated the procedure well. The patient was transported to the recovery area in stable condition where they were observed for an appropriate amount of time prior to discharge, without evidence of complication. The patient was instructed to avoid excessive activity for the next 48 hours, in cluding climbing and frequent use of stairs. Showers only for 48 hours. They were instructed not to drive or operate heavy machinery for 24 hours. They are to monitor for severe headaches, fevers, chills, night sweats, erythema/swelling at the site or any other signs of infection, bleeding/bruising, bowel or bladder changes as well as new pain, weakness or numbness in the upper or lower extremity. Should they notice these changes, they are instructed to call our office immediately or report directly to the nearest Emergency Department if no answer or if after posted office hours. COMPLICATIONS: None COMMENTS: None Complications No immediate complications Condition Stable Disposition PACU [facility] Billing Surgery - Charge Forward: Surgery Billing
--- NOTE | 2024-09-28 10:51 | P.PNAN_ITS ---
Anes - Initial Pre Proc Eval Procedure: Operation Date: 09/28/24 11:30 Proposed Procedures p Thermal Radiofrequency Ablation Bilateral L3, L4, L5 Medial Branch/Dorsal Ramus Addressing Bilateral L4-5, L5-S1 Facet Joints under Fluoroscopic Guidance with Contrast Control - Robin Sam MD Date/Time: 09/28/24 10:51 Surgeon: Robin Sam MD Pre Op Diagnosis: Lumbosacral spondylosis, chronic low back pain Patient Data Age: 84 Gender: M Height: 1.78 m Weight: 86.6 kg Last Vital Signs Temp 36.8 C 09/28/24 10:00 Pulse 64 09/28/24 10:00 Resp 16 09/28/24 10:00 BP 132/78 09/28/24 10:00 Pulse Ox 95 09/28/24 10:00 Allergies Allergy/AdvReac Type Severity Reaction Status Date / Time No Known Allergies Allergy Unknown Verified 09/28/24 09:57 Home Medications ?Medication ?Instructions ?Recorded ?Confirmed ?Type PreserVision AREDS-2 1 tablet PO BID 01/01/19 09/20/24 History aspirin 81 mg tablet,delayed 81 mg PO DAILY 01/01/19 09/28/24 History release (Adult Low Dose Aspirin) atorvastatin 40 mg tablet 40 mg PO DAILY 01/01/19 09/28/24 History ferrous sulfate 325 mg (65 mg 325 mg PO 2XW 01/01/19 09/20/24 History iron) tablet lisinopril 20 mg tablet 20 mg PO DAILY 01/01/19 09/20/24 History magnesium 200 mg tablet 400 mg PO DAILY 03/27/23 09/20/24 History turmeric root extract 500 mg 500 mg PO DAILY 07/14/23 09/20/24 History capsule cyclosporine 0.05 % eye drops in a 1 drp EACH EYE Q12H 10/23/23 09/20/24 History dropperette glucosamine 500 mg-chondroitin 2 cap PO QAM 07/13/24 09/20/24 History 116.7 mg-herbal no.270 133.3 mg capsule (Cosamin ASU (with AKBA)) glycerin 0.9 % eye drops (Optase 1 drp ophthalmic (eye) DAILY 07/13/24 09/20/24 History MGD Advanced) isosorbide mononitrate 60 mg 60 mg PO QHS 07/13/24 09/20/24 History tablet,extended release 24 hr eynfzdly-qr-yegxe 300 mcg-K 60 1 tablet PO DAILY 07/13/24 09/20/24 History mcg-lycop 600 mcg-lutein 300 mcg tablet (Centrum Silver Men) acetaminophen 325 mg capsule 650 mg PO Q4-6H PRN pain 08/06/24 09/20/24 History omega 3-ras-wqf-fish oil 100 1 cap PO DAILY 09/20/24 09/20/24 History mg-160 mg-1,000 mg capsule (Fish Oil) omeprazole 20 mg capsule,delayed See Rx Instructions .Route 09/27/24 09/28/24 Rx release .COMPLEX #90 caps Patient hx anesthesia problems: none Family hx anesthesia problems: none Results Review: All pre-operative results and documents have been reviewed as part of the pre- operative evaluation. [facility] Past Medical History Medical History Arthritis GERD (gastroesophageal reflux disease) Sleep apnea Shortness of breath Hearing loss Changes in vision Rotator cuff arthropathy of left shoulder DJD of left shoulder Rotator cuff syndrome of left shoulder Left shoulder pain Fatigue Spinal stenosis, lumbar region with neurogenic claudication Chronic low back pain Vertebrogenic low back pain Brain bleed (~09/11/19) Left supraspinatus tendinitis Multiple fractures of ribs of right side Coronary artery disease Hyperlipidemia Hypertension Surgical History Surgical History History of lumbosacral spine surgery Dr. Mcbride -05/19/2017 S/P TURP (~02/18/22) 02/28/2022- Dr Sánchez Hx of cholecystectomy (~03/23/19) 03/23/2019-Dr. Johns History of nasal surgery (~05/28/18) 02/12/2018-Dr. Kaye , 05/28/2018-Dr. Kaye S/P correction of deviated nasal septum (~02/12/18) History of heart artery stent 3 placed in 08/14/18 1 placed 10/07/18- Dr. Barrios Family History Family History Father Heart disease Mother Heart disease Hypertension Sibling Hypertension Heart disease Social History Social History Social History: Caffeine- coffee Smoking packs per day: 1 Smoking cigarettes per day: 20.0 Years smoked: 10 Smoking pack-years: 10.00 Smoking status: Former smoker Tobacco type: cigarettes Second hand tobacco smoke exposure: Yes Smoking end date: 03/03/66 Alcohol intake: current Drinks per week: 5 Alcohol use details: beer Substance use: never Substance use type: does not use Do You Feel Safe in your Home?: Yes Lack of Transportation: No Lack of Food: Never True Current Housing: I Have Housing Concerned About Future Housing: No Difficulty Paying Gas/Electric Bills: No Difficulty Paying for Meds: No Currently Unemployed: No Education: Associate Degree Difficulty w/ Childcare or Family Care: No Living arrangements: with family Additional living arrangements comments: Occupation/Education: retired Gender identity (if verbalized by the patient): Male Spiritual care concerns: No Agree to blood products: Yes Anes - Eval Final PreProcedure Day of Procedure 09/28/24 10:51 Patient weight: overweight Heart: regular rate and rhythm Lungs: decreased breath sounds Airway: Mallampati scale class II Neurological: alert and oriented Last oral intake: >/= 8 hours ASA classification: IV Emergent: no Anesthetic plan: proceed Anesthesia type and monitoring: monitored anesthesia care and standard monitoring Results Review: All pre-operative results and documents have been reviewed as part of the pre- operative evaluation. Informed Consent: The patient's anesthetic plan and its attendant risks and benefits were discussed with the patient/family/POA. Questions were solicited and answers provided to the satisfaction of the patient/family/POA.
[2024-09-28] MEDS: LIDOCAINE 2% PF LOCAL INJ 5 ML VIAL 10 ML INFILTRATE (11:59)
[2024-09-28 12:18] VITALS: BP 162/94; PULSE 65; RESP 16; O2SAT 100
[2024-09-28 12:48] VITALS: BP 164/92; PULSE 59; RESP 18; O2SAT 97
== END 2024-09-28 13:19 | disposition home or self-care (01) ==
PROVIDERS: PCP Internal Medicine; Visit Provider Anesthesiology Pain Medicine
PROC: (CPT 64635; principal; 2024-09-28 11:30)
DX: M47.817 Spondylosis without myelopathy or radiculopathy, lumbosacral region (principal); G89.29 Other chronic pain; E78.5 Hyperlipidemia, unspecified; I10 Essential (primary) hypertension; M19.012 Primary osteoarthritis, left shoulder; K21.9 Gastro-esophageal reflux disease without esophagitis; G47.30 Sleep apnea, unspecified; I25.10 Atherosclerotic heart disease of native coronary artery without angina pectoris; Z79.82 Long term (current) use of aspirin; Z98.890 Other specified postprocedural states; Z98.1 Arthrodesis status; Z90.49 Acquired absence of other specified parts of digestive tract; Z95.5 Presence of coronary angioplasty implant and graft; Z87.891 Personal history of nicotine dependence; Z82.49 Family history of ischemic heart disease and other diseases of the circulatory system
CPT/HCPCS: 64635; 64636 ×3; 99199; J2003; J2250; J3010

== ENCOUNTER 2024-10-13 15:44 | Emergency (ER) | payer OTHER, SELFPAY ==
--- NOTE | 2024-10-13 15:46 | ED_ITS ---
HPI - General Adult General Chief complaint: Skin/Abscess/Foreign Body Stated complaint: Rash Source: patient Mode of arrival: ambulatory Limitations: no limitations History of Present Illness HPI narrative: Pt is a 84 y/o male presenting with c/o rash. He reports rash on his L. thigh, L. buttock. Noticed rash 2 weeks ago. NO new lesions since first noticing rash 2 weeks ago. No hx of similar. Hx of chicken pox infection. Has not received shingles vaccine. No tx initiated [employer] [employer]. NO additional complaints. Related Data Home Medications ?Medication ?Instructions ?Recorded ?Confirmed ?Last Taken ?Type PreserVision AREDS-2 1 tablet PO BID 01/01/19 09/20/24 08/10/24 History aspirin 81 mg tablet,delayed 81 mg PO DAILY 01/01/19 09/28/24 09/20/24 History release (Adult Low Dose Aspirin) atorvastatin 40 mg tablet 40 mg PO DAILY 01/01/19 09/28/24 09/28/24 History ferrous sulfate 325 mg (65 mg 325 mg PO 2XW 01/01/19 09/20/24 08/18/23 History iron) tablet lisinopril 20 mg tablet 20 mg PO DAILY 01/01/19 09/20/24 08/10/24 History magnesium 200 mg tablet 400 mg PO DAILY 03/27/23 09/20/24 08/10/24 History turmeric root extract 500 mg 500 mg PO DAILY 07/14/23 09/20/24 08/10/24 History capsule cyclosporine 0.05 % eye drops in a 1 drp EACH EYE Q12H 10/23/23 09/20/24 08/10/24 History dropperette glucosamine 500 mg-chondroitin 2 cap PO QAM 07/13/24 09/20/24 08/10/24 History 116.7 mg-herbal no.270 133.3 mg capsule (Cosamin ASU (with AKBA)) glycerin 0.9 % eye drops (Optase 1 drp ophthalmic (eye) DAILY 07/13/24 09/20/24 08/10/24 History MGD Advanced) isosorbide mononitrate 60 mg 60 mg PO QHS 07/13/24 09/20/24 08/10/24 History tablet,extended release 24 hr kzadfwzr-ko-wsijj 300 mcg-K 60 1 tablet PO DAILY 07/13/24 09/20/24 08/10/24 History mcg-lycop 600 mcg-lutein 300 mcg tablet (Centrum Silver Men) acetaminophen 325 mg capsule 650 mg PO Q4-6H PRN pain 08/06/24 09/20/24 08/10/24 History omega 6-pye-zny-fish oil 100 1 cap PO DAILY 09/20/24 09/20/24 Unknown History mg-160 mg-1,000 mg capsule (Fish Oil) Allergies Allergy/AdvReac Type Severity Reaction Status Date / Time No Known Allergies Allergy Unknown Verified 10/13/24 15:56 Review of Systems Review of Systems: CONSTITUTIONAL: Denies body aches, fever, chills, or sweats. EYES: Denies visual changes, redness, or discharge. ENT: Denies rhinorrhea, congestion, sore throat, or otalgia. CARDIOVASCULAR: Denies chest pain, palpitations, or edema. RESPIRATORY: Denies cough or dyspnea. GASTROINTESTINAL: Denies abdominal pain, nausea, vomiting, or diarrhea. GENITOURINARY: Denies dysuria or hematuria. SKIN: report rash, denies itching, or wounds. MUSCULOSKELETAL: Denies back pain, joint pain, or myalgia. NEUROLOGIC: Denies headache, numbness, tingling, or weakness. PSYCH: Denies depression or anxiety. All systems reviewed & are unremarkable except as noted in HPI and below PMFSH Past Medical History Medical History Arthritis GERD (gastroesophageal reflux disease) Sleep apnea Shortness of breath Hearing loss Changes in vision Rotator cuff arthropathy of left shoulder DJD of left shoulder Rotator cuff syndrome of left shoulder Left shoulder pain Fatigue Spinal stenosis, lumbar region with neurogenic claudication Chronic low back pain Vertebrogenic low back pain Brain bleed (~09/11/19) Left supraspinatus tendinitis Multiple fractures of ribs of right side Coronary artery disease Hyperlipidemia Hypertension Surgical History Surgical History History of lumbosacral spine surgery Dr. Mcbride -05/19/2017 S/P TURP (~02/18/22) 02/28/2022- Dr áSnchez Hx of cholecystectomy (~03/23/19) 03/23/2019-Dr. Johns History of nasal surgery (~05/28/18) 02/12/2018-Dr. Kaye , 05/28/2018-Dr. Kaye S/P correction of deviated nasal septum (~02/12/18) History of heart artery stent 3 placed in 08/14/18 1 placed 10/07/18- Dr. Barrios Family History Family History Father Heart disease Mother Heart disease Hypertension Sibling Hypertension Heart disease Social History Social History Social History: Caffeine- coffee Smoking packs per day: 1 Smoking cigarettes per day: 20.0 Years smoked: 10 Smoking pack-years: 10.00 Smoking status: Former smoker Tobacco type: cigarettes Second hand tobacco smoke exposure: Yes Smoking end date: 03/03/66 Alcohol intake: current Drinks per week: 5 Alcohol use details: beer Substance use: never Substance use type: does not use Do You Feel Safe in your Home?: Yes Lack of Transportation: No Lack of Food: Never True Current Housing: I Have Housing Concerned About Future Housing: No Difficulty Paying Gas/Electric Bills: No Difficulty Paying for Meds: No Currently Unemployed: No Education: Associate Degree Difficulty w/ Childcare or Family Care: No Living arrangements: with family Additional living arrangements comments: Occupation/Education: retired Gender identity (if verbalized by the patient): Male Spiritual care concerns: No Agree to blood products: Yes Exam Narrative: GENERAL: Well-appearing, well-nourished, and in no acute distress. HEAD: Normocephalic, atraumatic. EYES: EOMI. No redness or drainage. Conjunctivae normal. NECK: Normal AROM. Supple. CHEST: No respiratory distress. HEART: Regular rate ABDOMEN: Soft, nontender, nondistended, normal active bowel sounds. SKIN: Warm, dry. Clustered, vesicular lesions that appear to be blood-filled noted to anterior aspect of L. thigh, L. buttock without evidence of secondary bacterial skin infection. Capillary refill normal. Normal skin turgor. NEURO: No focal deficits. Alert and oriented x3. Gait steady. PSYCH: Normal affect. No signs of depression or anxiety. Course Course Level of Care: Express Care Visit Vital Signs Vital signs: Vital Signs Temperature 97.2 F L 10/13/24 15:53 Pulse Rate 70 10/13/24 15:53 Respiratory Rate 16 10/13/24 15:53 Blood Pressure 134/87 10/13/24 15:53 Pulse Oximetry 98 10/13/24 15:53 Temperature 97.2 F L 10/13/24 15:53 Pulse Rate 70 10/13/24 15:53 Respiratory Rate 16 10/13/24 15:53 Blood Pressure 134/87 10/13/24 15:53 Pulse Oximetry 98 10/13/24 15:53 Medical Decision Making MDM Narrative Medical decision making narrative: Discussed elevated blood pressure readings with patient and advised daily BP monitoring and f/u with PCP if persisting. Vital Signs Vital Signs: Vital Signs Temperature 97.2 F L 10/13/24 15:53 Pulse Rate 70 10/13/24 15:53 Respiratory Rate 16 10/13/24 15:53 Blood Pressure 134/87 10/13/24 15:53 Pulse Oximetry 98 10/13/24 15:53 Temperature 97.2 F L 10/13/24 15:53 Pulse Rate 70 10/13/24 15:53 Respiratory Rate 16 10/13/24 15:53 Blood Pressure 134/87 10/13/24 15:53 Pulse Oximetry 98 10/13/24 15:53 Discharge Plan Discharge Clinical Impression: Shingles Qualifiers: Herpes zoster complications: without complications Qualified Code(s): B02.9 - Zoster without complications Hypertension Qualifiers: Hypertension type: unspecified Qualified Code(s): I10 - Essential (primary) hyp ertension Patient Disposition: Home Condition: Stable Instructions: Shingles (ED) Additional Instructions: Go straight to ER should your symptoms become worse or should any new symptoms develop Patient Language: Frisian Prescriptions: No Action isosorbide mononitrate 60 mg tablet extended release 24 hr 60 mg PO QHS Patient Comments: HS magnesium 200 mg tablet 400 mg PO DAILY turmeric root extract 500 mg capsule 500 mg PO DAILY cyclosporine 0.05 % dropperette 1 drp EACH EYE Q12H Cosamin ASU (with AKBA) 500 mg-116.7 mg-133.3 mg capsule 2 cap PO QAM Centrum Silver Men [id number] mcg tablet 1 tablet PO DAILY Optase MGD Advanced 0.9 % drops 1 drp ophthalmic (eye) DAILY atorvastatin 40 mg Tablet 40 mg PO DAILY lisinopril 20 mg Tablet 20 mg PO DAILY aspirin [Adult Low Dose Aspirin] 81 mg Tablet,Delayed Release (Dr/Ec) 81 mg PO DAILY Patient Comments: ferrous sulfate 325 mg (65 mg iron) Tablet 325 mg PO 2XW Rx Instructions: 325 mg orally PreserVision AREDS-2 1 tablet PO BID Fish Oil 100-160-1,000 mg capsule 1 cap PO DAILY omeprazole 20 mg capsule,delayed release(DR/EC) See Rx Instructions .ROUTE .COMPLEX Qty: 90 1RF Dose Instruction: TAKE 1 CAPSULE BY MOUTH EVERY DAY Rx Instructions: TAKE 1 CAPSULE BY MOUTH EVERY DAY acetaminophen 325 mg capsule 650 mg PO Q4-6H PRN (Reason: pain) Follow-up/Referrals: Shahzad Hilton DO [Primary Care Provider] - 10/14/24 Time of Disposition: 16:08
[2024-10-13 15:53] VITALS: BP 134/87; PULSE 70; RESP 16; TEMP 36.2; O2SAT 98
== END 2024-10-13 16:11 | disposition home or self-care (01) ==
PROVIDERS: Emergency Provider Registered Nurse; PCP Internal Medicine
DX: B02.9 Zoster without complications (principal); I10 Essential (primary) hypertension; I25.10 Atherosclerotic heart disease of native coronary artery without angina pectoris; M48.062 Spinal stenosis, lumbar region with neurogenic claudication; E78.5 Hyperlipidemia, unspecified; K21.9 Gastro-esophageal reflux disease without esophagitis; M19.012 Primary osteoarthritis, left shoulder; Z87.891 Personal history of nicotine dependence; Z79.82 Long term (current) use of aspirin
CPT/HCPCS: 99211; G0463

== ENCOUNTER 2025-01-11 15:00 | Outpatient (CLI) | payer OTHER, SELFPAY ==
--- OUTSIDE RECORDS SUMMARY | 2025-01-10 09:30 | XMS_ITS | Encounter Summary ---
Author Organization [employer] [facility] Address 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 Lumbar spondylosis Sagittal plane imbalance Procedures CT THORACIC SPINE WO CONTRAST Ortiz Stone MD [address] [facility] [address] [place] [phone] Phone: tel: fax: [facility] [phone] Referral ID Status Reason Start Date Expiration Date V isits Requested Visits Authorized [id number] Pending Review 01/10/2025 02/10/2026 1 1 [employer] * CT Scan (Routine) - Pending Review Specialty Diagnoses / Procedures Referred By Contac t Referred To Contact Diagnoses Neurogenic claudication due to lumbar spinal stenosis Scoliosis of lumbar region due to degenerative disease of spine in adult Post 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 Lumbar spondylosis Sagittal plane imbalance Procedures CT LUMBAR SPINE WO CONTRAST Ortiz Stone MD [address] [facility] [address] [place] [phone] Phone: tel: fax: [place] [id number] [address] [address] Phone: tel: fax: Referral ID Status Reason Start Date Expiration Date V isits Requested Visits Authorized [id number] Pending Review 01/10/2025 02/10/2026 1 1 [employer] Reason for Visit * Reason Comments Consult Back Pain Encounter Details Date Type Department Care Team (Late st Contact Info) Description 01/10/2025 9:30 AM [employer] Office Visit [facility] Neurosurgery [facility] [address] [facility] [address] [place] [address] Ortiz Stone MD [address] [facility] [address] [place] [address] Neurogenic claudication due to lumbar spinal stenosis (Primary Dx); Scoliosis of lumbar region due to degenerative disease of spine in adult; Post laminectomy syndrome; Spondylolisthesis of lumbar region; Ankylosis of spine; Lumbar spondylosis; Sagittal plane imbalance Social History Tobacco Use Types Packs/Day Years Used Date Smoking Tobacco: Former Cigarettes Smokeless Tobacco: Never Tobacco Cessation:Counseling Given: Not Answered Alcohol Use Standard Drinks/Week Comments Yes 6.7 [...] file Not on file Not on file documented as of this encounter Last Filed Vital Signs Vital Sign Reading Time Taken Comments Blood Pressure 138/80 01/10/2025 9:40 AM [employer] Pulse 67 01/10/2025 9:38 AM [employer] Temperature 36.4 C (97.5 F) 01/10/2025 9:38 AM [employer] Respiratory Rate 16 01/10/2025 9:38 AM [employer] Oxygen Saturation 96% 01/10/2025 9:38 AM [employer] Inhaled Oxygen Concentration - - Weight 87.4 kg (192 lb 9.6 oz) 01/10/2025 9:38 A M [employer] Height 177.8 cm (5' 10) 01/10/2025 9:38 AM [employer] Body Mass Index 27.64 01/10/2025 9:38 AM [employer] documented in this encounter Progress Notes * Ortiz Stone MD - 01/10/2025 10:16 AM CST PA/LAT lumbar radiographs of diagnostic quality reviewed demonstrating a right lumbar curve measuring 30 degrees from T11-L3. There is lateral listhesis of L3 on L4. Ankylosis appears present at L5/S1. There is vacuum disc phenomenon present at L2/3. There are no abnormal lucencies or densities observed in the visualized vertebrae, pelvis, or ribs. 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 The sacroiliac joints appear ankylosed bilaterally. Bowel gas pattern is normal. Soft tissues are unremarkable. [employer] * Jasmyne Vargas RN - 01/10/2025 9:30 AM CST Images from the original note were not included. New Patient Note: Low Back Pain HPI: Mr. Caraballo presents for evaluation of his low back pain that has been present for many years. 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 He was referred by Dr. Mcbride. He was also evaluated by neurosurgeon, Dr. Nnamdi Graves who recommended a lumbar fusion. His current complaints are pain across his low back without radiation of pain into his lower extremities. He denies lower extremity numbness or weakness. He reports occasional tingling his feet. His pain is increased in the morning, with standing greater than 2 minutes, and ambulation. His painis decreased with sitting. He states that average level of pain throughout the day is 2-3 out of 10. He is taking Tylenol 3 tablets in the morning. He denies bowel or bladder dysfunction. He also denies problems with his gait or balance. He reports that he fell on Friday when he missed a step at his daughter's house sustaining a contusion around his right eye. He denies physical therapy for his back. He has not had director day care center for several years. He reports a history of multiple ablations in his low back that provided sustained relief until he had a recent ablation in his low back within the last year without relief. He also had an Intracept procedure about 1 year ago without relief of his back pain. 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 Robin Sam at [facility]. He reports a lumbar decompression with Dr. Mcbride about 7 years ago withconsiderable relief. His Oswestry score is 33 percent. He denies nicotine use. He takes Aspirin 81 mg QD. He has a history of shortness of breath and chest pain with exertion. He states that his shortness of breath and chest pain has improved since having 4 cardiac stents placed about 4 years ago. He also has a history of GERD, anemia, and CKD. His medical conditions are managed by his primary care provider, Dr. Shahzad Hilton and his needle grinder, Dr. Mark Barrios. He states that he is also being evaluated by a new needle grinder in March due toinsurance issues. Review of Systems: Review of Systems Constitutional: Negative. Negative except as noted in the HPI. HENT: Negative. Negative except as noted in the HPI. Eyes: Negative. Negative except as noted in the HPI. Respiratory: Negative. Negative except as noted in the HPI. Cardiovascular: Negative. Negative except as noted in the HPI. Gastrointestinal: Negative. Negative except as noted in the HPI. Genitourinary: Negative. Negative except as noted in the HPI. Musculoskeletal: Negative. Negative except as noted in the HPI. Skin: Negative. Negative except as noted in the HPI. Endo/Heme/Allergies: Negative. Negative except as noted in the HPI. Psychiatric/Behavioral: Negative. Negative except as noted in the HPI. Past Medical History: Diagnosis Date Anemia Chest pain Chest pain on exertion Chronic kidney disease GERD (gastroesophageal reflux disease) Skin cancer on leg SOB (shortness of breath) on exertion No Known Allergies Family History Problem Relation Name Age of Onset Colon Cancer Neg Hx Social History Socioeconomic History Marital status: Occupational History Employer: [employer] Tobacco Use Smoking status: Former Types: Cigarettes Smokeless tobacco: Never Vaping Use Vaping status: Never Used Substance and Sexual Activity Alcohol use: Yes Alcohol/week: 6.7 standard drinks of alcohol Types: 8 Cans of beer per week Comment: occasional Drug use: No Health-Related Social Needs Food Insecurity: No Food Insecurity (02/28/2022) Received from [facility] Hunger Vital Sign Within the past 12 months, you worried that your food would run out before you got the money to buymore.: Never true Within the past 12 months, the food you bought just didn't last and you didn't have money to get more.: Never true Transportation Needs: Unknown (02/28/2022) Received from [facility] PRAPARE - Transportation In the past 12 months, has lack of transportation kept you from medical appointments or from getting medications?: No Domestic Concerns: Not At Risk (02/28/2022) Received from [facility] Humiliation, Afraid, Rape, and Kick questionnaire Within the last year, have you been afraid of your partner or ex-partner?: No Within the last year, have you been humiliated or emotionally abused in other ways by your partner or ex-partner?: No Within the last year, have you been kicked, hit, slapped, or otherwise physically hurt by your partner or ex-partner?: No Within the last year, have you been raped or forced to have any kind of sexual activity by your partner or ex-partner?: No Housing Stability: Unknown (02/28/2022) Received from [facility] Housing Stability Vital Sign In the last 12 months, was there a time when you were not able to pay the mortgage or rent on time?: No Current Outpatient Medications Medication Instructions aspirin (TIFFANI CHEWABLE) 81 mg, DAILY atorvastatin (LIPITOR) 40 mg, DAILY cycloSPORINE (RESTASIS) 0.05 % emulsion 1 Drop, TWO TIMES DAILY ferrous sulfate 325 mg glucosamine-chondroitin (ARTHX DS) 500-400 mg Capsule 1 Capsule isosorbide mononitrate (IMDUR) 60 mg, DAILY lisinopriL (PRINIVIL) 20 mg, DAILY magnesium OXIDE (MAG-OX) 400 mg, DAILY multivitamin (DAILY-JAKY) tablet 1 Tablet, DAILY OMEPRAZOLE ORAL 20 mg, DAILY vit C-vit S-llmshu-xyng-lutein-zeaxan (PRESERVISION AREDS-2) 1 Capsule, DAILY Physical Examination: Vitals: 01/10/25 0940 BP: 138/80 Pulse: Resp: Temp: SpO2: General Appearance: alert, answers questions appropriately and in no distress. Respirations are non-labored. Ecchymosis around right eye. Vision symmetrical. Cervical range of motion with painless active motion in rotation and flexion/extension. Cervical posture erect without thrust, torticollis, or list. (-) Spurling, (-)[place] Standing posture erect without stoop or list. Left shoulder is elevated. Pelvis is level. Forward flexion to distal fierro with normal spinal rhythm on extension. Hips with painless active range of motion without impingement. Shoulders with painless active range of motion without impingement. Skin without rashes or lesions Motor Primary Root Grade R L Shoulder abduction C5 Deltoid 5 5 Shoulder external rotation C5,6 5 5 Shoulder internal rotation C5-T1 5 5 Elbow flexion C5,6 Biceps 5 5 Wrist extension C6 ECRL 5 5 Wrist Flexion C7,8 FCR 5 5 Elbow extension C7 Triceps 5 5 Finger flexion C8 FDS 5 5 Finger abduction T1 Interossei 5 5 Hip flexion L1-3 Iliopsoas 5 5 Knee extension L2-4 Quad (femoral) 5 5 Ankle dorsiflexion L4 Tibialis anterior (peroneal) 5 5 Ankle plantarflexor S1 Gastroc (tibial) 5 5 Sensation: intact to light sensation in all 4 extremities Deep Tendon Reflexes: normal Biceps, brachioradialis, triceps, patellar, plantar; no clonus. Normal hand brush filler and release test Gait: reciprocal heel toe with demonstrated ability to perform heel walking, toe walking, and tandem gait without difficulty Romberg: negative Psychiatric: Normal affect, appropriate mood Review of Imaging Studies: PA/LAT lumbar radiographs of diagnostic quality 01/10/2025 reviewed demonstrating a right lumbar curve measuring 30 degrees from T11-L3. There is lateral listhesis of L3 on L4. Ankylosis appears present at L5/S1. There is vacuum disc phenomenon present at L2/3. There are no abnormal lucencies or den sities observed in the visualized vertebrae, pelvis, or ribs. 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 The sacroiliac joints appear ankylosed bilaterally. Bowel gas pattern is normal. Soft tissues are unremarkable. MRI of the thoracic spine without contrast (Dated: 12/02/2024) at [facility] demonstrating supine right thoracic curve measuring 17 degrees. There are multiple levels of ankylosis demonstrated including C6-T2,T3-T6, and T8-T12 ventrally. There is incomplete ankylosis of T6-T8. There is no spinalcanal stenosis. MRI of the lumbar spine without contrast (Dated: 12/02/2024) at [facility] demonstrating left lumbar scoliosis measuring 15 degrees L1-L4. Ankylosis is present T10-L1 as well as L5-S1 and bilateral sacroiliac joints. Lateral listhesis is present of L3 on L4 and L1 on L2. There is trace spondylolisthesis of L4 on L5 without stenosis at this level. There is severe central canal and subarticular as well as bilateral foraminal stenosis at L3/4. Assessment and Plan: 1. Neurogenic claudication due to lumbar spinal stenosis (Primary) We discussed his imaging studies in the context of his physical exam and current symptoms. Given the spondylolisthesis occurring between areas of extensive ankylosis, an instrumented arthrodesis would be necessary in addition to the decompression. We discussed at length the care needs of his who is terminally ill with cancer. He is currently able to care for her and I have recommended he continue doing so with consideration of operative intervention to be made either at the point where he is incapacitated with his back and leg pain and unable to care for his or his ongoing care is no longer needed. I have ordered imaging for operative planning studies which we will obtain at the point where he is ready to proceed with operative scheduling. We did discuss the requisite downtime following surgery and a period of protected activity between 3 and 6 months as well as an overall recovery time approaching 1 year. - XR SPINE SCOLIOSIS 2 VW STANDING; Future - CT LUMBAR SPINE WO CONTRAST; Future - CT THORACIC SPINE WO CONTRAST; Future 2. Scoliosis of lumbar region due to degenerative disease of spine in adult - XR SPINE SCOLIOSIS 2 VW STANDING; Future - CT LUMBAR SPINE WO CONTRAST; Future - CT THORACIC SPINE WO CONTRAST; Future 3. Post laminectomy syndrome - XR SPINE SCOLIOSIS 2 VW STANDING; Future - CT LUMBAR SPINE WO CONTRAST; Future - CT THORACIC SPINE WO CONTRAST; Future 4. Spondylolisthesis of lumbar region - XR SPINE SCOLIOSIS 2 VW STANDING; Future - CT LUMBAR SPINE WO CONTRAST; Future - CT THORACIC SPINE WO CONTRAST; Future 5. Ankylosis of spine - XR SPINE SCOLIOSIS 2 VW STANDING; Future - CT LUMBAR SPINE WO CONTRAST; Future - CT THORACIC SPINE WO CONTRAST; Future 6. Lumbar spondylosis - XR SPINE SCOLIOSIS 2 VW STANDING; Future - CT LUMBAR SPINE WO CONTRAST; Future - CT THORACIC SPINE WO CONTRAST; Future 7. Sagittal plane imbalance - XR SPINE SCOLIOSIS 2 VW STANDING; Future - CT LUMBAR SPINE WO CONTRAST; Future - CT THORACIC SPINE WO CONTRAST; Future Patient voiced understanding and will contact me should concerns or questions arise or should he elect to schedule a follow-up appointment. Total time spent 60 minutes. 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 Lumbar spondylosis Sagittal plane imbalance 1 Occurrences starting 01/10/2025 until 01/10/2026 CT LUMBAR SPINE WO CONTRAST Imaging Routine Neurogenic claudication due to lumbar spinal stenosis Scoliosis of lumbar region due to degenerative disease of spine in adult Post 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 Lumbar spondylosis Sagittal plane imbalance 1 Occurrences starting 01/10/2025 until 01/10/2026 CT THORACIC SPINE WO CONTRAST Imaging Routine Neurogenic claudication due to lumbar spinal stenosis Scoliosis of lumbar region due to degenerative disease of spine in adult Post 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 Lumbar spondylosis Sagittal plane imbalance 1 Occurrences starting 01/10/2025 until 01/10/2026 documented as of this encounter Visit Diagnoses Diagnosis Neurogenic claudication due to lumbar spinal stenosis- Primary Spinal stenosis, lumbar region, with neurogenic claudication Scoliosis of lumbar region due to degenerative disease of spine in adult Post laminectomy syndrome Postlaminectomy syndrome, unspecified region Spondylolisthesis of lumbar region Acquired spondylolisthesis Ankylosis of spine Other unspecified back disorder Lumbar spondylosis Lumbosacral spondylosis without myelopathy Sagittal plane imbalance Other curvatures of spine associated with other conditions documented in this encounter Care Teams Engineering Surveyor Relationship Specialty Start Date End Date Shahzad Hilton DO [address] [facility] [address] [place] [address] PCP - General Internal Medicine 01/10/25 documented as of this encounter
--- OUTSIDE RECORDS SUMMARY | 2025-01-10 09:50 | XMS_ITS | Encounter Summary ---
Author Organization [facility] Address [address] [place] [address] Care Team Providers Care Nuclear Medicine Physician Name Role Phone Shahzad Hilton DO Primary Care Provider Encounter Details Date Type Department Care Team (Late st Contact Info) Description 01/10/2025 9:50 AM HEAD OF MATHEMATICS Ancillary Procedure [facility] Neurosurgery [facility] [address] [facility] [address] [place] [address] Ortiz Stone MD [address] [facility] [address] [place] [address] Low back pain Social History Tobacco Use Types Packs/Day Years Used Date Smoking Tobacco: Former Cigarettes Smokeless Tobacco: Never Alcohol Use Standard Drinks/Week Comments Yes 6.7 [...] on file documented as of this encounter Plan of Treatment Pending Results Name Type Priority Associated Diagnoses Date /Time XR LUMBAR SPINE 2 OR 3 VW Imaging Routine Low back pain 01/10/2025 9:59 AM HEAD OF MATHEMATICS documented as of this encounter Visit Diagnoses Diagnosis Low back pain Lumbago documented in this encounter Care Teams Nuclear Medicine Physician Relationship Specialty Start Date End Date Shahzad Hilton DO [address] [facility] [address] [place] [address] PCP - General Internal Medicine 01/10/25 documented as of this encounter
--- OUTSIDE RECORDS SUMMARY | 2025-01-11 15:04 | XMS_ITS | Clinical Summary ---
Author Organization [facility] Address [address] [place] [address] Care Team Providers Care Community Affairs Manager Name Role Phone Shahzad Hilton DO Primary Care Provider [phone] Allergies No known active allergies Medications multivitamin [...] mouth 2 (two) times a week Active isosorbide dinitrate (ISORDIL) 30 mg tablet Take 1 tablet (30 mg total) by mouth nightly Active vit C,B-Qu-qfkaq-herman tein-zeaxan [id number] qh-rxtv-ng-mg capsule Take 1 capsule by mouth daily [...] each nostril as directed 30 mL 3 5 Active Active Problems Problem Noted Date Diagnosed [...] Encounters Date Type Department Care Team Description 10/26/2024 11:15 AM CDT Office Visit [facility] Dermatology [address] [facility] [address] [place] [address] Virginie Brown MD Onychomycosis (Primary Dx); History of nonmelanoma skin cancer; Seborrheic keratoses; Herpes zoster without complication; Gaylord's disease; Actinic skin damage from Last 3 Months Surgical History Surgery [...] GERD (gastroesophageal reflux disease) 2014 Sleep apnea 2015 Anemia ? Hypertension 2010 Arthritis 2000 Sleep difficulties ? 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 [employer] Gender Identity Male 08/11/2023 12:49 PM CDT [...] Assessment 05/28/2023 05/27/2022 Covid-19 Vaccine (4 - 2024-2 6 season) 2024 12/01/2020, 04/07/2020, 03/17/2020 Influenza Vaccine (#1) 2024 , 12/04/2022, 11/17/2020, Additional [place] [address] [facility] ADVANTAGE CHOICE [place] [address] MEDICARE [employer] ADVANTAGE CHOICE PPO [employer] ADVANTAGE CHOICE PPO Advance Directives For more information, please contact: [phone] * Full Code (Latest Code Status on File) Date Activated Date Inactivated Comments 09/12/2019 1:00 AM 09/16/2019 4:23 PM Care Teams Community Affairs Manager Relationship Specialty Start Date End Date Shahzad Hilton DO PCP - General Internal Medicine 06/25/23
--- OUTSIDE RECORDS SUMMARY | 2025-01-11 15:04 | XMS_ITS | Encounter Summary ---
Author Organization [facility] Address [address] [place] [address] Care Team Providers Care Press Set Up Person Name Role Phone Mark Barrios MD Unavailable [phone] Robin South MD Primary Care Provider [phone] Encounter Details Date Type Department Care Team (Late st Contact Info) Description 12/26/2021 Prep for Procedure [facility] Pre-Admission Testing [address] [place], [place] [id number] Grant Sánchez MD [address] [facility] [address] [place], [place] [id number] Social History Tobacco Use Types Packs/Day Years [...] - 36.5 SEC 12/28/2021 12:46 PM CDT [facility] 12/28/2021 11:4 3 AM CDT Grant Sánchez MD LABORATORY Lou l Result Performing Organization Address [facility] Co de Phone Number [facility] [address] [place] [address], * PROTIME/INR, VENOUS (12/28/2021 11:43 AM CDT) PROTIME 12.2 10.2 - 12.9 SEC 12/28/2021 12:46 PM CDT [facility] INR 1.0 12/28/2021 12:46 PM CDT [facility] Comment: Recommended INR Therapeutic Goals: 2.0-3.0 Routine Therapy 2.5-3.5 Mechanical Prosthetic Valves (High Risk) 12/28/2021 11:4 3 AM CDT Grant Sánchez MD LABORATORY Lou l Result Performing Organization Address [facility] Co de Phone Number [facility] [address] [place] [address], * TYPE & SCREEN (12/28/2021 11:43 AM CDT) ABO/RH AB POSITIVE 12/28/2021 2:45 PM CDT [facility] ANTIBODY SCREEN NEGATIVE 12/28/2021 2:45 PM CDT [facility] SAMPLE EXPIRATION 12/31/2021,2 359 12/28/2021 2:45 PM CDT [facility] 12/28/2021 11:4 3 AM CDT Grant Sánchez MD BLOOD BANK TEST ALESSIA KRISTINANGELLA Final Result [facility] [address] [place] [address], [place] [phone] * (ABNORMAL) BASIC METABOLIC PANEL (12/28/2021 11:43 AM CDT) [facility] GLUCOSE 166(H) 70 - 99 MG/DL 12/28/2021 12:43 PM CDT [facility] BUN 21(H) 7 - 18 MG/DL 12/28/2021 12:43 PM CDT [facility] CREATININE S/P/B 1.29 0.7 - 1.3 MG/DL 12/28/2021 12:43 PM CDT [facility] SODIUM S/P/B 136 136 - 145 MMOL/L 12/28/2021 12:43 PM CDT [facility] POTASSIUM S/P/B 3.8 3.5 - 5.1 MMOL/L 12/28/2021 12:43 PM CDT [facility] CHLORIDE S/P/B 103 100 - 108 MMOL/L 12/28/2021 12:43 PM CDT [facility] CO2 28.8 21 - 32 MMOL/L 12/28/2021 12:43 PM CDT [facility] CALCIUM S/P/B 9.2 8.5 - 10.1 MG/DL 12/28/2021 12:43 PM CDT [facility] ANION GAP 4.2(L) 5 - 15 MMOL/L 12/28/2021 12:43 PM CDT [facility] BUN CREATININE RATIO 16.3 6 - 26 12/28/2021 12:43 PM CDT [facility] GFR ESTIMATE 55(L) >90 ML/MIN/1.7 3 M2 12/28/2021 12:43 PM CDT [facility] Comment: NOTE: eGFR is not calculated for patients <18 years of age. This is an estimated GFR calculation using the new CKD EPI creatinine equation without race and so does not require a correction factor for race. This estimated GFR should not be used for calculating drug doses. 12/28/2021 11:4 3 AM CDT Grant Sánchez MD LABORATORY Lou l Result [facility] [address] [place] [address], * (ABNORMAL) CBC W/DIFF AUTOMATED (12/28/2021 11:43 AM CDT) WBC 4.8 4.5 - 11.0 x10'3/uL 12/28/2021 12:24 PM CDT [facility] RBC 4.44(L) 4.70 - 6.10 x10'6/uL 12/28/2021 12:24 PM CDT [facility] HGB 14.4 14.0 - 18.0 G/DL 12/28/2021 12:24 PM CDT [facility] HCT 42.4(L) 43.0 - 54.0 % 12/28/2021 12:24 PM CDT [facility] MCV 95.5(H) 80.0 - 94.0 FL 12/28/2021 12:24 PM CDT [facility] MCH 32.4(H) 27.0 - 31.0 PG 12/28/2021 12:24 PM CDT [facility] MCHC 34.0 32.0 - 36.0 G/DL 12/28/2021 12:24 PM CDT [facility] RDW 12.5 11.5 - 14.5 % 12/28/2021 12:24 PM CDT [facility] PLT 212 130 - 400 x10'3/uL 12/28/2021 12:24 PM CDT [facility] MPV 10.1 9.3 - 12.2 FL 12/28/2021 12:24 PM CDT [facility] DIFFERENTIAL TYPE AUTOMATED DIFFERENTIAL 12/28/2021 12:24 PM CDT [facility] NEUTROPHILS % 70.6 % 12/28/2021 12:24 PM CDT [facility] LYMPHOCYTES % 19.1 % 12/28/2021 12:24 PM CDT [facility] MONOCYTES % 9.1 % 12/28/2021 12:24 PM CDT [facility] EOSINOPHILS 0.4 % 12/28/2021 12:24 PM CDT [facility] BASOPHILS 0.6 % 12/28/2021 12:24 PM CDT [facility] IMMATURE GRANS % 0.2 % 12/29/19 12:24 PM CDT [facility] ABS. NEUTROPHILS TOTAL 3.39 1.80 - 7.70 x10'3/uL 12/28/2021 12:24 PM CDT [facility] ABS. LYMPHOCYTES 0.92(L) 1.00 - 4.80 x10'3/uL 12/28/2021 12:24 PM CDT [facility] ABS. MONOCYTES 0.44 0.30 - 0.82 x10'3/uL 12/28/2021 12:24 PM CDT [facility] ABS. EOSINOPHILS 0.02(L) 0.04 - 0.54 x10'3/uL 12/28/2021 12:24 PM CDT [facility] ABS. BASOPHILS 0.03 0.01 - 0.08 x10'3/uL 12/28/2021 12:24 PM CDT [facility] ABS. IMMATURE GRANULOCYTES 0.01 0.00 - 0.49 x10'3/uL 12/28/2021 12:24 PM CDT [facility] 12/28/2021 11:4 3 AM CDT Grant Sánchez MD LABORATORY Lou l Result Performing Organization Address City/[facility]/ZIP Co de Phone Number [facility] [address] [place] [address], [place] [phone] * CULTURE URINE (12/28/2021 11:33 AM CDT) SPEC DESCRIPTION URINE CLEAN CATCH 12/28/2021 11:34 AM CDT [facility] SPECIAL REQUESTS NO SPECIAL REQUEST 12/28/2021 11:34 AM CDT [facility] CULTURE RESULT NO GROWTH 2 DAYS 12/30/2021 8:01 AM CDT [facility] URINE SPECIMEN OBTAINED BY CLEAN CATCH PROCEDURE / Unknown 12/28/2021 11:33 AM CDT 12/28/2021 11:58 AM CDT Grant Sánchez MD MICROBIOLOGY - GENER AL ORDERABLES Final Result Performing Organization Address [facility]/ZIP Co de Phone Number [facility] [address] [place] [address], [place] [phone] documented in this encounter Visit Diagnoses Diagnosis BPH (benign prostatic hyperplasia)- Primary Unspecified hyperplasia of prostate without urinary obstruction and other lower urinary tract symptoms (LUTS) documented in this encounter Care Teams Press Set Up Person Relationship Specialty Start Date End Date Robin South MD [address] [place] [address] PCP - General CARDIOVASCULAR DISEASE 12/26/21 Mark Barrios MD [facility] [address] [place] [address] CARDIOLOGY 12/26/21 documented as of this encounter
--- OUTSIDE RECORDS SUMMARY | 2025-01-11 15:04 | XMS_ITS | Clinical Summary ---
Author Organization [facility] field Address [address] [place] [phone] Phone Care Team Providers Care Technical Product Manager Name Role Phone Shahzad Hilton DO Primary Care Provider Allergies No known active allergies Medications OMEPRAZOLE ORAL Take 20 mg by mouth daily. Active aspirin (TIFFANI CHEWABLE) 81 mg Tablet, Chewable Take 81 mg by mouth daily. Active multivitamin (DAILY-JAKY) tablet Take 1 Tab by mouth daily. Active atorvastatin (LIPITOR) 40 mg tablet Take 40 mg by mouth daily. Active cycloSPORINE (RESTASIS) 0.05 % emulsion 1 Drop by Ophthalmic route 2 times daily. Active ferrous sulfate 325 mg (65 mg iron) tablet Take 325 mg by mouth. Active glucosamine-latasha droitin (ARTHX DS) 500-400 mg Capsule 1 Capsule. Active isosorbide mononitrate (IMDUR) 60 mg Extended Release 24 hour tablet Take 60 mg by mouth daily. Active lisinopriL (PRINIVIL) 20 mg tablet Take 20 mg by mouth daily. Active magnesium OXIDE (MAG-OX) 400 mg (241.3 mg magnesium) tablet Take 400 mg by mouth daily. Active vit C-vit V-pwkjca-wwjd-herman tein-zeaxan (PRESERVISION AREDS-2) Take 1 Capsule by mouth daily. 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 Encounters Date Type Department Care Team Description 01/10/2025 9:50 AM STITCHER AROUND Ancillary Procedure [facility] [address] [facility] [address] [place] [phone] Ortiz Stone MD Low back pain 01/10/2025 9:30 AM STITCHER AROUND Office Visit [facility]surgery [address] [phone] Ortiz Stone MD Neurogenic claudication due to lumbar spinal stenosis (Primary Dx); Scoliosis of lumbar region due to degenerative disease of spine in adult; Post laminectomy syndrome; Spondylolisthesis of lumbar region; Ankylosis of spine; Lumbar spondylosis; Sagittal plane imbalance 01/10/[address] [facility] [address] [phone] Provider, Abstract 01/07/[address] [facility] [address] [address] [facility] [address] [place] [phone] Ortiz Stone MD from Last 3 Months Family History Medical History Relation Name Comments Colon Cancer Neg Hx Relation Name Status Comments Father Mother Social History Tobacco Use Types Packs/Day Years [...] Comments Blood Pressure 138/80 01/10/2025 9:40 AM STITCHER AROUND Pulse 67 01/10/2025 9:38 AM STITCHER AROUND Temperature 36.4 C (97.5 F) 01/10/2025 9:38 AM STITCHER AROUND Respiratory Rate 16 01/10/2025 9:38 AM STITCHER AROUND Oxygen Saturation 96% 01/10/2025 9:38 AM STITCHER AROUND Inhaled Oxygen Concentration - - Weight 87.4 kg (192 lb 9.6 oz) 01/10/2025 9:38 A M STITCHER AROUND Height 177.8 cm (5' 10) 01/10/2025 9:38 AM STITCHER AROUND Body Mass Index 27.64 01/10/2025 9:38 AM STITCHER AROUND Plan of Treatment Health Maintenance Due Date Last Done Comments DTAP/TDAP/TD VACCINES (1 - Tdap) 1959 ZOSTER VACCINE (1 of 2) 1989 RSV VACCINE (60+ or ) (1 - 1-dose 75+ series) 2014 COLORECTAL SCREENING 06/03/2016 06/03/2013, 06/02/19 14 INFLUENZA VACCINE (#1) 2024 COVID-19 Vaccine ( - 2024-2 6 season) 2024 12/14/2022, 11/13/2021, 07/14/2021, Additional history exists PNEUMOCOCCAL VACCINE 50+ YEARS Completed 12/04/2022 Procedures Procedure Name Priority Date/Time Associated Diagnosis Comments MRI LUMBAR WO CONTRAST Routine 12/02/2024 10:01 AM CDT from Last 3 Months Results * MRI LUMBAR WO CONTRAST (12/02/2024 10:01 AM CDT) Anatomical Region Laterality Modality Spine Magnetic Resonan ce us Abstract Provider MR ORDERABLES Final Result from Last 3 Months Insurance MEDICARE PART A AND B BCBS BLUE ACCESS/TRUE BLUE PPO Advance Directives For more information, please contact: [phone] * Full Code (Latest Code Status on File) Date Activated Date Inactivated Comments 06/01/2013 9:32 AM 06/01/2013 1:48 PM Care Teams Technical Product Manager Relationship Specialty Start Date End Date Shahzad Hilton DO [address] [place] [address] PCP - General Internal Medicine 01/10/25
--- OUTSIDE RECORDS SUMMARY | 2025-01-11 15:04 | XMS_ITS | Encounter Summary ---
Author Organization [facility] Address [address] [place] [address] Care Team Providers Care Licensed Psychologist Director Name Role Phone Shahzad Hilton DO Primary Care Provider Encounter Details Date Type Department Care Team (Late st Contact Info) Description 01/07/2025 Abstract [facility] [address] [facility] [address] [facility] [address] [place] [address] Ortiz Stone MD [address] [facility] [address] [place] [address] Social History Tobacco Use Types Packs/Day Years [...] on file documented as of this encounter Visit Diagnoses Not on filedocumented in this encounter Care Teams Licensed Psychologist Director Relationship Specialty Start Date End Date Shahzad Hilton DO [address] [place] [phone] PCP - General Internal Medicine 01/10/25 documented as of this encounter
--- OUTSIDE RECORDS SUMMARY | 2025-01-11 15:04 | XMS_ITS ---
Author Organization [facility] Address [address] [place] [address] Care Team Providers Care Vegetable Sorter Name Role Phone Shahzad Hilton DO Primary Care Provider [phone] Active Problems Problem Noted Date Diagnosed Date [...]
--- OUTSIDE RECORDS SUMMARY | 2025-01-11 15:04 | XMS_ITS | Clinical Summary ---
Author Organization [facility] Address [facility] [place] [address] Care Team Providers Care Glue Mixer Name Role Phone Mark Barrios MD Unavailable [phone] Robin South MD Primary Care Provider [phone] Allergies No known active allergies Medications isosorbide [...] Attack Brother 2 Heart Disease Brother 2 HI Brother 2 Cancer Brother 3 leukemia Cancer [...] Comments Blood Pressure 109/70 03/01/2022 12:21 PM SERVER PROGRAMMER Pulse 71 03/01/2022 12:21 PM SERVER PROGRAMMER Temperature 36.4 C (97.5 F) 03/01/2022 5:17 AM SERVER PROGRAMMER Respiratory Rate 18 03/01/2022 12:2 1 PM SERVER PROGRAMMER Oxygen Saturation 99% 03/01/2022 12: 21 PM SERVER PROGRAMMER Inhaled Oxygen Concentration - - Weight 83.9 kg (184 lb 15.5 oz) 022 12:05 PM SERVER PROGRAMMER Height 179.1 cm (5' 10.5) 02/28/2022 1 2:05 PM SERVER PROGRAMMER Body Mass Index 26.16 02/28/2022 12:05 PM SERVER PROGRAMMER Plan of Treatment Health Maintenance Due Date Last Done Comments DTaP, Tdap and Td Vaccines (1 - Tdap) 1959 Pneumococcal Vaccine: 50+ Years (1 of 1 - PCV) 1989 Zoster Vaccines (1 of 2) 1989 Annual Medicare Wellness Visit 2004 RSV Immunization or 60+ Years (1 - 1-dose 75+ series) 2014 COVID-19 Vaccine ( - season) 2024 11/13/2021, 07/14/2021, 12/01/2020 Influenza Adult (#1) 2024 11/30/2018, 11/13/2017, 11/14/2016, Additional history exists Hepatitis A Vaccines Aged Out No long er eligible based on patient's age to complete this topic Meningococcal B Vaccine Aged Out No l onger eligible based on patient's age to complete this topic Meningococcal Vaccine Aged Out No david ashtyn eligible based on patient's age to complete this topic RSV Immunizations Under 20 Months Aged Out No longer eligible based on patient's age [place] [address] MEDICARE [facility] Advance Directives * Full Code (Latest Code Status on File) Date Activated Date Inactivated Comments 02/28/2022 3:52 PM 03/01/2022 2:42 PM Care Teams Glue Mixer Relationship Specialty Start Date End Date Robin South MD [address] [place] [phone] PCP - General CARDIOVASCULAR DISEASE 12/26/21 Mark Barrios MD [facility] [address] [place] [address] CARDIOLOGY 12/26/21
--- OUTSIDE RECORDS SUMMARY | 2025-01-11 15:05 | XMS_ITS | Patient Health Record ---
Author Organization [facility] Address [address] [facility] [place] [place] [address] Care Team Providers Care Drilling Supervisor Name Role Phone Robin Swenson MD Primary Care Provider Un available Mitchel Grayd Unavailable [phone] Reason For Referral No Information Medications Medication [...] Problem Status W/U Status Risk Notes Problem Chest pain (16721336) Chest pain (R07.9) Active confirmed Plan Of Treatment No Information Insurance Providers Payer Name Payer Address Payer Phone Subscriber Number Group Number Insured Name Patient Relationship to Insured Coverage Start Date Coverage End Date Medicare E2 [address] [address] [place] [address] [id number] Barak Caraballo Self - patient is the insured 4 Blue Access Choice PPO E2 [address] [place] [address] [id number] Barak Caraballo Self - patient is the insured Medical (General) History Medical History History ICD Code Hiatal hernia GERD Colon polyps Anemia Hypertension Heart stents Sleep apnea Hearing loss Surgical History Surgery Date(Month/Year) EGD 12/2017 Spinal stenosis Deviated septum
--- OUTSIDE RECORDS SUMMARY | 2025-01-11 15:05 | XMS_ITS | Clinical Summary ---
Author Organization [facility] Address [address] [place] [address] Care Team Providers Care Electronic Technologist Name Role Phone Unavailable Primary Care Provider Unavailabl e Source Comments [facility],non-owned Affiliates and Associated Physician Practices is amultiple site organization consisting of ambulatory clinics and hospital sitesin [place], [place], [place] and [place]. This disclosure is being madepursuant to the Care Everywhere program and may not contain all information available regarding this patient. Last updated 17.[facility] Allergies No known active allergies Medications * [...] 36.7 C (98 F) 05/09/2023 8:16 AM PAYROLL BENEFITS ADMINISTRATOR Respiratory Rate 12 06/18/2023 10:05 AM CDT Oxygen Saturation 98% 05/09/2023 8:16 AM PAYROLL BENEFITS ADMINISTRATOR Inhaled Oxygen Concentration - - Weight 88.5 [...] yrs (1 - 1-dose 75+ series) 2014 DEPRESSION SCREENING 2024 05/08/2023 COVID-19 VACCINE ( season) 2024 12/14/2022, 11/13/2021, 07/14/2021, Additional history exists INFLUENZA VACCINE (#1) 2024 , 11/13/2021, 11/17/2020, [...] this topic Medical Devices Implanted Type Area Restaurant Server Device Identifier Shelf Expiration Date Model / Serial / Lot Stent - Vascular Stent - Vascular [place] [place] [address] [place] MEDICARE [facility] Care Address: [address] [place] [phone] Advance Directives * Full Code (Latest Code Status on File) Date Activated Date Inactivated Comments 05/08/2023 4:35 PM 05/09/2023 6:31 PM
--- OUTSIDE RECORDS SUMMARY | 2025-01-11 15:05 | XMS_ITS | Clinical Summary ---
Author Organization [facility] Address [address] [facility] [place] [address] Care Team Providers Care Freight Hustler Name Role Phone Shahzad Hilton DO Primary Care Provider Encounters Date Type Department Care Team Description 12/02/2024 9:32 AM CDT - 12/02/2024 11:59 PM CDT [facility] [address] [place] [address] Robin Sam MD Discharge Disposition: Discharged to home or Selfcare 12/02/2024 9:31 AM CDT Hospital [facility] [address] [place] [id number] Robin Sam MD Discharge Disposition: Discharged to home or Selfcare 12/02/2024 Travel 11/30/2024 [facility]phone [facility] [address] [place] [address] Shahzad Hilton DO Appointment 11/18/2024 Transcribe Orders [facility] Scheduling [address] [place] [address] Robin Sam MD Dorsalgia (Primary Dx); Spinal stenosis of thoracic region; Radiculopathy, thoracic region; Vertebrogenic low back pain; Spinal stenosis, lumbar region, with neurogenic claudication; Other specified postprocedural states; Spondylosis without myelopathy or radiculopathy, lumbosacral region from Last 3 Months Social History Tobacco Use Types Packs/Day Years Used Date Smoking Tobacco: Never Assessed Sex and Gender Information Value Date Recorded Sex Assigned at Not on file Legal Sex Male 11:01 AM CDT Gender Identity Not on file Sexual Orientation Not on file Last Filed Vital Signs Vital Sign Reading Time Taken Comments Blood Pressure - - Pulse - - Temperature - - Respiratory Rate - - Oxygen Saturation - - Inhaled Oxygen Concentration - - Weight 83.9 kg (185 lb) 12/02/2024 10:22 AM CDT Height 179.1 cm (5' 10.5) 12/02/2024 10:22 AM C DT Body Mass Index 26.17 12/02/2024 10:22 AM CDT Plan of Treatment Health Maintenance Due Date Last Done Comments Hepatitis C Virus (HCV) Screening 1940 TdaP Immunization 1940 Zoster Immunization (1 of 2) 1989 Respiratory Syncytial Virus (RSV) Immunization (Adult) (1 - 1-dose 75+ series) 2014 Medicare Initial AWV G0438 2023 Influenza Immunization (#1) 11/01/202409/2023, 12/04/2022, 11/13/2021, Additional history exists SARS-COV-2 Immunization ( season) 2024 12/08/2023, 12/14/2022, 11/13/2021, Additional history exists Pneumococcal Immunization (50+ years) Completed 12/04/2022, 12/21/2015 Hepatitis B Immunization Aged Out No longer eligible based on patient's age to complete this topic Human Papillomavirus (HPV) Immunization Aged Out No longer eligible based on patient's age to complete this topic Meningococcal Immunization (ACWY) Aged Out No longer eligible based on patient's age to complete this topic Rotavirus Immunization Aged Out No lo nger eligible based on patient's age to complete this topic Procedures Procedure Name Priority Date/Time Associated Diagnosis Comments MRI L-SPINE W/O CONTRAST Routine 12/02/2024 11:03 AM CDT Vertebrogenic low back pain Spinal stenosis, lumbar region, with neurogenic claudication Other specified postprocedural states Spondylosis without myelopathy or radiculopathy, lumbosacral region MRI T-SPINE W/O CONTRAST Routine 12/02/2024 11:03 AM CDT Dorsalgia Spinal stenosis of thoracic region Radiculopathy, thoracic region from Last 3 Months Results * MRI L-SPINE W/O CONTRAST (12/02/2024 11:03 AM CDT) Anatomical Region Laterality Modality Spine, L-spine N/A Magnetic Resonan ce 12/02/2024 11:0 3 AM CDT Impressions 12/06/2024 3:06 PM CDT IMPRESSION: 1. Postsurgical and multilevel degenerative changes of the lumbar spine as described above. Spinal canal stenosis is most prominent and severe from L3-L5. Neural foraminal stenosis is moderate and severe at multiple levels. Narrative 12/06/2024 3:06 PM CDT DICTATING PHYSICIAN: Richard Babin M.D. - [facility] EXAM: MRI L-SPINE W/O CONTRAST, 12/02/2024 11:03 AM COMPARISON: None. INDICATION: Vertebral flow back pain, spinal stenosis, lumbar region with neurogenic claudication, postprocedural state, spondylosis, lumbosacral region. PROCEDURE: Multisequence, multiplanar images were acquired of the lumbar spine without intravenous contrast. FINDINGS: Count: As counting from above is not possible, for purposes of this dictation there are 5 lumbar type vertebral bodies and the last well-formed disc space is labeled as L5-S1. Alignment: Leftward curvature of the lumbar spine. Mildly exaggerated lumbar lordosis. Grade 1 anterolisthesis of L3 on L4 and L4 on L5. Mild retrolisthesis of L1 on L2. Bones: Prominent T1 hypointense, STIR hyperintense signal involving the endplates and majority of the L3 and L4 vertebral bodies. Bone marrow signal is otherwise mildly heterogeneous. Mild endplate compression deformities from L2-L4. Segmental analysis: Diffuse disc desiccation. Severe disc height loss at L2-L4, mild to moderate disc height loss elsewhere. Solid osseous fusion across the disc space at L5-S1. Additional level specific findings as follows: T12-L1: Marginal osteophyte production and partial osseous fusion across the disc space. No significant spinal canal or neural foraminal stenosis. L1-L2: Circumferential disc bulge, marginal osteophyte production, mild to moderate facet hypertrophy more prominent on the right, and ligamentum flavum thickening. Right greater than left subarticular recess stenosis, mild spinal canal stenosis, severe right and mild to moderate left neural foraminal stenosis. L2-L3: Prior left laminectomy. Circumferential disc bulge and marginal osteophyte production asymmetric more prominent to the right, moderate to severe facet hypertrophy. Right greater than left subarticular recess stenosis, mild spinal canal stenosis, severe right and moderate left neural foraminal stenosis. L3-L4: Circumferential disc bulge, marginal osteophyte production, severe facet hypertrophy, and ligamentum flavum thickening. Effacement of the subarticular recesses, severe spinal canal and neural foraminal stenosis. L4-L5: Prior laminectomy. Circumferential disc bulge and marginal osteophyte production asymmetric more prominent on the left, severe facet hypertrophy. Effacement of the subarticular recesses, severe spinal canal stenosis, moderate to severe neural foraminal stenosis. L5-S1: Bulky marginal osteophyte production, severe left and mild right facet hypertrophy, and ligamentum flavum thickening. Mild left subarticular recess stenosis, no significant spinal canal stenosis, mild right and mild to moderate left neural foraminal stenosis. Spinal canal: Distal spinal cord is unremarkable in appearance. Conus terminates at the T12-L1 level. Grouping of the cauda equina at levels of high-grade spinal canal stenosis with mild adjacent nerve root redundancy. Extravertebral soft tissues: Unremarkable. Visualized abdomen and pelvis: Decompressed urinary bladder with mild circumferential wall thickening. Additional findings: None. Procedure Note Richard Babin MD - 12/06/2024 DICTATING PHYSICIAN: Richard Babin M.D. - [facility] EXAM: MRI L-SPINE W/O CONTRAST, 12/02/2024 11:03 AM COMPARISON: None. INDICATION: Vertebral flow back pain, spinal stenosis, lumbar region withneurogenic claudication, postprocedural state, spondylosis, lumbosacralregion. PROCEDURE: Multisequence, multiplanar images were acquired of the lumbarspine without intravenous contrast. FINDINGS: Count: As counting from above is not possible, for purposes of thisdictation there are 5 lumbar type vertebral bodies and the lastwell-formed disc space is labeled as L5-S1. Alignment: Leftward curvature of the lumbar spine. Mildly exaggeratedlumbar lordosis. Grade 1 anterolisthesis of L3 on L4 and L4 on L5. Mildretrolisthesis of L1 on L2. Bones: Prominent T1 hypointense, STIR hyperintense signal involving theendplates and majority of the L3 and L4 vertebral bodies. Bone marrowsignal is otherwise mildly heterogeneous. Mild endplate compressiondeformities from L2-L4. Segmental analysis: Diffuse disc desiccation. Severe disc height loss atL2-L4, mild to moderate disc height loss elsewhere. Solid osseous fusionacross the disc space at L5-S1. Additional level specific findings asfollows: T12-L1: Marginal osteophyte production and partial osseous fusion acrossthe disc space. No significant spinal canal or neural foraminalstenosis. L1-L2: Circumferential disc bulge, marginal osteophyte production, mild tomoderate facet hypertrophy more prominent on the right, and ligamentumflavum thickening. Right greater than left subarticular recess stenosis,mild spinal canal stenosis, severe right and mild to moderate left neuralforaminal stenosis. L2-L3: Prior left laminectomy. Circumferential disc bulge and marginalosteophyte production asymmetric more prominent to the right, moderate tosevere facet hypertrophy. Right greater than left subarticular recessstenosis, mild spinal canal stenosis, severe right and moderate leftneural foraminal stenosis. L3-L4: Circumferential disc bulge, marginal osteophyte production, severefacet hypertrophy, and ligamentum flavum thickening. Effacement of thesubarticular recesses, severe spinal canal and neural foraminalstenosis. L4-L5: Prior laminectomy. Circumferential disc bulge and marginalosteophyte production asymmetric more prominent on the left, severe facethypertrophy. Effacement of the subarticular recesses, severe spinal canalstenosis, moderate to severe neural foraminal stenosis. L5-S1: Bulky marginal osteophyte production, severe left and mild rightfacet hypertrophy, and ligamentum flavum thickening. Mild leftsubarticular recess stenosis, no significant spinal canal stenosis, mildright and mild to moderate left neural foraminal stenosis. Spinal canal: Distal spinal cord is unremarkable in appearance. Conusterminates at the T12-L1 level. Grouping of the cauda equina at levels ofhigh-grade spinal canal stenosis with mild adjacent nerve root redundancy. Extravertebral soft tissues: Unremarkable. Visualized abdomen and pelvis: Decompressed urinary bladder with mildcircumferential wall thickening. Additional findings: None. IMPRESSION: 1. Postsurgical and multilevel degenerative changes of the lumbar spineas described above. Spinal canal stenosis is most prominent and severefrom L3-L5. Neural foraminal stenosis is moderate and severe at multiplelevels. Robin Sam MD IMG MR ORDERABLES Final Result * MRI T-SPINE W/O CONTRAST (12/02/2024 11:03 AM CDT) Anatomical Region Laterality Modality Spine, T-spine N/A Magnetic Resonan ce 12/02/2024 11:0 3 AM CDT Impressions 12/02/2024 5:40 PM CDT IMPRESSION: No acute findings or significant spinal stenosis. Mild wedging T3 may represent a mild chronic compression fracture. Narrative 12/02/2024 5:40 PM CDT MRI T-SPINE W/O CONTRAST : 12/02/2024 11:03 AM DICTATING PHYSICIAN: PACO PAVON [facility]. HISTORY: As below. ADDITIONAL TECHNOLOGIST HISTORY: Dorsalgia, unspecified, Spinal stenosis, thoracic region, Radiculopathy, thoracic region COMPARISON: None. TECHNIQUE: Multiplanar multisequence MRI imaging of the thoracic spine was obtained without contrast. Vertebral bodies are numbered on the sagittal T2 series. FINDINGS: Alignment: Normal. Curvature: Normal kyphosis. Postop changes: None. Vertebral body heights: Mild anterior wedge compression fracture T3 without retropulsion which appears chronic. Disk heights: Mild mid to lower thoracic disc height loss Cord: Cord demonstrate normal morphology and signal. Marrow: Modic type I degenerative endplate edema anteriorly T2-T3, marrow is otherwise heterogeneous without focal suspicious lesion. There is edema secondary to Schmorl's node along the inferior endplate of T7. Central canal or foraminal stenoses: Mild central canal stenosis T2-T3 secondary to disc/osteophyte complex. Tiny disc bulge at T7-T8 without stenosis. Paraspinous findings: Visualized paraspinous soft tissues are within normal limits. Procedure Note Paco Pavon MD - 12/02/2024 MRI T-SPINE W/O CONTRAST : 12/02/2024 11:03 AM DICTATING PHYSICIAN: PACO PAVON [facility]. HISTORY: As below. ADDITIONAL TECHNOLOGIST HISTORY: Dorsalgia, unspecified, Spinal stenosis,thoracic region, Radiculopathy, thoracic region COMPARISON: None. TECHNIQUE: Multiplanar multisequence MRI imaging of the thoracic spine was obtainedwithout contrast. Vertebral bodies are numbered on the sagittal [id number]. FINDINGS: Alignment: Normal. Curvature: Normal kyphosis. Postop changes: None. Vertebral body heights: Mild anterior wedge compression fracture [id number] retropulsion which appears chronic. Disk heights: Mild mid to lower thoracic disc height loss Cord: Cord demonstrate normal morphology and signal. Marrow: Modic type I degenerative endplate edema anteriorly T2-T3, marrowis otherwise heterogeneous without focal suspicious lesion. There is edemasecondary to Schmorl's node along the inferior endplate of T7. Central canal or foraminal stenoses: Mild central canal stenosis T2-[id number] to disc/osteophyte complex. Tiny disc bulge at T7-T8 withoutstenosis. Paraspinous findings: Visualized paraspinous soft tissues are withinnormal limits. IMPRESSION: No acute findings or significant spinal stenosis. Mild wedging T3 mayrepresent a mild chronic compression fracture. Robin Sam MD IM MR ORDERABLES Final Result from Last 3 Months Insurance MEDICARE C [employer] Care Teams Freight Hustler Relationship Specialty Start Date End Date Shahzad Hilton DO [address] [place] [address] [place] [address] PCP - General Internal Medicine 11/22/24
--- OUTSIDE RECORDS SUMMARY | 2025-01-11 15:05 | XMS_ITS | Encounter Summary ---
Author Organization [facility] Address [address] [place] [address] Care Team Providers Care Butt Sawyer Name Role Phone Mark Barrios MD Unavailable [phone] Robin South MD Primary Care Provider [phone] Encounter Details Date Type Department Care Team (Late st Contact Info) Description 02/20/2022 Prep for Procedure [facility] Pre-Admission Testing [address] [place], [place] [id number] Grant Sánchez MD [address] [facility] [place], [place] [id number] Social History Tobacco Use Types Packs/Day Years [...] Coronavirus/COVID-19? No / Unsure 02/20/2022 3:28 PM NURSE DISCHARGE documented as of this encounter Plan of Treatment Not on file documented as of this encounter Results * PTT, PARTIAL THROMBOPLASTIN TIME (02/20/2022 3:58 PM NURSE DISCHARGE) PTT 26.7 25.1 - 36.5 SEC 02/20/2022 4:[address] [facility] 02/20/2022 3:58 PM NURSE DISCHARGE Grant Sánchez MD LABORATORY Lou l Result Performing Organization Address [facility] Co de Phone Number [facility] [address] [place] [address], [place] [phone] * PROTIME/INR, VENOUS (02/20/2022 3:58 PM NURSE DISCHARGE) PROTIME 11.8 10.2 - 12.9 SEC 02/20/2022 4:[address] [facility] INR 1.0 02/20/2022 4:[address] [facility] Comment: Recommended INR Therapeutic Goals: 2.0-3.0 Routine Therapy 2.5-3.5 Mechanical Prosthetic Valves (High Risk) 02/20/2022 3:58 PM NURSE DISCHARGE Grant Sánchez MD LABORATORY Lou l Result Performing Organization Address [facility] Co de Phone Number [facility] [address] [place] [address], [place] [phone] * TYPE & SCREEN (02/20/2022 3:58 PM NURSE DISCHARGE) ABO/RH AB POSITIVE 02/20/2022 5:[address] [facility] ANTIBODY SCREEN NEGATIVE 02/20/2022 5:[address] [facility] SAMPLE EXPIRATION 2022,2 359 02/28/2022 12:[address] [facility] COMMENT NO HISTORY OF TRANSFUSIONS , OR ANTIBODIES, NEW SPECIMEN NOT NEEDED 02/28/2022 12:[address] [facility] 02/20/2022 3:58 PM NURSE DISCHARGE Grant Sánchez MD BLOOD BANK TEST ALESSIA ROOT Final Result [facility] [address] [place] [address], * (ABNORMAL) BASIC METABOLIC PANEL (02/20/2022 3:58 PM NURSE DISCHARGE) Pathologist [facility] GLUCOSE 114(H) 70 - 99 MG/DL 02/20/2022 4:[address] [facility] BUN 21(H) 7 - 18 MG/DL 02/20/2022 4:[address] [facility] CREATININE S/P/B 1.22 0.7 - 1.3 MG/DL 02/20/2022 4:[address] [facility] SODIUM S/P/B 128(L) 136 - 145 MMOL/L 02/20/2022 4:[address] [facility] POTASSIUM S/P/B 3.8 3.5 - 5.1 MMOL/L 02/20/2022 4:[address] [facility] CHLORIDE S/P/B 97(L) 100 - 108 MMOL/L 02/20/2022 4:[address] [facility] CO2 29.5 21 - 32 MMOL/L 02/20/2022 4:[address] [facility] CALCIUM S/P/B 9.3 8.5 - 10.1 MG/DL 02/20/2022 4:[address] [facility] ANION GAP 1.5(L) 5 - 15 MMOL/L 02/20/2022 4:[address] [facility] BUN CREATININE RATIO 17.2 6 - 26 02/20/2022 4:[address] [facility] GFR ESTIMATE 59(L) >90 ML/MIN/1.7 3 M2 02/20/2022 4:[address] [facility] Comment: NOTE: eGFR is not calculated for patients <18 years of age. This is an estimated GFR calculation using the new CKD EPI creatinine equation without race and so does not require a correction factor for race. This estimated GFR should not be used for calculating drug doses. 02/20/2022 3:58 PM NURSE DISCHARGE Grant Sánchez MD LABORATORY Lou hinds Result [facility] [address] [place] [address], [place] [phone] * (ABNORMAL) CBC W/DIFF AUTOMATED (02/20/2022 3:58 PM NURSE DISCHARGE) WBC 8.9 4.5 - 11.0 x10'3/uL 02/20/2022 4:[address] [facility] RBC 4.27(L) 4.70 - 6.10 x10'6/uL 02/20/2022 4:19 PM [facility] HGB 13.9(L) 14.0 - 18.0 G/DL 02/20/2022 4:[address] [facility] HCT 40.1(L) 43.0 - 54.0 % 02/20/2022 4:19 PM [facility] MCV 93.9 80.0 - 94.0 FL 02/20/2022 4:19 PM [facility] MCH 32.6(H) 27.0 - 31.0 PG 02/20/2022 4:19 PM [facility] MCHC 34.7 32.0 - 36.0 G/DL 02/20/2022 4:19 PM [facility] RDW 12.9 11.5 - 14.5 % 02/20/2022 4:19 PM [facility] PLT 220 130 - 400 x10'3/uL 02/20/2022 4:19 PM [facility] MPV 9.7 9.3 - 12.2 FL 02/20/2022 4:19 PM [facility] DIFFERENTIAL TYPE AUTOMATED DIFFERENTIAL 02/20/2022 4:19 PM [facility] NEUTROPHILS % 83.2 % 02/20/2022 4:19 PM [facility] LYMPHOCYTES % 8.1 % 02/20/2022 4:19 PM [facility] MONOCYTES % 7.8 % 02/20/2022 4:19 PM [facility] EOSINOPHILS 0.0 % 02/20/2022 4:19 PM [facility] BASOPHILS 0.2 % 02/20/2022 4:19 PM [facility] IMMATURE GRANS % 0.7 % 02/21/20 4:19 PM [facility] ABS. NEUTROPHILS TOTAL 7.42 1.80 - 7.70 x10'3/uL 02/20/2022 4:19 PM [facility] ABS. LYMPHOCYTES 0.72(L) 1.00 - 4.80 x10'3/uL 02/20/2022 4:19 PM [facility] ABS. MONOCYTES 0.70 0.30 - 0.82 x10'3/uL 02/20/2022 4:19 PM [facility] ABS. EOSINOPHILS 0.00(L) 0.04 - 0.54 x10'3/uL 02/20/2022 4:19 PM [facility] ABS. BASOPHILS 0.02 0.01 - 0.08 x10'3/uL 02/20/2022 4:[address] [facility] ABS. IMMATURE GRANULOCYTES 0.06 0.00 - 0.49 x10'3/uL 02/20/2022 4:[address] [facility] 02/20/2022 3:58 PM NURSE DISCHARGE Grant Sánchez MD LABORATORY Lou l Result Performing Organization Address [facility] Co de Phone Number [facility] [address] [place] [address], [place] [phone] * CULTURE URINE (02/20/2022 3:53 PM NURSE DISCHARGE) SPEC DESCRIPTION URINE CLEAN CATCH 02/20/2022 3:[address] [facility] SPECIAL REQUESTS NO SPECIAL REQUEST 02/20/2022 3:[address] [facility] CULTURE RESULT NO GROWTH 2 DAYS 02/22/2022 8:[address] [facility] URINE SPECIMEN OBTAINED BY CLEAN CATCH PROCEDURE / Unknown 02/20/2022 3:53 PM NURSE DISCHARGE 02/20/2022 4:02 PM NURSE DISCHARGE Grant Sánchez MD MICROBIOLOGY - GENER AL ORDERABLES Final Result Performing Organization Address [facility] Co de Phone Number [facility] [address] [place] [address], [place] [phone] documented in this encounter Visit Diagnoses Diagnosis Preop examination- Primary Preoperative examination, unspecified Nocturia CAD (coronary artery disease) Coronary atherosclerosis of unspecified type of vessel, [place]ta or graft documented in this encounter Care Teams Butt Sawyer Relationship Specialty Start Date End Date Robin South MD [address] [place] [address] [address], [place] [address] PCP - General CARDIOVASCULAR DISEASE 12/26/21 Mark Barrios MD [facility] [address] [place] [address] Rd [address] [place] [address] CARDIOLOGY 12/26/21 documented as of this encounter
--- OUTSIDE RECORDS SUMMARY | 2025-01-11 15:05 | XMS_ITS | Patient Health Record ---
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) (02638926) Spondylosis without myelopathy or radiculopathy, lumbosacral region (M47.817) Active confirmed Problem Lumbar radiculopathy (015305362) Radiculopathy, lumbar region (M54.16) Active confirmed Problem Spinal stenosis of lumbar region (23464690) 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) Active confirmed Problem Acquired spondylolisthesis (035294856) Spondylolisthesis at L4-L5 level (M43.16) Active confirmed Problem History of lumbar laminectomy (78896822734497375) History of lumbar laminectomy (Z98.890) Active confirmed Problem Solitary sacroiliitis (286874128) 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
--- OUTSIDE RECORDS SUMMARY | 2025-01-11 15:05 | XMS_ITS | Encounter Summary ---
Author Organization [facility] Address [address] [place] [address] Care Team Providers Care Velvet Steamer Name Role Phone Shahzad Hilton DO Primary Care Provider Encounter Details Date Type Department Care Team (Late st Contact Info) Description 01/10/2025 Orders Only [facility] [address] [place] [address] Provider, Abstract NO ADDRESS ON FILE Social History Tobacco Use Types Packs/Day Years [...] on file documented as of this encounter Procedures Procedure Name Priority Date/Time Associated Diagnosis Comments MRI LUMBAR WO CONTRAST Routine 12/02/2024 10:01 AM CDT documented in this encounter Results * MRI LUMBAR WO CONTRAST (12/02/2024 10:01 AM CDT) Anatomical Region Laterality Modality Spine Magnetic Resonan ce us Abstract Provider MR ORDERABLES Final Result documented in this encounter Visit Diagnoses Not on filedocumented in this encounter Care Teams Velvet Steamer Relationship Specialty Start Date End Date Shahzad Hilton DO [address] [place] [address] PCP - General Internal Medicine 01/10/25 documented as of this encounter
[2025-01-11 18:59] LABS: Albumin Level 4.1 g/dL (3.5-5.1); Anion Gap 5 mmol/L (4-12); Blood Urea Nitrogen 16 mg/dL (9-20); Calcium 9.0 mg/dL (8.4-10.2); Carbon Dioxide 30 mmol/L (22-30); Chloride 100 mmol/L (98-107); Estimated Glomerular Filt Rate > 60; Glucose 87 mg/dL (65-110); Potassium 4.0 mmol/L (3.4-5.0); Sodium 135 mmol/L (137-145)
[2025-01-11 19:11] LABS: Parathyroid Intact 57.0 pg/mL (14.5-75.2)
[2025-01-11 19:13] LABS: Hematocrit 41.1 % (42.0-52.0); Hemoglobin 13.5 g/dL (14.0-18.0); Mean Corpuscular HGB Conc 32.8 g/dl (32-36); Mean Corpuscular Hemoglobin 32.9 pg (26-34); Mean Corpuscular Volume 100.2 fl (80-100); Platelet Count Result 191 k/mm3 (150-375); Red Blood Count 4.10 M/mm3 (4.6-6.20); White Blood Count 5.1 K/mm3 (4.5-10.0)
[2025-01-11 19:14] LABS: Total Protein Urine Random 8 mg/dL; Ur Ttl Prot Creatinine Ratio 0.07 mg/mg (0-0.20)
== END 2025-01-11 15:01 | disposition home or self-care (01) ==
LOC: ANHGOSHLAB 15:01
PROVIDERS: PCP Internal Medicine; Visit Provider Internal Medicine Nephrology
DX: N18.31 Chronic kidney disease, stage 3a (principal)
CPT/HCPCS: 36415; 80069; 82570; 83970; 84156; 85027

== ENCOUNTER 2025-03-02 13:11 | Emergency (ER) | payer OTHER, SELFPAY ==
[2025-03-02 13:24] VITALS: BP 125/84; PULSE 70; RESP 16; TEMP 36.6; O2SAT 98
--- NOTE | 2025-03-02 13:41 | ED.URI ---
HPI - URI/Sore Throat General Chief Complaint: Upper Respiratory Infection Stated Complaint: head, sore throat Time Seen by Provider: 03/02/25 13:41 Source: patient Mode of arrival: ambulatory Limitations: no limitations History of Present Illness HPI Narrative: 85 yo M presents with c/o chest congestion, cough, sore throat, fatigue for 4 days. also reports drainage and redness to L eye. All systems reviewed and negative except as noted above. Related Data Home Medications ?Medication ?Instructions ?Recorded ?Confirmed ?Last Taken ?Type PreserVision AREDS-2 1 tablet PO BID 01/01/19 03/02/25 08/10/24 History aspirin 81 mg tablet,delayed 81 mg PO DAILY 01/01/19 03/02/25 09/20/24 History release (Adult Low Dose Aspirin) atorvastatin 40 mg tablet 40 mg PO DAILY 01/01/19 03/02/25 09/28/24 History lisinopril 20 mg tablet 20 mg PO DAILY 01/01/19 03/02/25 08/10/24 History magnesium 200 mg tablet 400 mg PO DAILY 03/27/23 03/02/25 08/10/24 History turmeric root extract 500 mg 500 mg PO DAILY 07/14/23 03/02/25 08/10/24 History capsule cyclosporine 0.05 % eye drops in a 1 drp EACH EYE Q12H 10/23/23 03/02/25 08/10/24 History dropperette glucosamine 500 mg-chondroitin 2 cap PO QAM 07/13/24 03/02/25 08/10/24 History 116.7 mg-herbal no.270 133.3 mg capsule (Cosamin ASU (with AKBA)) isosorbide mononitrate 60 mg 60 mg PO QHS 07/13/24 03/02/25 08/10/24 History tablet,extended release 24 hr fzstguqb-[id number]-yakql 300 mcg-K 60 1 tablet PO DAILY 07/13/24 03/02/25 08/10/24 History mcg-lycop 600 mcg-lutein 300 mcg tablet (Centrum Silver Men) acetaminophen 325 mg capsule 650 mg PO Q4-6H PRN pain 08/06/24 03/02/25 08/10/24 History omega 6-pwo-wls-fish oil 100 1 cap PO DAILY 09/20/24 03/02/25 Unknown History mg-160 mg-1,000 mg capsule (Fish Oil) ferrous sulfate 325 mg (65 mg 325 mg PO DAILY 01/18/25 03/02/25 Unknown History iron) tablet Allergies Allergy/AdvReac Type Severity Reaction Status Date / Time No Known Allergies Allergy Unknown Verified 03/02/25 13:18 [facility] Past Medical History Medical History Arthritis GERD (gastroesophageal reflux disease) Sleep apnea Shortness of breath Hearing loss Changes in vision Rotator cuff arthropathy of left shoulder DJD of left shoulder Rotator cuff syndrome of left shoulder Left shoulder pain Fatigue Spinal stenosis, lumbar region with neurogenic claudication Chronic low back pain Vertebrogenic low back pain Brain bleed (~09/11/19) Left supraspinatus tendinitis Multiple fractures of ribs of right side Coronary artery disease Hyperlipidemia Hypertension Surgical History Surgical History History of lumbosacral spine surgery Dr. Mcbride -05/19/2017 S/P TURP (~02/18/22) 02/28/2022- Dr Sánchez Hx of cholecystectomy (~03/23/19) 03/23/2019-Dr. Johns History of nasal surgery (~05/28/18) 02/12/2018-Dr. Kaye , 05/28/2018-Dr. Kaye S/P correction of deviated nasal septum (~02/12/18) History of heart artery stent 3 placed in 08/14/18 1 placed 10/07/18- Dr. Barrios Family History Family History Father Heart disease Mother Heart disease Hypertension Sibling Hypertension Heart disease Social History Social History Social History: Caffeine- coffee Years smoked: 10 Smoking status: Former smoker Tobacco type: cigarettes Second hand tobacco smoke exposure: Yes Smoking end date: 03/03/66 Alcohol intake: current Drinks per week: 5 Alcohol use details: beer Substance use: never Substance use type: does not use Lack of Transportation: No Lack of Food: Never True Current Housing: I Have Housing Concerned About Future Housing: No Difficulty Paying Gas/Electric Bills: No Difficulty Paying for Meds: No Currently Unemployed: No Education: Associate Degree Difficulty w/ Childcare or Family Care: No Living arrangements: with family Additional living arrangements comments: Occupation/Education: retired Gender identity (if verbalized by the patient): Male Spiritual care concerns: No Agree to blood products: Yes Comments At time of signature, agree with nursing past medical, surgical, social and family history. There is no relevant family history pertinent to the presenting complaint. Exam Narrative: GENERAL: This is a well-nourished, well-developed patient, in no apparent distress. HEAD: normocephalic, atraumatic. EYES: PERRL. Erythema to left conjunctiva and sclera With purulent drainage. Right normal. EARS: External ears normal, auditory canals clear and without drainage, TMs normal without perforation. Hearing grossly intact. NOSE: External nose normal with clear nasal drainage THROAT: Mucous membranes moist, posterior pharynx clear. NECK: Neck supple, non-tender without lymphadenopathy, masses or thyromegaly. CARDIOVASCULAR: Regular rate and rhythm without murmurs, gallops, or rubs. RESPIRATORY:rhonchi to bilateral lower lung little. Breath sounds equal bilaterally. No wheezes, rales SKIN: warm, Dry, intact with no suspicious lesions or rash, good texture and turgor. NEURO: awake, alert, and oriented to person, place and time. There were no obvious focal neurologic abnormalities. EXTREMITIES: No joint tenderness, effusion, or edema noted. Course Course Level of Care: Express Care Visit Vital Signs Vital signs: Vital Signs Temperature 36.6 C 03/02/25 13:24 Pulse Rate 70 03/02/25 13:24 Respiratory Rate 16 03/02/25 13:24 Blood Pressure 125/84 03/02/25 13:24 Pulse Oximetry 98 03/02/25 13:24 Temperature 36.6 C 03/02/25 13:24 Pulse Rate 70 03/02/25 13:24 Respiratory Rate 16 03/02/25 13:24 Blood Pressure 125/84 03/02/25 13:24 Pulse Oximetry 98 03/02/25 13:24 reviewed MDM MDM Narrative Medical decision making narrative: will treat patient with antibiotic for acute bronchitis. Rhonchi noted on auscultation. Chest x-ray was offered but patient declined. Will treat patient with antibiotic eyedrops for conjunctivitis left eye. Patient agrees with plan of care. Differential Diagnosis Differential Diagnosis: Differential diagnostic considerations for upper respiratory infection include upper respiratory infection, croup, otitis media, sinusitis, viral infection, bronchitis, influenza, pharyngitis, strep, uvulitis.? Lab Data Labs: Lab Results 03/02/25 Range/Units 13:58 POC Influenza A Ag Negative (Negative) POC Influenza B Ag Negative (Negative) POC SARS CoV-2 Ag Negative (Negative) POC Grp A Strep Screen Negative (Negative) Discharge Plan Discharge Clinical Impression: Acute bronchitis, Acute bacterial conjunctivitis of left eye Patient Disposition: Home Condition: Stable Instructions: Antibiotic Form, Acute Bronchitis (ED), Conjunctivitis (ED) Additional Instructions: Patient Language: Swazi Prescriptions: New ofloxacin 0.3 % drops See Rx Instructions EACH EYE .COMPLEX Qty: 5 0RF Rx Instructions: put 1 drop into affected eye(s) every 4 hr x 2 days, then 1 drop 4 times a day for 7 days doxycycline hyclate 100 mg capsule 100 mg PO BID 7 Days Qty: 14 0RF benzonatate 200 mg capsule 200 mg PO TID PRN (Reason: cough) Qty: 20 0RF fluticasone propionate [Flonase Allergy Relief] 50 mcg/actuation spray,suspension 1 spray intranasal BID Qty: 16 0RF Rx Instructions: administer into each nostril No Action ferrous sulfate 325 mg (65 mg iron) tablet 325 mg PO DAILY isosorbide mononitrate 60 mg tablet extended release 24 hr 60 mg PO QHS Patient Comments: HS magnesium 200 mg tablet 400 mg PO DAILY turmeric root extract 500 mg capsule 500 mg PO DAILY cyclosporine 0.05 % dropperette 1 drp EACH EYE Q12H Cosamin ASU (with AKBA) 500 mg-116.7 mg-133.3 mg capsule 2 cap PO QAM Centrum Silver Men [id number] mcg tablet 1 tablet PO DAILY atorvastatin 40 mg Tablet 40 mg PO DAILY lisinopril 20 mg Tablet 20 mg PO DAILY aspirin [Adult Low Dose Aspirin] 81 mg Tablet,Delayed Release (Dr/Ec) 81 mg PO DAILY Patient Comments: PreserVision AREDS-2 1 tablet PO BID Fish Oil 100-160-1,000 mg capsule 1 cap PO DAILY omeprazole 20 mg capsule,delayed release(DR/EC) See Rx Instructions .ROUTE .COMPLEX Qty: 90 1RF Dose Instruction: TAKE 1 CAPSULE BY MOUTH EVERY DAY Rx Instructions: TAKE 1 CAPSULE BY MOUTH EVERY DAY acetaminophen 325 mg capsule 650 mg PO Q4-6H PRN (Reason: pain) Follow-up/Referrals: Shahzad Hilton DO [Primary Care Provider, Internal Medicine] Time of Disposition: 13:52
[2025-03-02 14:03] LABS: EDCOVIDSCREEN Negative (Negative); EDINFLUASCREEN Negative (Negative); EDINFLUBSCREEN Negative (Negative); EDSTREPNEGPOS1 Negative (Negative)
== END 2025-03-02 14:00 | disposition home or self-care (01) ==
PROVIDERS: Emergency Provider Nurse Practitioner Family; PCP Internal Medicine
DX: J40 Bronchitis, not specified as acute or chronic (principal); H10.32 Unspecified acute conjunctivitis, left eye; Z20.822 Contact with and (suspected) exposure to COVID-19; K21.9 Gastro-esophageal reflux disease without esophagitis; M19.012 Primary osteoarthritis, left shoulder; I25.10 Atherosclerotic heart disease of native coronary artery without angina pectoris; E78.5 Hyperlipidemia, unspecified; I10 Essential (primary) hypertension; F17.210 Nicotine dependence, cigarettes, uncomplicated
CPT/HCPCS: 87081; 87426; 87804; 87880; 99213; G0463